=== PATIENT | female | born 1980 | race Caucasian/White ===

== ENCOUNTER 2016-11-03 11:49 | Emergency (ER) | payer OTHER ==
[~2016-11-03] VITALS: Ht 167.6 cm; Wt 110.0 kg
[~2016-11-03 11:49] MED LIST: AMOX1TAB11 PO; ARIP10TA13 PO; ARIP5TAB6 PO; BUPR100T6 PO; CIPR500T94 PO; DILT120C2 PO; DULO60CA6 PO; HYDR-971 PO; IBUP200T43 PO; INSU100C4; LEVO100T PO; LEVO75TA PO; LEVO88TA4 PO; LIRA0.6P SQ; LIRAGLUTIDE; LISD70CA3 PO; METF10002 PO; NPH,100I; ONDA4TAB7 PO; OXYC5CAP3 PO; PROM118S2 PO; RANI150T6 PO; SERT25TA PO; SITA50TA PO
[2016-11-03] MEDS ORDERED: IV NORMAL SALINE 1,000ML 1,000 ML IV SCH ×2 (12:29→15:13)
--- NOTE | 2016-11-03 12:49 | EKG ---
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
--- NOTE | 2016-11-03 12:54 | RAD ---
Portable chest, 11/03/2016: History: Nausea, SVT Comparison is made to a study from 08/31/2016. The heart size and pulmonary vascularity are normal. No pulmonary infiltrates are seen. There is no evidence of pleural fluid. IMPRESSION: No acute cardiopulmonary abnormality is detected.
[2016-11-03 12:59] LABS: BASO % 1 % (0-3); EOS # 0.1 x10^3/uL (0.0-0.7); EOS % 1 % (0-3); HEMATOCRIT 38.4 % (36.0-47.0); HEMOGLOBIN 12.8 g/dL (12.0-15.5); LYMPH # 1.9 x10^3/uL (1.0-4.8); LYMPH % 20 % (24-48); MEAN CORPUSCULAR HEMOGLOBIN 29 pg (25-35); MEAN CORPUSCULAR HGB CONC 33 g/dL (31-37); MEAN CORPUSCULAR VOLUME 87 fL (79-100); MONO # 0.5 x10^3/uL (0.0-1.1); MONO % 6 % (0-9); NEUT % 73 % (31-73); PLATELET COUNT 415 x10^3/uL (140-400); RED BLOOD COUNT 4.41 x10^6/uL (3.50-5.40); RED CELL DISTRIBUTION WIDTH 14.1 % (11.5-14.5); WHITE BLOOD COUNT 9.6 x10^3/uL (4.0-11.0)
[2016-11-03 13:05] LABS: ALBUMIN 4.3 g/dL (3.4-5.0); CALCIUM 9.8 mg/dL (8.5-10.1); CREATININE 0.9 mg/dL (0.6-1.0); GFR 71.7; MAGNESIUM 1.7 mg/dL (1.8-2.4); POTASSIUM 3.8 mmol/L (3.5-5.1); TOTAL BILIRUBIN 0.5 mg/dL (0.2-1.0); TOTAL PROTEIN 8.7 g/dL (6.4-8.2)
--- NOTE | 2016-11-03 13:08 | PHYS DOC ---
General Chief Complaint: DIZZY/LIGHT HEADED Stated Complaint: n/v/d Time Seen by MD: 11:50 Source: patient Exam Limitations: no limitations Problems: History of Present Illness Initial Comments Pt is 36/F to ED c/o n/v/d, dizziness. Pt states she has chronic loose stools which have worsened this week. She's had abdominal cramping, n/v, malaise/chills/myalgias. Decreased PO intake past two days pt lightheaded standing and with activity. No cp/sob/palpitations, no blood seen. No travel/bad food exposure no prearrival treatment. Pt has h/o SVT is on cardizem as she refuses ablation, HR on arrival 104 bpm. Timing/Duration: 1 week, getting worse Severity: severe Modifying Factors: worse with movement, improves with rest Associated Symptoms: diaphoresis, fever/chills, malaise, nausea/vomiting, weakness, other Allergies: Coded Allergies: butorphanol (Verified Allergy, Intermediate, Unknown, 08/31/16) pt states this med makes her angry lorazepam (Verified Allergy, Mild, 08/31/16) morphine (Unverified Allergy, Mild, Nausea and Vomiting, 08/31/16) SEVERE HEADACHE Past Medical History Medical History: diabetes, hypertension, other (anxiety, depression, kidney stones) Surgical History: cholecystectomy, other (CS) Family History Significant Family History: no pertinent family hx Social History Smoker: non-smoker Alcohol: none Drugs: none Review of Systems Constitutional: see HPI Respiratory: denies cough, denies shortness of breath, denies wheezing Cardiovascular: denies chest pain, denies edema, denies palpitations, denies syncope Gastrointestinal: see HPI Genitourinary: denies dysuria, denies frequency, denies hematuria Musculoskeletal: see HPIdenies back pain, denies joint swelling, denies neck pain Psychiatric/Neurological: see HPIdenies headache, denies numbness, denies paresthesia, denies seizure, denies weakness Physical Exam General Appearance: no apparent distress, obese Eyes: bilateral eye EOMI, bilateral eye PERRL, bilateral eye normal inspection Ear, Nose, Throat: hearing grossly normal, normal ENT inspection (mucous membranes very dry), normal pharynx Neck: non-tender, supple Respiratory: normal breath sounds, no respiratory distress Cardiovascular: normal peripheral pulses, no edema Gastrointestinal: normal bowel sounds, soft (ND, generalized TTP no r/g/mass, neg mcburney/hare) Back: no CVA tenderness, no vertebral tenderness Extremities: non-tender, normal inspection 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 PHYSICIAN: ETELVNIA FOWLER DO REASON: svt, nausea PROCEDURE: PORTABLE CHEST 1V Portable chest, 11/03/2016: History: Nausea, SVT Comparison is made to a study from 08/31/2016. The heart size and pulmonary vascularity are normal. No pulmonary infiltrates are seen. There is no evidence of pleural fluid. IMPRESSION: No acute cardiopulmonary abnormality is detected. DICTATED AND SIGNED BY: DAVID FOWLER MD DATE: 11/03/16 1250 CC: BALA JETT; ETELVINA FOWLER DO ~ PATIENT: JOY LEE ACCOUNT: [id number] : 1980 LOCATION: ER AGE: 36 SEX: F EXAM STATUS: REG ER ORD. PHYSICIAN: ETELVINA FOWLER DO REASON: epigastric pain, nausea PROCEDURE: CT ABDOMEN PELVIS WO CONTRAST Indication right-sided pain. Axial images through the abdomen and pelvis were obtained. The study is limited. No IV or gastrointestinal contrast was administered. Note is made of a previous examination 03/04/2016. The lung bases are clear. There is a small ventral abdominal hernia in the upper abdomen in the midline. It appears uncomplicated containing only a small amount of mesenteric fat. The liver and spleen appear unremarkable. Clips are noted in the gallbladder fossa. The pancreas appears unremarkable. The adrenal glands and kidneys appear normal. There is no hydronephrosis hydroureter or calcification seen along the course of either ureter. There are occasional calcifications in the pelvis compatible with phleboliths similar to the previous exam. An acute finding in the abdomen is not seen. The appendix is seen in the right lower quadrant and appears normal. There is a low-density 3 cm mass in the right adnexa probably reflecting a dominant cyst associated with the ovary. No additional finding is seen in the pelvis. There are pars defects at L5 with associated mild spondylolisthesis. IMPRESSION: No acute or significant finding seen in the abdomen or pelvis. Probable physiologic cyst associated with the right ovary PQRS Compliance Statement: One or more of the following individualized dose reduction techniques were utilized for this examination: 1. Automated exposure control 2. Adjustment of the mA and/or kV according to patient size 3. Use of iterative reconstruction technique DICTATED AND SIGNED BY: IVAN MULLIGAN MD DATE: 11/03/16 1413 CC: BALA JETT; ETELVINA FOWLER DO ~ d-dimer 0.27 Pt dizziness better with hydration, workup overall reassuring. I discussed tx plan with pt she expressed agreement/understanding. Departure Time of Disposition: 16:28 Disposition: HOME, SELF-CARE Diagnosis: gastroenteritis, hypovolemia, chronic SVT Condition: IMPROVED Patient Instructions: Dehydration, Adult, [id number], Supraventricular Tachycardia, Saya-ge-[id number], Viral Gastroenteritis, [id number] Additional Instructions: Rest, no strenuous activity. Clear liquids, advance to bland diet tomorrow as tolerated. Aggressive hydration with gatorade, water. Work excuse thru 11/06. Rx: zofran odt for nausea, phenergan MT for severe nausea. Dicyclomine for cramping. Follow up with your doctor Sunday if not better. Return to ED with new or changing symptoms. ETELVINA FOWLER DO Nov 03, 2016 13:08
[2016-11-03 13:17] LABS: AMPHETAMINE/METHAMPHETAMINE NEG (NEG); BARBITURATES NEG (NEG); BENZODIAZEPINES NEG (NEG); CANNABINOIDS NEG (NEG); COCAINE NEG (NEG); METHADONE NEG (NEG); OPIATES NEG (NEG); PHENCYCLIDINE NEG (NEG)
[2016-11-03 13:19] LABS: BACTERIA,URINE 0 /HPF (0-FEW); BILIRUBIN,URINE NEG (NEG); CLARITY,URINE HAZY; COLOR,URINE YELLOW; GLUCOSE,URINE NEG (NEG); NITRITE,URINE NEG (NEG); RBC,URINE RARE /HPF (0-2); SQUAMOUS EPITHELIAL CELL,UR FEW /LPF; UROBILINOGEN,URINE 0.2 mg/dL (0.2 mg/dL); WBC,URINE RARE /HPF (0-4)
--- NOTE | 2016-11-03 13:48 | RAD ---
Indication abdominal pain. Supine and upright films of the abdomen were obtained. The lung bases are clear. There is no free air. Clips are seen in the gallbladder fossa. Abdominal gas pattern has a nonobstructive appearance. There is a calcification noted in the left pelvis compatible with a phlebolith similar to a study 01/01/2016. IMPRESSION: No acute or significant finding seen on plain films of the abdomen
[2016-11-03] MEDS ORDERED: LIDO:MAALOX 1:1 20 ML SINGLE DOSE PO ONE (13:50)
[2016-11-03] MEDS ORDERED: POTASSIUM CHLORIDE 20 MEQ TABLET.ER. PO ONE (14:10)
[2016-11-03] MEDS ORDERED: MAGNESIUM CHLORIDE ER 64 MG TABLET.ER PO ONE (14:15)
--- NOTE | 2016-11-03 14:42 | RAD ---
Indication right-sided pain. Axial images through the abdomen and pelvis were obtained. The study is limited. No IV or gastrointestinal contrast was administered. Note is made of a previous examination 03/04/2016. The lung bases are clear. There is a small ventral abdominal hernia in the upper abdomen in the midline. It appears uncomplicated containing only a small amount of mesenteric fat. The liver and spleen appear unremarkable. Clips are noted in the gallbladder fossa. The pancreas appears unremarkable. The adrenal glands and kidneys appear normal. There is no hydronephrosis hydroureter or calcification seen along the course of either ureter. There are occasional calcifications in the pelvis compatible with phleboliths similar to the previous exam. An acute finding in the abdomen is not seen. The appendix is seen in the right lower quadrant and appears normal. There is a low-density 3 cm mass in the right adnexa probably reflecting a dominant cyst associated with the ovary. No additional finding is seen in the pelvis. There are pars defects at L5 with associated mild spondylolisthesis. IMPRESSION: No acute or significant finding seen in the abdomen or pelvis. Probable physiologic cyst associated with the right ovary PQRS Compliance Statement: One or more of the following individualized dose reduction techniques were utilized for this examination: 1. Automated exposure control 2. Adjustment of the mA and/or kV according to patient size 3. Use of iterative reconstruction technique
[2016-11-03] MEDS ORDERED: PROMETHAZINE 25 MG/ML VIAL IV ONE (15:20)
[2016-11-03] MEDS ORDERED: IV NORMAL SALINE 50ML 50 ML ONE (15:20)
[2016-11-03 15:43] VITALS: BP 136/76
[2016-11-03] MEDS ORDERED: PROMETHAZINE 25 MG in IV NORMAL SALINE 50ML 50 ML IV PRN (15:45)
[2016-11-03] MEDS ORDERED: ONDA4TAB10 PO (16:28)
[2016-11-03] MEDS ORDERED: DICY20TA3 PO (16:28)
[2016-11-03] MEDS ORDERED: PROM25SU32 RC (16:28)
== END 2016-11-03 16:38 | disposition home or self-care (01) ==
LOC: ER 11:49
DX: K52.9 Noninfective gastroenteritis and colitis, unspecified (principal); E86.1 Hypovolemia; I47.1 Supraventricular tachycardia; R10.13 Epigastric pain; E11.9 Type 2 diabetes mellitus without complications; I10 Essential (primary) hypertension; Z87.442 Personal history of urinary calculi; Z88.5 Allergy status to narcotic agent; Z88.8 Allergy status to other drugs, medicaments and biological substances
CPT/HCPCS: 36415; 71010; 74020; 74176; 80053; 80305; 81001; 82550; 83605; 83735; 83880; 84484; 84703; 85027; 85379; 93005; 96361; 96365; 99285; J2550; 81025; G0481; J7030

== ENCOUNTER 2016-11-18 20:03 | Emergency (ER) | payer OTHER ==
[~2016-11-18] VITALS: Ht 167.6 cm; Wt 102.1 kg
[~2016-11-18 20:03] MED LIST changes: -ARIP10TA13 PO; +ARIP10TA9 PO; +ARIP5TAB13 PO; -ARIP5TAB6 PO; +DICY20TA3 PO; -LISD70CA3 PO; +LISD70CA5 PO; +ONDA4TAB10 PO; +OXYC5CAP PO; -OXYC5CAP3 PO; +PROM25SU32 RC
[2016-11-18] MEDS ORDERED: 0.9 % SODIUM CHLORIDE 10 ML DISP.SYRIN. IV PRN (20:45)
[2016-11-18] MEDS ORDERED: HYDROmorphone PF 1 MG/ML DISP.SYRIN IV/SQ PRN (20:45)
--- NOTE | 2016-11-18 20:51 | EKG ---
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
[2016-11-18] MEDS ORDERED: IV NORMAL SALINE 1,000ML 1,000 ML IV SCH (21:00)
[2016-11-18] MEDS ORDERED: ONDANSETRON PF 4 MG/2 ML VIAL. IV ONE (21:00)
--- NOTE | 2016-11-18 21:30 | PHYS DOC ---
Past History Past Medical History: Anxiety, Depression, Kidney Stones, Other Additional Past Medical Histor: irritable bowel syndrome, peptic ulcer disease , subcutaneous reflux disease Past Surgical History: Cholecystectomy, , Other Smoking: Non-smoker Alcohol Use: Occasionally Drug Use: None Adult General Chief Complaint Chief Complaint: ABDOMINAL PAIN HPI HPI This is a pleasant 36-year-old female with history of IBS, peptic ulcer disease , esophageal reflux disease, anxiety, depression, kidney stones who presents with two-hour history of abdominal pain described as crampy diffuse with causing nausea and vomiting nonbilious nonbloody. She also had a stool earlier today with what she describes as dark stool and mucus. She took one Motrin earlier today for her symptoms which did not help. She's had symptoms in the past summer to this she denies any recent trauma, travel, antimicrobials, sick contacts, consumption of raw foods, and \poultry or reptiles, feels, chills, or sick contacts with similar symptoms. He is primarily looking for pink troll for her crampy abdominal pain. She does see a GI doctor at another facility but is presently on no medications for her IBS. She has not had a colonoscopy recently she has had lithotripsy and basket retrieval for kidney stones in the past. She denies any UTI symptoms night sweats weight loss denies being . She is a 051 Review of Systems Review of Systems Constitutional: Denies fever or chills [] Eyes: Denies change in visual acuity, redness, or eye pain [] HENT: Denies nasal congestion or sore throat [] Respiratory: Denies cough or shortness of breath [] Cardiovascular: No additional information not addressed in HPI [] GI: Denies abdominal pain, nausea, vomiting, bloody stools or diarrhea [] : Denies dysuria or hematuria [] Musculoskeletal: Denies back pain or joint pain [] Integument: Denies rash or skin lesions [] Neurologic: Denies headache, focal weakness or sensory changes [] Endocrine: Denies polyuria or polydipsia [] Current Medications Current Medications Current Medications Medications (Trade) Dose Ordered Sig/Monica Start Time Stop Time Status Last Admin Dose Admin Hydromorphone HCl (Dilaudid) 1 mg PRN Q15MIN PRN 11/18/16 20:45 11/19/16 20:44 Ondansetron HCl (Zofran) 4 mg 1X ONCE 11/18/16 21:00 11/18/16 21:01 DC Sodium Chloride (Normal Saline Flush) 10 ml QSHIFT PRN 11/18/16 20:45 Allergies Allergies Allergies Coded Allergies Type Severity Reaction Last Updated Verified butorphanol Allergy Intermediate Unknown 08/31/16 Yes lorazepam Allergy Mild 08/31/16 Yes morphine Allergy Mild Nausea and Vomiting 08/31/16 No Physical Exam Physical Exam Constitutional: Well developed, well nourished, no acute distress, non-toxic appearance. [] HENT: Normocephalic, atraumatic, bilateral external ears normal, oropharynx moist, no oral exudates, nose normal. [] Eyes: PERRLA, EOMI, conjunctiva normal, no discharge. [] Neck: Normal range of motion, no tenderness, supple, no stridor. [] Cardiovascular:Heart rate regular rhythm, no murmur [] Lungs & Thorax: Bilateral breath sounds clear to auscultation [] Abdomen: Bowel sounds normal, soft, no tenderness, no masses, no pulsatile masses. [] Skin: Warm, dry, no erythema, no rash. [] Back: No tenderness, no CVA tenderness. [] Extremities: No tenderness, no cyanosis, no clubbing, ROM intact, no edema. [] Neurologic: Alert and oriented X 3, normal motor function, normal sensory function, no focal deficits noted. [] Psychologic: Affect normal, judgement normal, mood normal. [] Current Patient Data Vital Signs Vital Sign - Last 24 Hours 11/18/16 20:20 Temp 98.3 Pulse 105 Resp 20 Pulse Ox 100 O2 Delivery Room Air Vital Signs Date Time Temp Pulse Resp B/P (MAP) Pulse Ox O2 Delivery O2 Flow Rate FiO2 11/18/16 20:20 98.3 105 20 100 Room Air Lab Results Nursery Laboratory Tests 11/18/16 20:51: Urine Collection Type Unknown, Urine Color Yellow, Urine Clarity Cloudy, Urine pH 5.0, Urine Specific Tony >=1.030, Urine Protein Neg, Urine Glucose (UA) Neg, Urine Ketones (Stick) Neg, Urine Blood Neg, Urine Nitrite Neg, Urine Bilirubin Neg, Urine Urobilinogen Dipstick 0.2, Urine Leukocyte Esterase Neg, Urine RBC 1-2, Urine WBC 1-4, Urine Squamous Epithelial Cells Few, Urine Bacteria Few, Urine Mucus Slight 11/18/16 21:40: White Blood Count 10.7, Red Blood Count 4.28, Hemoglobin 12.7, Hematocrit 37.3, Mean Corpuscular Volume 87, Mean Corpuscular Hemoglobin 30, Mean Corpuscular Hemoglobin Concent 34, Red Cell Distribution Width 14.6, Platelet Count 445, Neutrophils (%) (Auto) 73, Lymphocytes (%) (Auto) 22, Monocytes (%) (Auto) 4, Eosinophils (%) (Auto) 1, Basophils (%) (Auto) 1, Neutrophils # (Auto) 7.8, Lymphocytes # (Auto) 2.3, Monocytes # (Auto) 0.4, Eosinophils # (Auto) 0.1, Basophils # (Auto) 0.1, Sodium Level 138, Potassium Level 3.4, Chloride Level 102, Carbon Dioxide Level 28, Anion Gap 8, Blood Urea Nitrogen 13, Creatinine 0.8, Estimated GFR (Cockcroft-Gault) 82.1, BUN/Creatinine Ratio 16, Glucose Level 95, Calcium Level 9.3, Total Bilirubin 0.8, Aspartate Amino Transf (AST/ SGOT) 16, Alanine Aminotransferase (ALT/SGPT) 31, Alkaline Phosphatase 66, Total Protein 8.4, Albumin 4.5, Albumin/Globulin Ratio 1.2, Lipase 227 EKG EKG [] Radiology/Procedures Radiology/Procedures [] Course & Med Decision Making Course & Med Decision Making Pertinent Labs and Imaging studies reviewed. (See chart for details) [] Reviewed nurse's notes past medical history past notes in the computer I'm concerned for presentation this patient may be suffering from peptic ulcer or some other upper GI bleed. Patient may also be some appendicitis although she has no gallbladder and she is clinically being we have to assume that we have to rule out ectopic as well as mobile obstruction. At this time nursing staff about having a difficult time getting IV access on this patient. Impression abdominal pain of unclear etiology. Treatment plan Bentanand Zofran Lortab. Follow-up with GI and primary care doctor. Disposition: Primary care doctor next 48 hours precautions given daily night discussed possible early presentation of appendicitis versus diverticulitis or irritable bowel syndrome. There is no evidence of bowel inflation on CT exam patient's labs are unremarkable patient's H&H is stable within normal limits this time patient feels comfortable after fluids and antiemetics and pain meds will exam secondarily is resolved pain no focal tenderness in the right lower quadrant no Chin Avalos sign or McBurney's point tenderness to palpation I reviewed vital signs which are now normal tachycardias improve with fluids patient is comfortable and resting without issue Dragon Disclaimer Dragon Disclaimer This chart was dictated in whole or in part using Voice Recognition software in a busy, high-work load, and often noisy Emergency Department environment. It may contain unintended and wholly unrecognized errors or omissions. Departure Departure: Impression: Primary Impression: Dizziness Additional Impression: Pain in the abdomen Disposition: HOME, SELF-CARE Referrals: BALA JETT (PCP) Patient Instructions: Abdominal Pain, Nausea and Vomiting Scripts Hydrocodone/Acetaminophen (Lortab 5-325 mg Tablet) 1 Each Tablet 1 TAB PO PRN Q6HRS Y for PAIN, #14 TAB 0 Refills Prov: CECE CH MD 11/18/16 Ondansetron (ZOFRAN ODT) 8 Mg Tab.rapdis 4 MG PO TID, #14 Prov: CECE CH MD 11/18/16 Dicyclomine Hcl (BENTYL) 10 Mg Capsule 1 CAP PO TID, #12 CAP 1 Refill Prov: CECE CH MD 11/18/16 Problem Qualifiers CECE CH MD November 18, 2016 21:30
[2016-11-18 21:54] LABS: BASO # 0.1 x10^3/uL (0.0-0.2); BASO % 1 % (0-3); EOS # 0.1 x10^3/uL (0.0-0.7); EOS % 1 % (0-3); HEMATOCRIT 37.3 % (36.0-47.0); HEMOGLOBIN 12.7 g/dL (12.0-15.5); LYMPH # 2.3 x10^3/uL (1.0-4.8); LYMPH % 22 % (24-48); MEAN CORPUSCULAR HEMOGLOBIN 30 pg (25-35); MEAN CORPUSCULAR HGB CONC 34 g/dL (31-37); MEAN CORPUSCULAR VOLUME 87 fL (79-100); MONO # 0.4 x10^3/uL (0.0-1.1); MONO % 4 % (0-9); NEUT # 7.8 x10^3uL (1.8-7.7); NEUT % 73 % (31-73); PLATELET COUNT 445 x10^3/uL (140-400); RED BLOOD COUNT 4.28 x10^6/uL (3.50-5.40); RED CELL DISTRIBUTION WIDTH 14.6 % (11.5-14.5); WHITE BLOOD COUNT 10.7 x10^3/uL (4.0-11.0)
[2016-11-18] MEDS ORDERED: diphenhydrAMINE 50 MG/ML VIAL IVP ONE (22:00)
[2016-11-18 22:04] LABS: ALBUMIN 4.5 g/dL (3.4-5.0); ALBUMIN/GLOBULIN RATIO 1.2 (1.0-1.7); CALCIUM 9.3 mg/dL (8.5-10.1); CREATININE 0.8 mg/dL (0.6-1.0); GFR 82.1; POTASSIUM 3.4 mmol/L (3.5-5.1); TOTAL BILIRUBIN 0.8 mg/dL (0.2-1.0); TOTAL PROTEIN 8.4 g/dL (6.4-8.2)
[2016-11-18 22:17] LABS: CLARITY,URINE CLOUDY; COLOR,URINE YELLOW
[2016-11-18 22:18] LABS: BILIRUBIN,URINE NEG (NEG); GLUCOSE,URINE NEG (NEG); NITRITE,URINE NEG (NEG); UROBILINOGEN,URINE 0.2 mg/dL (0.2 mg/dL)
[2016-11-18 22:19] LABS: BACTERIA,URINE FEW /HPF (0-FEW); SQUAMOUS EPITHELIAL CELL,UR FEW /LPF
[2016-11-18] MEDS ORDERED: fentaNYL PF 100 MCG/2 ML VIAL IV ONE (22:45)
[2016-11-18] MEDS ORDERED: IOHEXOL 300 MG/ML 75 ML VIAL. IV ONE (22:45)
[2016-11-18] MEDS ORDERED: CONTRAST GIVEN MC PRN (22:45)
[2016-11-18 23:11] VITALS: BP 134/76
--- NOTE | 2016-11-18 23:13 | RAD ---
PROCEDURE CT of the abdomen and pelvis without contrast HISTORY Umbilical pain. Nausea. Inflammatory bowel syndrome. Diabetes. Peptic ulcer. TECHNIQUE Images obtained after intravenous contrast. No oral contrast per request. Exposure: One or more of the following individualized dose reduction techniques were utilized for this exam: 1. Automated exposure control. 2. Adjustment of the mA and/or kV according to patient size. 3. Use of iterative reconstruction technique. FINDINGS Lung bases are clear. Liver unremarkable. Spleen unremarkable. Pancreas unremarkable. No evidence of adrenal mass. Gallbladder surgically absent. No evidence of aortic aneurysm. No significant lymph node enlargement. No evidence of bowel obstruction. Moderate retained stool in the right colon. No evidence of pericolonic inflammation. The appendix is not visualized. No evidence of ascites. Small low-density in the left adnexa, may represent an ovarian cyst which measures 12 millimeters. There is transitional anatomy at the lumbosacral junction. Bilateral spondylolysis at L5, with mild anterior subluxation of L5 on S1. Note this counting assumes lumbarization of S1 IMPRESSION 1. Small low-density lesion at the left adnexa may represent a small ovarian cyst. 2. Spondylolysis at L5 with mild spondylolisthesis. 3. Otherwise no evidence of acute abnormality. Electronically signed by: Terence Russell MD (November 18, 2016 23:12:17)
[2016-11-18] MEDS ORDERED: HYDR-2678 PO (23:43)
[2016-11-18] MEDS ORDERED: ONDA8TAB12 PO (23:43)
[2016-11-18] MEDS ORDERED: DICY10CA53 PO (23:43)
== END 2016-11-18 23:52 | disposition home or self-care (01) ==
LOC: ER 20:03
DX: R10.9 Unspecified abdominal pain (principal); R42 Dizziness and giddiness; R11.2 Nausea with vomiting, unspecified; K21.9 Gastro-esophageal reflux disease without esophagitis; K58.9 Irritable bowel syndrome, unspecified; E11.9 Type 2 diabetes mellitus without complications; Z87.11 Personal history of peptic ulcer disease; Z87.442 Personal history of urinary calculi; Z90.49 Acquired absence of other specified parts of digestive tract; Z98.890 Other specified postprocedural states; Z88.5 Allergy status to narcotic agent; Z88.8 Allergy status to other drugs, medicaments and biological substances
CPT/HCPCS: 36415; 74177; 80053; 81001; 82947; 83690; 85027; 93005; 96361; 96374; 96375; 99285; J1170; J1200; J2405; J3010; Q9967; J7030

== ENCOUNTER 2016-11-27 17:46 | Emergency (ER) | payer OTHER ==
[~2016-11-27] VITALS: Ht 167.6 cm; Wt 110.0 kg
[~2016-11-27 17:46] MED LIST changes: +DICY10CA53 PO; +HYDR-2678 PO; +ONDA8TAB12 PO
[2016-11-27 17:50] VITALS: BP 153/79
--- NOTE | 2016-11-27 18:43 | PHYS DOC ---
Past History Past Medical History: Anxiety, Depression, Kidney Stones, Other Additional Past Medical Histor: irritable bowel syndrome, peptic ulcer disease , subcutaneous reflux disease Past Surgical History: Cholecystectomy, , Other Smoking: Non-smoker Alcohol Use: Occasionally Drug Use: None Adult General Chief Complaint Chief Complaint: SORE THROAT [facility] HPI Patient is a 36 year old female who presents with sore throat. She states the sore throat just started today. Her son however has strep throat. She states "I just feel awful". The throat pain is more painful on the right side. No difficulty swallowing, no drooling. No known fever. No rash. No vomiting or diarrhea. No cough or cold symptoms. She does have diffuse joint aches however. Review of Systems Review of Systems Constitutional: Denies fever or chills Eyes: Denies change in visual acuity, redness, or eye pain HENT: Denies nasal congestion. No neck pain or stiffness Respiratory: Denies cough or shortness of breath Cardiovascular: No additional information not addressed in HPI . No chest pain. GI: Denies abdominal pain, nausea, vomiting, bloody stools or diarrhea : Denies dysuria or hematuria Musculoskeletal: Denies back pain; diffuse joint pain but no swelling Integument: Denies rash or skin lesions Neurologic: Denies headache, focal weakness or sensory changes Current Medications Current Medications Current Medications Medications (Trade) Dose Ordered Sig/Monica Start Time Stop Time Status Last Admin Dose Admin Ketorolac Tromethamine (Toradol) 60 mg 1X ONCE 11/27/16 19:00 11/27/16 19:01 DC 11/27/16 19:08 60 MG Penicillin G Benzathine (Bicillin L-A) 1,200,000 unit 1X ONCE 11/27/16 19:00 11/27/16 19:01 DC 11/27/16 19:09 1,200,000 UNIT Allergies Allergies Allergies Coded Allergies Type Severity Reaction Last Updated Verified butorphanol Allergy Intermediate Unknown 11/18/16 Yes lorazepam Allergy Mild 11/18/16 Yes morphine Allergy Mild Nausea and Vomiting 11/18/16 No Physical Exam Physical Exam Constitutional: Well developed, well nourished, no acute distress, non-toxic appearance. HENT: Normocephalic, atraumatic, bilateral external ears normal, oropharynx moist, nose normal. No drooling. Posterior pharynx shows erythema and exudate on the right tonsil. No pointing of the area. No asymmetry in the posterior fornix. No uvula swelling. No stridor or hoarseness. Eyes: PERRLA, EOMI, conjunctiva normal, no discharge. Neck: Normal range of motion, no tenderness, supple, no stridor. Cardiovascular:Heart rate regular rhythm, no murmur Lungs & Thorax: Bilateral breath sounds clear to auscultation Abdomen: Bowel sounds normal, soft, no tenderness, no masses, no pulsatile masses. Skin: Warm, dry, no erythema, no rash. Back: No tenderness, no CVA tenderness. Extremities: No tenderness, no cyanosis, no clubbing, ROM intact, no edema. Neurologic: Alert and oriented X 3, normal motor function, normal sensory function, no focal deficits noted. Psychologic: Affect normal, judgement normal, mood normal. Current Patient Data Vital Signs Vital Signs Date Time Temp Pulse Resp B/P (MAP) Pulse Ox O2 Delivery O2 Flow Rate FiO2 11/27/16 17:50 98.4 108 16 96 Room Air Course & Med Decision Making Course & Med Decision Making Differentiall diagnoses include strep, mono, viral syndrome, Yuri's angina, retropharyngeal abscess. She shows no sign of acute airway obstruction or compromise. Since her son has a known documented recent strep will proceed with treatment. She was dosed with IM penicillin here. She was given pain medication and Zofran; dosed here with Toradol. She was given Lortab elixir Rx. Dragon Disclaimer Dragon Disclaimer This chart was dictated in whole or in part using Voice Recognition software in a busy, high-work load, and often noisy Emergency Department environment. It may contain unintended and wholly unrecognized errors or omissions. Departure Departure: Disposition: HOME, SELF-CARE Referrals: BALA JETT (PCP) NIDA ROSALES MD November 27, 2016 18:43
[2016-11-27] MEDS ORDERED: PENICILLIN G BENZATHINE LA 1,200,000 UNIT/2 ML DISP.SYRIN. IM ONE (19:00)
[2016-11-27] MEDS ORDERED: KETOROLAC 60 MG/2 ML VIAL. IM ONE (19:00)
== END 2016-11-27 19:18 | disposition home or self-care (01) ==
LOC: ER 17:46
DX: J02.9 Acute pharyngitis, unspecified (principal); R07.0 Pain in throat; M25.50 Pain in unspecified joint; Z87.442 Personal history of urinary calculi; Z88.5 Allergy status to narcotic agent; Z88.8 Allergy status to other drugs, medicaments and biological substances
CPT/HCPCS: 96372; 99284; J0561; J1885

== ENCOUNTER 2016-12-08 02:40 | Emergency (ER) | payer OTHER ==
--- NOTE | 2016-12-08 03:09 | PHYS DOC ---
Past History Past Medical History: Anxiety, Depression, Hypothyroid, Kidney Stones Additional Past Medical Histor: irritable bowel syndrome, peptic ulcer disease , subcutaneous reflux disease Past Surgical History: Cholecystectomy, Smoking: Non-smoker Alcohol Use: Occasionally Drug Use: None Adult General Chief Complaint Chief Complaint: ABDOMINAL PAIN HPI HPI Patient is a 36 year old female who presents with abdominal pain and nausea and vomiting for the past 3 hours. Patient states she is vomiting what looks like feces. Previous abdominal surgeries consist of cholecystectomy. Patient denies any history of small bowel obstructions. Patient's last bowel movement was prior to arrival. Patient into some epigastric pain. Patient has no fevers. She denies any chest pain or shortness of breath. Patient has no other complaints. Exam findings: Positive tenderness to palpation epigastric with hypoactive bowel sounds in all 4 quadrants ED course: Patient was seen and evaluated upon arrival CBC, CMP, lipase, UA, CT of abdomen and pelvis with contrast, Reglan, fentanyl, 1 L normal same bolus was ordered 0435: Results were discussed with the patient who is still vomiting and is now tachycardic and since her surgeon is out of [place] she would like to be transferred there. Her surgeon is Dr. Pham. 0440: paged tongue and quarter stitcher doc for Dr. Pham 0445: Discussed CC/HP/PMH with Dr. Hoffman and recommends admit and the placed on consult with admission to the hospitalist and wants NG tube placed 0446: NG tube placed 0447: paged Dr. Nicholson for hospitalist 0450: Discussed CC/HP/PMH with Dr. Nicholson and recommends admit Results: White count is 11, lipase is 485 CT scan is suspicious for early SBO MDM: After reviewing the chart, CC/HPI/PMH, physical exam, lab results, radiological results, I believe patient has a partial small bowel obstruction given the dilated proximal loops of bowel and stomach and the persistent nausea and vomiting and tachycardia. Patient is being transferred to [place] since her surgeon is out of there and does not come to [facility]. NG tube was placed in the emergency room. Patient will be admitted to the hospital to the hospitalist with surgery on consult. Review of Systems Review of Systems Constitutional: Denies fever or chills [] Eyes: Denies change in visual acuity, redness, or eye pain [] HENT: Denies nasal congestion or sore throat [] Respiratory: Denies cough or shortness of breath [] Cardiovascular: No additional information not addressed in HPI [] GI: Abdominal pain with nausea and vomiting : Denies dysuria or hematuria [] Musculoskeletal: Denies back pain or joint pain [] Integument: Denies rash or skin lesions [] Allergies Allergies Allergies Coded Allergies Type Severity Reaction Last Updated Verified butorphanol Allergy Intermediate Unknown 11/18/16 Yes lorazepam Allergy Mild 11/18/16 Yes morphine Allergy Mild Nausea and Vomiting 11/18/16 No Physical Exam Physical Exam Constitutional: Well developed, well nourished, no acute distress, non-toxic appearance. [] HENT: Normocephalic, atraumatic, bilateral external ears normal, oropharynx moist, no oral exudates, nose normal. [] Eyes: PERRLA, EOMI, conjunctiva normal, no discharge. [] Neck: Normal range of motion, no tenderness, supple, no stridor. [] Cardiovascular:Heart rate regular rhythm, no murmur [] Lungs & Thorax: Bilateral breath sounds clear to auscultation [] Abdomen: Epigastric tenderness to palpation with hypoactive bowel sounds in all 4 quadrants, no masses, no pulsatile masses. [] Skin: Warm, dry, no erythema, no rash. [] Back: No tenderness, no CVA tenderness. [] Extremities: No tenderness, no cyanosis, no clubbing, ROM intact, no edema. [] Neurologic: Alert and oriented X 3, normal motor function, normal sensory function, no focal deficits noted. [] Psychologic: Affect normal, judgement normal, mood normal. [] Current Patient Data Lab Results Laboratory Tests Test 12/08/16 03:15 12/08/16 03:19 White Blood Count 11.9 x10^3/uL (4.0-11.0) Red Blood Count 4.45 x10^6/uL (3.50-5.40) Hemoglobin 12.8 g/dL (12.0-15.5) Hematocrit 38.3 % (36.0-47.0) Mean Corpuscular Volume 86 fL (79-100) Mean Corpuscular Hemoglobin 29 pg (25-35) Mean Corpuscular Hemoglobin Concent 34 g/dL (31-37) Red Cell Distribution Width 15.0 % (11.5-14.5) Platelet Count 424 x10^3/uL (140-400) Neutrophils (%) (Auto) 72 % (31-73) Lymphocytes (%) (Auto) 21 % (24-48) Monocytes (%) (Auto) 5 % (0-9) Eosinophils (%) (Auto) 1 % (0-3) Basophils (%) (Auto) 1 % (0-3) Neutrophils # (Auto) 8.5 x10^3uL (1.8-7.7) Lymphocytes # (Auto) 2.5 x10^3/uL (1.0-4.8) Monocytes # (Auto) 0.6 x10^3/uL (0.0-1.1) Eosinophils # (Auto) 0.1 x10^3/uL (0.0-0.7) Basophils # (Auto) 0.1 x10^3/uL (0.0-0.2) Urine Collection Type Unknown Urine Color Yellow Urine Clarity Hazy Urine pH 5.0 Urine Specific [place] >=1.030 Urine Protein Trace (NEG-TRACE) Urine Glucose (UA) Neg mg/dL (NEG) Urine Ketones (Stick) Neg mg/dL (NEG) Urine Blood Small (NEG) Urine Nitrite Neg (NEG) Urine Bilirubin Neg (NEG) Urine Urobilinogen Dipstick 0.2 mg/dL (0.2 mg/dL) Urine Leukocyte Esterase Neg (NEG) Urine RBC Occ /HPF (0-2) Urine WBC Occ /HPF (0-4) Urine Squamous Epithelial Cells Few /LPF Urine Bacteria Few /HPF (0-FEW) Urine Mucus Slight /LPF Urine Test Negative (NEG) Sodium Level 137 mmol/L (136-145) Potassium Level 4.0 mmol/L (3.5-5.1) Chloride Level 102 mmol/L (98-107) Carbon Dioxide Level 22 mmol/L (21-32) Anion Gap 13 (6-14) Blood Urea Nitrogen 20 mg/dL (7-20) Creatinine 0.7 mg/dL (0.6-1.0) Estimated GFR (Cockcroft-Gault) 95.8 BUN/Creatinine Ratio 29 (6-20) Glucose Level 143 mg/dL (70-99) Calcium Level 9.3 mg/dL (8.5-10.1) Total Bilirubin 0.5 mg/dL (0.2-1.0) Aspartate Amino Transf (AST/SGOT) 12 U/L (15-37) Alanine Aminotransferase (ALT/SGPT) 23 U/L (14-59) Alkaline Phosphatase 63 U/L (46-116) Total Protein 8.7 g/dL (6.4-8.2) Albumin 4.3 g/dL (3.4-5.0) Albumin/Globulin Ratio 1.0 (1.0-1.7) Lipase 485 U/L (73-393) Bedside Urine HCG, Qualitative hcg negative (Negative) EKG EKG [] Radiology/Procedures Radiology/Procedures CT abd and pelvis: IMPRESSION: 1. Increased fluid and luminal distention with air-fluid levels throughout the stomach, small bowel and colon without a transition point raising suspicion of ileus. 2. The appendix is negative. 3. Chronic L5 spondylolysis with anterolisthesis and L5-S1 neural foraminal stenosis. 4. 2 cm fatty ventral abdominal wall hernia.[] Course & Med Decision Making Course & Med Decision Making Pertinent Labs and Imaging studies reviewed. (See chart for details) [] Dragon Disclaimer Dragon Disclaimer This chart was dictated in whole or in part using Voice Recognition software in a busy, high-work load, and often noisy Emergency Department environment. It may contain unintended and wholly unrecognized errors or omissions. Departure Departure: Impression: Primary Impression: Partial small bowel obstruction Additional Impressions: Pancreatitis Abdominal pain Disposition: [facility] Admitting Physician: Other (Dr. Nicholson) Condition: STABLE Referrals: BALA JETT (PCP) Problem Qualifiers Additional Impressions: Pancreatitis Chronicity: acute Pancreatitis type: unspecified pancreatitis type Acute pancreatitis complication: no infection or necrosis Qualified Codes: K85.90 - Acute pancreatitis without necrosis or infection, unspecified Abdominal pain Abdominal location: epigastric Qualified Codes: R10.13 - Epigastric pain CHRISTY TIMMONS DO December 08, 2016 03:09
[2016-12-08] MEDS ORDERED: CONTRAST GIVEN MC PRN (03:15)
[2016-12-08] MEDS ORDERED: fentaNYL PF 100 MCG/2 ML VIAL IM ONE (03:30)
[2016-12-08] MEDS ORDERED: IOHEXOL 300 MG/ML 75 ML VIAL. IV ONE (03:30)
[2016-12-08] MEDS ORDERED: METOCLOPRAMIDE HCL 10 MG/2 ML VIAL. IV ONE (03:30)
[2016-12-08] MEDS ORDERED: IV NORMAL SALINE 1,000ML 1,000 ML IV ONE (03:30)
[2016-12-08 03:33] LABS: BASO # 0.1 x10^3/uL (0.0-0.2); BASO % 1 % (0-3); EOS # 0.1 x10^3/uL (0.0-0.7); EOS % 1 % (0-3); HEMATOCRIT 38.3 % (36.0-47.0); HEMOGLOBIN 12.8 g/dL (12.0-15.5); LYMPH # 2.5 x10^3/uL (1.0-4.8); LYMPH % 21 % (24-48); MEAN CORPUSCULAR HEMOGLOBIN 29 pg (25-35); MEAN CORPUSCULAR HGB CONC 34 g/dL (31-37); MEAN CORPUSCULAR VOLUME 86 fL (79-100); MONO # 0.6 x10^3/uL (0.0-1.1); MONO % 5 % (0-9); NEUT # 8.5 x10^3uL (1.8-7.7); NEUT % 72 % (31-73); PLATELET COUNT 424 x10^3/uL (140-400); RED BLOOD COUNT 4.45 x10^6/uL (3.50-5.40); WHITE BLOOD COUNT 11.9 x10^3/uL (4.0-11.0)
[2016-12-08 03:42] LABS: BACTERIA,URINE FEW /HPF (0-FEW); BILIRUBIN,URINE NEG (NEG); CLARITY,URINE HAZY; COLOR,URINE YELLOW; GLUCOSE,URINE NEG (NEG); NITRITE,URINE NEG (NEG); RBC,URINE OCC /HPF (0-2); SQUAMOUS EPITHELIAL CELL,UR FEW /LPF; U PREG PATIENT NEGATIVE (NEG); UROBILINOGEN,URINE 0.2 mg/dL (0.2 mg/dL); WBC,URINE OCC /HPF (0-4)
[2016-12-08 03:48] LABS: ALBUMIN 4.3 g/dL (3.4-5.0); CALCIUM 9.3 mg/dL (8.5-10.1); CREATININE 0.7 mg/dL (0.6-1.0); GFR 95.8; TOTAL BILIRUBIN 0.5 mg/dL (0.2-1.0); TOTAL PROTEIN 8.7 g/dL (6.4-8.2)
--- NOTE | 2016-12-08 04:04 | RAD ---
CT abdomen and pelvis with contrast TECHNIQUE: Helical CT imaging abdomen and pelvis was acquired with 75 mL Omnipaque 300 intravenous contrast COMPARISON: CT abdomen and pelvis November 18, 2016. HISTORY: Abdominal pain, nausea and vomiting. Abdomen findings: Chronic L5 spondylolysis with grade 1 anterolisthesis and severe bilateral L5-S1 neural foraminal stenoses associated with disc height loss and disc bulge. Lung bases are unremarkable. Cholecystectomy. Cholecystectomy. Liver, spleen, pancreas, kidneys and adrenal glands are unremarkable. Appendix is negative. There is diffuse increased fluid and luminal distention throughout the small bowel and colon. No transition point. No abdominal fluid or adenopathy. 2 cm supraumbilical midline ventral abdominal wall fatty hernia. Pelvis findings: Bladder, uterus, ovaries, rectum and bones are unremarkable. No fluid or adenopathy. IMPRESSION: 1. Increased fluid and luminal distention with air-fluid levels throughout the stomach, small bowel and colon without a transition point raising suspicion of ileus. 2. The appendix is negative. 3. Chronic L5 spondylolysis with anterolisthesis and L5-S1 neural foraminal stenosis. 4. 2 cm fatty ventral abdominal wall hernia. Exposure: One or more of the following individualized dose reduction techniques were utilized for this examination: 1. Automated exposure control 2. Adjustment of the mA and/or kV according to patient size 3. Use of iterative reconstruction technique Electronically signed by: Eagle Blankenship MD (12/08/2016 4:00 AM)
[2016-12-08] MEDS ORDERED: HYDROmorphone PF 1 MG/ML DISP.SYRIN IV ONE ×2 (05:00→06:00)
[2016-12-08 05:30] VITALS: BP 125/77
--- NOTE | 2016-12-08 08:09 | RAD ---
. Indication assess nasogastric tube placement. A single view targeted to the lower chest and upper abdomen was obtained. The abdominal gas pattern is unremarkable. A nasogastric tube is coiled in the body of the stomach. IMPRESSION: NG tube coiled in the body of the stomach
== END 2016-12-08 05:55 | disposition short-term general hospital (02) ==
LOC: ER 02:40
DX: K56.69 Other intestinal obstruction (principal); K85.90 Acute pancreatitis without necrosis or infection, unspecified; E03.9 Hypothyroidism, unspecified; Z87.442 Personal history of urinary calculi; K58.9 Irritable bowel syndrome, unspecified; Z87.11 Personal history of peptic ulcer disease; Z88.5 Allergy status to narcotic agent; Z88.8 Allergy status to other drugs, medicaments and biological substances
CPT/HCPCS: 36415; 74000; 74177; 80053; 81001; 81025; 83690; 84703; 85027; 96361; 96372; 96374; 96375; 99285; J1170; J2765; J3010; Q9967; J7030

== ENCOUNTER 2016-12-14 14:01 | Emergency (ER) | payer OTHER ==
[~2016-12-14] VITALS: Ht 167.6 cm; Wt 104.3 kg
--- NOTE | 2016-12-14 14:27 | PHYS DOC ---
General Chief Complaint: ABDOMINAL PAIN Stated Complaint: ABD PAIN Time Seen by MD: 14:03 Source: patient, old records Exam Limitations: no limitations Problems: History of Present Illness Initial Comments Patient is a 36-year-old female who comes to the ED via private auto with abdominal distention and pain. Patient was seen here last week diagnosed with partial small bowel obstruction and pancreatitis she was transferred to [facility] where her obstruction resolved with bowel rest and IV fluids. She was discharged home this past Sunday and says she had a large amount of liquid stool that day. Since that time she's had no bowel movements, she's had increasing abdominal distention and pain and on ED arrival today says her symptoms are consistent with prior bowel obstructions. In addition to this past weeks obstruction and she also had a small bowel obstruction one month ago, she says that while she was an inpatient at [place] the surgeon told her the next bowel obstruction would likely result in a surgical procedure. She has nausea and belching but no vomiting. She has been taking opiate pain medications, says she's been eating and drinking normally. Timing/Duration: changing over time Severity: moderate Modifying Factors: worse with eating, worse with movement Associated Symptoms: nausea/vomiting, other Allergies: Coded Allergies: butorphanol (Verified Allergy, Intermediate, Unknown, 11/18/16) pt states this med makes her angry lorazepam (Verified Allergy, Mild, 11/18/16) morphine (Unverified Allergy, Mild, Nausea and Vomiting, 11/18/16) SEVERE HEADACHE Past Medical History Medical History: diabetes, GERD, hypertension, kidney stones, other (IBS) Surgical History: cholecystectomy, other Psychosocial History: anxiety, depression Family History Significant Family History: no pertinent family hx Social History Smoker: cigarettes Alcohol: occasionally Drugs: none Review of Systems Constitutional: denies chills, denies diaphoresis, denies fever, malaise Respiratory: denies cough, denies shortness of breath Cardiovascular: denies chest pain, denies palpitations Gastrointestinal: see HPI Genitourinary: denies dysuria, denies frequency, denies hematuria Musculoskeletal: denies back pain, denies joint swelling, denies neck pain Psychiatric/Neurological: denies headache, denies numbness, denies paresthesia Physical Exam General Appearance: mild distress, obese Eyes: bilateral eye normal inspection, bilateral eye PERRL, bilateral eye EOMI Ear, Nose, Throat: hearing grossly normal, normal ENT inspection, normal pharynx (dry membranes) Neck: non-tender, supple Respiratory: normal breath sounds, no respiratory distress Cardiovascular: normal peripheral pulses, regular rate, rhythm Gastrointestinal: soft (distended/tympanic, generally TTP no focal, neg mcburn/ hare, no rebound TTP or guarding), no organomegaly Rectal: deferred Back: no CVA tenderness, no vertebral tenderness Extremities: non-tender, normal inspection Neurologic/Psychiatric: edge banding off bearer II-XII nml as tested, no motor/sensory deficits, alert, oriented x 3 Skin: normal color, warm/dry Orders, Labs, Meds Labs overall reassuring yeast noted in urine diflucan given. PATIENT: JOY LEE ACCOUNT: [id number] : 1980 LOCATION: ER AGE: 36 SEX: F EXAM STATUS: REG ER ORD. PHYSICIAN: ETELVINA FOWLER DO REASON: abd distension/pain obstruction PROCEDURE: CT ABD PELV W/ IV CONTRST ONLY Indication abdominal pain and distention. Axial images through the abdomen and pelvis were obtained. Note is made of a similar examination 6 days ago. Note is additionally made that this is the third scan of the abdomen and pelvis in less than a month. The potential benefit of any further scans should be weighed against the radiation exposure to the patient. Approximately 75 cc of Omnipaque 300 was administered intravenously. No oral contrast was administered. The lung bases are clear. The liver and spleen appear unremarkable. Clips are seen in the gallbladder fossa. No adrenal or renal anomalies are seen in the pancreas appears unremarkable. There is slight dilatation of small bowel loops but the degree of dilatation appears less than on the study 6 days ago. This slight dilatation may reflect enteritis. A low-grade obstructing process or ileus cannot be entirely. High-grade mechanical obstructing process is not suggested on this exam. Abundant stool is noted in the large bowel. A focal mass or inflammatory process in the abdomen or pelvis is not seen. Mild degenerative changes and anterolisthesis in the lower lumbar spine is noted appearing similar. IMPRESSION: No focal mass or inflammatory process is seen. Slight dilatation of small bowel loops persists but is less pronounced than on the study 6 days ago. Findings may reflect enteritis or ileus. High-grade mechanical obstruction is not seen but a low-grade obstructing process is not entirely excluded. Abundant stool in the large bowel. DICTATED AND SIGNED BY: IVAN MULLIGAN MD DATE: 12/14/16 1505 CC: BALA JETT; ETELVINA FOWLER DO ~ RAD called to discuss CT, no transition point or obvious obstruction. Constipation/abundant stool primary finding. I discussed this with pt, offered meds/enema in ED vs home treatment. Pt requests d/c home to try to remedy this in privacy and in her surroundings. Discussed hydration and meds, possibility that 24-48 hours may be necessary for resolution. Discouraged smoking and advised pt to discontinue opiate pain meds and increase fluids. She expressed agreement/understanding will return as needed. Departure Time of Disposition: 15:30 Disposition: 01 HOME, SELF-CARE Diagnosis: constipation, vaginal candidiasis Condition: STABLE Patient Instructions: Candidal Vulvovaginitis, [id number], Constipation, Adult, [id number] Additional Instructions: Avoid using opiate pain medications as best he can to allow her bowels to begin to move. Aggressive hydration with Gatorade and water. [id number] Tylenol as needed for discomfort. Diflucan you received in the emergency department should resolve your yeast infection. Prescriptions: Lactulose, Dulcolax suppository, fleets enema extra, use as directed. Please note that it may take 24-48 hours for your symptoms to fully resolve. Follow-up with your doctor next week for recheck. Return to the ED with new or changing symptoms ETELVINA FOWLER DO Dec 14, 2016 14:26
[2016-12-14] MEDS ORDERED: IV NORMAL SALINE 1,000ML 1,000 ML IV SCH (14:30)
[2016-12-14] MEDS ORDERED: ONDANSETRON PF 4 MG/2 ML VIAL. IV ONE (14:30)
[2016-12-14] MEDS ORDERED: KETOROLAC 30 MG/ML VIAL. IV ONE (14:30)
[2016-12-14] MEDS ORDERED: IOHEXOL 300 MG/ML 75 ML VIAL. IV ONE (14:45)
[2016-12-14 14:52] LABS: BASO % 1 % (0-3); EOS # 0.1 x10^3/uL (0.0-0.7); EOS % 2 % (0-3); HEMATOCRIT 32.9 % (36.0-47.0); HEMOGLOBIN 11.2 g/dL (12.0-15.5); LYMPH % 29 % (24-48); MEAN CORPUSCULAR HEMOGLOBIN 30 pg (25-35); MEAN CORPUSCULAR HGB CONC 34 g/dL (31-37); MEAN CORPUSCULAR VOLUME 87 fL (79-100); MONO # 0.4 x10^3/uL (0.0-1.1); MONO % 6 % (0-9); NEUT # 4.6 x10^3uL (1.8-7.7); NEUT % 64 % (31-73); PLATELET COUNT 355 x10^3/uL (140-400); RED BLOOD COUNT 3.78 x10^6/uL (3.50-5.40); RED CELL DISTRIBUTION WIDTH 15.3 % (11.5-14.5); WHITE BLOOD COUNT 7.2 x10^3/uL (4.0-11.0)
[2016-12-14 14:59] LABS: BACTERIA,URINE MOD /HPF (0-FEW); BILIRUBIN,URINE NEG (NEG); CLARITY,URINE HAZY; COLOR,URINE YELLOW; GLUCOSE,URINE NEG (NEG); NITRITE,URINE NEG (NEG); SQUAMOUS EPITHELIAL CELL,UR FEW /LPF; UROBILINOGEN,URINE 0.2 mg/dL (0.2 mg/dL)
[2016-12-14 15:00] LABS: YEAST,URINE PRESENT /HPF
[2016-12-14 15:01] LABS: AMPHETAMINE/METHAMPHETAMINE NEG (NEG); BARBITURATES NEG (NEG); BENZODIAZEPINES NEG (NEG); CANNABINOIDS NEG (NEG); COCAINE NEG (NEG); METHADONE NEG (NEG); OPIATES POS (NEG); PHENCYCLIDINE NEG (NEG)
[2016-12-14 15:01] LABS: ALBUMIN 3.5 g/dL (3.4-5.0); ALBUMIN/GLOBULIN RATIO 0.9 (1.0-1.7); CALCIUM 8.5 mg/dL (8.5-10.1); CREATININE 0.8 mg/dL (0.6-1.0); GFR 82.1; POTASSIUM 4.1 mmol/L (3.5-5.1); TOTAL BILIRUBIN 0.2 mg/dL (0.2-1.0); TOTAL PROTEIN 7.4 g/dL (6.4-8.2)
--- NOTE | 2016-12-14 15:19 | RAD ---
Indication abdominal pain and distention. Axial images through the abdomen and pelvis were obtained. Note is made of a similar examination 6 days ago. Note is additionally made that this is the third scan of the abdomen and pelvis in less than a month. The potential benefit of any further scans should be weighed against the radiation exposure to the patient. Approximately 75 cc of Omnipaque 300 was administered intravenously. No oral contrast was administered. The lung bases are clear. The liver and spleen appear unremarkable. Clips are seen in the gallbladder fossa. No adrenal or renal anomalies are seen in the pancreas appears unremarkable. There is slight dilatation of small bowel loops but the degree of dilatation appears less than on the study 6 days ago. This slight dilatation may reflect enteritis. A low-grade obstructing process or ileus cannot be entirely. High-grade mechanical obstructing process is not suggested on this exam. Abundant stool is noted in the large bowel. A focal mass or inflammatory process in the abdomen or pelvis is not seen. Mild degenerative changes and anterolisthesis in the lower lumbar spine is noted appearing similar. IMPRESSION: No focal mass or inflammatory process is seen. Slight dilatation of small bowel loops persists but is less pronounced than on the study 6 days ago. Findings may reflect enteritis or ileus. High-grade mechanical obstruction is not seen but a low-grade obstructing process is not entirely excluded. Abundant stool in the large bowel.
[2016-12-14] MEDS ORDERED: NA P230E RC (15:29)
[2016-12-14] MEDS ORDERED: BISA10SU55 RC (15:29)
[2016-12-14] MEDS ORDERED: LACT10SO PO (15:29)
[2016-12-14 15:45] VITALS: BP 100/60
[2016-12-14] MEDS ORDERED: FLUCONAZOLE 100 MG TABLET. PO ONE (15:45)
--- NOTE | 2016-12-14 16:03 | ACF ---
Admission Criteria Forms ABDOMINAL PAIN Clinical Indications for Admission to Inpatient Care (Place 'X' for any and all applicable criteria): Admission is indicated for ANY ONE of the following(1)(2)(3)(4)(5): [X]I. Inpatient admission required rather than observation care (Also use Abdominal Pain: Observation Care, as appropriate) because of ANY ONE of the following: [ ]a) Severe pain requiring acute inpatient management [X]b) Identification of etiology/finding that requires inpatient care (eg, aortic dissection, free air) [ ]c) Absent bowel sounds with complete ileus(6) [ ]d) Suspected toxic megacolon [ ]e) Severe electrolyte abnormalities requiring inpatient care [ ]f) High fever or infection requiring inpatient admission as indicated by ANY ONE of following(7)(8): [ ] i) Appropriate outpatient or observational care antimicrobial treatment unavailable, not effective, or not feasible [ ] ii) Documented bacteremia [ ] iii) Temperature > 104.9 degrees F (oral) [ ] iv) T >103.1 F (oral) or < 96.8 F(rectal) that does not respond to all emergency treatment measures [ ]g) Signs of intestinal obstruction [B] [ ]h) Hemodynamic instability [ ]i) IV fluid to replace significant ongoing losses (greater than 3 L/m2 per day) (12)(13) [ ]j) Percutaneous or open drainage (eg, abscess, biliary tract ) procedures [ ]k) Parenteral nutrition regimen that must be implemented on inpatient basis [ ]l) Other condition,treatment or monitoring requiring inpatient admission. [ ]II. Peritoneal signs present [ ]III. Surgery needed that cannot be performed on an ambulatory basis. [ ]IV. Evaluation requires patient to not eat or drink for extended period ( eg, more than 24 hours). [ ]V. Contraindications and/or Inappropriate clinical situations for Observational Care in patients with abdominal pain, when ANY ONE of the following is required: [ ]a) Thorough evaluation is required to prevent catastrophic events due to delays in diagnosing (e.g.Mesenteric ischemia) 1,3 [ ]b) Patient with severe pathology or with chronic symptoms unlikely to improve in the ED stay (3) [ ]. General contraindications and/or Inappropriate clinical situations for Observational Care in patients with abdominal pain, when ANY ONE of the following is required: [ ]a) Prediction of prolongation of LOS based on ANY ONE of the following may be considered as a contraindication for observational care 2, 3, 4, 5, 6, 7, 8, 9, 10, 11 [ ]i) Age > 65 yrs. [ ]ii) Patient arriving by ambulance [ ]iii) Patient with high acuity [ ]iv) Patient requiring vital sign monitoring [ ]v) Patient on IV medication [ ]b) Systolic blood pressures 180mmHg 3,12 [ ]c) Patient with altered mental status including delirium and other alteration of consciousness, (3) [ ]d) Patient whose discharge disposition will be to a jail home or rehabilitation home should not be managed in Emergency Department Observation Unit. CMS rule requires 3 days hospital stay before such placement.3,13 [ ]e) Patient with failure to thrive due to broad array of etiologies 3,16,17 [ ]f) Inability to ambulate 3,14 Extended stay beyond goal length of stay may be needed for(2)(3): [ ]a) Persistent abdominal pain with suspected intra-abdominal process [ ]b) Diagnosed condition requiring continued stay (e.g., pancreatitis, complicated diverticulitis) [ ]c) Surgery (e.g., colectomy) The original [facility] content created by [employer] has been revised. The portions of the content which have been revised are identified through the use of italic text or in bold, and [facility] has neither reviewed nor approved the modified material.All other unmodified content is copyright [employer]. Please see references footnoted in the original [facility] edition 2016 Admission Criteria Met?: Yes RENY AGUILAR Dec 14, 2016 16:03
== END 2016-12-14 16:25 | disposition home or self-care (01) ==
LOC: ER 14:01
DX: K59.00 Constipation, unspecified (principal); B37.3 Candidiasis of vulva and vagina; K58.9 Irritable bowel syndrome, unspecified; K21.9 Gastro-esophageal reflux disease without esophagitis; E11.9 Type 2 diabetes mellitus without complications; I10 Essential (primary) hypertension; F17.210 Nicotine dependence, cigarettes, uncomplicated; Z87.442 Personal history of urinary calculi; Z90.49 Acquired absence of other specified parts of digestive tract; Z88.5 Allergy status to narcotic agent; Z88.8 Allergy status to other drugs, medicaments and biological substances
CPT/HCPCS: 36415; 74177; 80053; 80305; 81001; 81025; 83690; 85027; 87086; 96361; 96374; 96375; 99285; J1885; J2405; Q9967; 87186; G0481; J7030

== ENCOUNTER 2017-01-26 17:37 | Emergency (ER) | payer OTHER ==
[~2017-01-26] VITALS: Ht 167.6 cm; Wt 111.1 kg
[2017-01-26 17:37] VITALS: BP 131/77
[~2017-01-26 17:37] MED LIST changes: +BISA10SU55 RC; +LACT10SO PO; +NA P230E RC
[2017-01-26] MEDS ORDERED: IV NORMAL SALINE 1,000ML 1,000 ML IV SCH (18:05)
[2017-01-26] MEDS ORDERED: CONTRAST GIVEN MC PRN (18:30)
[2017-01-26] MEDS ORDERED: ONDANSETRON PF 4 MG/2 ML VIAL. IV ONE (18:30)
[2017-01-26] MEDS ORDERED: KETOROLAC 30 MG/ML VIAL. IV ONE (18:30)
[2017-01-26] MEDS ORDERED: FAMOTIDINE 20 MG/2 ML VIAL IVP ONE (18:30)
[2017-01-26] MEDS ORDERED: IOHEXOL 300 MG/ML 75 ML VIAL. IV ONE (18:30)
[2017-01-26 18:36] LABS: BASO # 0.1 x10^3/uL (0.0-0.2); BASO % 1 % (0-3); EOS # 0.1 x10^3/uL (0.0-0.7); EOS % 1 % (0-3); HEMATOCRIT 37.9 % (36.0-47.0); HEMOGLOBIN 12.5 g/dL (12.0-15.5); LYMPH # 1.7 x10^3/uL (1.0-4.8); LYMPH % 13 % (24-48); MEAN CORPUSCULAR HEMOGLOBIN 28 pg (25-35); MEAN CORPUSCULAR HGB CONC 33 g/dL (31-37); MEAN CORPUSCULAR VOLUME 86 fL (79-100); MONO # 0.7 x10^3/uL (0.0-1.1); MONO % 5 % (0-9); NEUT # 10.3 x10^3uL (1.8-7.7); NEUT % 80 % (31-73); PLATELET COUNT 415 x10^3/uL (140-400); RED BLOOD COUNT 4.41 x10^6/uL (3.50-5.40); WHITE BLOOD COUNT 12.9 x10^3/uL (4.0-11.0)
[2017-01-26 18:44] LABS: AMPHETAMINE/METHAMPHETAMINE POS (NEG); BARBITURATES NEG (NEG); BENZODIAZEPINES NEG (NEG); CANNABINOIDS NEG (NEG); COCAINE NEG (NEG); METHADONE NEG (NEG); OPIATES NEG (NEG); PHENCYCLIDINE NEG (NEG)
[2017-01-26 18:53] LABS: BACTERIA,URINE 0 /HPF (0-FEW); BILIRUBIN,URINE NEG (NEG); CLARITY,URINE CLEAR; COLOR,URINE YELLOW; GLUCOSE,URINE NEG (NEG); NITRITE,URINE NEG (NEG); RBC,URINE OCC /HPF (0-2); UROBILINOGEN,URINE 0.2 mg/dL (0.2 mg/dL); WBC,URINE OCC /HPF (0-4)
[2017-01-26 18:54] LABS: SQUAMOUS EPITHELIAL CELL,UR OCC /LPF
--- NOTE | 2017-01-26 19:17 | RAD ---
CT ABDOMEN/PELVIS Indication: [id number] Omni 300 75cc: Severe abdominal pain, nausea, vomiting, diarrhea today. Technique: Multiple contiguous axial images were obtained through the abdomen and pelvis after administration of intravenous iodinated contrast. Coronal and sagittal reformations were created. PQRS STATEMENT One or more of the following in the visualized dose reduction techniques were utilized for this study: 1. Automatic exposure control, 2. Adjustment of the mA and/or kV according to patient size, 3. Use of iterative reconstruction technique Comparison: December 14, 2016 Findings: The heart size is normal. The lung bases are clear. The liver is enlarged and demonstrates diffuse fatty infiltration. Gallbladder surgically absent. The pancreas, spleen, and adrenal glands are within normal limits. The kidneys are unremarkable. The portal vein and SMV are patent. The abdominal aorta is normal in caliber. There is no abdominopelvic ascites or adenopathy. The bowel loops are normal in caliber. The appendix is normal. The urinary bladder is unremarkable. There is a 3 cm left ovarian cyst. There is grade 1 spondylolisthesis of L5 on S1 with bilateral neural foraminal stenosis. Impression: No abdominopelvic ascites or inflammatory mass. 3 cm left ovarian cyst. There is grade 1 spondylolisthesis of L5 on S1 with bilateral neural foraminal stenosis. Electronically signed by: Gume Wells MD (01/26/2017 7:13 PM) [facility]
--- NOTE | 2017-01-26 20:02 | PHYS DOC ---
General Chief Complaint: nausea/vomitting Stated Complaint: Mult. Comp. Time Seen by MD: 18:03 Source: patient, old records Exam Limitations: no limitations Problems: History of Present Illness Initial Comments Patient is a 37-year-old female who comes to the ED private auto complaining of nausea and vomiting. Patient states that approximately 30 minutes ago she was applying for a job when she developed sudden onset nausea with cold sweats and mild dizziness. She states she vomited once and left the application to come to the ED. On arrival heart rate is 104 bpm otherwise vital signs are stable. Patient complains of nausea is not actively vomiting or retching. She has history of small bowel obstruction and feels as if her abdomen may be swelling. She denies focal pain complaint no fever chills sweats or myalgias no chest pain or trouble breathing. No pre-arrival treatment. Timing/Duration: 1/2 hour Severity: moderate Modifying Factors: worse with eating, worse with movement, improves with rest Associated Symptoms: diaphoresis, malaise, nausea/vomiting Allergies: Coded Allergies: butorphanol (Verified Allergy, Intermediate, Unknown, 11/18/16) pt states this med makes her angry lorazepam (Verified Allergy, Mild, 11/18/16) morphine (Unverified Allergy, Mild, Nausea and Vomiting, 11/18/16) SEVERE HEADACHE Past Medical History Medical History: diabetes, GERD, hypertension, kidney stones, other (irritable bowel syndrome) Surgical History: cholecystectomy ( section), other Psychosocial History: anxiety, depression Family History Significant Family History: no pertinent family hx Social History Smoker: cigarettes Alcohol: occasionally Drugs: none Review of Systems Constitutional: denies chills, diaphoresis, denies fever, denies malaise Respiratory: denies cough, denies shortness of breath, denies wheezing Cardiovascular: denies chest pain, denies palpitations, denies syncope Gastrointestinal: see HPI Genitourinary: denies dysuria, denies frequency, denies hematuria Musculoskeletal: denies back pain, denies joint swelling, denies neck pain Psychiatric/Neurological: denies headache, denies numbness, denies paresthesia Physical Exam General Appearance: no apparent distress, obese Ear, Nose, Throat: hearing grossly normal, normal ENT inspection, normal pharynx Neck: non-tender, supple Respiratory: normal breath sounds, no respiratory distress Cardiovascular: normal peripheral pulses, regular rate, rhythm Gastrointestinal: soft (obese, mildly distended generalized tenderness to palpation without rebound guarding or mass negative Brown negative McBurney bowel sounds diminished) Back: no CVA tenderness, no vertebral tenderness Extremities: non-tender, normal inspection Neurologic/Psychiatric: product advisor II-XII nml as tested, no motor/sensory deficits, alert, normal mood/affect, oriented x 3 Skin: normal color, warm/dry Orders, Labs, Meds PATIENT: JOY LEE ACCOUNT: [id number] : 1980 LOCATION: ER AGE: 37 SEX: F EXAM STATUS: REG ER ORD. PHYSICIAN: ETELVINA FOWLER DO REASON: n/v, h/o recurrant obstruction PROCEDURE: CT ABD PELV W/ IV CONTRST ONLY CT ABDOMEN/PELVIS Indication: [id number] Omni 300 75cc: Severe abdominal pain, nausea, vomiting, diarrhea today. Technique: Multiple contiguous axial images were obtained through the abdomen and pelvis after administration of intravenous iodinated contrast. Coronal and sagittal reformations were created. PQRS STATEMENT One or more of the following in the visualized dose reduction techniques were utilized for this study: 1. Automatic exposure control, 2. Adjustment of the mA and/or kV according to patient size, 3. Use of iterative reconstruction technique Comparison: December 14, 2016 Findings: The heart size is normal. The lung bases are clear. The liver is enlarged and demonstrates diffuse fatty infiltration. Gallbladder surgically absent. The pancreas, spleen, and adrenal glands are within normal limits. The kidneys are unremarkable. The portal vein and SMV are patent. The abdominal aorta is normal in caliber. There is no abdominopelvic ascites or adenopathy. The bowel loops are normal in caliber. The appendix is normal. The urinary bladder is unremarkable. There is a 3 cm left ovarian cyst. There is grade 1 spondylolisthesis of L5 on S1 with bilateral neural foraminal stenosis. Impression: No abdominopelvic ascites or inflammatory mass. 3 cm left ovarian cyst. There is grade 1 spondylolisthesis of L5 on S1 with bilateral neural foraminal stenosis. Electronically signed by: Gume Wells MD (01/26/2017 7:13 PM) [facility] DICTATED AND SIGNED BY: GUME WELLS MD DATE: 01/26/17 1908 CC: BALA JETT; ETELVINA FOWLER DO ~ Pertinent labs: White blood cells 12.9, platelets 415, urinalysis and urine negative I discussed findings with the patient. Her symptoms resolved after medications in the emergency department she was advised to stop smoking I discussed the treatment plan she expressed agreement and understanding. Departure Time of Disposition: 20:38 Disposition: 01 HOME, SELF-CARE Diagnosis: gastroenteritis, likely viral Condition: GOOD Patient Instructions: Viral Gastroenteritis, Auzj-je-Gmth Additional Instructions: Clear liquids today, advance to bland diet tomorrow as tolerated. Aggressive hydration with gatorade, water. OTC tylenol as needed. Rx: dicyclomine, zofran odt Follow up with your doctor next week. Return to ED with new or changing symptoms. ETELVINA FOWLER DO Jan 26, 2017 20:02
[2017-01-26 20:35] LABS: ALBUMIN 3.8 g/dL (3.4-5.0); ALBUMIN/GLOBULIN RATIO 0.8 (1.0-1.7); CALCIUM 8.8 mg/dL (8.5-10.1); CREATININE 0.7 mg/dL (0.6-1.0); GFR 95.2; POTASSIUM 3.7 mmol/L (3.5-5.1); TOTAL BILIRUBIN 0.7 mg/dL (0.2-1.0); TOTAL PROTEIN 8.5 g/dL (6.4-8.2)
== END 2017-01-26 21:10 | disposition home or self-care (01) ==
LOC: ER 17:37
DX: K52.9 Noninfective gastroenteritis and colitis, unspecified (principal); E11.9 Type 2 diabetes mellitus without complications; I10 Essential (primary) hypertension; K21.9 Gastro-esophageal reflux disease without esophagitis; K58.9 Irritable bowel syndrome, unspecified; Z87.442 Personal history of urinary calculi; F17.210 Nicotine dependence, cigarettes, uncomplicated; Z88.5 Allergy status to narcotic agent; Z88.8 Allergy status to other drugs, medicaments and biological substances
CPT/HCPCS: 36415; 74177; 80053; 80305; 81001; 81025; 82947; 83690; 85027; 96361; 96374; 96375; 99285; G0480; J1885; J2405; Q9967; S0028; G0481; J7030

== ENCOUNTER → 2017-02-28 | Outpatient (CLI) | payer OTHER ==
--- NOTE | 2017-03-01 08:19 | RAD ---
Exam: Left knee radiograph 02/28/2017 at 1757 hours Indication: Left knee pain for one month Comparison: 05/18/2016 Technique: 3 views of the left knee are provided. Findings: There is no acute fracture or dislocation. Mild early osteophytosis along the medial femoral condyle and medial tibial plateau. No joint space narrowing. No soft tissue swelling. No osseous erosion or soft tissue gas. Bone mineralization is within normal limits. Impression: No acute fracture or dislocation. Mild curve of the osteophytosis of the medial knee compartment.
== END | disposition home or self-care (01) ==
LOC: RAD 17:49
PROVIDERS: ATTEND Physician Assistant
DX: M25.762 Osteophyte, left knee (principal)
CPT/HCPCS: 73562

== ENCOUNTER 2017-03-25 22:27 | Emergency (ER) | payer OTHER ==
[~2017-03-25] VITALS: Ht 167.6 cm; Wt 127.5 kg
--- NOTE | 2017-03-25 22:30 | ED.ADGEN ---
Past History Past Medical History: Anxiety, Depression, Diabetes, GERD, IBS, Kidney Stones, Other Additional Past Medical Histor: irritable bowel syndrome, peptic ulcer disease , subcutaneous reflux disease Past Surgical History: Cholecystectomy, , Other Smoking: Non-smoker Alcohol Use: Occasionally Drug Use: None Adult General Chief Complaint Chief Complaint " I feel like I am having a kidney stone again.. I ve had 4.. and had to get surgery to get them out... I usually go to .. this been coming of the pass two. days.." HPI HPI Patient is a 37 year old female who presents with above hx and complaints. Patient states she's had four previous kidney stones. She reportedly follows at for all her care. Patient denies any travel. Patient denies any trauma. Patient denies any ill contacts. Patient denies any trauma. Patient localizes her pain in bilateral flanks. Movement seems to make the pain worse. She reportedly having normal stools. Patient poorly having normal urination. No dysuria. Patient does have a history of GERD, irritable bowel, anxiety, diabetes, chronic pain, fibromyalgia Review of Systems Review of Systems Constitutional: Denies fever or chills [] Eyes: Denies change in visual acuity, redness, or eye pain [] HENT: Denies nasal congestion or sore throat [] Respiratory: Denies cough or shortness of breath [] Cardiovascular: No additional information not addressed in HPI [] GI: Complaints of bilateral flank and abdomen pain. : Denies dysuria or hematuria [] Musculoskeletal: Denies back pain or joint pain [] Integument: Denies rash or skin lesions [] Neurologic: Denies headache, focal weakness or sensory changes [] Endocrine: Denies polyuria or polydipsia [] Family History Family History Noncontributory Current Medications Current Medications Current Medications Medications (Trade) Dose Ordered Sig/Monica Start Time Stop Time Status Last Admin Dose Admin Famotidine (Pepcid) 20 mg 1X ONCE 03/25/17 23:30 03/25/17 23:31 DC Hydromorphone HCl (Dilaudid) 2 mg 1X ONCE 03/26/17 01:15 03/26/17 03:16 DC 03/26/17 01:15 2 MG Ketorolac Tromethamine (Toradol) 60 mg 1X ONCE 03/26/17 00:30 03/26/17 00:31 DC 03/26/17 00:28 60 MG Lactated Ringer's 1,000 ml @ 1,000 mls/hr Q1H 03/25/17 23:30 03/26/17 04:23 DC Ondansetron HCl (Zofran Odt) 8 mg 1X ONCE 03/26/17 01:15 03/26/17 03:16 DC 03/26/17 01:15 8 MG Ondansetron HCl (Zofran) 8 mg 1X ONCE 03/25/17 23:30 03/25/17 23:31 DC Allergies Allergies Allergies Coded Allergies Type Severity Reaction Last Updated Verified butorphanol Allergy Intermediate Unknown 11/18/16 Yes lorazepam Allergy Mild 11/18/16 Yes morphine Allergy Mild Nausea and Vomiting 11/18/16 No Physical Exam Physical Exam Constitutional: Obese., Moderate distress, non-toxic appearance. [] HENT: Normocephalic, atraumatic, bilateral external ears normal, oropharynx moist, no oral exudates, nose normal. [] Eyes: PERRLA, EOMI, conjunctiva normal, no discharge. [] Neck: Normal range of motion, no tenderness, supple, no stridor. [] Cardiovascular:Heart rate regular rhythm, no murmur [] Lungs & Thorax: Bilateral breath sounds equal at apexes auscultation [] Abdomen: Bowel sounds normal, soft, distended, no masses, no pulsatile masses. Obese. Old surgical scars. Declines rectal or pelvic exam this time Skin: Warm, dry, no erythema, no rash. [] Back: No tenderness, bilateral CVA tenderness. And percussion Extremities: No tenderness, no cyanosis, no clubbing, ROM intact, no edema. [] Neurologic: Alert and oriented X 3, normal motor function, normal sensory function, no focal deficits noted. [] Psychologic: Affect anxious, judgement normal, mood normal. [] Current Patient Data Vital Signs Vital Signs Date Time Temp Pulse Resp B/P (MAP) Pulse Ox O2 Delivery O2 Flow Rate FiO2 03/25/17 22:27 98.4 112 20 99 Lab Results Laboratory Tests Test 03/25/17 22:34 03/25/17 23:40 Urine Collection Type Unknown Urine Color Yellow Urine Clarity Clear Urine pH 5.5 Urine Specific [place] <=1.005 Urine Protein Neg (NEG-TRACE) Urine Glucose (UA) 100 mg/dL (NEG) Urine Ketones (Stick) Neg mg/dL (NEG) Urine Blood Trace (NEG) Urine Nitrite Neg (NEG) Urine Bilirubin Neg (NEG) Urine Urobilinogen Dipstick 0.2 mg/dL (0.2 mg/dL) Urine Leukocyte Esterase Neg (NEG) Urine RBC 0 /HPF (0-2) Urine WBC Rare /HPF (0-4) Urine Squamous Epithelial Cells Occ /LPF Urine Bacteria 0 /HPF (0-FEW) White Blood Count 8.1 x10^3/uL (4.0-11.0) Red Blood Count 3.74 x10^6/uL (3.50-5.40) Hemoglobin 11.2 g/dL (12.0-15.5) L Hematocrit 34.6 % (36.0-47.0) L Mean Corpuscular Volume 92 fL (79-100) Mean Corpuscular Hemoglobin 30 pg (25-35) Mean Corpuscular Hemoglobin Concent 32 g/dL (31-37) Red Cell Distribution Width 16.1 % (11.5-14.5) H Platelet Count 358 x10^3/uL (140-400) Neutrophils (%) (Auto) 59 % (31-73) Lymphocytes (%) (Auto) 32 % (24-48) Monocytes (%) (Auto) 7 % (0-9) Eosinophils (%) (Auto) 2 % (0-3) Basophils (%) (Auto) 1 % (0-3) Neutrophils # (Auto) 4.8 x10^3uL (1.8-7.7) Lymphocytes # (Auto) 2.6 x10^3/uL (1.0-4.8) Monocytes # (Auto) 0.5 x10^3/uL (0.0-1.1) Eosinophils # (Auto) 0.2 x10^3/uL (0.0-0.7) Basophils # (Auto) 0.1 x10^3/uL (0.0-0.2) EKG EKG [] Radiology/Procedures Radiology/Procedures CT of abdomen shows no hydronephrosis or acute surgical pathology. Patient agrees refuses CT of abdomen with contrast.[] Course & Med Decision Making Course & Med Decision Making Pertinent Labs and Imaging studies reviewed. (See chart for details Patient very difficult IV stick-for transplant nursing for IV. Discussed benefits complications and risks of central line. She agreed to procedure. Patient left subclavian prepped with kit prep. Sterile draping. Gown and gloves and mask. Pt. 3 stick to left subclavian[] after lidocaine infiltration. Attempts to cannulate subclavian unsuccessful. Chest x-ray postprocedure showed minimal no pneumothorax. Patient declined further attempts for central line. Patient declined CT with oral contrast. Patient is a on a clear fluid diet 48 hours.. Patient return if any concerns. Patient follow-up primary care. Final Impression Final Impression 1. Abdomen pain 2. History of renal stones/renal colic[] 3. Diabetes-elevated glucose 4. Anemia Problems: Dragon Disclaimer Dragon Disclaimer This electronic medical record was generated, in whole or in part, using a voice recognition dictation system. CHIDI MILTON MD Mar 25, 2017 22:30
[2017-03-25 23:19] LABS: BACTERIA,URINE 0 /HPF (0-FEW); BILIRUBIN,URINE NEG (NEG); CLARITY,URINE CLEAR; COLOR,URINE YELLOW; GLUCOSE,URINE 100 mg/dL (NEG); NITRITE,URINE NEG (NEG); RBC,URINE 0 /HPF (0-2); SQUAMOUS EPITHELIAL CELL,UR OCC /LPF; UROBILINOGEN,URINE 0.2 mg/dL (0.2 mg/dL); WBC,URINE RARE /HPF (0-4)
[2017-03-25] MEDS ORDERED: FAMOTIDINE 20 MG/2 ML VIAL IVP ONE (23:30)
[2017-03-25] MEDS ORDERED: IV RINGERS SOLUTION,LACTATED 1,000 ML IV SCH (23:30)
[2017-03-25] MEDS ORDERED: ONDANSETRON PF 4 MG/2 ML VIAL. IV ONE (23:30)
[2017-03-25] MEDS ORDERED: KETOROLAC 30 MG/ML VIAL. IV ONE (23:30)
[2017-03-26] MEDS ORDERED: KETOROLAC 60 MG/2 ML VIAL. IM ONE (00:30)
[2017-03-26 00:32] LABS: BASO # 0.1 x10^3/uL (0.0-0.2); BASO % 1 % (0-3); EOS # 0.2 x10^3/uL (0.0-0.7); EOS % 2 % (0-3); HEMATOCRIT 34.6 % (36.0-47.0); HEMOGLOBIN 11.2 g/dL (12.0-15.5); LYMPH # 2.6 x10^3/uL (1.0-4.8); LYMPH % 32 % (24-48); MEAN CORPUSCULAR HEMOGLOBIN 30 pg (25-35); MEAN CORPUSCULAR HGB CONC 32 g/dL (31-37); MEAN CORPUSCULAR VOLUME 92 fL (79-100); MONO # 0.5 x10^3/uL (0.0-1.1); MONO % 7 % (0-9); NEUT # 4.8 x10^3uL (1.8-7.7); NEUT % 59 % (31-73); PLATELET COUNT 358 x10^3/uL (140-400); RED BLOOD COUNT 3.74 x10^6/uL (3.50-5.40); RED CELL DISTRIBUTION WIDTH 16.1 % (11.5-14.5); WHITE BLOOD COUNT 8.1 x10^3/uL (4.0-11.0)
--- NOTE | 2017-03-26 00:55 | RAD ---
INDICATION: [id number] Stone Protocol: Started as severe left flank pain now radiating into lower back bilaterally, nausea. COMPARISON: January 26, 2017 TECHNIQUE: Axial CT images were obtained through the abdomen and pelvis without intravenous contrast. Limited assessment of solid organ structures and vasculature secondary to lack of intravenous contrast. One or more of the following individualized dose reduction techniques were utilized for this examination: 1. Automated exposure control; 2. Adjustment of the mA and/or kV according to patient size; 3. Use of iterative reconstruction technique. FINDINGS: Chest Base: Partially imaged without gross abnormality. Vessels: No abdominal aortic aneurysm. Liver/Biliary: Low-attenuation throughout. Small fat-containing anterior abdominal wall hernia. Small fat-containing umbilical hernia. There is anterior pelvic wall defect just to the right of midline with peritoneal fat extending superficial to the right rectus musculature at rectus sheath. Grade 1 anterolisthesis of L4 on 5 with pars defects. Neural foraminal narrowing at this level bilaterally. Pancreas: No peripancreatic edema. Spleen: Normal. Kidneys/Adrenal: No hydronephrosis. Bladder: No definite adjacent inflammation. GI: No free air. No bowel dilation to suggest obstruction. No periappendiceal inflammation. IMPRESSION: 1. No evidence of hydronephrosis. 2. No evidence of bowel obstruction or appendicitis. 3. Low attenuation of the liver. Nonspecific but frequently secondary to fatty infiltration. 4. Pars defects at L4 with grade 1 anterolisthesis at L4-5 and bilateral neural foraminal stenosis. Electronically signed by: Jake Simpson MD (03/26/2017 12:51 AM) [facility]
[2017-03-26] MEDS ORDERED: ONDANSETRON ODT 4 MG TAB.RAPDIS PO ONE (01:15)
[2017-03-26] MEDS ORDERED: HYDROmorphone PF 2 MG/ML VIAL SQ ONE (01:15)
[2017-03-26 02:29] VITALS: BP 132/77
--- NOTE | 2017-03-26 05:57 | EKG ---
[address] [address] Test Date: 2017-03-25 Test Time: 23:25:08 Pat Name: JOY LEE Department: Room: Gender: F Community Program Assistant: JOSE C : 1980 Requested By: CHIDI MILTON Order Number: [id number] Reading MD: Michael Bearden Measurements Intervals [place] Rate: 96 P: 52 CO: 176 QRS: 40 QRSD: 92 T: 20 QT: 346 QTc: 438 Interpretive Statements SINUS RHYTHM Electronically Signed On 03-26-2017 9:59:57 CDT by Michael Bearden
--- NOTE | 2017-03-26 07:43 | RAD ---
Portable chest, 03/26/2017, 2:07 AM: History: Failed central line placement Comparison is made to the study of earlier the same day. The heart size and pulmonary vascularity are normal. The lungs are clear. There is no evidence of pleural fluid. IMPRESSION: No acute cardiopulmonary abnormality is detected.
--- NOTE | 2017-03-26 07:45 | RAD ---
Acute abdomen series with chest, 3 views, 03/26/2017: History: Flank and back pain Gas is present in large and small bowel in a nonspecific pattern. No free air is seen in the abdomen. Surgical clips in the right upper quadrant suggest a previous cholecystectomy. There is no evidence of organomegaly. Lower pelvic calcifications are most likely phleboliths. The heart size is normal. The lungs are clear. IMPRESSION: No acute abdominal abnormality is detected.
[2017-03-28 17:26] LABS: HEMOGLOBIN ISTAT 10.2 gm/dL; POTASSIUM ISTAT 4.7 mmol/L (3.5-5.0)
== END 2017-03-26 02:40 | disposition home or self-care (01) ==
LOC: ER 22:27
DX: R10.9 Unspecified abdominal pain (principal); E11.9 Type 2 diabetes mellitus without complications; M79.7 Fibromyalgia; G89.29 Other chronic pain; D64.9 Anemia, unspecified; K21.9 Gastro-esophageal reflux disease without esophagitis; K58.9 Irritable bowel syndrome, unspecified; Z87.442 Personal history of urinary calculi; Z87.11 Personal history of peptic ulcer disease; Z90.49 Acquired absence of other specified parts of digestive tract; Z98.890 Other specified postprocedural states
CPT/HCPCS: 36415; 36556; 71010; 74022; 74176; 80047; 81001; 85025; 93005; 96372; 99285; J1170; J1885; Q0162

== ENCOUNTER 2017-04-07 13:28 | Emergency (ER) | payer OTHER ==
[2017-04-07] MEDS ORDERED: IV NORMAL SALINE 1,000ML 1,000 ML IV SCH (13:40)
[2017-04-07] MEDS ORDERED: IOHEXOL 300 MG/ML 75 ML VIAL. IV ONE (14:00)
--- NOTE | 2017-04-07 15:04 | RAD ---
CT scan of the abdomen and pelvis with contrast 04/07/2017 CLINICAL HISTORY: Abdominal pain. Recent hysterectomy. TECHNIQUE: After the intravenous administration of 75 cc of Omnipaque 300 only, contiguous, 5 mm axial sections were obtained through the abdomen and pelvis. One or more of the following individualized dose reduction techniques were utilized for this study: 1. Automated exposure control. 2. Adjustment of the mA and/or kV according to patient size. 3. Use of iterative reconstruction technique. FINDINGS: Comparison study is dated 03/25/2017. Images through the lung bases demonstrate minimal dependent subsegmental atelectasis bilaterally. Decreased attenuation of the liver parenchyma is seen consistent with mild fatty infiltration. The spleen, pancreas, adrenal glands and kidneys are within normal limits. The abdominal aorta tapers normally. Surgical clips are seen within the gallbladder fossa consistent with a cholecystectomy. No free fluid or free air in the abdomen. The appendix is well-visualized and is within normal limits. Images through the pelvis demonstrate the urinary bladder distended with urine. The patient is post hysterectomy. A 2.3 cm dominant follicle is seen in the left ovary. No hematoma is noted. Calcifications are seen within the pelvis consistent with phleboliths. No abnormal fluid collection is seen. The osseous structures are unchanged. IMPRESSION: No acute abnormality is seen. Electronically signed by: Sy Snow MD (04/07/2017 3:00 PM) [facility]
[2017-04-07 15:15] VITALS: BP 158/82
[2017-04-07] MEDS ORDERED: HYDR-971 PO (15:24)
--- NOTE | 2017-04-07 15:24 | PHYS DOC ---
Past History Past Medical History: Anxiety, Depression, GERD, IBS, Kidney Stones Additional Past Medical Histor: irritable bowel syndrome, peptic ulcer disease , subcutaneous reflux disease Past Surgical History: Cholecystectomy, , Hysterectomy Smoking: Non-smoker Alcohol Use: None Drug Use: None Adult General Chief Complaint Chief Complaint: ABDOMINAL PAIN HPI HPI Patient is a 37-year-old female brought to the ED by her with the complaint of abdominal pain. Patient states she had a laparoscopic hysterectomy done about one week ago. She states she took her last pain pill yesterday. 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 She complains of pain for about 1-1/2 hours. She took "2 ibuprofen 800 mg and an Aleve". She's had some nausea, no vomiting. Patient does not have a follow-up with her [employer] surgeon yet. She denies constipation, she has been having regular bowel movements since her surgery. She states her surgeon said they had to dissect her organs off of her abdominal wall. Review of Systems Review of Systems Constitutional: Denies fever or chills [] GI: As in history of present illness : Denies dysuria Musculoskeletal: Denies back pain or joint pain [] Neurologic: Denies headache Current Medications Current Medications Current Medications Medications (Trade) Dose Ordered Sig/[facility] Start Time Stop Time Status Last Admin Dose Admin Fentanyl Citrate (Fentanyl 2ml Vial) 100 mcg 1X ONCE 04/07/17 14:00 04/07/17 14:01 DC 04/07/17 14:00 100 MCG Iohexol (Omnipaque 300 Mg/ml) 75 ml 1X ONCE 04/07/17 14:00 04/07/17 14:01 DC 04/07/17 14:13 75 ML Sodium Chloride 1,000 ml @ 1,000 mls/hr Q1H 04/07/17 13:40 04/07/17 14:39 DC 04/07/17 14:00 1,000 MLS/HR Allergies Allergies Allergies Coded Allergies Type Severity Reaction Last Updated Verified butorphanol Allergy Intermediate Unknown 11/18/16 Yes lorazepam Allergy Mild 11/18/16 Yes morphine Allergy Mild Nausea and Vomiting 11/18/16 No Physical Exam Physical Exam Constitutional: Well developed, well nourished, tearful, alert, mentating normally. HENT: Normocephalic, atraumatic, bilateral external ears normal, nose normal. [ ] Eyes: conjunctiva normal, no discharge. [] Neck: Normal range of motion, no stridor. [] Cardiovascular:Heart rate regular rhythm, no murmur [] Lungs & Thorax: Bilateral breath sounds clear to auscultation [] Abdomen: Obese, Bowel sounds normal, soft, no masses, no pulsatile masses. Four laparoscopic incisions appear to be healing well. There is mild generalized tenderness to palpation. No localized tenderness. No rebound or guarding. Skin: Warm, dry, no erythema, no rash. [] Extremities: No tenderness, no cyanosis, no clubbing, ROM intact, no edema. [] Neurologic: Alert and oriented X 3, normal motor function, no focal deficits noted. [] Current Patient Data Vital Signs Vital Signs Date Time Temp Pulse Resp B/P (MAP) Pulse Ox O2 Delivery O2 Flow Rate FiO2 04/07/17 13:30 99.0 99 18 100 Room Air EKG EKG [] Radiology/Procedures Radiology/Procedures CT scan of the abdomen and pelvis with IV contrast read by the radiologist. No acute findings.[] Course & Med Decision Making Course & Med Decision Making Pertinent Labs and Imaging studies reviewed. (See chart for details) 37-year-old female about a week status post laparoscopic hysterectomy presents with worsened abdominal pain today. She is tearful with pain. She may have overdone it by overexerting today. Patient is a hard stick and labs were hemolyzed, nursing staff had a hard time getting labs drawn and so I decided to hold off until we saw CT results. Patient was given IV pain medication with some relief of her pain. She had a CT scan which showed nothing abnormal. Recheck of the patient after the CT scan showed that she is more comfortable but still states that she is having pain. I urged the patient to follow up with her [employer] surgeon next week. I wrote her prescription for a few hydrocodone since she told me that she is out of hydrocodone that was prescribed postoperatively. A few minutes later, a local pharmacist called and stated that she had just filled # 30 hydrocodone for this patient 4 days ago. The patient clearly omitted this information when getting me the history. Evidently, the patient got hydrocodone postoperatively and then has had a refill of 30. The patient should not have any need for further opiates especially after having just filled 4 days ago so I advised the pharmacist that I will declined to fill them at this time. [] Dragon Disclaimer Dragon Disclaimer This chart was dictated in whole or in part using Voice Recognition software in a busy, high-work load, and often noisy Emergency Department environment. It may contain unintended and wholly unrecognized errors or omissions. Departure Departure: Impression: Primary Impression: Postoperative abdominal pain Disposition: HOME, SELF-CARE Condition: IMPROVED Referrals: BALA JETT (PCP) Additional Instructions: CT scan today did not show any abnormality. I believe your pain is postoperative pain and you need to take it easy for another week or 2. Rest, take pain pills as needed use sparingly, these are opiates and can be addictive and constipating. Call Sunday for a follow-up appointment with your surgeon. Scripts Hydrocodone Bit/Acetaminophen (NORCO 5-325 TABLET) 1 Each Tablet 1 TAB PO PRN Q6HRS Y for PAIN, #14 TAB 0 Refills Prov: JESSICA SMYTH MD 04/07/17 JESSICA SMYTH MD Apr 07, 2017 15:24
== END 2017-04-07 15:29 | disposition home or self-care (01) ==
LOC: ER 13:28
DX: G89.18 Other acute postprocedural pain (principal); R10.84 Generalized abdominal pain; K21.9 Gastro-esophageal reflux disease without esophagitis; K58.9 Irritable bowel syndrome, unspecified; Z90.710 Acquired absence of both cervix and uterus; Z87.11 Personal history of peptic ulcer disease; Z87.442 Personal history of urinary calculi; Z90.49 Acquired absence of other specified parts of digestive tract; Z98.890 Other specified postprocedural states; Z88.5 Allergy status to narcotic agent; Z88.8 Allergy status to other drugs, medicaments and biological substances
CPT/HCPCS: 74177; 96361; 96374; 96376; 99284; J3010; Q9967; J7030

== ENCOUNTER 2017-05-08 21:42 | Emergency (ER) | payer OTHER ==
[~2017-05-08] VITALS: Ht 167.6 cm; Wt 115.7 kg
--- NOTE | 2017-05-08 21:45 | ED.ADGEN ---
Past History Past Medical History: Anxiety, Depression, GERD, IBS, Kidney Stones, Other Additional Past Medical Histor: irritable bowel syndrome, peptic ulcer disease , subcutaneous reflux disease Past Surgical History: Cholecystectomy, , Hysterectomy Smoking: Non-smoker Alcohol Use: None Drug Use: None Adult General Chief Complaint Chief Complaint " About 8 I started getting really bad abd. pain and vaginal bleeding... pain mainly around my epigastric and around my belly button.. I had a hysterectomy 6 weeks ago at [facility]... by Dr. Boudreaux... I called and they said to come there.. but it to far to go... so I just came here..." [facility] HPI Patient is a 37 year old female who presents with above hx and complaints of vaginal bleeding and abd. pain. Pt. did have sex yesterday but noted no bleeding afterwards. No history of trauma. No history of ill contacts. Contact with birds and reptiles. Or sick animals. Pt. No history of previous STDs.. Hx. 3 lifetime sexual partners. Patient suture lines from hysterectomy Healing well. Patient ate pork chops a full dinner approximately 1700. No change in stool. No history of vomiting. Patient does have extensive history of irritable bowel syndrome, pancreatitis, diabetes, peptic ulcer disease, GERD, and occasional UTIs. Patient has has cholecystectomy and C-sections. She is gravid 6 and 1 live births. Review of Systems Review of Systems Constitutional: Denies fever or chills [] Eyes: Denies change in visual acuity, redness, or eye pain [] HENT: Denies nasal congestion or sore throat [] Respiratory: Denies cough or shortness of breath [] Cardiovascular: No additional information not addressed in HPI [] GI: Complaints of abdominal pain, nausea. denies vomiting, bloody stools or diarrhea [] : Denies dysuria or hematuria []Complaints of vaginal bleeding. Musculoskeletal: Denies back pain or joint pain [] Integument: Denies rash or skin lesions [] Neurologic: Denies headache, focal weakness or sensory changes [] Endocrine: Denies polyuria or polydipsia [] Family History Family History Noncontributory Current Medications Current Medications Current Medications Medications (Trade) Dose Ordered Sig/Monica Start Time Stop Time Status Last Admin Dose Admin Famotidine (Pepcid) 20 mg 1X ONCE 05/08/17 22:45 05/08/17 22:46 DC 05/08/17 22:45 20 MG Fentanyl Citrate (Fentanyl 2ml Vial) 50 mcg 1X ONCE 05/09/17 01:00 05/09/17 01:01 UNV 05/09/17 01:00 50 MCG Iohexol (Omnipaque 240 Mg/ml) 50 ml 1X ONCE 05/08/17 23:00 05/08/17 23:01 DC 05/08/17 23:00 50 ML Iohexol (Omnipaque 300 Mg/ml) 75 ml 1X ONCE 05/08/17 23:00 05/08/17 23:01 DC 05/09/17 01:09 75 ML Ketorolac Tromethamine (Toradol) 30 mg 1X ONCE 05/08/17 22:45 05/08/17 22:46 DC 05/08/17 22:45 30 MG Magnesium Hydroxide (Milk Of Magnesia) 2,400 mg 1X ONCE 05/09/17 01:45 05/09/17 01:46 UNV 05/09/17 01:45 2,400 MG Ondansetron HCl (Zofran) 8 mg 1X ONCE 05/08/17 22:45 05/08/17 22:46 DC 05/08/17 22:45 8 MG Sodium Chloride 1,000 ml @ 1,000 mls/hr 1X ONCE 05/08/17 22:30 05/08/17 23:29 DC 05/08/17 22:30 1,000 MLS/HR Allergies Allergies Allergies Coded Allergies Type Severity Reaction Last Updated Verified butorphanol Allergy Intermediate Unknown 05/08/17 Yes lorazepam Allergy Mild 05/08/17 Yes morphine Allergy Mild Nausea and Vomiting 05/08/17 No Physical Exam Physical Exam Constitutional: Moderately acute distress, non-toxic appearance. [] HENT: Normocephalic, atraumatic, bilateral external ears normal, oropharynx moist, no oral exudates, nose normal. [] Eyes: PERRLA, EOMI, conjunctiva normal, no discharge. [] Neck: Normal range of motion, no tenderness, supple, no stridor. [] Cardiovascular:Heart rate regular rhythm, no murmur [] Lungs & Thorax: Bilateral breath sounds equal at apexes auscultation [] Abdomen: Bowel sounds normal, soft, periumbilical tenderness, no masses, no pulsatile masses. Healing hysterectomy scars. Cholecystectomy scars. . No rebound. Obese. Vaginal exam shows some mucosal inflammation and hemosiderin mucus. No active bleeding noted. Cuff appear to be intact. Hard Stool in rectal vault. Obese. Skin: Warm, dry, no erythema, no rash. [] Back: No tenderness, no CVA tenderness. [] Extremities: No tenderness, no cyanosis, no clubbing, ROM intact, no edema. [] Neurologic: Alert and oriented X 3, normal motor function, normal sensory function, no focal deficits noted. [] Psychologic: Affect anxious, judgement normal, mood normal. [] Current Patient Data Vital Signs Vital Signs Date Time Temp Pulse Resp B/P (MAP) Pulse Ox O2 Delivery O2 Flow Rate FiO2 05/09/17 01:30 20 97 Room Air 05/09/17 01:04 94 140/79 (99) 05/08/17 22:04 98.6 Lab Results Laboratory Tests Test 05/08/17 21:55 05/08/17 22:34 05/08/17 23:37 05/09/17 00:25 Urine Collection Type Unknown Urine Color Yellow Urine Clarity Hazy Urine pH 5.5 Urine Specific [place] >=1.030 Urine Protein Neg (NEG-TRACE) Urine Glucose (UA) Neg mg/dL (NEG) Urine Ketones (Stick) 15 mg/dL (NEG) Urine Blood Trace (NEG) Urine Nitrite Neg (NEG) Urine Bilirubin Neg (NEG) Urine Urobilinogen Dipstick 0.2 mg/dL (0.2 mg/dL) Urine Leukocyte Esterase Neg (NEG) Urine RBC Occ /HPF (0-2) Urine WBC Occ /HPF (0-4) Urine Squamous Epithelial Cells Few /LPF Urine Bacteria Few /HPF (0-FEW) Urine Opiates Screen Neg (NEG) Urine Methadone Screen Neg (NEG) Urine Barbiturates Neg (NEG) Urine Phencyclidine Screen Neg (NEG) Urine Amphetamine/Methamphetamine Pos (NEG) Urine Benzodiazepines Screen Neg (NEG) Urine Cocaine Screen Neg (NEG) Urine Cannabinoids Screen Neg (NEG) Urine Ethyl Alcohol Neg (NEG) POC Urine HCG, Qualitative hcg negative (Negative) White Blood Count 8.3 x10^3/uL (4.0-11.0) Red Blood Count 4.01 x10^6/uL (3.50-5.40) Hemoglobin 11.6 g/dL (12.0-15.5) L Hematocrit 34.4 % (36.0-47.0) L Mean Corpuscular Volume 86 fL (79-100) Mean Corpuscular Hemoglobin 29 pg (25-35) Mean Corpuscular Hemoglobin Concent 34 g/dL (31-37) Red Cell Distribution Width 14.8 % (11.5-14.5) H Platelet Count 337 x10^3/uL (140-400) Neutrophils (%) (Auto) 62 % (31-73) Lymphocytes (%) (Auto) 29 % (24-48) Monocytes (%) (Auto) 6 % (0-9) Eosinophils (%) (Auto) 2 % (0-3) Basophils (%) (Auto) 1 % (0-3) Neutrophils # (Auto) 5.2 x10^3uL (1.8-7.7) Lymphocytes # (Auto) 2.4 x10^3/uL (1.0-4.8) Monocytes # (Auto) 0.5 x10^3/uL (0.0-1.1) Eosinophils # (Auto) 0.1 x10^3/uL (0.0-0.7) Basophils # (Auto) 0.1 x10^3/uL (0.0-0.2) Prothrombin Time 10.7 SEC (9.4-11.4) Prothrombin Time INR 1.0 (0.9-1.1) PTT 22 SEC (23-33) L Maternal Serum HCG Beta Subunit < 1 mIU/mL (0-6) Sodium Level 138 mmol/L (136-145) Potassium Level 4.2 mmol/L (3.5-5.1) Chloride Level 104 mmol/L (98-107) Carbon Dioxide Level 24 mmol/L (21-32) Anion Gap 10 (6-14) Blood Urea Nitrogen 17 mg/dL (7-20) Creatinine 0.8 mg/dL (0.6-1.0) Estimated GFR (Cockcroft-Gault) 81.6 BUN/Creatinine Ratio 21 (6-20) H Glucose Level 122 mg/dL (70-99) H Calcium Level 8.6 mg/dL (8.5-10.1) Total Bilirubin 0.6 mg/dL (0.2-1.0) Direct Bilirubin 0.1 mg/dL (0.0-0.2) Aspartate Amino Transferase (AST) 46 U/L (15-37) H Alanine Aminotransferase (ALT) 80 U/L (14-59) H Alkaline Phosphatase 57 U/L (46-116) Creatine Kinase 60 U/L (26-192) Creatine Kinase MB (Mass) < 0.5 ng/mL (0.0-3.6) Creatine Kinase MB Relative Index 0.8 % (0-4) Troponin I Quantitative < 0.017 ng/mL (0-0.055) Total Protein 7.2 g/dL (6.4-8.2) Albumin 3.7 g/dL (3.4-5.0) Albumin/Globulin Ratio 1.1 (1.0-1.7) Amylase Level 22 U/L (25-115) L Lipase 187 U/L (73-393) Microbiology 05/08/17 Wet Prep - Final, Complete Laboratory Tests Test 05/08/17 21:55 05/08/17 22:34 05/08/17 23:37 05/09/17 00:25 Urine Collection Type Unknown Urine Color Yellow Urine Clarity Hazy Urine pH 5.5 Urine Specific [place] >=1.030 Urine Protein Neg (NEG-TRACE) Urine Glucose (UA) Neg mg/dL (NEG) Urine Ketones (Stick) 15 mg/dL (NEG) Urine Blood Trace (NEG) Urine Nitrite Neg (NEG) Urine Bilirubin Neg (NEG) Urine Urobilinogen Dipstick 0.2 mg/dL (0.2 mg/dL) Urine Leukocyte Esterase Neg (NEG) Urine RBC Occ /HPF (0-2) Urine WBC Occ /HPF (0-4) Urine Squamous Epithelial Cells Few /LPF Urine Bacteria Few /HPF (0-FEW) Urine Opiates Screen Neg (NEG) Urine Methadone Screen Neg (NEG) Urine Barbiturates Neg (NEG) Urine Phencyclidine Screen Neg (NEG) Urine Amphetamine/Methamphetamine Pos (NEG) Urine Benzodiazepines Screen Neg (NEG) Urine Cocaine Screen Neg (NEG) Urine Cannabinoids Screen Neg (NEG) Urine Ethyl Alcohol Neg (NEG) POC Urine HCG, Qualitative hcg negative (Negative) White Blood Count 8.3 x10^3/uL (4.0-11.0) Red Blood Count 4.01 x10^6/uL (3.50-5.40) Hemoglobin 11.6 g/dL (12.0-15.5) L Hematocrit 34.4 % (36.0-47.0) L Mean Corpuscular Volume 86 fL (79-100) Mean Corpuscular Hemoglobin 29 pg (25-35) Mean Corpuscular Hemoglobin Concent 34 g/dL (31-37) Red Cell Distribution Width 14.8 % (11.5-14.5) H Platelet Count 337 x10^3/uL (140-400) Neutrophils (%) (Auto) 62 % (31-73) Lymphocytes (%) (Auto) 29 % (24-48) Monocytes (%) (Auto) 6 % (0-9) Eosinophils (%) (Auto) 2 % (0-3) Basophils (%) (Auto) 1 % (0-3) Neutrophils # (Auto) 5.2 x10^3uL (1.8-7.7) Lymphocytes # (Auto) 2.4 x10^3/uL (1.0-4.8) Monocytes # (Auto) 0.5 x10^3/uL (0.0-1.1) Eosinophils # (Auto) 0.1 x10^3/uL (0.0-0.7) Basophils # (Auto) 0.1 x10^3/uL (0.0-0.2) Prothrombin Time 10.7 SEC (9.4-11.4) Prothrombin Time INR 1.0 (0.9-1.1) PTT 22 SEC (23-33) L Maternal Serum HCG Beta Subunit < 1 mIU/mL (0-6) Sodium Level 138 mmol/L (136-145) Potassium Level 4.2 mmol/L (3.5-5.1) Chloride Level 104 mmol/L (98-107) Carbon Dioxide Level 24 mmol/L (21-32) Anion Gap 10 (6-14) Blood Urea Nitrogen 17 mg/dL (7-20) Creatinine 0.8 mg/dL (0.6-1.0) Estimated GFR (Cockcroft-Gault) 81.6 BUN/Creatinine Ratio 21 (6-20) H Glucose Level 122 mg/dL (70-99) H Calcium Level 8.6 mg/dL (8.5-10.1) Total Bilirubin 0.6 mg/dL (0.2-1.0) Direct Bilirubin 0.1 mg/dL (0.0-0.2) Aspartate Amino Transferase (AST) 46 U/L (15-37) H Alanine Aminotransferase (ALT) 80 U/L (14-59) H Alkaline Phosphatase 57 U/L (46-116) Creatine Kinase 60 U/L (26-192) Creatine Kinase MB (Mass) < 0.5 ng/mL (0.0-3.6) Creatine Kinase MB Relative Index 0.8 % (0-4) Troponin I Quantitative < 0.017 ng/mL (0-0.055) Total Protein 7.2 g/dL (6.4-8.2) Albumin 3.7 g/dL (3.4-5.0) Albumin/Globulin Ratio 1.1 (1.0-1.7) Amylase Level 22 U/L (25-115) L Lipase 187 U/L (73-393) Microbiology 05/08/17 Wet Prep - Final, Complete EKG EKG My interpretation EKG shows a sinus rhythm at 91 bpm. No acute morphology[] Radiology/Procedures Radiology/Procedures I interpretation of acute abdomen shows increased stool. No free air in the diaphragm. CT of abdomen showed no surgical pathology. See formal report[] Course & Med Decision Making Course & Med Decision Making Pertinent Labs and Imaging studies reviewed. (See chart for details) Patient's stay on a clear fluid diet only 48 hours. No solid no milk products clear fluids allow bowel rest. Follow-up cultures collected here. Use Metrazol Flagyl vaginal suppositories every night per week. Follow-up cultures. Tylenol and ibuprofen for pain. Follow-up a must. Return if any concerns. Pelvic rest no sex until follow-up with OB. [] Final Impression Final Impression 1. Abdomen Pain 2. Bacterial vaginosis 3. S/P Hysterectomy 6 weeks. 4. Anemia 5. Elevated AST ALT 6. Diabetes 7. Constipation Problems: Dragon Disclaimer Dragon Disclaimer This electronic medical record was generated, in whole or in part, using a voice recognition dictation system. CHIDI MILTON MD May 08, 2017 21:45
[2017-05-08] MEDS ORDERED: IV NORMAL SALINE 1,000ML 1,000 ML IV ONE (22:30)
[2017-05-08] MEDS ORDERED: FAMOTIDINE 20 MG/2 ML VIAL IVP ONE (22:45)
[2017-05-08] MEDS ORDERED: ONDANSETRON PF 4 MG/2 ML VIAL. IV ONE (22:45)
[2017-05-08] MEDS ORDERED: KETOROLAC 30 MG/ML VIAL. IV ONE (22:45)
--- NOTE | 2017-05-08 22:50 | EKG ---
[address] [address] Test Date: 2017-05-08 Test Time: 22:42:44 Pat Name: JOY LEE Department: Room: Gender: F [employer]: : [id number] Requested By: CHIDI MILTON Order Number: [id number] Reading MD: Michael Bearden Measurements Intervals [place] Rate: 91 P: 66 TN: 166 QRS: 28 QRSD: 90 T: 14 QT: 352 QTc: 435 Interpretive Statements SINUS RHYTHM Electronically Signed On 05-16-2017 8:16:01 CDT by Michael Bearden
[2017-05-08] MEDS ORDERED: IOHEXOL 240 MG/ML 50ML VIAL. PO ONE (23:00)
[2017-05-08] MEDS ORDERED: IOHEXOL 300 MG/ML 75 ML VIAL. IV ONE (23:00)
[2017-05-09 00:40] LABS: BASO # 0.1 x10^3/uL (0.0-0.2); BASO % 1 % (0-3); EOS # 0.1 x10^3/uL (0.0-0.7); EOS % 2 % (0-3); HEMATOCRIT 34.4 % (36.0-47.0); HEMOGLOBIN 11.6 g/dL (12.0-15.5); LYMPH # 2.4 x10^3/uL (1.0-4.8); LYMPH % 29 % (24-48); MEAN CORPUSCULAR HEMOGLOBIN 29 pg (25-35); MEAN CORPUSCULAR HGB CONC 34 g/dL (31-37); MEAN CORPUSCULAR VOLUME 86 fL (79-100); MONO # 0.5 x10^3/uL (0.0-1.1); MONO % 6 % (0-9); NEUT # 5.2 x10^3uL (1.8-7.7); NEUT % 62 % (31-73); PLATELET COUNT 337 x10^3/uL (140-400); RED BLOOD COUNT 4.01 x10^6/uL (3.50-5.40); RED CELL DISTRIBUTION WIDTH 14.8 % (11.5-14.5); WHITE BLOOD COUNT 8.3 x10^3/uL (4.0-11.0)
[2017-05-09 00:50] LABS: COLOR,URINE YELLOW
[2017-05-09 00:51] LABS: BACTERIA,URINE FEW /HPF (0-FEW); BILIRUBIN,URINE NEG (NEG); CLARITY,URINE HAZY; GLUCOSE,URINE NEG (NEG); NITRITE,URINE NEG (NEG); RBC,URINE OCC /HPF (0-2); SQUAMOUS EPITHELIAL CELL,UR FEW /LPF; UROBILINOGEN,URINE 0.2 mg/dL (0.2 mg/dL); WBC,URINE OCC /HPF (0-4)
[2017-05-09 00:52] LABS: BARBITURATES NEG (NEG); BENZODIAZEPINES NEG (NEG); CANNABINOIDS NEG (NEG); COCAINE NEG (NEG); METHADONE NEG (NEG); OPIATES NEG (NEG); PHENCYCLIDINE NEG (NEG)
[2017-05-09 00:59] LABS: AMPHETAMINE/METHAMPHETAMINE POS (NEG)
[2017-05-09 01:01] LABS: ALBUMIN 3.7 g/dL (3.4-5.0); ALBUMIN/GLOBULIN RATIO 1.1 (1.0-1.7); ALK PHOS 57 U/L (46-116); ALT (SGPT) 80 U/L (14-59); AMYLASE 22 U/L (25-115); ANION GAP 10 (6-14); AST (SGOT) 46 U/L (15-37); BLOOD UREA NITROGEN 17 mg/dL (7-20); BUN/CREATININE RATIO 21 (6-20); CALCIUM 8.6 mg/dL (8.5-10.1); CARBON DIOXIDE 24 mmol/L (21-32); CHLORIDE 104 mmol/L (98-107); CREATINE KINASE 60 U/L (26-192); CREATININE 0.8 mg/dL (0.6-1.0); DIRECT BILIRUBIN 0.1 mg/dL (0.0-0.2); GFR 81.6; GLUCOSE 122 mg/dL (70-99); LIPASE 187 U/L (73-393); POTASSIUM 4.2 mmol/L (3.5-5.1); SODIUM 138 mmol/L (136-145); TOTAL BILIRUBIN 0.6 mg/dL (0.2-1.0); TOTAL PROTEIN 7.2 g/dL (6.4-8.2)
--- NOTE | 2017-05-09 01:33 | RAD ---
CT ABD PELV W/ORAL IV CONTRAST dated 05/08/2017 10:30 PM Indication:. Abdominal painEpigastric and Umbillical abdominal pain, vaginal bleeding, s/p hysterectomy x 6 weeks ago
hx of cholecystectomy, diabetic, recently increased liver enzymes
Gave omni 300 75ml IV, omni 240 30ml oral
hysterectomy 6 weeks ago. Comparison: 04/07/2017 Technique: Contiguous axial imaging of the abdomen and pelvis performed after the administration of 75 cc Omnipaque 300. One or more of the following individualized dose reduction techniques were utilized for this examination: 1. Automated exposure control 2. Adjustment of the mA and/or kV according to patient size 3. Use of iterative reconstruction technique Findings: Limited images of lung bases are clear. Heart size within normal limits. No pleural or pericardial effusion. Diffuse low-density of the liver compatible with fatty infiltration. No apparent hepatic mass. Biliary tree normal in caliber. The gallbladder is surgically absent. Spleen is normal in size. Pancreas, adrenal glands and kidneys unremarkable. No hydronephrosis. Partially opacified GI tract normal in caliber and contour. No focal bowel wall thickening. No inflammatory stranding in the mesentery. No ascites or lymphadenopathy. There is a defect within the anterior abdominal wall near the level of the linea alba with fat herniated along the outer margin of the right rectus muscle, unchanged. Images of pelvis show nondistended urinary bladder. Uterus is surgically absent. No free pelvic fluid or pelvic lymphadenopathy. Bone windows show no acute findings. Grade 1 spondylolisthesis and bilateral spondylolysis at L5-S1. Multilevel spondylosis. IMPRESSION: 1. No acute abnormality of abdomen or pelvis. Normal appendix. 2. Fatty infiltration of the liver. 3. Midline ventral hernia containing only fat, unchanged from prior study. 4. Status post hysterectomy and cholecystectomy. 5. Grade 1 spondylolisthesis and bilateral spondylolysis at L5-S1. Electronically signed by: Terence Clark MD (05/09/2017 1:30 AM) [id number]
[2017-05-09] MEDS ORDERED: MAGNESIUM HYDROXIDE 2,400 MG/30 ML ORAL.SUSP. ONE (01:44)
[2017-05-09] MEDS ORDERED: METR70GE14 VG (01:44)
[2017-05-09] MEDS ORDERED: MAGNESIUM HYDROXIDE 2,400 MG/30 ML ORAL.SUSP. PO ONE (01:45)
[2017-05-09 02:05] VITALS: BP 138/72
--- NOTE | 2017-05-09 08:04 | RAD ---
Acute abdomen series with chest, 3 views, 05/08/2017: History: Umbilical pain, vaginal bleeding, recent hysterectomy The abdominal gas pattern is unremarkable. No free air seen in the abdomen. Surgical clips are present in the right upper quadrant. The liver is enlarged. Lower pelvic calcifications are probably phleboliths. The heart size is normal. The lungs are clear. There is no evidence of pleural fluid. IMPRESSION: 1. Hepatomegaly. 2. No acute abdominal abnormality is detected.
[2017-05-10 14:13] LABS: CHLAMYDIA PROBE Negative (Negative)
== END 2017-05-09 02:05 | disposition home or self-care (01) ==
LOC: ER 21:42
DX: N76.0 Acute vaginitis (principal); D64.9 Anemia, unspecified; R79.89 Other specified abnormal findings of blood chemistry; E11.9 Type 2 diabetes mellitus without complications; K59.00 Constipation, unspecified; K21.9 Gastro-esophageal reflux disease without esophagitis; K58.9 Irritable bowel syndrome, unspecified; Z87.442 Personal history of urinary calculi; Z90.710 Acquired absence of both cervix and uterus; Z87.11 Personal history of peptic ulcer disease; Z90.49 Acquired absence of other specified parts of digestive tract; Z98.890 Other specified postprocedural states; Z88.5 Allergy status to narcotic agent; Z88.8 Allergy status to other drugs, medicaments and biological substances
CPT/HCPCS: 36415; 74022; 74177; 80053; 80307; 81001; 81025; 82150; 82248; 82553; 83690; 84484; 84702; 85025; 85610; 85730; 87491; 87591; 93005; 96361; 96374; 96375; 96376; 99285; J1885; J2405; J3010; Q0111; Q9966; Q9967; S0028; G0479; J7030

== ENCOUNTER → 2017-06-12 | Outpatient (CLI) | payer OTHER ==
[~2017-06-12] MED LIST changes: +METR70GE14 VG
--- NOTE | 2017-06-12 15:21 | RAD ---
Chest, 2 views, 06/12/2017: History: Cough and congestion Comparison is made to a study from 05/08/2017. The heart size and pulmonary vascularity are normal. No pulmonary infiltrates are seen. There is no evidence of pleural fluid. Mild spurring is present in the spine. IMPRESSION: No acute cardiopulmonary abnormality is detected.
== END | disposition home or self-care (01) ==
LOC: DXRAD 14:22
PROVIDERS: ATTEND Physician Assistant
DX: R05 Cough (principal); M53.84 Other specified dorsopathies, thoracic region
CPT/HCPCS: 71020

== ENCOUNTER 2017-06-28 18:24 | Emergency (ER) | payer OTHER ==
[~2017-06-28] VITALS: Ht 167.6 cm; Wt 110.0 kg
[~2017-06-28 18:24] MED LIST changes: -IBUP200T43 PO; +IBUP200T44 PO
--- NOTE | 2017-06-28 18:28 | ED.ADGEN ---
Past History Past Medical History: Anxiety, Depression, GERD, IBS, Kidney Stones, Other Additional Past Medical Histor: irritable bowel syndrome, peptic ulcer disease , subcutaneous reflux disease Past Surgical History: Cholecystectomy, , Hysterectomy Smoking: Non-smoker Alcohol Use: None Drug Use: None Adult General Chief Complaint Chief Complaint " I have lots of abdomen problems.. I had some diarrhea.. but normally I get better after wards. HPI HPI Patient is a 37 year old female who presents with above hx and complaints generalized abdomen pain. Patient has had several episodes of diarrhea. Patient has a long history of bowel disorders. Patient been diagnosed with IBS, GERD, biliary colic with follow-up cholecystectomy, adhesions. and constipation., Has had additional abdomen surgeries of hysterectomy, and . Patient denies any intake of bad food. Patient denies any travel. Patient denies any specific ill contacts. Patient denies any trauma. Review of Systems Review of Systems Constitutional: Denies fever or chills [] Eyes: Denies change in visual acuity, redness, or eye pain [] HENT: Denies nasal congestion or sore throat [] Respiratory: Denies cough or shortness of breath [] Cardiovascular: No additional information not addressed in HPI [] GI: Complaints of generalized abdominal pain, nausea, vomiting, and diarrhea [] : Denies dysuria or hematuria [] Musculoskeletal: Denies back pain or joint pain [] Integument: Denies rash or skin lesions [] Neurologic: Denies headache, focal weakness or sensory changes [] Endocrine: Denies polyuria or polydipsia [] All other systems were reviewed and found to be within normal limits, except as documented in this note. Family History Family History Noncontributory Current Medications Current Medications Current Medications Medications (Trade) Dose Ordered Sig/Monica Start Time Stop Time Status Last Admin Dose Admin Famotidine (Pepcid Vial) 20 mg 1X ONCE 06/28/17 19:30 06/28/17 19:37 DC 06/28/17 20:17 20 MG Fentanyl Citrate (Fentanyl 2ml Vial) 50 mcg 1X ONCE 06/29/17 00:30 06/29/17 00:31 UNV 06/29/17 00:30 50 MCG Fentanyl Citrate (Fentanyl 5ml Vial) 50 mcg 1X ONCE 06/28/17 22:45 06/28/17 22:46 DC 06/28/17 22:45 50 MCG Iohexol (Omnipaque 240 Mg/ml) 50 ml 1X ONCE 06/28/17 22:00 06/28/17 22:01 DC 06/28/17 23:06 50 ML Iohexol (Omnipaque 300 Mg/ml) 75 ml 1X ONCE 06/28/17 22:00 06/28/17 22:01 DC 06/28/17 23:05 75 ML Lactated Ringer's 1,000 ml @ 1,000 mls/hr Q1H 06/28/17 19:30 06/28/17 20:07 DC 06/28/17 20:07 1,000 MLS/HR Magnesium Hydroxide (Milk Of Magnesia) 2,400 mg 1X ONCE 06/28/17 21:45 06/28/17 21:47 DC 06/28/17 21:52 2,400 MG Methylprednisolone Acetate (DEPO-Medrol IM) 40 mg 1X ONCE 06/29/17 00:15 06/29/17 00:16 UNV 06/29/17 00:15 40 MG Methylprednisolone Sodium Succinate (SOLU-Medrol 40MG VIAL) 40 mg STK-MED ONCE 06/29/17 00:18 06/29/17 00:19 DC Metronidazole (Flagyl) 500 mg 1X ONCE 06/29/17 00:15 06/29/17 00:16 UNV 06/29/17 00:15 500 MG Ondansetron HCl (Zofran) 8 mg 1X ONCE 06/28/17 22:45 06/28/17 22:46 DC See nursing for home meds Allergies Allergies Allergies Coded Allergies Type Severity Reaction Last Updated Verified butorphanol Allergy Intermediate Unknown 05/08/17 Yes lorazepam Allergy Mild 05/08/17 Yes morphine Allergy Mild Nausea and Vomiting 05/08/17 No Physical Exam Physical Exam Constitutional: Moderately acute distress, non-toxic appearance. [] HENT: Normocephalic, atraumatic, bilateral external ears normal, oropharynx moist, no oral exudates, nose normal. [] Eyes: PERRLA, EOMI, conjunctiva normal, no discharge. [] Neck: Normal range of motion, no tenderness, supple, no stridor. [] Cardiovascular:Heart rate regular rhythm, no murmur [] Lungs & Thorax: Bilateral breath sounds clear to auscultation [] Abdomen: Bowel sounds normal, soft, generalized tenderness, no masses, no pulsatile masses. [Obese. Old surgery scars. Distended Skin: Warm, dry, no erythema, no rash. [] Back: No tenderness, no CVA tenderness. [] Extremities: No tenderness, no cyanosis, no clubbing, ROM intact, no edema. [] Neurologic: Alert and oriented X 3, normal motor function, normal sensory function, no focal deficits noted. [] Psychologic: Affect anxious, judgement normal, mood . Depressed Current Patient Data Vital Signs Vital Signs Date Time Temp Pulse Resp B/P (MAP) Pulse Ox O2 Delivery O2 Flow Rate FiO2 06/29/17 00:30 20 99 06/28/17 20:50 106 121/92 (102) Room Air 06/28/17 18:50 98.1 Lab Results Laboratory Tests Test 06/28/17 19:20 06/28/17 19:28 Urine Collection Type Unknown Urine Color Yellow Urine Clarity Cloudy Urine pH 5.0 Urine Specific [place] 1.015 Urine Protein Neg (NEG-TRACE) Urine Glucose (UA) Neg mg/dL (NEG) Urine Ketones (Stick) Neg mg/dL (NEG) Urine Blood Trace (NEG) Urine Nitrite Neg (NEG) Urine Bilirubin Neg (NEG) Urine Urobilinogen Dipstick 0.2 mg/dL (0.2 mg/dL) Urine Leukocyte Esterase Neg (NEG) Urine RBC Occ /HPF (0-2) Urine WBC Occ /HPF (0-4) Urine Squamous Epithelial Cells Mod /LPF Urine Bacteria Few /HPF (0-FEW) Urine Mucus Slight /LPF Urine Opiates Screen Neg (NEG) Urine Methadone Screen Neg (NEG) Urine Barbiturates Neg (NEG) Urine Phencyclidine Screen Neg (NEG) Urine Amphetamine/Methamphetamine Neg (NEG) Urine Benzodiazepines Screen Neg (NEG) Urine Cocaine Screen Neg (NEG) Urine Cannabinoids Screen Neg (NEG) Urine Ethyl Alcohol Neg (NEG) White Blood Count 9.7 x10^3/uL (4.0-11.0) Red Blood Count 4.41 x10^6/uL (3.50-5.40) Hemoglobin 12.7 g/dL (12.0-15.5) Hematocrit 37.5 % (36.0-47.0) Mean Corpuscular Volume 85 fL (79-100) Mean Corpuscular Hemoglobin 29 pg (25-35) Mean Corpuscular Hemoglobin Concent 34 g/dL (31-37) Red Cell Distribution Width 14.4 % (11.5-14.5) Platelet Count 413 x10^3/uL (140-400) H Neutrophils (%) (Auto) 69 % (31-73) Lymphocytes (%) (Auto) 24 % (24-48) Monocytes (%) (Auto) 5 % (0-9) Eosinophils (%) (Auto) 1 % (0-3) Basophils (%) (Auto) 1 % (0-3) Neutrophils # (Auto) 6.6 x10^3uL (1.8-7.7) Lymphocytes # (Auto) 2.3 x10^3/uL (1.0-4.8) Monocytes # (Auto) 0.5 x10^3/uL (0.0-1.1) Eosinophils # (Auto) 0.1 x10^3/uL (0.0-0.7) Basophils # (Auto) 0.1 x10^3/uL (0.0-0.2) Sodium Level 136 mmol/L (136-145) Potassium Level 3.8 mmol/L (3.5-5.1) Chloride Level 101 mmol/L (98-107) Carbon Dioxide Level 20 mmol/L (21-32) L Anion Gap 15 (6-14) H Blood Urea Nitrogen 9 mg/dL (7-20) Creatinine 0.8 mg/dL (0.6-1.0) Estimated GFR (Cockcroft-Gault) 81.6 BUN/Creatinine Ratio 11 (6-20) Glucose Level 139 mg/dL (70-99) H Calcium Level 9.4 mg/dL (8.5-10.1) Total Bilirubin 0.4 mg/dL (0.2-1.0) Aspartate Amino Transferase (AST) 44 U/L (15-37) H Alanine Aminotransferase (ALT) 61 U/L (14-59) H Alkaline Phosphatase 69 U/L (46-116) Total Protein 8.2 g/dL (6.4-8.2) Albumin 3.9 g/dL (3.4-5.0) Albumin/Globulin Ratio 0.9 (1.0-1.7) L Lipase 140 U/L (73-393) EKG EKG [] Radiology/Procedures Radiology/Procedures I interpretation of acute abdomen film shows no acute cardiopulmonary findings. No free air under the diaphragm. Nonobstructive bowel gas pattern. Does have stool in right colon. Clips from previous surgery noted. CT of abdomen shows no surgical pathology. There is some thickening of the colon suggestive of pancolitis. Infectious versus ulcerative would be some of the differential. Course & Med Decision Making Course & Med Decision Making Pertinent Labs and Imaging studies reviewed. (See chart for details). Stay on a clear fluid diet only for the next 48 hours no solid no milk products must allow bowel rest. Take Flagyl 500 mg 3 times a day. May take Zofran as needed for nausea and vomiting. May take Vicoprofen as needed for pain. Must follow-up primary care. Follow-up with GI and obtain bowel biopsies and colonoscopy. Does remain on a clear fluid diet only if having abdomen pain. [] Final Impression Final Impression 1. Abdomen Pain 2. Constipation 3. Elevated AST and ALT 4. Ervin Colitis Problems: Dragon Disclaimer Dragon Disclaimer This electronic medical record was generated, in whole or in part, using a voice recognition dictation system. CHIDI MILTON MD Jun 28, 2017 18:28
[2017-06-28] MEDS ORDERED: IV RINGERS SOLUTION,LACTATED 1,000 ML IV SCH (19:30)
[2017-06-28] MEDS ORDERED: FAMOTIDINE 20 MG/2 ML VIAL IVP ONE (19:30)
[2017-06-28] MEDS ORDERED: ONDANSETRON PF 4 MG/2 ML VIAL. IV ONE ×2 (19:30→22:45)
[2017-06-28 20:16] LABS: BARBITURATES NEG (NEG); BENZODIAZEPINES NEG (NEG); CANNABINOIDS NEG (NEG); COCAINE NEG (NEG); METHADONE NEG (NEG); OPIATES NEG (NEG); PHENCYCLIDINE NEG (NEG)
[2017-06-28 20:17] LABS: AMPHETAMINE/METHAMPHETAMINE NEG (NEG)
[2017-06-28 20:42] LABS: BASO # 0.1 x10^3/uL (0.0-0.2); BASO % 1 % (0-3); EOS # 0.1 x10^3/uL (0.0-0.7); EOS % 1 % (0-3); HEMATOCRIT 37.5 % (36.0-47.0); HEMOGLOBIN 12.7 g/dL (12.0-15.5); LYMPH # 2.3 x10^3/uL (1.0-4.8); LYMPH % 24 % (24-48); MEAN CORPUSCULAR HEMOGLOBIN 29 pg (25-35); MEAN CORPUSCULAR HGB CONC 34 g/dL (31-37); MEAN CORPUSCULAR VOLUME 85 fL (79-100); MONO # 0.5 x10^3/uL (0.0-1.1); MONO % 5 % (0-9); NEUT # 6.6 x10^3uL (1.8-7.7); NEUT % 69 % (31-73); PLATELET COUNT 413 x10^3/uL (140-400); RED BLOOD COUNT 4.41 x10^6/uL (3.50-5.40); RED CELL DISTRIBUTION WIDTH 14.4 % (11.5-14.5); WHITE BLOOD COUNT 9.7 x10^3/uL (4.0-11.0)
[2017-06-28 20:50] VITALS: BP 121/92
[2017-06-28 20:50] LABS: ALBUMIN 3.9 g/dL (3.4-5.0); ALBUMIN/GLOBULIN RATIO 0.9 (1.0-1.7); CALCIUM 9.4 mg/dL (8.5-10.1); CREATININE 0.8 mg/dL (0.6-1.0); GFR 81.6; POTASSIUM 3.8 mmol/L (3.5-5.1); TOTAL BILIRUBIN 0.4 mg/dL (0.2-1.0); TOTAL PROTEIN 8.2 g/dL (6.4-8.2)
[2017-06-28 21:11] LABS: BILIRUBIN,URINE NEG (NEG); CLARITY,URINE CLOUDY; COLOR,URINE YELLOW; GLUCOSE,URINE NEG (NEG); NITRITE,URINE NEG (NEG); UROBILINOGEN,URINE 0.2 mg/dL (0.2 mg/dL)
[2017-06-28 21:12] LABS: BACTERIA,URINE FEW /HPF (0-FEW); RBC,URINE OCC /HPF (0-2); SQUAMOUS EPITHELIAL CELL,UR MOD /LPF; WBC,URINE OCC /HPF (0-4)
[2017-06-28] MEDS ORDERED: MAGNESIUM HYDROXIDE 2,400 MG/30 ML ORAL.SUSP. PO ONE (21:45)
[2017-06-28] MEDS ORDERED: IOHEXOL 240 MG/ML 50ML VIAL. PO ONE (22:00)
[2017-06-28] MEDS ORDERED: IOHEXOL 300 MG/ML 75 ML VIAL. IV ONE (22:00)
[2017-06-28] MEDS ORDERED: fentaNYL PF 250 MCG/5 ML VIAL IV ONE (22:45)
--- NOTE | 2017-06-28 23:36 | RAD ---
CT SCAN OF THE ABDOMEN AND PELVIS WITH IV CONTRAST. History: Epigastric pain Comparison: May 09, 2017. Procedure: Contiguous axial images of the abdomen and pelvis were performed after the administration of 75 cc of Omni 300 IV contrast and oral contrast. CT Abdomen with contrast: Findings: Liver: Hypoattenuating but homogeneous Spleen: Unremarkable Pancreas: Unremarkable Adrenal Glands: Unremarkable Kidneys: Unremarkable There is no mass or lymphadenopathy. There is no free air. There is no free fluid. There has been prior cholecystectomy. Bilateral spondylolysis and grade 2 anterolisthesis of L5 on S1 was seen previously. The colon is collapsed limiting its evaluation. There is apparent mild wall thickening of the colon without surrounding inflammation. CT Pelvis with Contrast: Findings: The urinary bladder appears normal. There is no free fluid. There is no lymphadenopathy. The appendix is normal. Impression: 1. Fatty infiltration of the liver. 2. Findings suggest mild pancolitis. This could be infectious such as pseudomembranous colitis or could be inflammatory such as ulcerative colitis. There is no evidence of diverticulitis or ischemic colitis. PQRS Compliance Statement: One or more of the following individualized dose reduction techniques were utilized for this examination: 1. Automated exposure control 2. Adjustment of the mA and/or kV according to patient size 3. Use of iterative reconstruction technique Electronically signed by: Yifan Palm III, MD (06/28/2017 11:33 PM) [facility]
[2017-06-28] MEDS ORDERED: HYDR-79 PO (23:53)
[2017-06-28] MEDS ORDERED: METR500T PO (23:53)
[2017-06-28] MEDS ORDERED: ONDA8TAB12 PO (23:53)
[2017-06-29] MEDS ORDERED: metroNIDAZOLE 500 MG TABLET ONE (00:10)
[2017-06-29] MEDS ORDERED: metroNIDAZOLE 500 MG TABLET PO ONE ×3 (00:15)
[2017-06-29] MEDS ORDERED: methylPREDNISolone ACETATE 40 MG/ML VIAL. IM ONE ×3 (00:15)
[2017-06-29] MEDS ORDERED: methylPREDNISolone SOD SUCC PF 40 MG/ML VIAL. ONE (00:18)
--- NOTE | 2017-06-29 07:32 | RAD ---
Indication: Severe abdominal pain and diarrhea, beginning today. Technique: Abdominal series with PA chest radiograph contains 4 images. Comparison is from May 08, 2017. Findings: There is no free air. There is no dilated small bowel loop or air-fluid level. There is a relative paucity of gas filled bowel. There are calcified phleboliths in the pelvis. There are clips in the right upper quadrant. The lungs are clear and the heart is not enlarged. Impression: Nonobstructive bowel gas pattern.
== END 2017-06-28 23:57 | disposition home or self-care (01) ==
LOC: ER 18:24
DX: K59.00 Constipation, unspecified (principal); R10.84 Generalized abdominal pain; R74.0 Nonspecific elevation of levels of transaminase and lactic acid dehydrogenase [LDH]; K51.00 Ulcerative (chronic) pancolitis without complications; K21.9 Gastro-esophageal reflux disease without esophagitis; Z87.442 Personal history of urinary calculi; F41.9 Anxiety disorder, unspecified; F32.9 Major depressive disorder, single episode, unspecified; K58.9 Irritable bowel syndrome, unspecified; Z87.11 Personal history of peptic ulcer disease; Z90.49 Acquired absence of other specified parts of digestive tract; Z90.710 Acquired absence of both cervix and uterus; Z98.890 Other specified postprocedural states; Z88.5 Allergy status to narcotic agent; Z88.8 Allergy status to other drugs, medicaments and biological substances
CPT/HCPCS: 36415; 74022; 74177; 80053; 80307; 81001; 83690; 85025; 96361; 96372; 96374; 96375; 96376; 99285; J1030; J2405; J3010; J7120; Q9966; Q9967; S0028; G0479

== ENCOUNTER 2017-09-05 13:47 | Emergency (ER) | payer OTHER ==
[~2017-09-05] VITALS: Ht 167.6 cm; Wt 110.0 kg
[~2017-09-05 13:47] MED LIST changes: +HYDR-79 PO; +METR500T PO
[2017-09-05] MEDS ORDERED: 0.9 % SODIUM CHLORIDE 10 ML DISP.SYRIN. IV PRN (14:15)
--- NOTE | 2017-09-05 14:16 | PHYS DOC ---
Past History Past Medical History: Anxiety, Bipolar, Diabetes, Hypothyroid, IBS, Kidney Stones, Pancreatitis, Other Additional Past Medical Histor: irritable bowel syndrome, peptic ulcer disease , subcutaneous reflux disease Past Surgical History: Cholecystectomy, Hysterectomy, Other Smoking: Non-smoker Alcohol Use: Occasionally Drug Use: None Adult General Chief Complaint Chief Complaint: ABDOMINAL PAIN [facility] 37-year-old female patient with history of previous episodes of abdominal pain and pancreatitis and small bowel obstruction states she had 4 episodes of nonbloody diarrhea last night and 2 more episodes this morning and for the last 12 hours had sharp epigastric pain without radiation as a constant and squeezing pain and rated her pain 8-9/10. Patient denies nausea and vomiting, fever and chills, urinary symptoms, sick contact. Patient states she had flatus today. Patient states she thinks she had another episode of bowel obstruction. Patient had ibuprofen at home but her pain did not getting better. Review of Systems Review of Systems Constitutional: Denies fever or chills [] Eyes: Denies change in visual acuity, redness, or eye pain [] HENT: Denies nasal congestion or sore throat [] Respiratory: Denies cough or shortness of breath [] Cardiovascular: No additional information not addressed in HPI [] GI: Reports abdominal pain and diarrhea, denies, nausea, vomiting, bloody stools. [] : Denies dysuria or hematuria [] Musculoskeletal: Denies back pain or joint pain [] Integument: Denies rash or skin lesions [] Neurologic: Denies headache, focal weakness or sensory changes [] Endocrine: Denies polyuria or polydipsia [] All other systems were reviewed and found to be within normal limits, except as documented in this note. Allergies Allergies Allergies Coded Allergies Type Severity Reaction Last Updated Verified butorphanol Allergy Intermediate Unknown 05/08/17 Yes lorazepam Allergy Mild 05/08/17 Yes morphine Allergy Mild Nausea and Vomiting 05/08/17 No Physical Exam Physical Exam Constitutional: Well developed, well nourished, mild distress, non-toxic appearance, anxious. [] HENT: Normocephalic, atraumatic, bilateral external ears normal, oropharynx moist, no oral exudates, nose normal. [] Eyes: PERRLA, EOMI, conjunctiva normal, no discharge. [] Neck: Normal range of motion, no tenderness, supple, no stridor. [] Cardiovascular:Heart rate regular rhythm, no murmur [] Lungs & Thorax: Bilateral breath sounds clear to auscultation [] Abdomen: Bowel sounds normal, soft, no tenderness, no masses, no pulsatile masses. [] Skin: Warm, dry, no erythema, no rash. [] Back: No tenderness, no CVA tenderness. [] Extremities: No tenderness, no cyanosis, no clubbing, ROM intact, no edema. [] Neurologic: Alert and oriented X 3, normal motor function, normal sensory function, no focal deficits noted. [] Psychologic: Anxious , judgement normal, mood normal. [] Current Patient Data Vital Signs Vital Signs Date Time Temp Pulse Resp B/P (MAP) Pulse Ox O2 Delivery O2 Flow Rate FiO2 09/05/17 14:00 98.1 106 18 98 Room Air EKG EKG [] Radiology/Procedures Radiology/Procedures [] [address] [address] IMAGING REPORT Signed PATIENT: JOY LEE ACCOUNT: [id number] : 1980 LOCATION: ER AGE: 37 SEX: F EXAM STATUS: REG ER ORD. PHYSICIAN: RENO BRANDT MD REASON: abdominal pain and diarrhea, history of bowel obstruction PROCEDURE: CT ABD PELV W/ORAL&IV CONTRAST CT of the abdomen and pelvis with contrast, 09/05/2017: History: Abdominal pain, nausea and vomiting Multidetector CT imaging was performed following oral and IV administration of contrast. Comparison is made to a study from 06/28/2017. The gallbladder is surgically absent. The liver is enlarged and of lower than normal density again compatible with hepatic steatosis. No hepatic mass is identified. The pancreas is unremarkable. The spleen is of normal size. The kidneys show no evidence of obstruction or mass. The abdominal aorta is unremarkable. No abdominal or pelvic adenopathy is seen. The bowel loops are not dilated. The oral contrast material has not reached the distal small bowel. The appendix is visualized and shows no abnormality. No free air or significant free fluid is evident in the abdomen or pelvis. There is a midline ventral hernia at the mid pelvis pelvic level containing only fat. There is an additional midline fascial defect involving the anterior abdominal wall in the upper abdomen also containing only fat. No bowel herniation is evident. Again noted is bilateral spondylolysis at at L5 with mild spondylolisthesis at what appears to be the L5-S1 level. IMPRESSION: 1. Hepatic steatosis. 2. Midline ventral hernias containing only fat. 3. No acute abdominal or pelvic abnormality is detected. Course & Med Decision Making Course & Med Decision Making Pertinent Labs and Imaging studies reviewed. (See chart for details) Evaluation of patient in ER showed 37-year-old female patient with complaining of abdominal pain and so the diarrhea. Patient has history of previous abdominal pain and intestinal obstruction. Patient had unremarkable physical exam and labs and CT abdomen and pelvis. Patient felt better with IV fluid and Toradol tolerated oral intake. Plan discharge patient home with diagnosis of acute gastroenteritis and abdominal pain. I've spoken with the patient and/or caregivers. I've explained the patient's condition, diagnosis and treatment plan based on information available to me at this time. I've answered the patient's and/or caregivers questions and addressed any concerns. The patient and/or caregivers have a good understanding the patient's diagnosis, condition and treatment plan as can be expected at this point. Vital signs have been stabilized. The patient's condition is stable for discharge from the emergency department. The patient will pursue further outpatient evaluation with her primary care provider or other designated consulting physician as outlined in the discharge instructions. Patient and/or caregivers are agreeable to this plan of care and follow-up instructions have been explained in detail. The patient and/or caregivers have received these instructions in written format and expressed understanding of these discharge instructions. The patient and her caregivers are aware that if any significant change in condition or worsening of symptoms should prompt him to immediately return to this of the closest emergency department. If an emergent department is not readily available I would encourage him to call 911. Ana Maria Disclaimer Dragon Disclaimer This electronic medical record was generated, in whole or in part, using a voice recognition dictation system. Departure Departure: Impression: Primary Impression: Acute gastroenteritis Additional Impression: Abdominal pain Disposition: HOME, SELF-CARE (At 1628) Referrals: BALA JETT (PCP) Patient Instructions: Viral Gastroenteritis Additional Instructions: Drink plenty of liquids Follow-up with your primary care physician in 3-5 days Return to ER if not getting better Scripts Ondansetron (ZOFRAN ODT) 4 Mg Tab.rapdis 1 TAB SL Q8HRS, #15 TAB Prov: RENO BRANDT MD 09/05/17 Problem Qualifiers RENO BRANDT MD Sep 05, 2017 14:16
[2017-09-05] MEDS ORDERED: IV NORMAL SALINE 1,000ML 1,000 ML IV SCH (14:30)
[2017-09-05] MEDS ORDERED: IOHEXOL 240 MG/ML 50ML VIAL. ONE (14:31)
[2017-09-05 14:39] LABS: BARBITURATES NEG (NEG); BENZODIAZEPINES NEG (NEG); CANNABINOIDS NEG (NEG); COCAINE NEG (NEG); METHADONE NEG (NEG); OPIATES NEG (NEG); PHENCYCLIDINE NEG (NEG)
[2017-09-05 14:40] LABS: AMPHETAMINE/METHAMPHETAMINE NEG (NEG); BILIRUBIN,URINE NEG (NEG); CLARITY,URINE CLEAR; COLOR,URINE YELLOW; GLUCOSE,URINE NEG (NEG)
[2017-09-05 14:41] LABS: BACTERIA,URINE FEW /HPF (0-FEW); NITRITE,URINE NEG (NEG); RBC,URINE OCC /HPF (0-2); SQUAMOUS EPITHELIAL CELL,UR MOD /LPF; UROBILINOGEN,URINE 0.2 mg/dL (0.2 mg/dL); WBC,URINE OCC /HPF (0-4)
[2017-09-05] MEDS ORDERED: KETOROLAC 30 MG/ML VIAL. IV ONE (14:45)
[2017-09-05] MEDS ORDERED: CONTRAST GIVEN MC PRN (14:45)
[2017-09-05] MEDS ORDERED: IOHEXOL 300 MG/ML 75 ML VIAL. IV ONE (14:45)
[2017-09-05 14:52] LABS: BASO # 0.1 x10^3/uL (0.0-0.2); BASO % 1 % (0-3); EOS # 0.1 x10^3/uL (0.0-0.7); EOS % 2 % (0-3); HEMATOCRIT 33.4 % (36.0-47.0); HEMOGLOBIN 11.2 g/dL (12.0-15.5); LYMPH # 2.4 x10^3/uL (1.0-4.8); LYMPH % 29 % (24-48); MEAN CORPUSCULAR HEMOGLOBIN 28 pg (25-35); MEAN CORPUSCULAR HGB CONC 34 g/dL (31-37); MEAN CORPUSCULAR VOLUME 84 fL (79-100); MONO # 0.4 x10^3/uL (0.0-1.1); MONO % 5 % (0-9); NEUT # 5.4 x10^3uL (1.8-7.7); NEUT % 64 % (31-73); PLATELET COUNT 360 x10^3/uL (140-400); RED BLOOD COUNT 3.97 x10^6/uL (3.50-5.40); RED CELL DISTRIBUTION WIDTH 15.7 % (11.5-14.5); WHITE BLOOD COUNT 8.4 x10^3/uL (4.0-11.0)
[2017-09-05 15:04] LABS: ALBUMIN 3.7 g/dL (3.4-5.0); ALBUMIN/GLOBULIN RATIO 0.9 (1.0-1.7); CALCIUM 8.7 mg/dL (8.5-10.1); CREATININE 0.8 mg/dL (0.6-1.0); GFR 81.6; POTASSIUM 3.6 mmol/L (3.5-5.1); TOTAL BILIRUBIN 0.4 mg/dL (0.2-1.0); TOTAL PROTEIN 7.6 g/dL (6.4-8.2)
--- NOTE | 2017-09-05 16:08 | RAD ---
CT of the abdomen and pelvis with contrast, 09/05/2017: History: Abdominal pain, nausea and vomiting Multidetector CT imaging was performed following oral and IV administration of contrast. Comparison is made to a study from 06/28/2017. The gallbladder is surgically absent. The liver is enlarged and of lower than normal density again compatible with hepatic steatosis. No hepatic mass is identified. The pancreas is unremarkable. The spleen is of normal size. The kidneys show no evidence of obstruction or mass. The abdominal aorta is unremarkable. No abdominal or pelvic adenopathy is seen. The bowel loops are not dilated. The oral contrast material has not reached the distal small bowel. The appendix is visualized and shows no abnormality. No free air or significant free fluid is evident in the abdomen or pelvis. There is a midline ventral hernia at the mid pelvis pelvic level containing only fat. There is an additional midline fascial defect involving the anterior abdominal wall in the upper abdomen also containing only fat. No bowel herniation is evident. Again noted is bilateral spondylolysis at at L5 with mild spondylolisthesis at what appears to be the L5-S1 level. IMPRESSION: 1. Hepatic steatosis. 2. Midline ventral hernias containing only fat. 3. No acute abdominal or pelvic abnormality is detected. PQRS Compliance Statement: One or more of the following individualized dose reduction techniques were utilized for this examination: 1. Automated exposure control 2. Adjustment of the mA and/or kV according to patient size 3. Use of iterative reconstruction technique
[2017-09-05] MEDS ORDERED: ONDA4TAB10 SL (16:28)
[2017-09-05 16:33] VITALS: BP 106/55
== END 2017-09-05 16:35 | disposition home or self-care (01) ==
LOC: ER 13:47
DX: K52.9 Noninfective gastroenteritis and colitis, unspecified (principal); E11.9 Type 2 diabetes mellitus without complications; E03.9 Hypothyroidism, unspecified; K58.9 Irritable bowel syndrome, unspecified; F31.9 Bipolar disorder, unspecified; F41.9 Anxiety disorder, unspecified; K21.9 Gastro-esophageal reflux disease without esophagitis; Z87.442 Personal history of urinary calculi; Z87.11 Personal history of peptic ulcer disease; Z90.49 Acquired absence of other specified parts of digestive tract; Z90.710 Acquired absence of both cervix and uterus; Z88.5 Allergy status to narcotic agent; Z88.8 Allergy status to other drugs, medicaments and biological substances
CPT/HCPCS: 36415; 74177; 80053; 80307; 81001; 83690; 85025; 96361; 96374; 99285; J1885; Q9967; G0479; J7030

== ENCOUNTER → 2017-09-25 | Outpatient (CLI) | payer OTHER ==
[2017-09-05 16:33] VITALS: BP 106/55
[~2017-09-25] MED LIST changes: +ONDA4TAB10 SL
[2017-09-25 18:47] LABS: BASO # 0.1 x10^3/uL (0.0-0.2); BASO % 1 % (0-3); EOS # 0.2 x10^3/uL (0.0-0.7); EOS % 2 % (0-3); HEMOGLOBIN 11.4 g/dL (12.0-15.5); LYMPH # 2.3 x10^3/uL (1.0-4.8); LYMPH % 25 % (24-48); MEAN CORPUSCULAR HEMOGLOBIN 28 pg (25-35); MEAN CORPUSCULAR HGB CONC 34 g/dL (31-37); MEAN CORPUSCULAR VOLUME 83 fL (79-100); MONO # 0.4 x10^3/uL (0.0-1.1); MONO % 4 % (0-9); NEUT # 6.3 x10^3uL (1.8-7.7); NEUT % 68 % (31-73); PLATELET COUNT 407 x10^3/uL (140-400); RED CELL DISTRIBUTION WIDTH 15.3 % (11.5-14.5); WHITE BLOOD COUNT 9.3 x10^3/uL (4.0-11.0)
[2017-09-25 19:27] LABS: ALBUMIN 3.6 g/dL (3.4-5.0); ALBUMIN/GLOBULIN RATIO 0.9 (1.0-1.7); ALK PHOS 67 U/L (46-116); ALT (SGPT) 29 U/L (14-59); ANION GAP 14 (6-14); AST (SGOT) 16 U/L (15-37); BLOOD UREA NITROGEN 14 mg/dL (7-20); BUN/CREATININE RATIO 16 (6-20); CALCIUM 9.1 mg/dL (8.5-10.1); CARBON DIOXIDE 20 mmol/L (21-32); CHLORIDE 102 mmol/L (98-107); CREATININE 0.9 mg/dL (0.6-1.0); GFR 71.3; GLUCOSE 196 mg/dL (70-99); POTASSIUM 3.7 mmol/L (3.5-5.1); SODIUM 136 mmol/L (136-145); TOTAL BILIRUBIN 0.3 mg/dL (0.2-1.0); TOTAL PROTEIN 7.8 g/dL (6.4-8.2)
[2017-09-26 19:11] LABS: ESTRADIOL LEVEL <5.0 pg/mL (.); PROGESTERONE 0.2 ng/mL (.); TESTOSTERONE TOTAL <3 ng/dL (8-48)
[2017-09-27 06:12] LABS: HEMOGLOBIN A1C 6.7 % (4.8-5.6)
== END | disposition home or self-care (01) ==
LOC: LAB 18:03
PROVIDERS: ATTEND General Practice
DX: E11.9 Type 2 diabetes mellitus without complications (principal); E89.40 Asymptomatic postprocedural ovarian failure; R07.9 Chest pain, unspecified; R06.09 Other forms of dyspnea; F17.200 Nicotine dependence, unspecified, uncomplicated
CPT/HCPCS: 80053; 82553; 82670; 82679; 83880; 84144; 84403; 84484; 85025

== ENCOUNTER 2017-10-17 21:26 | Emergency (ER) | payer OTHER ==
[~2017-10-17] VITALS: Ht 167.6 cm; Wt 110.0 kg
[2017-10-17] MEDS ORDERED: IV NORMAL SALINE 1,000ML 1,000 ML IV SCH (21:53)
[2017-10-17] MEDS ORDERED: 0.9 % SODIUM CHLORIDE 10 ML DISP.SYRIN. IV ONE (22:00)
[2017-10-17] MEDS ORDERED: IPRATRPIUM/ALBUTEROL 0.5/2.5MG 3 ML NEBU. NEB ONE (22:00)
[2017-10-17] MEDS ORDERED: methylPREDNISolone SOD SUCC PF 125 MG/2 ML VIAL. IV ONE (22:00)
[2017-10-17 22:36] LABS: BASO % 0 % (0-3); EOS # 0.3 x10^3/uL (0.0-0.7); EOS % 3 % (0-3); HEMATOCRIT 36.3 % (36.0-47.0); LYMPH # 1.8 x10^3/uL (1.0-4.8); LYMPH % 22 % (24-48); MEAN CORPUSCULAR HEMOGLOBIN 28 pg (25-35); MEAN CORPUSCULAR HGB CONC 33 g/dL (31-37); MEAN CORPUSCULAR VOLUME 84 fL (79-100); MONO # 0.6 x10^3/uL (0.0-1.1); MONO % 8 % (0-9); NEUT # 5.5 x10^3uL (1.8-7.7); NEUT % 67 % (31-73); PLATELET COUNT 329 x10^3/uL (140-400); RED BLOOD COUNT 4.32 x10^6/uL (3.50-5.40); RED CELL DISTRIBUTION WIDTH 16.2 % (11.5-14.5); WHITE BLOOD COUNT 8.2 x10^3/uL (4.0-11.0)
[2017-10-17] MEDS ORDERED: KETOROLAC 30 MG/ML VIAL. IV ONE (22:45)
--- NOTE | 2017-10-17 22:46 | PHYS DOC ---
Past History Past Medical History: Anxiety, Bipolar, Diabetes, Hypothyroid, IBS, Kidney Stones, Pancreatitis, Other Additional Past Medical Histor: irritable bowel syndrome, peptic ulcer disease , subcutaneous reflux disease Past Surgical History: Cholecystectomy, Hysterectomy, Other Smoking: Cigarettes, Quit Less Than 1 Year Alcohol Use: Occasionally Drug Use: None Adult General Chief Complaint Chief Complaint: COUGH HPI HPI 37-year-old female patient complaining of sore throat that started 3 days ago and then developed cough that getting productive with supine position with greenish sputum as yesterday and associated with myalgia and substernal chest pain during episodes of cough. Patient state she had 4 or 5 episodes of diarrhea and nausea and was seen by her primary care physician yesterday and had fever of 101 at their office. Patient states she had negative strep and flu test and treated with Zofran and instructed to take hwrf-laf-yxyhlps cough medication but her cough is not getting better. Patient states she had blood test at her doctor's office yesterday and today it was reported with elevation of white count and her doctor called her today for consideration of CT of abdomen because of diarrhea. She denies sick contact. Patient had history of smoking and instructed to quit smoking for the last few days. Review of Systems Review of Systems Constitutional: Reports fever and chills [] Eyes: Denies change in visual acuity, redness, or eye pain [] HENT: Reports nasal congestion and sore throat [] Respiratory: Reports cough and shortness of breath [] Cardiovascular: No additional information not addressed in HPI [] GI: Denies abdominal pain, vomiting, bloody stools , reports nausea and diarrhea [] : Denies dysuria or hematuria [] Musculoskeletal: Denies back pain or joint pain [] Integument: Denies rash or skin lesions [] Neurologic: Denies headache, focal weakness or sensory changes [] Endocrine: Denies polyuria or polydipsia [] All other systems were reviewed and found to be within normal limits, except as documented in this note. Current Medications Current Medications Current Medications Medications (Trade) Dose Ordered Sig/Monica Start Time Stop Time Status Last Admin Dose Admin Albuterol/ Ipratropium (Duoneb) 3 ml 1X ONCE 10/17/17 22:00 10/17/17 22:01 DC Methylprednisolone Sodium Succinate (SOLU-Medrol 125MG VIAL) 125 mg 1X ONCE 10/17/17 22:00 10/17/17 22:01 DC Sodium Chloride 1,000 ml @ 1,000 mls/hr Q1H 10/17/17 21:53 10/17/17 22:52 Sodium Chloride (Normal Saline Flush) 10 ml 1X ONCE 10/17/17 22:00 10/17/17 22:01 DC Allergies Allergies Allergies Coded Allergies Type Severity Reaction Last Updated Verified butorphanol Allergy Intermediate Unknown 05/08/17 Yes lorazepam Allergy Mild 05/08/17 Yes morphine Allergy Mild Nausea and Vomiting 05/08/17 No Physical Exam Physical Exam Constitutional: Well nourished, mild distress, non-toxic appearance. [] HENT: Normocephalic, atraumatic, bilateral external ears normal, oropharynx moist, pharyngeal erythema, no oral exudates, nose normal. [] Eyes: PERRLA, EOMI, conjunctiva normal, no discharge. [] Neck: Normal range of motion, no tenderness, supple, no stridor. [] Cardiovascular:Heart rate regular rhythm, no murmur [] Lungs & Thorax: Bilateral breath sounds clear to auscultation [] Abdomen: Bowel sounds normal, soft, no tenderness, no masses, no pulsatile masses. [] Skin: Warm, dry, no erythema, no rash. [] Back: No tenderness, no CVA tenderness. [] Extremities: No tenderness, no cyanosis, no clubbing, ROM intact, no edema. [] Neurologic: Alert and oriented X 3, normal motor function, normal sensory function, no focal deficits noted. [] Psychologic: Affect normal, judgement normal, mood normal. [] Current Patient Data Lab Results Laboratory Tests Test 10/17/17 22:13 Glucose (Fingerstick) 160 mg/dL (70-99) H EKG EKG EKG interpreted by me. EKG at 04/09/39 showed normal sinus rhythm at rate of 86, no specific abnormalities, no ST and T-wave abnormalities[] Radiology/Procedures Radiology/Procedures Chest x-ray interpreted by me and showed right lower lobe infiltrate[] Course & Med Decision Making Course & Med Decision Making Pertinent Labs and Imaging studies reviewed. (See chart for details) Evaluation of patient in ER showed 37-year-old female patient with cough and congestion and chest pain for 3 days. Patient had right lower lobe infiltrate with elevation of lactic acid and treated with IV fluid and Rocephin and nebulizer treatment and felt better. [] Dragon Disclaimer Dragon Disclaimer This electronic medical record was generated, in whole or in part, using a voice recognition dictation system. Departure Departure: Impression: Primary Impression: Right lower lobe pneumonia Additional Impressions: Elevated lactic acid level Diabetes mellitus Disposition: HOME, SELF-CARE (At 2320) Condition: IMPROVED Referrals: BALA JETT (PCP) Patient Instructions: Pneumonia, Adult Additional Instructions: Drink plenty of liquids Follow-up with your primary care physician in 3-5 days Return to ER if not getting better Scripts Azithromycin (ZITHROMAX) 250 Mg Tablet 1 PKG PO UD, #1 PKG Prov: RENO BRANDT MD 10/17/17 Albuterol Sulfate (ALBUTEROL SULFATE NEB SOLN ) 2.5 Mg/3 Ml Vial.neb 1 VIAL NEB PRN Q4HRS, #25 VIAL Prov: RENO BRANDT MD 10/17/17 Benzonatate (TESSALON PERLE) 100 Mg Capsule 1 CAP PO TID, #30 CAP Prov: RENO BRANDT MD 10/17/17 Methylprednisolone (MEDROL) 4 Mg Tab.ds.pk 1 PKG PO UD, #1 PKG Prov: RENO BRANDT MD 10/17/17 Problem Qualifiers RENO BRANDT MD Oct 17, 2017 22:46
[2017-10-17 23:00] LABS: ALBUMIN 3.6 g/dL (3.4-5.0); ALBUMIN/GLOBULIN RATIO 0.8 (1.0-1.7); ALK PHOS 80 U/L (46-116); ALT (SGPT) 28 U/L (14-59); ANION GAP 15 (6-14); AST (SGOT) 24 U/L (15-37); BLOOD UREA NITROGEN 14 mg/dL (7-20); BUN/CREATININE RATIO 18 (6-20); CALCIUM 9.4 mg/dL (8.5-10.1); CARBON DIOXIDE 22 mmol/L (21-32); CHLORIDE 103 mmol/L (98-107); CREATININE 0.8 mg/dL (0.6-1.0); GFR 81.6; GLUCOSE 165 mg/dL (70-99); POTASSIUM 3.6 mmol/L (3.5-5.1); SODIUM 140 mmol/L (136-145); TOTAL BILIRUBIN 0.5 mg/dL (0.2-1.0); TOTAL PROTEIN 7.9 g/dL (6.4-8.2)
[2017-10-17] MEDS ORDERED: cefTRIAXone IV Push 1 GM VIAL. IVP ONE (23:10)
--- NOTE | 2017-10-17 23:19 | EKG ---
[address] [address] Test Date: 2017-10-17 Test Time: 22:14:40 Pat Name: JOY LEE Department: Room: Gender: F Butt Presser: : 1980 Requested By: RENO BRANDT Order Number: [id number] Reading MD: Michael Bearden MD Measurements Intervals [place] Rate: 86 P: 37 AL: 158 QRS: 20 QRSD: 88 T: 19 QT: 370 QTc: 446 Interpretive Statements SINUS RHYTHM Electronically Signed On 10-22-2017 16:31:25 CDT by Michael Bearden MD
[2017-10-17] MEDS ORDERED: IV NORMAL SALINE 50ML 50 ML ONE (23:20)
[2017-10-17] MEDS ORDERED: BENZ100C PO (23:27)
[2017-10-17] MEDS ORDERED: ALBU2.5V5 NEB (23:27)
[2017-10-17] MEDS ORDERED: AZIT250T PO (23:27)
[2017-10-17] MEDS ORDERED: METH4TAB2 PO (23:27)
[2017-10-17 23:30] VITALS: BP 128/79
--- NOTE | 2017-10-18 08:04 | RAD ---
Chest, 2 views, 10/17/2017: History: Cough, chest tightness, fever The heart size and pulmonary vascularity are normal. No pulmonary infiltrate is seen. There is no evidence of pleural fluid. IMPRESSION: No acute cardiopulmonary abnormality is detected.
== END 2017-10-17 23:46 | disposition home or self-care (01) ==
LOC: ER 21:26
DX: J18.1 Lobar pneumonia, unspecified organism (principal); E11.9 Type 2 diabetes mellitus without complications; R74.0 Nonspecific elevation of levels of transaminase and lactic acid dehydrogenase [LDH]; E03.9 Hypothyroidism, unspecified; K58.0 Irritable bowel syndrome with diarrhea; F41.9 Anxiety disorder, unspecified; F31.9 Bipolar disorder, unspecified; K21.9 Gastro-esophageal reflux disease without esophagitis; Z87.442 Personal history of urinary calculi; Z87.891 Personal history of nicotine dependence; Z88.5 Allergy status to narcotic agent; Z88.8 Allergy status to other drugs, medicaments and biological substances
CPT/HCPCS: 36415; 71046; 80053; 82553; 82947; 83605; 83880; 84484; 85025; 93005; 94640; 96361; 96374; 96375; 99285; J0696; J1885; J2930; J7620; J7030

== ENCOUNTER 2018-01-14 07:11 | Emergency (ER) | payer OTHER ==
[~2018-01-14 07:11] MED LIST changes: +ALBU2.5V5 NEB; +AZIT250T PO; +BENZ100C PO; -METF10002 PO; +METF10003 PO; +METH4TAB2 PO; -PROM118S2 PO; +PROM118S5 PO; +RANI150T21 PO; -RANI150T6 PO
[2018-01-14] MEDS ORDERED: PROCHLORPERAZINE 10 MG/2 ML VIAL. IV ONE (07:45)
[2018-01-14] MEDS ORDERED: IV NORMAL SALINE 1,000ML 1,000 ML IV ONE (07:45)
--- NOTE | 2018-01-14 07:46 | PHYS DOC ---
Past History Past Medical History: Anxiety, Bipolar, Diabetes, Hypothyroid, IBS, Kidney Stones, Pancreatitis, Other Additional Past Medical Histor: irritable bowel syndrome, peptic ulcer disease , subcutaneous reflux disease Past Surgical History: Cholecystectomy, Hysterectomy, Other Smoking: Cigarettes, Quit Less Than 1 Year Alcohol Use: Occasionally Drug Use: None Adult General Chief Complaint Chief Complaint: HEADACHE HPI HPI 38-year-old female presents after a fall. The patient was at a local store when she tripped on the sidewalk and hit her left knee and the left side of her head on the ground. She denies loss of consciousness. She sat on the ground for a couple minutes and had some dizziness and mild nausea. She felt like she was getting better so she started to drive to work. On her way to work, she felt dizzy and nauseated again and decided she should come to the emergency room to be evaluated. She describes the dizziness as a lightheaded, off balance feeling. Her knee is tender but she has been able to walk on it. She denies laceration or bleeding. Review of Systems Review of Systems Constitutional: Denies fever or chills [] Eyes: Denies change in visual acuity, redness, or eye pain [] HENT: Denies nasal congestion or sore throat [] Respiratory: Denies cough or shortness of breath [] Cardiovascular: No additional information not addressed in HPI [] GI: Has nausea. Denies vomiting [] : Denies dysuria or hematuria [] Musculoskeletal: Denies back pain or joint pain [] Integument: abrasion left knee[] Neurologic: Headache with dizziness. No focal weakness or sensory changes [] Endocrine: Denies polyuria or polydipsia [] All other systems were reviewed and found to be within normal limits, except as documented in this note. Current Medications Current Medications Current Medications Medications (Trade) Dose Ordered Sig/Monica Start Time Stop Time Status Last Admin Dose Admin Prochlorperazine Edisylate (Compazine) 10 mg 1X ONCE 01/14/18 07:45 01/14/18 07:46 UNV Sodium Chloride 1,000 ml @ 1,000 mls/hr 1X ONCE 01/14/18 07:45 01/14/18 08:44 UNV Allergies Allergies Allergies Coded Allergies Type Severity Reaction Last Updated Verified butorphanol Allergy Intermediate Unknown 05/08/17 Yes lorazepam Allergy Mild 05/08/17 Yes morphine Allergy Mild Nausea and Vomiting 05/08/17 No Physical Exam Physical Exam Constitutional: Well developed, well nourished, obese, no acute distress, non- toxic appearance. [] HENT: Normocephalic, atraumatic, bilateral external ears normal, oropharynx moist, no oral exudates, nose normal. [] Eyes: PERRLA, EOMI, conjunctiva normal, no discharge. [] Neck: Normal range of motion, no tenderness, supple, no stridor. [] Cardiovascular:Heart rate regular rhythm, no murmur [] Lungs & Thorax: Bilateral breath sounds clear to auscultation [] Abdomen: Bowel sounds normal, soft, no tenderness, no masses, no pulsatile masses. [] Skin: Warm, dry, no erythema, no rash. [] Back: No tenderness, no CVA tenderness. [] Extremities: Small abrasion to left knee. No swelling. ROM WNL, ligaments stable, no joint line tenderness [] Neurologic: Alert and oriented X 3, normal motor function, normal sensory function, no focal deficits noted. Increased headache with cardinal gaze testing. [] Psychologic: tearful, judgement normal, mood normal. [] EKG EKG [] Radiology/Procedures Radiology/Procedures [] Impressions: PQRS Compliance Statement: One or more of the following individualized dose reduction techniques were utilized for this examination: 1. Automated exposure control 2. Adjustment of the mA and/or kV according to patient size 3. Use of iterative reconstruction technique CT head without contrast 01/14/2018 8:10 AM INDICATION: Fall with trauma to the left side of the head. Headache and nausea. COMPARISON: None available TECHNIQUE: Multiple axial CT images of the head were obtained from skull base through the vertex without intravenous contrast. FINDINGS: Head: Ventricles, sulci and basal cisterns are within normal limits. There is no hydrocephalus. Pineda-white matter differentiation is normal. There is no acute intracranial hemorrhage. There is no mass, mass effect or midline shift. Posterior fossa is normal in appearance. Visualized portions of the orbits are normal. Paranasal sinuses are well aerated. Mastoid air cells are well aerated. Scalp and calvaria are normal. IMPRESSION: No acute intracranial hemorrhage. Electronically signed by: Maddi Ryder MD (01/14/2018 8:27 AM) [facility] DICTATED AND SIGNED BY: MADDI RYDER MD DATE: 01/14/18 0823 CC: MARLI HENNESSY DO; BALA JETT ~ Course & Med Decision Making Course & Med Decision Making Pertinent Labs and Imaging studies reviewed. (See chart for details) The patient's CT scan is negative for acute findings. Based on her physical exam , I do not believe her knee required imaging. We're having a very difficult time obtaining IV access patient. I do not believe the blood work is necessary at this time. The patient is feeling a bit better. Her nausea is resolved. I have advised her to go home and rest today. She also needs to stay well- hydrated. She is in agreement with this plan. [] Dragon Disclaimer Dragon Disclaimer This electronic medical record was generated, in whole or in part, using a voice recognition dictation system. Departure Departure: Referrals: BALA JETT (PCP) MARLI HENNESSY DO Jan 14, 2018 07:46
[2018-01-14] MEDS ORDERED: ONDANSETRON ODT 4 MG TAB.RAPDIS PO ONE (08:30)
--- NOTE | 2018-01-14 08:30 | RAD ---
PQRS Compliance Statement: One or more of the following individualized dose reduction techniques were utilized for this examination: 1. Automated exposure control 2. Adjustment of the mA and/or kV according to patient size 3. Use of iterative reconstruction technique CT head without contrast 01/14/2018 8:10 AM INDICATION: Fall with trauma to the left side of the head. Headache and nausea. COMPARISON: None available TECHNIQUE: Multiple axial CT images of the head were obtained from skull base through the vertex without intravenous contrast. FINDINGS: Head: Ventricles, sulci and basal cisterns are within normal limits. There is no hydrocephalus. Pineda-white matter differentiation is normal. There is no acute intracranial hemorrhage. There is no mass, mass effect or midline shift. Posterior fossa is normal in appearance. Visualized portions of the orbits are normal. Paranasal sinuses are well aerated. Mastoid air cells are well aerated. Scalp and calvaria are normal. IMPRESSION: No acute intracranial hemorrhage. Electronically signed by: Elizabeth Babb MD (01/14/2018 8:27 AM) [facility]
[2018-01-14 08:45] VITALS: BP 128/80
== END 2018-01-14 08:50 | disposition home or self-care (01) ==
LOC: ER 07:11
DX: R51 Headache (principal); R42 Dizziness and giddiness; S80.212A Abrasion, left knee, initial encounter; F41.9 Anxiety disorder, unspecified; F31.9 Bipolar disorder, unspecified; E11.9 Type 2 diabetes mellitus without complications; E03.9 Hypothyroidism, unspecified; Z87.442 Personal history of urinary calculi; Z87.11 Personal history of peptic ulcer disease; Z87.891 Personal history of nicotine dependence; Z88.5 Allergy status to narcotic agent; Z88.8 Allergy status to other drugs, medicaments and biological substances; W01.198A Fall on same level from slipping, tripping and stumbling with subsequent striking against other object, initial encounter; Y93.89 Activity, other specified; Y99.8 Other external cause status; Y92.512 Supermarket, store or market as the place of occurrence of the external cause
CPT/HCPCS: 70450; 99284; Q0162

== ENCOUNTER 2018-03-14 18:19 | Emergency (ER) | payer OTHER ==
[~2018-03-14 18:19] MED LIST changes: -METF10003 PO; +METF10007 PO
--- NOTE | 2018-03-14 18:35 | ED.ADGEN ---
Past History Past Medical History: Anxiety, Bipolar, Diabetes, Hypothyroid, IBS, Kidney Stones, Pancreatitis, Other Additional Past Medical Histor: irritable bowel syndrome, peptic ulcer disease , subcutaneous reflux disease Past Surgical History: Cholecystectomy, Hysterectomy, Other Smoking: Cigarettes, Quit Less Than 1 Year Alcohol Use: Occasionally Drug Use: None Adult General Chief Complaint Chief Complaint Upper abdominal pain HPI HPI Patient has a history of cholecystectomy and prior pancreatitis. She did some crutches earlier today and about an hour ago, she had sudden onset of epigastric pain. She took some Motrin with exacerbation of her pain. The pain has become progressive worse and is now 8/10 severity. The pain radiates to her back. She's diaphoretic. She denies any chest pain or shortness breath. She denies any fevers or vomiting. She has nausea. Review of Systems Review of Systems Constitutional: Denies fever or chills Eyes: Denies change in visual acuity, redness, or eye pain HENT: Denies nasal congestion or sore throat Respiratory: Denies cough or shortness of breath Cardiovascular: Denies chest pain or palpitations GI: With severe epigastric abdominal pain, nausea, no vomiting, bloody stools or diarrhea : Denies dysuria or hematuria Musculoskeletal: Denies back pain or joint pain Integument: Denies rash or skin lesions Neurologic: Denies headache, focal weakness or sensory changes Endocrine: Denies polyuria or polydipsia All other systems were reviewed and found to be within normal limits, except as documented in this note. Current Medications Current Medications Current Medications Medications (Trade) Dose Ordered Sig/Monica Start Time Stop Time Status Last Admin Dose Admin Fentanyl Citrate (Fentanyl 2ml Vial) 100 mcg 1X ONCE 03/14/18 21:30 03/14/18 21:31 DC 03/14/18 22:31 100 MCG Info (Do NOT chart on this entry -- for MONITORING) 1 each PRN DAILY PRN 03/14/18 19:00 03/16/18 18:59 Iohexol (Omnipaque 240 Mg/ml) 30 ml 1X ONCE 03/14/18 19:00 03/14/18 19:01 DC 03/14/18 20:24 30 ML Iohexol (Omnipaque 300 Mg/ml) 75 ml 1X ONCE 03/14/18 19:00 03/14/18 19:01 DC 03/14/18 20:24 75 ML Ondansetron HCl (Zofran) 4 mg 1X ONCE 03/14/18 19:00 03/14/18 19:01 DC 03/14/18 20:17 4 MG Pantoprazole Sodium (Protonix Vial) 40 mg 1X ONCE 03/14/18 21:30 03/14/18 21:31 DC 03/14/18 21:53 40 MG Sodium Chloride 1,000 ml @ 1,000 mls/hr 1X ONCE 03/14/18 18:45 03/14/18 19:44 DC 03/14/18 20:17 1,000 MLS/HR Sucralfate (Carafate) 1 gm 1X ONCE 03/14/18 21:30 03/14/18 21:31 DC 03/14/18 21:52 1 GM Allergies Allergies Allergies Coded Allergies Type Severity Reaction Last Updated Verified butorphanol Allergy Intermediate Unknown 05/08/17 Yes lorazepam Allergy Mild 05/08/17 Yes morphine Allergy Mild Nausea and Vomiting 05/08/17 No phentermine Allergy Unknown 03/14/18 Yes Physical Exam Physical Exam Constitutional: Well developed, well nourished, in moderate pain distress with diaphoresis. HENT: Normocephalic, atraumatic, bilateral external ears normal, oropharynx moist, no oral exudates, nose normal. Eyes: PERRLA, EOMI, conjunctiva normal, no discharge. Neck: Normal range of motion, no tenderness, supple, no stridor. Cardiovascular:Heart rate regular rhythm, no murmur Lungs & Thorax: Bilateral breath sounds clear to auscultation Abdomen: Bowel decreased with marked epigastric tenderness with guarding, no masses, no pulsatile masses. Skin: Warm, diaphoretic, no erythema, no rash. Back: No tenderness, no CVA tenderness. Extremities: No tenderness, no cyanosis, no clubbing, ROM intact, no edema. Neurologic: Alert and oriented X 3, normal motor function, normal sensory function, no focal deficits noted. Psychologic: Affect normal, judgement normal, mood normal. Current Patient Data Vital Signs Vital Signs Date Time Temp Pulse Resp B/P (MAP) Pulse Ox O2 Delivery O2 Flow Rate FiO2 03/14/18 22:45 96 18 134/79 (97) 97 Room Air 03/14/18 18:20 98.3 Lab Results Laboratory Tests Test 03/14/18 19:28 03/14/18 20:58 White Blood Count 13.7 x10^3/uL (4.0-11.0) H Red Blood Count 4.49 x10^6/uL (3.50-5.40) Hemoglobin 14.0 g/dL (12.0-15.5) Hematocrit 40.5 % (36.0-47.0) Mean Corpuscular Volume 90 fL (79-100) Mean Corpuscular Hemoglobin 31 pg (25-35) Mean Corpuscular Hemoglobin Concent 35 g/dL (31-37) Red Cell Distribution Width 14.2 % (11.5-14.5) Platelet Count 384 x10^3/uL (140-400) Neutrophils (%) (Auto) 80 % (31-73) H Lymphocytes (%) (Auto) 15 % (24-48) L Monocytes (%) (Auto) 4 % (0-9) Eosinophils (%) (Auto) 0 % (0-3) Basophils (%) (Auto) 1 % (0-3) Neutrophils # (Auto) 11.0 x10^3uL (1.8-7.7) H Lymphocytes # (Auto) 2.0 x10^3/uL (1.0-4.8) Monocytes # (Auto) 0.5 x10^3/uL (0.0-1.1) Eosinophils # (Auto) 0.0 x10^3/uL (0.0-0.7) Basophils # (Auto) 0.1 x10^3/uL (0.0-0.2) Sodium Level 136 mmol/L (136-145) Potassium Level 4.5 mmol/L (3.5-5.1) Chloride Level 99 mmol/L (98-107) Carbon Dioxide Level 24 mmol/L (21-32) Anion Gap 13 (6-14) Blood Urea Nitrogen 14 mg/dL (7-20) Creatinine 0.9 mg/dL (0.6-1.0) Estimated GFR (Cockcroft-Gault) 70.8 BUN/Creatinine Ratio 16 (6-20) Glucose Level 121 mg/dL (70-99) H Calcium Level 9.9 mg/dL (8.5-10.1) Total Bilirubin 0.6 mg/dL (0.2-1.0) Aspartate Amino Transferase (AST) 52 U/L (15-37) H Alanine Aminotransferase (ALT) 53 U/L (14-59) Alkaline Phosphatase 74 U/L (46-116) Troponin I Quantitative < 0.017 ng/mL (0-0.055) Total Protein 8.9 g/dL (6.4-8.2) H Albumin 4.3 g/dL (3.4-5.0) Albumin/Globulin Ratio 0.9 (1.0-1.7) L Lipase 171 U/L (73-393) Urine Collection Type Unknown Urine Color Yellow Urine Clarity Clear Urine pH 5.5 Urine Specific [place] <=1.005 Urine Protein Neg (NEG-TRACE) Urine Glucose (UA) Neg mg/dL (NEG) Urine Ketones (Stick) Neg mg/dL (NEG) Urine Blood Neg (NEG) Urine Nitrite Neg (NEG) Urine Bilirubin Neg (NEG) Urine Urobilinogen Dipstick 0.2 mg/dL (0.2 mg/dL) Urine Leukocyte Esterase Neg (NEG) Urine RBC 0 /HPF (0-2) Urine WBC 0 /HPF (0-4) Urine Squamous Epithelial Cells Occ /LPF Urine Bacteria 0 /HPF (0-FEW) EKG EKG 19:21 ECG Normal sinus rhythm at [address]-T wave changes with normal QRS morphology Radiology/Procedures Radiology/[place] [address] IMAGING REPORT Signed PATIENT: JOY LEE ACCOUNT: [id number] : 1980 LOCATION: ER AGE: 38 SEX: F EXAM STATUS: REG ER ORD. PHYSICIAN: MAXIMILIAN BERMAN MD REASON: epigastric pain rule out bowel obstruction PROCEDURE: CT ABD PELV W/ORAL&IV CONTRAST PQRS Compliance statement: One or more of the following individualized dose reduction techniques were utilized for this examination: 1. Automated exposure control. 2. Adjustment of the mA and/or kV according to patient size. 3. Use of iterative reconstruction technique. Indication:Severe abdomen pain. Hx: Hysterectomy, kidney stones, cholecystectomy, IBS, pancreatitis TECHNIQUE: CT abdomen and pelvis with IV contrast with multiplanar reformats. COMPARISON:09/05/2017 FINDINGS: Heart is normal in size. No pericardial or pleural effusion. Clear lung bases. Diffuse hepatic steatosis. Spleen, pancreas, adrenals and kidneys are within normal limits. No enlarged retroperitoneal or pelvic adenopathy. No free pelvic fluid or ascites. No bowel obstruction. Normal appendix. Status post hysterectomy. Urinary bladder within normal limits. No suspicious bony lesion. Grade 1 anterolisthesis of L5 over S1 secondary to bilateral L5 pars defect. IMPRESSION: 1. No nephrolithiasis or hydronephrosis. 2. No bowel obstruction. Normal appendix. 3. Hepatic steatosis. Electronically signed by: Jose Finley DO (03/14/2018 8:49 PM) [facility] DICTATED AND SIGNED BY: JOSE FINLEY DO DATE: 03/14/182042 CC: BALA JETT; MAXIMILIAN BERMAN MD ~ Course & Med Decision Making Course & Med Decision Making Emergency department course Patient presents with epigastric and right upper quadrant pain DDx- section, pink otitis, GERD, peptic ulcer disease, biliary colic Patient had severe epigastric pain in the ED, minimally relieved after IV normal saline bolus, Zofran and fentanyl. Labs remarkable for leukocytosis. ECG and troponin showed no evidence of ACS. Patient was given Carafate and Protonix without relief. She was given additional fentanyl for pain. She states that her pain is colicky in nature waxing and waning, getting more severe. She still is mildly diaphoretic. CT abdomen and pelvis was unremarkable. I have concerned for possible common bile duct stones or biliary pathology. I will call [facility] for admission for further evaluation of abdominal pain. 23:[address] Caitlyn Sharp who agreed with transfer to [facility] of further evaluation. Final Impression Final Impression Clinical Impression Epigastric Pain Leukocytosis Dragon Disclaimer Dragon Disclaimer This electronic medical record was generated, in whole or in part, using a voice recognition dictation system. Additional Procedures Progress Right brachial peripheral IV access obtained via ultrasound. Site was prepped with chlorhexidine swab. Right brachial vein was located with linear ultrasound probe. 20-gauge IV was placed without difficulty. Line secured with good blood return and flushed without resistance. Patient tolerated procedure well. Departure Departure: Impression: Primary Impression: Upper abdominal pain of unknown etiology Additional Impression: Leukocytosis Disposition: 05 XFER OTHER (Patient accepted to [facility] for further evaluation) Condition: STABLE MAXIMILIAN BERMAN MD Mar 14, 2018 18:35
[2018-03-14] MEDS ORDERED: IV NORMAL SALINE 1,000ML 1,000 ML IV ONE (18:45)
[2018-03-14] MEDS ORDERED: IOHEXOL 240 MG/ML 50ML VIAL. PO ONE (19:00)
[2018-03-14] MEDS ORDERED: CONTRAST GIVEN MC PRN (19:00)
[2018-03-14] MEDS ORDERED: ONDANSETRON PF 4 MG/2 ML VIAL. IV ONE (19:00)
[2018-03-14] MEDS ORDERED: IOHEXOL 300 MG/ML 75 ML VIAL. IV ONE (19:00)
[2018-03-14 19:41] LABS: BASO # 0.1 x10^3/uL (0.0-0.2); BASO % 1 % (0-3); EOS % 0 % (0-3); HEMATOCRIT 40.5 % (36.0-47.0); LYMPH % 15 % (24-48); MEAN CORPUSCULAR HEMOGLOBIN 31 pg (25-35); MEAN CORPUSCULAR HGB CONC 35 g/dL (31-37); MEAN CORPUSCULAR VOLUME 90 fL (79-100); MONO # 0.5 x10^3/uL (0.0-1.1); MONO % 4 % (0-9); NEUT % 80 % (31-73); PLATELET COUNT 384 x10^3/uL (140-400); RED BLOOD COUNT 4.49 x10^6/uL (3.50-5.40); RED CELL DISTRIBUTION WIDTH 14.2 % (11.5-14.5); WHITE BLOOD COUNT 13.7 x10^3/uL (4.0-11.0)
[2018-03-14 19:54] LABS: ALBUMIN 4.3 g/dL (3.4-5.0); ALBUMIN/GLOBULIN RATIO 0.9 (1.0-1.7); CALCIUM 9.9 mg/dL (8.5-10.1); CREATININE 0.9 mg/dL (0.6-1.0); GFR 70.8; POTASSIUM 4.5 mmol/L (3.5-5.1); TOTAL BILIRUBIN 0.6 mg/dL (0.2-1.0); TOTAL PROTEIN 8.9 g/dL (6.4-8.2)
--- NOTE | 2018-03-14 20:52 | RAD ---
PQRS Compliance statement: One or more of the following individualized dose reduction techniques were utilized for this examination: 1. Automated exposure control. 2. Adjustment of the mA and/or kV according to patient size. 3. Use of iterative reconstruction technique. Indication:Severe abdomen pain. Hx: Hysterectomy, kidney stones, cholecystectomy, IBS, pancreatitis TECHNIQUE: CT abdomen and pelvis with IV contrast with multiplanar reformats. COMPARISON:09/05/2017 FINDINGS: Heart is normal in size. No pericardial or pleural effusion. Clear lung bases. Diffuse hepatic steatosis. Spleen, pancreas, adrenals and kidneys are within normal limits. No enlarged retroperitoneal or pelvic adenopathy. No free pelvic fluid or ascites. No bowel obstruction. Normal appendix. Status post hysterectomy. Urinary bladder within normal limits. No suspicious bony lesion. Grade 1 anterolisthesis of L5 over S1 secondary to bilateral L5 pars defect. IMPRESSION: 1. No nephrolithiasis or hydronephrosis. 2. No bowel obstruction. Normal appendix. 3. Hepatic steatosis. Electronically signed by: Jose Finley DO (03/14/2018 8:49 PM) [facility]
[2018-03-14 21:15] LABS: CLARITY,URINE CLEAR
[2018-03-14 21:16] LABS: BACTERIA,URINE 0 /HPF (0-FEW); BILIRUBIN,URINE NEG (NEG); COLOR,URINE YELLOW; GLUCOSE,URINE NEG (NEG); NITRITE,URINE NEG (NEG); RBC,URINE 0 /HPF (0-2); SQUAMOUS EPITHELIAL CELL,UR OCC /LPF; UROBILINOGEN,URINE 0.2 mg/dL (0.2 mg/dL); WBC,URINE 0 /HPF (0-4)
[2018-03-14] MEDS ORDERED: PANTOPRAZOLE IV 40 MG VIAL. IVP ONE (21:30)
[2018-03-14] MEDS ORDERED: SUCRALFATE 1 GM TABLET. PO ONE (21:30)
--- NOTE | 2018-03-14 21:45 | EKG ---
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
[2018-03-14] MEDS ORDERED: IV DEXTROSE 5 %-0.45 % NACL 1,000 ML IV ONE (23:45)
[2018-03-15 00:11] VITALS: BP 134/82
== END 2018-03-15 00:45 | disposition short-term general hospital (02) ==
LOC: ER 18:19
DX: R10.13 Epigastric pain (principal); D72.829 Elevated white blood cell count, unspecified; K76.0 Fatty (change of) liver, not elsewhere classified; E03.9 Hypothyroidism, unspecified; K58.9 Irritable bowel syndrome, unspecified; Z87.442 Personal history of urinary calculi; Z87.11 Personal history of peptic ulcer disease; Z90.49 Acquired absence of other specified parts of digestive tract; Z90.710 Acquired absence of both cervix and uterus; Z87.891 Personal history of nicotine dependence; Z88.5 Allergy status to narcotic agent; Z88.8 Allergy status to other drugs, medicaments and biological substances
CPT/HCPCS: 36415; 74177; 80053; 81001; 83690; 84484; 85025; 93005; 96374; 96375; 96376; 99285; C9113; J2405; J3010; Q9966; Q9967; J7030

== ENCOUNTER 2018-04-07 15:31 | Emergency (ER) | payer OTHER ==
[~2018-04-07] VITALS: Ht 167.6 cm; Wt 110.0 kg
[2018-04-07 15:40] VITALS: BP 158/110
--- NOTE | 2018-04-07 15:40 | ED.ADGEN ---
Past History Past Medical History: Anxiety, Bipolar, Diabetes, Hypothyroid, IBS, Kidney Stones, Pancreatitis, Other Additional Past Medical Histor: irritable bowel syndrome, peptic ulcer disease , subcutaneous reflux disease Past Surgical History: Cholecystectomy, Hysterectomy, Other Smoking: Cigarettes, Quit Less Than 1 Year Alcohol Use: Occasionally Drug Use: None Adult General Chief Complaint Chief Complaint epigastric pain and nausea HPI HPI She has a history of chronic abdominal pain. She recently had robotic assisted laparoscopic incisional hernia repair with mesh surgery by Dr. Hoffman 3 days ago at [facility]. Since then, she's had pain control with oral pain medication. She ran out of her pain medication and her pain became more severe today associated with nausea no vomiting or diarrhea. Her pain started and hour after eating chicken fried steak with mash potatoes gravy and green beans. She's had chills no fevers. Pain is epigastric and nonradiating. She denies any chest pain or shortness of breath. Review of Systems Review of Systems Constitutional: Denies fever with chills Eyes: Denies change in visual acuity, redness, or eye pain HENT: Denies nasal congestion or sore throat Respiratory: Denies cough or shortness of breath Cardiovascular: Denies chest pain or palpitations GI: With abdominal pain, nausea, no vomiting, bloody stools or diarrhea : Denies dysuria or hematuria Musculoskeletal: Denies back pain or joint pain Integument: Denies rash or skin lesions Neurologic: Denies headache, focal weakness or sensory changes Endocrine: Denies polyuria or polydipsia All other systems were reviewed and found to be within normal limits, except as documented in this note. Current Medications Current Medications Current Medications Medications (Trade) Dose Ordered Sig/Monica Start Time Stop Time Status Last Admin Dose Admin Fentanyl Citrate (Fentanyl 2ml Vial) 100 mcg 1X ONCE 04/07/18 17:15 04/07/18 17:16 DC 04/07/18 17:10 100 MCG Multi-Ingredient Mouthwash/Gargle (Gi Cocktail) 20 ml 1X ONCE 04/07/18 16:45 04/07/18 16:46 DC 04/07/18 16:45 20 ML Ondansetron HCl (Zofran) 4 mg 1X ONCE 04/07/18 15:45 04/07/18 15:51 DC 04/07/18 16:18 4 MG Oxycodone/ Acetaminophen (Percocet 10/325) 1 tab 1X ONCE 04/07/18 18:15 04/07/18 18:16 DC 04/07/18 18:11 1 TAB Pantoprazole Sodium (Protonix Vial) 40 mg 1X ONCE 04/07/18 16:45 04/07/18 16:46 DC 04/07/18 16:49 40 MG Sodium Chloride 1,000 ml @ 1,000 mls/hr 1X ONCE 04/07/18 15:45 04/07/18 16:44 DC 04/07/18 15:45 1,000 MLS/HR Allergies Allergies Allergies Coded Allergies Type Severity Reaction Last Updated Verified butorphanol Allergy Intermediate Unknown 05/08/17 Yes lorazepam Allergy Mild 05/08/17 Yes morphine Allergy Mild Nausea and Vomiting 05/08/17 No phentermine Allergy Unknown 03/14/18 Yes Physical Exam Physical Exam Constitutional: Well developed, well nourished, in moderate pain distress, non- toxic appearance. HENT: Normocephalic, atraumatic, bilateral external ears normal, oropharynx moist, no oral exudates, nose normal. Eyes: PERRLA, EOMI, conjunctiva normal, no discharge. Neck: Normal range of motion, no tenderness, supple, no stridor. Cardiovascular:Heart rate regular rhythm, no murmur Lungs & Thorax: Bilateral breath sounds clear to auscultation Abdomen: Bowel sounds normal, with epigastric tenderness, no masses, no pulsatile masses. Surgical laparoscopic sites intact healing well no drainage. Sites have mild surrounding erythema consistent with reaction to adhesive tape. Skin: Warm, dry, with mild erythema around surgical site, no rash. Back: No tenderness, no CVA tenderness. Extremities: No tenderness, no cyanosis, no clubbing, ROM intact, no edema. Neurologic: Alert and oriented X 3, normal motor function, normal sensory function, no focal deficits noted. Psychologic: Affect normal, judgement normal, mood normal. Current Patient Data Vital Signs Vital Signs Date Time Temp Pulse Resp B/P (MAP) Pulse Ox O2 Delivery O2 Flow Rate FiO2 04/07/18 17:10 16 98 Room Air 04/07/18 15:40 98.2 104 Lab Results Laboratory Tests Test 04/07/18 16:13 04/07/18 16:50 White Blood Count 9.2 x10^3/uL (4.0-11.0) Red Blood Count 4.29 x10^6/uL (3.50-5.40) Hemoglobin 13.6 g/dL (12.0-15.5) Hematocrit 39.5 % (36.0-47.0) Mean Corpuscular Volume 92 fL (79-100) Mean Corpuscular Hemoglobin 32 pg (25-35) Mean Corpuscular Hemoglobin Concent 34 g/dL (31-37) Red Cell Distribution Width 14.8 % (11.5-14.5) H Platelet Count 333 x10^3/uL (140-400) Neutrophils (%) (Auto) 74 % (31-73) H Lymphocytes (%) (Auto) 19 % (24-48) L Monocytes (%) (Auto) 5 % (0-9) Eosinophils (%) (Auto) 3 % (0-3) Basophils (%) (Auto) 1 % (0-3) Neutrophils # (Auto) 6.8 x10^3uL (1.8-7.7) Lymphocytes # (Auto) 1.7 x10^3/uL (1.0-4.8) Monocytes # (Auto) 0.4 x10^3/uL (0.0-1.1) Eosinophils # (Auto) 0.2 x10^3/uL (0.0-0.7) Basophils # (Auto) 0.1 x10^3/uL (0.0-0.2) Lactic Acid Level 1.9 mmol/L (0.4-2.0) Sodium Level 137 mmol/L (136-145) Potassium Level 3.8 mmol/L (3.5-5.1) Chloride Level 102 mmol/L (98-107) Carbon Dioxide Level 24 mmol/L (21-32) Anion Gap 11 (6-14) Blood Urea Nitrogen 9 mg/dL (7-20) Creatinine 0.7 mg/dL (0.6-1.0) Estimated GFR (Cockcroft-Gault) 94.7 BUN/Creatinine Ratio 13 (6-20) Glucose Level 131 mg/dL (70-99) H Calcium Level 9.2 mg/dL (8.5-10.1) Total Bilirubin 0.5 mg/dL (0.2-1.0) Aspartate Amino Transferase (AST) 14 U/L (15-37) L Alanine Aminotransferase (ALT) 38 U/L (14-59) Alkaline Phosphatase 72 U/L (46-116) Total Protein 7.5 g/dL (6.4-8.2) Albumin 3.6 g/dL (3.4-5.0) Albumin/Globulin Ratio 0.9 (1.0-1.7) L Lipase 128 U/L (73-393) EKG EKG ECG 15:50 Normal sinus rhythm at 96 without acute changes Radiology/Procedures Radiology/Procedures [address] [address] IMAGING REPORT Signed PATIENT: JOY LEE ACCOUNT: [id number] : 1980 LOCATION: ER AGE: 38 SEX: F EXAM STATUS: REG ER ORD. PHYSICIAN: MAXIMILIAN BERMAN MD REASON: pain PROCEDURE: ACUTE ABDOMEN SERIES Three-view acute abdominal series. HISTORY: Abdominal pain, tenderness, pressure, recent hernia repair 3 views were taken for an acute abdominal series. Lungs are clear. Heart is normal in size. There is no effusion. There is no free air on the upright view of the abdomen or abnormal air-fluid levels. The patient's had a cholecystectomy. Bowel pattern is normal without bowel obstruction. There are no abnormal calcifications. There are phleboliths in the pelvis. IMPRESSION: 1. No acute chest disease. 2. No bowel obstruction or acute finding noted in the abdomen. Electronically signed by: Yair Wesley MD (04/07/2018 4:52 PM) [facility] DICTATED AND SIGNED BY: YAIR WESLEY MD DATE: 04/07/18 [id number] CC: BALA JETT; MAXIMILIAN BERMAN MD ~ Course & Med Decision Making Course & Med Decision Making Emergency Department Course: Patient presents with epigastric pain and nausea DDx- obstruction, Colic, GERD, PUD, pancreatitis, ACS Patient was stable in the ED with persistent epigastric pain, despite IV NS hydration, fentanyl and Zofran. GI cocktail and Protonix made her pain worse. ECG and troponin showed no evidence of ACS. Labs were unremarkable. abdominal series x-rays were unremarkable. 17:[address] Hoffman who recommends Toradol and Percocet and follow- up with him in the office tomorrow. Patient agreed with this plan. Patient advised to return to the ED if her pain gets worse, she develops fevers , vomiting or SOB. Final Impression Final Impression Clinical Impression Epigastric pain Dragon Disclaimer Dragon Disclaimer This electronic medical record was generated, in whole or in part, using a voice recognition dictation system. Departure Departure: Impression: Primary Impression: Epigastric abdominal pain Disposition: HOME, SELF-CARE Condition: STABLE Referrals: MARILYNN HOFFMAN MD Follow-up tomorrow for further evaluation Patient Instructions: Abdominal Pain Scripts Ondansetron (ZOFRAN ODT) 4 Mg Tab.rapdis 1 TAB SL Q8HRS, #10 TAB Prov: MAXIMILIAN BERMAN MD 04/07/18 Oxycodone Hcl/Acetaminophen (PERCOCET 5-325 MG TABLET) 1 Each Tablet 1-2 TAB PO Q4-6HRS, #20 TAB Prov: MAXIMILIAN BERMAN MD 04/07/18 MAXIMILIAN BERMAN MD Apr 07, 2018 15:40
[2018-04-07] MEDS ORDERED: ONDANSETRON PF 4 MG/2 ML VIAL. IV ONE (15:45)
[2018-04-07] MEDS ORDERED: IV NORMAL SALINE 1,000ML 1,000 ML IV ONE (15:45)
--- NOTE | 2018-04-07 15:46 | EKG ---
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
[2018-04-07 16:33] LABS: BASO # 0.1 x10^3/uL (0.0-0.2); BASO % 1 % (0-3); EOS # 0.2 x10^3/uL (0.0-0.7); EOS % 3 % (0-3); HEMATOCRIT 39.5 % (36.0-47.0); HEMOGLOBIN 13.6 g/dL (12.0-15.5); LYMPH # 1.7 x10^3/uL (1.0-4.8); LYMPH % 19 % (24-48); MEAN CORPUSCULAR HEMOGLOBIN 32 pg (25-35); MEAN CORPUSCULAR HGB CONC 34 g/dL (31-37); MEAN CORPUSCULAR VOLUME 92 fL (79-100); MONO # 0.4 x10^3/uL (0.0-1.1); MONO % 5 % (0-9); NEUT # 6.8 x10^3uL (1.8-7.7); NEUT % 74 % (31-73); PLATELET COUNT 333 x10^3/uL (140-400); RED BLOOD COUNT 4.29 x10^6/uL (3.50-5.40); RED CELL DISTRIBUTION WIDTH 14.8 % (11.5-14.5); WHITE BLOOD COUNT 9.2 x10^3/uL (4.0-11.0)
[2018-04-07] MEDS ORDERED: PANTOPRAZOLE IV 40 MG VIAL. IVP ONE (16:45)
[2018-04-07] MEDS ORDERED: LIDO:MAALOX 1:1 20 ML SINGLE DOSE. PO ONE (16:45)
--- NOTE | 2018-04-07 16:56 | RAD ---
Three-view acute abdominal series. HISTORY: Abdominal pain, tenderness, pressure, recent hernia repair 3 views were taken for an acute abdominal series. Lungs are clear. Heart is normal in size. There is no effusion. There is no free air on the upright view of the abdomen or abnormal air-fluid levels. The patient's had a cholecystectomy. Bowel pattern is normal without bowel obstruction. There are no abnormal calcifications. There are phleboliths in the pelvis. IMPRESSION: 1. No acute chest disease. 2. No bowel obstruction or acute finding noted in the abdomen. Electronically signed by: Yair Wesley MD (04/07/2018 4:52 PM) [facility]
[2018-04-07 17:18] LABS: ALBUMIN 3.6 g/dL (3.4-5.0); ALBUMIN/GLOBULIN RATIO 0.9 (1.0-1.7); CALCIUM 9.2 mg/dL (8.5-10.1); CREATININE 0.7 mg/dL (0.6-1.0); GFR 94.7; POTASSIUM 3.8 mmol/L (3.5-5.1); TOTAL BILIRUBIN 0.5 mg/dL (0.2-1.0); TOTAL PROTEIN 7.5 g/dL (6.4-8.2)
[2018-04-07] MEDS ORDERED: OXYC-323 PO (17:51)
[2018-04-07] MEDS ORDERED: ONDA4TAB10 SL (17:51)
[2018-04-07] MEDS ORDERED: oxyCODONE/APAP 10/325 1 TAB TABLET PO ONE (18:15)
== END 2018-04-07 18:45 | disposition home or self-care (01) ==
LOC: ER 15:31
DX: G89.29 Other chronic pain (principal); G89.18 Other acute postprocedural pain; R10.13 Epigastric pain; R11.0 Nausea; E11.9 Type 2 diabetes mellitus without complications; E03.9 Hypothyroidism, unspecified; K58.9 Irritable bowel syndrome, unspecified; Z87.442 Personal history of urinary calculi; Z87.11 Personal history of peptic ulcer disease; Z90.49 Acquired absence of other specified parts of digestive tract; Z90.710 Acquired absence of both cervix and uterus; Z87.891 Personal history of nicotine dependence; Z98.890 Other specified postprocedural states; Z88.5 Allergy status to narcotic agent; Z88.8 Allergy status to other drugs, medicaments and biological substances
CPT/HCPCS: 36415; 74022; 80053; 83605; 83690; 85025; 93005; 96374; 96375; 96376; 99285; C9113; J2405; J3010; J7030

== ENCOUNTER → 2018-04-11 | Outpatient (CLI) | payer OTHER ==
[2018-04-07 15:40] VITALS: BP 158/110
[~2018-04-11] MED LIST changes: +IOHEXOL 300 MG/ML 75 ML VIAL. IV ONE; +OXYC-323 PO
--- NOTE | 2018-04-11 16:39 | RAD ---
CT ABD PELV W/ORAL IV CONTRAST Indication: UPPER ABDOMINAL PAIN, S/P HERNIA REPAIR 04/04/18, CONTRAST OMNI 300 75 mL, ORAL 240 30 mL Exposure: One or more of the following individualized dose reduction techniques were utilized for this examination: 1. Automated exposure control 2. Adjustment of the mA and/or kV according to patient size 3. Use of iterative reconstruction technique. Comparison: March 14, 2018 Contrast: Intravenous contrast was given. Oral contrast was given. FINDINGS: Lower thorax: Lung bases are clear. Liver: Hypodense compatible with steatosis. Enlarged, 25 cm cephalocaudal. Findings are stable. Spleen: Unremarkable Pancreas: Unremarkable Adrenals: No evidence of mass. Kidneys: No obvious mass. Urinary tracts: No hydronephrosis. Gallbladder: Surgically absent Lymph nodes: No significant enlargement Vessels: * Aorta: Nonaneurysmal * Major aortic branches: Grossly patent. * Portal venous: Patent GI tract: No evidence of acute colitis. No evidence of bowel obstruction. Appendix is normal. Reproductive organs:No evidence of mass. Urinary bladder: Not adequately distended for evaluation. Peritoneum: There is some ill-defined density within the fat anterior to the left lobe of the liver, not seen on prior study. There is also mild ill-defined density in the subcutaneous tissues anterior to this, as well as in the anterior left abdomen. Findings may be related to the recent surgical intervention, versus nonspecific edema or inflammation. Abdominal wall: Defect of the anterior right inferior abdominal wall again identified, with fat anterior to the rectus abdominis muscle. This could represent fat herniation or a lipoma. Appears unchanged as prior study. The area of fat measures 7.5 cm wide by 2.8 cm AP by 7 cm cephalocaudal. Spine: Degenerative spondylosis. Spondylolysis and spondylolisthesis at the lumbosacral junction appears stable. Note there is transitional vertebral body anatomy at the lumbosacral junction. Bones: No destructive process identified. IMPRESSION: 1. Hepatomegaly with steatosis. 2. Development of ill-defined density within the fat anterior and posterior to the abdominal wall, particularly anterior to the left lobe of liver. Findings could sequela of the reported recent surgery versus nonspecific edema or inflammation. 3. Abdominal wall lipoma versus fat-containing abdominal wall hernia at the right inferior abdominal wall is stable. Electronically signed by: Terence Russell MD (04/11/2018 3:45 PM) [id number]
== END | disposition home or self-care (01) ==
LOC: CT 12:04
PROVIDERS: ATTEND Internal Medicine Gastroenterology
DX: K76.0 Fatty (change of) liver, not elsewhere classified (principal); R16.0 Hepatomegaly, not elsewhere classified; M43.17 Spondylolisthesis, lumbosacral region; E11.9 Type 2 diabetes mellitus without complications; Z98.890 Other specified postprocedural states; Z90.710 Acquired absence of both cervix and uterus; Z90.49 Acquired absence of other specified parts of digestive tract; Z79.84 Long term (current) use of oral hypoglycemic drugs; Z87.891 Personal history of nicotine dependence
CPT/HCPCS: 74177; Q9967

== ENCOUNTER 2018-06-23 15:07 | Emergency (ER) | payer OTHER ==
[~2018-06-23] VITALS: Ht 167.6 cm; Wt 114.6 kg
[~2018-06-23 15:07] MED LIST changes: +HYDR-1179 PO; +HYDR-3165 PO; -HYDR-79 PO; -HYDR-971 PO; -IOHEXOL 300 MG/ML 75 ML VIAL. IV ONE; -OXYC-323 PO; +OXYC1TAB15 PO
[2018-06-23] MEDS ORDERED: IV NORMAL SALINE 1,000ML 1,000 ML IV SCH (15:20)
[2018-06-23] MEDS ORDERED: ONDANSETRON PF 4 MG/2 ML VIAL. IV ONE (15:45)
[2018-06-23] MEDS ORDERED: KETOROLAC 30 MG/ML VIAL. IV ONE (15:45)
[2018-06-23 15:50] LABS: BASO # 0.1 x10^3/uL (0.0-0.2); BASO % 1 % (0-3); EOS # 0.1 x10^3/uL (0.0-0.7); EOS % 1 % (0-3); HEMOGLOBIN 14.5 g/dL (12.0-15.5); LYMPH # 2.5 x10^3/uL (1.0-4.8); LYMPH % 19 % (24-48); MEAN CORPUSCULAR HEMOGLOBIN 32 pg (25-35); MEAN CORPUSCULAR HGB CONC 34 g/dL (31-37); MEAN CORPUSCULAR VOLUME 94 fL (79-100); MONO # 0.5 x10^3/uL (0.0-1.1); MONO % 4 % (0-9); NEUT # 10.1 x10^3uL (1.8-7.7); NEUT % 76 % (31-73); PLATELET COUNT 473 x10^3/uL (140-400); RED CELL DISTRIBUTION WIDTH 13.6 % (11.5-14.5); WHITE BLOOD COUNT 13.3 x10^3/uL (4.0-11.0)
[2018-06-23 16:09] LABS: ALBUMIN 4.2 g/dL (3.4-5.0); ALBUMIN/GLOBULIN RATIO 0.8 (1.0-1.7); GFR 62.7; TOTAL BILIRUBIN 0.6 mg/dL (0.2-1.0); TOTAL PROTEIN 9.2 g/dL (6.4-8.2)
--- NOTE | 2018-06-23 16:36 | RAD ---
CT abdomen and pelvis without contrast PQRS statement: CT scans at this facility use dose reduction including either automated exposure control, iterative reconstructions, and /or weight based radiation dosing via mA and kV modification when appropriate to reduce radiation dose to as low as reasonably achievable. TECHNIQUE: Helical multiplanar reconstructed noncontrast imaging abdomen and pelvis was acquired. COMPARISON: CT abdomen and pelvis April 11, 2018. HISTORY: Severe right-sided abdominal pain, nausea, history of hernia repair. Abdomen findings: Chronic L5 spondylolisthesis and disc bulge with severe L5-S1 neural foraminal stenoses. Lung bases are unremarkable. Hepatomegaly and hypodensity of the liver which is likely fatty. Cholecystectomy. Kidneys, adrenals, pancreas, spleen are unremarkable. No urinary calculi or hydronephrosis. Mild linear stranding due to the upper midline abdominal wall overlying the left hepatic lobe is stable presumably related to old inflammation, prior laparoscopy or hernia repair. No obstruction or inflammation GI tract. Appendix is normal. No abdominal fluid. Infraumbilical right paramidline fatty abdominal wall hernia is stable measuring 5 x 2 cm. Pelvis findings: Hysterectomy. No bladder calculi. Bladder, ovaries, rectum and bones are unremarkable. No pelvic fluid. IMPRESSION: 1. No acute process. Appendix is negative. 2. Stable fatty infraumbilical abdominal wall hernia. 3. Mild linear stranding density has decreased deep to the epigastric midline abdominal wall since the prior exam could be due to an old hernia repair, old surgery or maturing omental infarct. Electronically signed by: Eagle Blankenship MD (06/23/2018 4:32 PM) [facility]
[2018-06-23] MEDS ORDERED: ONDANSETRON ODT 4 MG TAB.RAPDIS ONE (16:52)
[2018-06-23] MEDS ORDERED: ONDANSETRON ODT 4 MG TAB.RAPDIS PO ONE (17:00)
[2018-06-23 17:05] LABS: BACTERIA,URINE MOD /HPF (0-FEW); BILIRUBIN,URINE NEG (NEG); CLARITY,URINE CLEAR; COLOR,URINE YELLOW; GLUCOSE,URINE NEG (NEG); NITRITE,URINE NEG (NEG); RBC,URINE OCC /HPF (0-2); UROBILINOGEN,URINE 0.2 mg/dL (0.2 mg/dL)
[2018-06-23 17:06] LABS: HYALINE CASTS, URINE OCC /HPF; SQUAMOUS EPITHELIAL CELL,UR OCC /LPF
[2018-06-23 17:06] LABS: BARBITURATES NEG (NEG); BENZODIAZEPINES NEG (NEG); CANNABINOIDS NEG (NEG); COCAINE NEG (NEG); METHADONE NEG (NEG); OPIATES NEG (NEG); PHENCYCLIDINE NEG (NEG)
[2018-06-23 17:07] LABS: AMPHETAMINE/METHAMPHETAMINE POS (NEG)
[2018-06-23] MEDS ORDERED: CEPH-264 PO (17:26)
[2018-06-23] MEDS ORDERED: HYDR-3165 PO (17:26)
--- NOTE | 2018-06-23 17:34 | PHYS DOC ---
Past History Past Medical History: Anemia, Diabetes, GERD, Kidney Stones, Pancreatitis Additional Past Medical Histor: irritable bowel syndrome, peptic ulcer disease , subcutaneous reflux disease Past Surgical History: Cholecystectomy, , Hysterectomy, Other Smoking: Cigarettes, Quit Less Than 1 Year Alcohol Use: None Drug Use: None Adult General Chief Complaint Chief Complaint: ABDOMINAL PAIN [facility] HPI Patient is a 38 year old female with history of PTSD and frequent emergency room visits with abdominal pain who presents with feeling of sudden onset of periumbilical pain that started about an over prior to arrival at 1406 constant and sharp pain and didn't localize to the right side of her abdomen. Patient complaining of nausea without vomiting, diarrhea, constipation, urinary symptoms , fever and chills. Patient had history of kidney stone with back pain but didn' t have pain like that previously. Review of Systems Review of Systems Constitutional: Denies fever or chills [] Eyes: Denies change in visual acuity, redness, or eye pain [] HENT: Denies nasal congestion or sore throat [] Respiratory: Denies cough or shortness of breath [] Cardiovascular: No additional information not addressed in HPI [] GI: Reports abdominal pain, nausea, denies vomiting, bloody stools or diarrhea [ ] : Denies dysuria or hematuria [] Musculoskeletal: Denies back pain or joint pain [] Integument: Denies rash or skin lesions [] Neurologic: Denies headache, focal weakness or sensory changes [] Endocrine: Denies polyuria or polydipsia [] All other systems were reviewed and found to be within normal limits, except as documented in this note. Current Medications Current Medications Current Medications Medications (Trade) Dose Ordered Sig/[facility] Start Time Stop Time Status Last Admin Dose Admin Fentanyl Citrate (Fentanyl 2ml Vial) 100 mcg STK-MED ONCE 06/23/18 16:52 06/23/18 16:53 DC Ketorolac Tromethamine (Toradol 30mg Vial) 30 mg 1X ONCE 06/23/18 15:45 06/23/18 16:47 DC Ondansetron HCl (Zofran Odt) 4 mg STK-MED ONCE 06/23/18 16:52 06/23/18 16:53 DC Ondansetron HCl (Zofran) 4 mg 1X ONCE 06/23/18 15:45 06/23/18 16:47 DC Sodium Chloride 1,000 ml @ 1,000 mls/hr Q1H 06/23/18 15:20 06/23/18 16:19 DC Allergies Allergies Allergies Coded Allergies Type Severity Reaction Last Updated Verified butorphanol Allergy Intermediate Unknown 05/08/17 Yes lorazepam Allergy Mild 05/08/17 Yes morphine Allergy Mild Nausea and Vomiting 05/08/17 No phentermine Allergy Unknown 03/14/18 Yes Physical Exam Physical Exam Constitutional: Well developed, well nourished, moderate distress, non-toxic appearance anxious, sweating. [] HENT: Normocephalic, atraumatic, oropharynx moist, no oral exudates, nose normal. [] Eyes: PERRLA, EOMI, conjunctiva normal, no discharge. [] Neck: Normal range of motion, no tenderness, supple, no stridor. [] Cardiovascular: Tachycardia, no murmur [] Lungs & Thorax: Bilateral breath sounds clear to auscultation [] Abdomen: Bowel sounds normal, soft, no tenderness, no masses, no pulsatile masses. [] Skin: Warm, dry, no erythema, no rash. [] Back: No tenderness, no CVA tenderness. [] Extremities: No tenderness, no cyanosis, no clubbing, ROM intact, no edema. [] Neurologic: Alert and oriented X 3, normal motor function, normal sensory function, no focal deficits noted. [] Psychologic: Affect anxious, judgement normal, mood normal. [] Current Patient Data Vital Signs Vital Signs Date Time Temp Pulse Resp B/P (MAP) Pulse Ox O2 Delivery O2 Flow Rate FiO2 06/23/18 15:07 98.6 138 24 99 Room Air Lab Results Laboratory Tests Test 06/23/18 15:29 06/23/18 16:45 06/23/18 16:56 White Blood Count 13.3 x10^3/uL (4.0-11.0) H Red Blood Count 4.60 x10^6/uL (3.50-5.40) Hemoglobin 14.5 g/dL (12.0-15.5) Hematocrit 43.0 % (36.0-47.0) Mean Corpuscular Volume 94 fL (79-100) Mean Corpuscular Hemoglobin 32 pg (25-35) Mean Corpuscular Hemoglobin Concent 34 g/dL (31-37) Red Cell Distribution Width 13.6 % (11.5-14.5) Platelet Count 473 x10^3/uL (140-400) H Neutrophils (%) (Auto) 76 % (31-73) H Lymphocytes (%) (Auto) 19 % (24-48) L Monocytes (%) (Auto) 4 % (0-9) Eosinophils (%) (Auto) 1 % (0-3) Basophils (%) (Auto) 1 % (0-3) Neutrophils # (Auto) 10.1 x10^3uL (1.8-7.7) H Lymphocytes # (Auto) 2.5 x10^3/uL (1.0-4.8) Monocytes # (Auto) 0.5 x10^3/uL (0.0-1.1) Eosinophils # (Auto) 0.1 x10^3/uL (0.0-0.7) Basophils # (Auto) 0.1 x10^3/uL (0.0-0.2) Sodium Level 137 mmol/L (136-145) Potassium Level 4.0 mmol/L (3.5-5.1) Chloride Level 98 mmol/L (98-107) Carbon Dioxide Level 23 mmol/L (21-32) Anion Gap 16 (6-14) H Blood Urea Nitrogen 16 mg/dL (7-20) Creatinine 1.0 mg/dL (0.6-1.0) Estimated GFR (Cockcroft-Gault) 62.7 BUN/Creatinine Ratio 16 (6-20) Glucose Level 159 mg/dL (70-99) H Calcium Level 10.0 mg/dL (8.5-10.1) Total Bilirubin 0.6 mg/dL (0.2-1.0) Aspartate Amino Transferase (AST) 20 U/L (15-37) Alanine Aminotransferase (ALT) 34 U/L (14-59) Alkaline Phosphatase 82 U/L (46-116) Total Protein 9.2 g/dL (6.4-8.2) H Albumin 4.2 g/dL (3.4-5.0) Albumin/Globulin Ratio 0.8 (1.0-1.7) L Lipase 134 U/L (73-393) Urine Opiates Screen Neg (NEG) Urine Methadone Screen Neg (NEG) Urine Barbiturates Neg (NEG) Urine Phencyclidine Screen Neg (NEG) Urine Amphetamine/Methamphetamine Pos (NEG) Urine Benzodiazepines Screen Neg (NEG) Urine Cocaine Screen Neg (NEG) Urine Cannabinoids Screen Neg (NEG) Urine Ethyl Alcohol Neg (NEG) Urine Collection Type Unknown Urine Color Yellow Urine Clarity Clear Urine pH 5.0 Urine Specific Ralph 1.015 Urine Protein Neg (NEG-TRACE) Urine Glucose (UA) Neg mg/dL (NEG) Urine Ketones (Stick) 15 mg/dL (NEG) Urine Blood Small (NEG) Urine Nitrite Neg (NEG) Urine Bilirubin Neg (NEG) Urine Urobilinogen Dipstick 0.2 mg/dL (0.2 mg/dL) Urine Leukocyte Esterase Neg (NEG) Urine RBC Occ /HPF (0-2) Urine WBC 5-10 /HPF (0-4) Urine Squamous Epithelial Cells Occ /LPF Urine Bacteria Mod /HPF (0-FEW) Urine Hyaline Casts Occ /HPF EKG EKG [] Radiology/Procedures Radiology/Procedures [address] [address] IMAGING REPORT Signed PATIENT: JOY LEE ACCOUNT: [id number] : 1980 LOCATION: ER AGE: 38 SEX: F EXAM STATUS: REG ER ORD. PHYSICIAN: RENO BRANDT MD REASON: Sudden onset of right sided abdominal pain, nausea PROCEDURE: CT ABDOMEN PELVIS WO CONTRAST CT abdomen and pelvis without contrast PQRS statement: CT scans at this facility use dose reduction including either automated exposure control, iterative reconstructions, and /or weight based radiation dosing via mA and kV modification when appropriate to reduce radiation dose to as low as reasonably achievable. TECHNIQUE: Helical multiplanar reconstructed noncontrast imaging abdomen and pelvis was acquired. COMPARISON: CT abdomen and pelvis April 11, 2018. HISTORY: Severe right-sided abdominal pain, nausea, history of hernia repair. Abdomen findings: Chronic L5 spondylolisthesis and disc bulge with severe L5-S1 neural foraminal stenoses. Lung bases are unremarkable. Hepatomegaly and hypodensity of the liver which is likely fatty. Cholecystectomy. Kidneys, adrenals, pancreas, spleen are unremarkable. No urinary calculi or hydronephrosis. Mild linear stranding due to the upper midline abdominal wall overlying the left hepatic lobe is stable presumably related to old inflammation, prior laparoscopy or hernia repair. No obstruction or inflammation GI tract. Appendix is normal. No abdominal fluid. Infraumbilical right paramidline fatty abdominal wall hernia is stable measuring 5 x 2 cm. Pelvis findings: Hysterectomy. No bladder calculi. Bladder, ovaries, rectum and bones are unremarkable. No pelvic fluid. IMPRESSION: 1. No acute process. Appendix is negative. 2. Stable fatty infraumbilical abdominal wall hernia. 3. Mild linear stranding density has decreased deep to the epigastric midline abdominal wall since the prior exam could be due to an old hernia repair, old surgery or maturing omental infarct. Electronically signed by: Braydon Dela Cruz MD (06/23/2018 4:32 PM) [facility] DICTATED AND SIGNED BY: BRAYDON DELA CRUZ MD DATE: 06/23/18 8511 CC: RENO BRANDT MD; BALA JETT ~ Course & Med Decision Making Course & Med Decision Making Pertinent Labs and Imaging studies reviewed. (See chart for details) Evaluation of patient in ER showed 38-year-old female patient with complaining of sudden onset of abdominal pain. Patient had unremarkable physical exam except for tachycardia and anxiety and marked diaphoresis that improved with pain medication. Patient had IM and oral pain medication because of unaccessible IV line. Labs and CT abdomen was unremarkable except for UTI. Patient follow-up this note is follow up with her primary care physician. Dragon Disclaimer Dragon Disclaimer This electronic medical record was generated, in whole or in part, using a voice recognition dictation system. Departure Departure: Impression: Primary Impression: Abdominal pain Additional Impressions: Tachycardia Urinary tract infection Morbid obesity Anxiety Disposition: 01 HOME, SELF-CARE (at 1725) Condition: IMPROVED Referrals: BALA JETT (PCP) Patient Instructions: Abdominal Pain, Urinary Tract Infection Additional Instructions: Drink plenty of liquids Follow-up with your primary care physician in 2-3 days Return to ER if not getting better Scripts Hydrocodone Bit/Acetaminophen (NORCO 5-325 TABLET) 1 Each Tablet 1 TAB PO PRN Q6HRS PRN for PAIN, #10 TAB 0 Refills Prov: RENO BRANDT MD 06/23/18 Cephalexin (KEFLEX) 500 Mg Capsule 2 CAP PO Q12HR for infection, #28 CAP Prov: RENO BRANDT MD 06/23/18 Problem Qualifiers RENO BRANDT MD Jun 23, 2018 17:34
[2018-06-23 17:35] VITALS: BP 146/114
[2018-06-23] MEDS ORDERED: CEPHALEXIN 250 MG CAPSULE PO ONE (17:45)
[2018-06-23] MEDS ORDERED: ACETAMINOPHEN/CODEINE 300/30MG 4TABLET STARTPACK. PO ONE (17:45)
== END 2018-06-23 17:50 | disposition home or self-care (01) ==
LOC: ER 15:07
DX: N39.0 Urinary tract infection, site not specified (principal); R00.0 Tachycardia, unspecified; E66.01 Morbid (severe) obesity due to excess calories; F41.9 Anxiety disorder, unspecified; K42.9 Umbilical hernia without obstruction or gangrene; E11.9 Type 2 diabetes mellitus without complications; K21.9 Gastro-esophageal reflux disease without esophagitis; K58.9 Irritable bowel syndrome, unspecified; F17.210 Nicotine dependence, cigarettes, uncomplicated; Z68.41 Body mass index [BMI] 40.0-44.9, adult; Z87.442 Personal history of urinary calculi; Z86.2 Personal history of diseases of the blood and blood-forming organs and certain disorders involving the immune mechanism; Z87.11 Personal history of peptic ulcer disease; Z90.49 Acquired absence of other specified parts of digestive tract; Z90.710 Acquired absence of both cervix and uterus; Z98.890 Other specified postprocedural states; Z88.5 Allergy status to narcotic agent; Z88.8 Allergy status to other drugs, medicaments and biological substances
CPT/HCPCS: 36415; 74176; 80053; 80307; 81001; 83690; 85025; 87086; 96372; 99284; J3010; Q0162

== ENCOUNTER 2018-09-06 09:31 | Observation (INO) | payer OTHER ==
[~2018-09-06] VITALS: Ht 167.6 cm; Wt 114.6 kg
[~2018-09-06 09:31] MED LIST changes: +CEPH-264 PO
--- NOTE | 2018-09-06 09:53 | PHYS DOC ---
Past History Past Medical History: Anemia, Diabetes, GERD, Kidney Stones, Pancreatitis Additional Past Medical Histor: irritable bowel syndrome, peptic ulcer disease , subcutaneous reflux disease Past Surgical History: Cholecystectomy, , Hysterectomy, Other Smoking: Cigarettes, Quit Less Than 1 Year Alcohol Use: None Drug Use: None Adult General Chief Complaint Chief Complaint: ABDOMINAL PAIN HPI HPI 38-year-old female presenting to the emergency department today with intermittent loose stool since Sunday. She developed upper abdominal epigastric abdominal pain today. The pain is a sharp shooting pain that is nonradiating. She denies fevers chills. She denies any vomiting. Medical history: History of irritable bowel syndrome hypothyroidism and GERD diabetes and a history of a kidney stone. Surgeries: Partial hysterectomy cholecystectomy and hernia repair with mesh placement. Social history: Denies smoking drinking and denies IV drug use. She denies recent travel. And she feels safe at home. Review of systems is negative for chest pain shortness of breath fevers chills. She denies vomiting. All other review of systems is negative unless otherwise noted in history of present illness. ED course: 38-year-old female presenting the emergency department today with epigastric abdominal pain. On arrival she is mildly tachycardic. She is afebrile and well-appearing on examination with soft nontender abdomen. Blood work obtained. We will order a CAT scan of the abdomen pelvis. CT the abdomen pelvis is unremarkable. Blood work is unremarkable. On reexamination she continues to have pain after IV fluids nausea and pain medication. We will need to admit the patient for serial abdominal exams. We will add on an EKG and a lactate after talking Dr. Bobo. Patient be admitted to Dr. Bobo. Basic bridge orders placed. Review of Systems Review of Systems SEE ABOVE. Current Medications Current Medications Current Medications Medications (Trade) Dose Ordered Sig/[facility] Start Time Stop Time Status Last Admin Dose Admin Sodium Chloride 1,000 ml @ 1,000 mls/hr 1X ONCE 09/06/18 09:45 09/06/18 10:44 UNV Allergies Allergies Allergies Coded Allergies Type Severity Reaction Last Updated Verified butorphanol Allergy Intermediate Unknown 05/08/17 Yes lorazepam Allergy Mild 05/08/17 Yes morphine Allergy Mild Nausea and Vomiting 05/08/17 No phentermine Allergy Unknown 03/14/18 Yes Physical Exam Physical Exam SEE ABOVE Constitutional: Well developed, well nourished, no acute distress, non-toxic appearance. HENT: Normocephalic, atraumatic, bilateral external ears normal, oropharynx moist, no oral exudates, nose normal. [] Eyes: PERRLA, EOMI, conjunctiva normal, no discharge. Neck: Normal range of motion, no tenderness, supple, no stridor. [] Cardiovascular:Heart rate regular rhythm, no murmur Lungs & Thorax: Bilateral breath sounds clear to auscultation [] Abdomen: Soft nontender abdomen without rebound tenderness or guarding present. Negative McBurneys point. Negative Brown sign. No ecchymosis present. Skin: Warm, dry, no erythema, no rash. Back: No tenderness, no CVA tenderness. [] Extremities: No tenderness, no cyanosis, no clubbing, ROM intact, no edema. [] Neurologic: Alert and oriented X 3, normal motor function, normal sensory function, no focal deficits noted. Psychologic: Affect normal, judgement normal, mood normal. [] EKG EKG [] Radiology/Procedures Radiology/Procedures [] Course & Med Decision Making Course & Med Decision Making Pertinent Labs and Imaging studies reviewed. (See chart for details) [] Dragon Disclaimer Dragon Disclaimer This electronic medical record was generated, in whole or in part, using a voice recognition dictation system. Departure Departure: Impression: Primary Impression: Abdominal pain Additional Impression: Intractable abdominal pain Disposition: ADMITTED INPATIENT Admitting Physician: Wendy Light Condition: STABLE Referrals: BALA JETT (PCP) Patient Instructions: Abdominal Pain (Nonspecific) Problem Qualifiers PURVI REYNOLDS MD Sep 06, 2018 09:53
[2018-09-06] MEDS ORDERED: IV NORMAL SALINE 1,000ML 1,000 ML IV ONE (10:00)
[2018-09-06] MEDS ORDERED: FAMOTIDINE 20 MG/2 ML VIAL IVP ONE (10:00)
[2018-09-06] MEDS ORDERED: LIDO:MAALOX 1:1 20 ML SINGLE DOSE. PO ONE (10:00)
[2018-09-06 10:10] LABS: BASO # 0.1 x10^3/uL (0.0-0.2); BASO % 1 % (0-3); EOS # 0.1 x10^3/uL (0.0-0.7); EOS % 1 % (0-3); HEMATOCRIT 40.5 % (36.0-47.0); HEMOGLOBIN 13.7 g/dL (12.0-15.5); LYMPH # 2.1 x10^3/uL (1.0-4.8); LYMPH % 20 % (24-48); MEAN CORPUSCULAR HEMOGLOBIN 31 pg (25-35); MEAN CORPUSCULAR HGB CONC 34 g/dL (31-37); MEAN CORPUSCULAR VOLUME 92 fL (79-100); MONO # 0.5 x10^3/uL (0.0-1.1); MONO % 5 % (0-9); NEUT # 7.7 x10^3uL (1.8-7.7); NEUT % 73 % (31-73); PLATELET COUNT 403 x10^3/uL (140-400); RED BLOOD COUNT 4.42 x10^6/uL (3.50-5.40); RED CELL DISTRIBUTION WIDTH 14.1 % (11.5-14.5); WHITE BLOOD COUNT 10.5 x10^3/uL (4.0-11.0)
[2018-09-06 10:23] LABS: PREG TEST PT QUAL NEGATIVE (NEG)
[2018-09-06 10:24] LABS: ALBUMIN 3.9 g/dL (3.4-5.0); CALCIUM 8.9 mg/dL (8.5-10.1); CREATININE 0.8 mg/dL (0.6-1.0); DIRECT BILIRUBIN 0.1 mg/dL (0.0-0.2); GFR 81.2; POTASSIUM 3.7 mmol/L (3.5-5.1); TOTAL BILIRUBIN 0.5 mg/dL (0.2-1.0); TOTAL PROTEIN 8.2 g/dL (6.4-8.2)
[2018-09-06] MEDS ORDERED: IOHEXOL 300 MG/ML 75 ML VIAL. IV ONE (10:30)
--- NOTE | 2018-09-06 11:02 | RAD ---
PQRS Compliance statement: One or more of the following individualized dose reduction techniques were utilized for this examination: 1. Automated exposure control. 2. Adjustment of the mA and/or kV according to patient size. 3. Use of iterative reconstruction technique. Indication:epigastric pain, n/v/d for 4 days
unable to scan pre procedure form into pacs partial hysterectomy, 75cc Omni 300 TECHNIQUE: CT abdomen and pelvis with IV contrast with multiplanar reformats. COMPARISON: 06/23/2018 FINDINGS: Heart is normal in size. No pericardial or pleural effusion. Clear lung bases. Liver is mildly enlarged measuring 25 cm with diffuse hepatic steatosis. Status post cholecystectomy. Spleen within normal limits. Pancreas and adrenal glands within normal limits. No nephrolithiasis or hydronephrosis. No enlarged retroperitoneal or pelvic adenopathy. No free pelvic fluid or ascites. No bowel obstruction. Status post hysterectomy. Urinary bladder is within normal limits. No pneumoperitoneum. Normal appendix. No suspicious bony lesion. Bilateral L5 pars defect with grade 1 anterolisthesis of L5 over S1. IMPRESSION: 1. Mild hepatomegaly with hepatic steatosis. Otherwise no acute findings. Electronically signed by: Jose Finley DO (09/06/2018 10:58 AM) [id number]
[2018-09-06] MEDS ORDERED: IV NORMAL SALINE 1,000ML 1,000 ML IV SCH (12:00)
[2018-09-06 12:10] LABS: BACTERIA,URINE FEW /HPF (0-FEW); BILIRUBIN,URINE NEG (NEG); CLARITY,URINE CLEAR; COLOR,URINE YELLOW; GLUCOSE,URINE NEG (NEG); NITRITE,URINE NEG (NEG); RBC,URINE RARE /HPF (0-2); SQUAMOUS EPITHELIAL CELL,UR MOD /LPF; UROBILINOGEN,URINE 0.2 mg/dL (0.2 mg/dL); WBC,URINE RARE /HPF (0-4)
[2018-09-06] MEDS ORDERED: METOCLOPRAMIDE HCL 10 MG/2 ML VIAL. IV ONE (12:15)
[2018-09-06] MEDS ORDERED: KETOROLAC 15 MG/ML VIAL. IV ONE (12:15)
[2018-09-06] MEDS ORDERED: diphenhydrAMINE 50 MG/ML VIAL IVP ONE (12:15)
--- NOTE | 2018-09-06 12:19 | EKG ---
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 Electronically Signed On 09-09-2018 10:48:11 REMOTE SENSING ANALYST by Len Figueroa
[2018-09-06 13:32] VITALS: BP 144/89
== END 2018-09-06 15:27 | disposition left against medical advice (07) ==
LOC: ER 09:31 → INTOOBSV 12:09 → ICU 12:09
PROVIDERS: ADMIT Internal Medicine; ATTEND Internal Medicine
DX: R10.13 Epigastric pain (principal); E03.9 Hypothyroidism, unspecified; K21.9 Gastro-esophageal reflux disease without esophagitis; E11.9 Type 2 diabetes mellitus without complications; K58.9 Irritable bowel syndrome, unspecified; Z87.11 Personal history of peptic ulcer disease; Z87.442 Personal history of urinary calculi; Z87.891 Personal history of nicotine dependence; Z90.711 Acquired absence of uterus with remaining cervical stump; Z90.49 Acquired absence of other specified parts of digestive tract; Z88.8 Allergy status to other drugs, medicaments and biological substances
CPT/HCPCS: 36415; 74177; 80048; 80076; 81001; 83605; 83690; 84484; 84703; 85025; 87641; 93005; 96361; 96374; 96375; 96376; 99284; G0378; J1200; J1885; J2765; J3010; J3490; Q9967; G0379; 99285-25; J7030

== ENCOUNTER → 2018-12-12 | Outpatient (CLI) | payer OTHER ==
[2018-12-12 15:20] LABS: BASO # 0.1 x10^3/uL (0.0-0.2); BASO % 1 % (0-3); EOS # 0.1 x10^3/uL (0.0-0.7); EOS % 2 % (0-3); HEMATOCRIT 43.7 % (36.0-47.0); LYMPH % 26 % (24-48); MEAN CORPUSCULAR HEMOGLOBIN 31 pg (25-35); MEAN CORPUSCULAR HGB CONC 34 g/dL (31-37); MEAN CORPUSCULAR VOLUME 91 fL (79-100); MONO # 0.5 x10^3/uL (0.0-1.1); MONO % 6 % (0-9); NEUT # 5.1 x10^3uL (1.8-7.7); NEUT % 66 % (31-73); PLATELET COUNT 444 x10^3/uL (140-400); RED BLOOD COUNT 4.81 x10^6/uL (3.50-5.40); RED CELL DISTRIBUTION WIDTH 13.7 % (11.5-14.5); WHITE BLOOD COUNT 7.7 x10^3/uL (4.0-11.0)
[2018-12-12 15:28] LABS: ALBUMIN 4.4 g/dL (3.4-5.0); CALCIUM 9.8 mg/dL (8.5-10.1); GFR 62.7; POTASSIUM 3.4 mmol/L (3.5-5.1); TOTAL BILIRUBIN 0.7 mg/dL (0.2-1.0); TOTAL PROTEIN 8.7 g/dL (6.4-8.2)
== END | disposition home or self-care (01) ==
LOC: LAB 14:47
PROVIDERS: ATTEND Registered Nurse
DX: R10.9 Unspecified abdominal pain (principal)
CPT/HCPCS: 36415; 80053; 82150; 83690; 85025

== ENCOUNTER → 2018-12-31 | Outpatient (CLI) | payer OTHER ==
[~2018-12-31] MED LIST changes: +RANI-376 PO; -RANI150T21 PO
--- NOTE | 2018-12-31 16:45 | RAD ---
Examination: CT ABDOMEN PELVIS WO CONTRAST History: Hematuria, bilateral flank pain Comparison/Correlation: 09/06/2018 CT abdomen and pelvis with contrast Findings: Axial images of the abdomen and pelvis were obtained without contrast. Sagittal and coronal reformatted images were provided. Axial images of the abdomen and pelvis were obtained without contrast. Sagittal and coronal reformatted images were provided. Visualized lung bases are clear. Significant fatty infiltration of the liver is present. Cholecystectomy noted. Spleen, pancreas, adrenal glands are unremarkable. Kidneys are unremarkable. No radiopaque collecting system calculi. No hydronephrosis. Bladder is unremarkable. No inflammatory findings about the kidneys or urinary bladder. No enlarged abdominal or pelvic lymph nodes. No bowel obstruction or extraluminal gas. Moderate quantity of stool in the colon. Submucosal fat is present involving the proximal colon but is of indeterminate significant. Correlate with previous episodes of inflammation. Sacralization of L5 noted. Bilateral L4 pars interarticularis fractures are present with grade 1 anterolisthesis of L4 over L5. Vacuum disc phenomenon and disc space narrowing is evident at this level. Impression: No radiopaque collecting system calculi or obstruction. Consider further evaluation with CT IVP urogram with contrast on a nonemergent basis if underlying mass lesion is of concern. Bilateral L4 pars interarticularis fractures with anterolisthesis which is unchanged. PQRS Compliance Statement: One or more of the following individualized dose reduction techniques were utilized for this examination: 1. Automated exposure control 2. Adjustment of the mA and/or kV according to patient size 3. Use of iterative reconstruction technique Electronically signed by: Javier Guillory MD (12/31/2018 4:42 PM) [id number]
== END | disposition home or self-care (01) ==
LOC: CT 16:20
PROVIDERS: ATTEND Physician Assistant
DX: S32.048A Other fracture of fourth lumbar vertebra, initial encounter for closed fracture (principal); M48.061 Spinal stenosis, lumbar region without neurogenic claudication; K76.0 Fatty (change of) liver, not elsewhere classified; X58.XXXA Exposure to other specified factors, initial encounter; Y93.89 Activity, other specified; Y92.89 Other specified places as the place of occurrence of the external cause; Y99.8 Other external cause status; Z90.49 Acquired absence of other specified parts of digestive tract
CPT/HCPCS: 74176

== ENCOUNTER 2019-01-29 15:08 | Inpatient (IN) | payer OTHER ==
[~2019-01-29] VITALS: Ht 167.6 cm; Wt 99.8 kg
[2019-01-29] VITALS (7 sets, daily range): BP systolic 102–115; BP diastolic 66–77
[2019-01-29] MEDS ORDERED: IV NORMAL SALINE 1,000ML 1,000 ML IV ONE (15:15)
[2019-01-29] MEDS ORDERED: ONDANSETRON PF 4 MG/2 ML VIAL. IV ONE ×2 (15:30→16:30)
[2019-01-29 16:12] LABS: BASO # 0.1 x10^3/uL (0.0-0.2); BASO % 1 % (0-3); EOS # 0.1 x10^3/uL (0.0-0.7); EOS % 1 % (0-3); HEMATOCRIT 46.2 % (36.0-47.0); HEMOGLOBIN 15.4 g/dL (12.0-15.5); LYMPH # 2.1 x10^3/uL (1.0-4.8); LYMPH % 19 % (24-48); MEAN CORPUSCULAR HEMOGLOBIN 31 pg (25-35); MEAN CORPUSCULAR HGB CONC 33 g/dL (31-37); MEAN CORPUSCULAR VOLUME 92 fL (79-100); MONO # 0.6 x10^3/uL (0.0-1.1); MONO % 5 % (0-9); NEUT # 8.3 x10^3uL (1.8-7.7); NEUT % 74 % (31-73); PLATELET COUNT 538 x10^3/uL (140-400); RED BLOOD COUNT 5.01 x10^6/uL (3.50-5.40); RED CELL DISTRIBUTION WIDTH 14.1 % (11.5-14.5); WHITE BLOOD COUNT 11.3 x10^3/uL (4.0-11.0)
--- NOTE | 2019-01-29 16:17 | PHYS DOC ---
Past History Past Medical History: Anemia, Diabetes, GERD, Hypothyroid, IBS, Kidney Stones, Pancreatitis, Other Additional Past Medical Histor: irritable bowel syndrome, peptic ulcer disease, subcutaneous reflux disease Past Surgical History: Cholecystectomy, , Hysterectomy, Other Smoking: Cigarettes, Quit Less Than 1 Year Alcohol Use: None Drug Use: None Adult General Chief Complaint Chief Complaint: NAUSEA/VOMITING/[facility] HPI 39-year-old female presents with nausea, vomiting, abdominal pain for the last 3-4 days. Her symptoms started after she took her injectable diabetes medication, Ozempic. The patient's dose increased about 3 weeks ago. She has had some similar symptoms after each of these injections, but less severe until her injection Sunday. The patient is unable to keep down any liquids or solids. She has had some diarrhea. No one else in the house is sick. Patient has a history of pancreatitis on Victoza. She denies fever or chills. Review of Systems Review of Systems Constitutional: Denies fever or chills [] Eyes: Denies change in visual acuity, redness, or eye pain [] HENT: Denies nasal congestion or sore throat [] Respiratory: Denies cough or shortness of breath [] Cardiovascular: No additional information not addressed in HPI [] GI: Epigastric abdominal pain, nausea, vomiting, diarrhea [] : Denies dysuria or hematuria [] Musculoskeletal: Denies back pain or joint pain [] Integument: Denies rash or skin lesions [] Neurologic: Denies headache, focal weakness or sensory changes [] Endocrine: Denies polyuria or polydipsia [] All other systems were reviewed and found to be within normal limits, except as documented in this note. Current Medications Current Medications Current Medications Medications (Trade) Dose Ordered Sig/[facility] Start Time Stop Time Status Last Admin Dose Admin Fentanyl Citrate (Fentanyl 2ml Vial) 50 mcg 1X ONCE 01/29/19 16:15 01/29/19 16:16 UNV Ondansetron HCl (Zofran) 4 mg 1X ONCE 01/29/19 16:15 01/29/19 16:16 UNV Sodium Chloride 1,000 ml @ 1,000 mls/hr 1X ONCE 01/29/19 15:15 01/29/19 16:14 Allergies Allergies Allergies Coded Allergies Type Severity Reaction Last Updated Verified butorphanol Allergy Intermediate Unknown 09/06/18 Yes lorazepam Allergy Mild 09/06/18 Yes morphine Allergy Mild Nausea and Vomiting 09/06/18 No phentermine Allergy Unknown 09/06/18 Yes Physical Exam Physical Exam Constitutional: Well developed, well nourished, no acute distress, non-toxic appearance. [] HENT: Normocephalic, atraumatic, bilateral external ears normal, oropharynx moist, no oral exudates, nose normal. [] Eyes: PERRLA, EOMI, conjunctiva normal, no discharge. [] Neck: Normal range of motion, no tenderness, supple, no stridor. [] Cardiovascular:Heart rate regular rhythm, no murmur [] Lungs & Thorax: Bilateral breath sounds clear to auscultation [] Abdomen: Bowel sounds normal, soft, epigastric tenderness, no masses, no pulsatile masses. [] Skin: Warm, dry, no erythema, no rash. [] Back: No tenderness, no CVA tenderness. [] Extremities: No tenderness, no cyanosis, no clubbing, ROM intact, no edema. [] Neurologic: Alert and oriented X 3, normal motor function, normal sensory function, no focal deficits noted. [] Psychologic: Affect normal, judgement normal, mood normal. [] Current Patient Data Vital Signs Vital Signs Date Time Temp Pulse Resp B/P (MAP) Pulse Ox O2 Delivery O2 Flow Rate FiO2 01/29/19 16:02 98.5 115 20 95 Room Air EKG EKG [] Radiology/Procedures Radiology/Procedures [] Course & Med Decision Making Course & Med Decision Making Pertinent Labs and Imaging studies reviewed. (See chart for details) Patient's labs are significant for potassium of 2.9. We will replace this by IV. An EKG has been ordered. The patient continues to be in a lot of discomfort. I gave her an initial 50 �g of fentanyl which did not improve her pain. I will give her an additional 100. She's been given 8 mg of Zofran. The patient had a CT of the abdomen and pelvis one month ago. She has had more than 20 CT scans of her abdomen and pelvis. I do not believe this is an absolute necessity at this time. I spoke with the hospitalist, Dr. Phelan and he has accepted the patient for admission. [] Dragon Disclaimer Dragon Disclaimer This electronic medical record was generated, in whole or in part, using a voice recognition dictation system. Departure Departure: Referrals: BALA JETT (PCP) MARLI HENNESSY DO Jan 29, 2019 16:17
[2019-01-29 16:29] LABS: ALBUMIN 4.5 g/dL (3.4-5.0); CALCIUM 9.9 mg/dL (8.5-10.1); CREATININE 0.7 mg/dL (0.6-1.0); GFR 94.2; TOTAL PROTEIN 8.9 g/dL (6.4-8.2)
[2019-01-29 16:31] LABS: POTASSIUM 2.9 mmol/L (3.5-5.1)
[2019-01-29] MEDS ORDERED: POTASSIUM CL 40MEQ IN 0.9%NACL 1,000 ML IV ONE (17:00)
[2019-01-29] MEDS ORDERED: PROCHLORPERAZINE 10 MG/2 ML VIAL. IV ONE (17:30)
[2019-01-29] MEDS ORDERED: ACETAMINOPHEN 325 MG TABLET PO PRN (17:30)
[2019-01-29] MEDS ORDERED: LISD50CA3 PO (19:05)
[2019-01-29] MEDS ORDERED: LEVO75TA5 PO (19:05)
[2019-01-29] MEDS ORDERED: LURA40TA PO (19:05)
[2019-01-29] MEDS ORDERED: ESTR0.5T PO (19:05)
[2019-01-29] MEDS ORDERED: FLUO20CA8 PO (19:05)
[2019-01-29] MEDS ORDERED: IRON1CAP14 PO (19:05)
[2019-01-29] MEDS ORDERED: PANT40TA5 PO (19:05)
[2019-01-29] MEDS ORDERED: SEMA0.25 SQ (19:40)
[2019-01-29] MEDS ORDERED: ONDANSETRON ODT 4 MG TAB.RAPDIS ONE (19:49)
[2019-01-29] MEDS: ONDANSETRON ODT 4 MG TAB.RAPDIS PO PRN (20:06)
[2019-01-29] MEDS: ONDANSETRON PF 4 MG/2 ML VIAL. IV PRN (20:27)
[2019-01-30] VITALS (7 sets, daily range): BP systolic 112–131; BP diastolic 58–94
[2019-01-30 00:07] LABS: CALCIUM 8.3 mg/dL (8.5-10.1); CREATININE 0.7 mg/dL (0.6-1.0); GFR 94.2; MAGNESIUM 1.6 mg/dL (1.8-2.4); POTASSIUM 3.2 mmol/L (3.5-5.1)
[2019-01-30] MEDS: POTASSIUM CHLORIDE 10MEQ 100 ML IV SCH ×4 (00:18→03:25)
[2019-01-30] MEDS ORDERED: MAGNESIUM SULFATE 2GM 50 ML IV ONE (00:30)
[2019-01-30] MEDS: ONDANSETRON PF 4 MG/2 ML VIAL. IV PRN ×3 (04:34→16:37)
[2019-01-30 05:08] LABS: BILIRUBIN,URINE NEG (NEG); CLARITY,URINE CLEAR; COLOR,URINE YELLOW; GLUCOSE,URINE NEG (NEG)
[2019-01-30 05:09] LABS: BACTERIA,URINE 0 /HPF (0-FEW); NITRITE,URINE NEG (NEG); RBC,URINE 0 /HPF (0-2); SQUAMOUS EPITHELIAL CELL,UR MANY /LPF; UROBILINOGEN,URINE 0.2 mg/dL (0.2 mg/dL)
[2019-01-30 08:12] LABS: BASO % 1 % (0-3); EOS # 0.1 x10^3/uL (0.0-0.7); EOS % 2 % (0-3); HEMATOCRIT 37.1 % (36.0-47.0); HEMOGLOBIN 12.6 g/dL (12.0-15.5); LYMPH # 2.4 x10^3/uL (1.0-4.8); LYMPH % 34 % (24-48); MEAN CORPUSCULAR HEMOGLOBIN 32 pg (25-35); MEAN CORPUSCULAR HGB CONC 34 g/dL (31-37); MEAN CORPUSCULAR VOLUME 93 fL (79-100); MONO # 0.4 x10^3/uL (0.0-1.1); MONO % 6 % (0-9); NEUT % 58 % (31-73); PLATELET COUNT 364 x10^3/uL (140-400); RED BLOOD COUNT 3.99 x10^6/uL (3.50-5.40)
[2019-01-30 08:22] LABS: ALBUMIN 3.4 g/dL (3.4-5.0); CALCIUM 8.1 mg/dL (8.5-10.1); CREATININE 0.6 mg/dL (0.6-1.0); GFR 112.5; MAGNESIUM 2.1 mg/dL (1.8-2.4); POTASSIUM 3.2 mmol/L (3.5-5.1); TOTAL BILIRUBIN 0.7 mg/dL (0.2-1.0); TOTAL PROTEIN 6.9 g/dL (6.4-8.2)
--- NOTE | 2019-01-30 08:47 | HP ---
ADMIT DATE: 01/29/2019 ATTENDING PHYSICIAN: Dr. Camarillo. CHIEF COMPLAINT: Abdominal pain. HISTORY OF PRESENT ILLNESS: The patient is a 39-year-old female with multiple medical issues. She has had 23 CAT scans in the last several years. She has significant abdominal pain, nausea, vomiting. She attributes this to her injectable diabetes medication, Ozempic, which was administered 2 days ago, the dose had been increased. She had similar episodes in symptoms after each of these injections. She also has a longstanding history of gastroesophageal reflux disease and irritable bowel syndrome. Therefore, she is admitted with intractable nausea and she also had a serum potassium level of 2.9 mEq per liter. PAST MEDICAL HISTORY: Significant for kidney stones, pancreatitis, anemia and type 2 diabetes, irritable bowel syndrome, peptic ulcer disease. PAST SURGICAL HISTORY: Cholecystectomy, and hysterectomy. SOCIAL HISTORY: She was a smoker up to 6 months ago. She denies any alcohol use. She has one son, age 6. FAMILY HISTORY: Dad's age late 50s with congestive heart failure. Mom is alive, moderately healthy. REVIEW OF SYSTEMS: Significant for the localized GI symptoms. No fevers or chills. No hematemesis or chest pain. All other systems were reviewed and determined to be negative. PHYSICAL EXAMINATION: GENERAL: I saw her. This is a pleasant young female. VITAL SIGNS: Initial vital signs in the ED showed a blood pressure of 115/58, pulse is 98 and regular. She was afebrile. HEENT: Head is without trauma. Pupils are reactive. Sclerae are nonicteric. The oropharynx is clear. NECK: Supple, no bruits identified. LUNGS: Otherwise clear. CARDIOVASCULAR: Showed regular heart tones. No gallops, no murmurs. Peripheral pulses are palpable and full. ABDOMEN: Soft, obese, protuberant. No organomegaly. Bowel sounds are hypoactive. EXTREMITIES: Show no cyanosis or edema. NEUROLOGIC: Department focally intact. PERTINENT LABORATORY AND X-RAY STUDIES: Her hemoglobin was 15.4 g/dL with white count of 11,300. Electrolytes show sodium 140 mEq, potassium 2.9 mEq, creatinine 0.7 mg/dL. Serum lipase was normal. ASSESSMENT: 1. A 39-year-old female with intractable nausea and vomiting. 2. Dehydration. 3. Type 2 diabetes. 4. Hypokalemia due to gastrointestinal losses. 5. Exacerbation of irritable bowel syndrome. PLAN: 1. Admit to the inpatient unit. 2. Gentle IV hydration. 3. I will try to start her on some . 4. Potassium and magnesium replacement. 5. Accu-Cheks. 6. Advance diet as tolerated. 7. Pain and nausea control. HOLLAND CAMARILLO MD DR: TRICIA/barrett JOB#: [id number] / [id number]
[2019-01-30] MEDS: LINACLOTIDE 145 MCG CAPSULE. PO SCH (09:51)
--- NOTE | 2019-01-30 11:02 | EKG ---
[address] [address] Test Date: 2019-01-29 Test Time: 16:57:14 Pat Name: JOY LEE Department: Room: Gender: F Undertaker Helper: : 1980 Requested By: MARLI HENNESSY Order Number: [id number] Reading MD: Measurements Intervals [place] Rate: 100 P: 102 DC: 152 QRS: 72 QRSD: 88 T: 64 QT: 374 QTc: 486 Interpretive Statements SINUS RHYTHM QRS(T) CONTOUR ABNORMALITY CONSIDER ANTEROLATERAL MYOCARDIAL DAMAGE T ABNORMALITY IN ANTEROSEPTAL LEADS PROLONGED QT ABNORMAL ECG RI6.01 No previous ECG available for comparison
[2019-01-30] MEDS ORDERED: IV NORMAL SALINE 1,000ML 1,000 ML IV SCH (17:45)
[2019-01-30] MEDS: IV NORMAL SALINE 1,000ML 1,000 ML IV SCH (19:48)
[2019-01-31] MEDS: IV NORMAL SALINE 1,000ML 1,000 ML IV SCH ×3 (00:23→13:27)
[2019-01-31] MEDS: ONDANSETRON ODT 4 MG TAB.RAPDIS PO PRN ×3 (05:26→18:06)
[2019-01-31] MEDS: LINACLOTIDE 145 MCG CAPSULE. PO SCH (05:26)
[2019-01-31 05:30] VITALS: BP 131/80
[2019-01-31] MEDS: PROCHLORPERAZINE 10 MG/2 ML VIAL. IV PRN ×2 (08:53→15:51)
[2019-01-31 11:29] LABS: BASO % 1 % (0-3); EOS # 0.1 x10^3/uL (0.0-0.7); EOS % 2 % (0-3); HEMATOCRIT 37.3 % (36.0-47.0); HEMOGLOBIN 12.3 g/dL (12.0-15.5); LYMPH # 1.7 x10^3/uL (1.0-4.8); LYMPH % 25 % (24-48); MEAN CORPUSCULAR HEMOGLOBIN 31 pg (25-35); MEAN CORPUSCULAR HGB CONC 33 g/dL (31-37); MEAN CORPUSCULAR VOLUME 95 fL (79-100); MONO # 0.3 x10^3/uL (0.0-1.1); MONO % 5 % (0-9); NEUT # 4.4 x10^3uL (1.8-7.7); NEUT % 67 % (31-73); PLATELET COUNT 310 x10^3/uL (140-400); RED BLOOD COUNT 3.94 x10^6/uL (3.50-5.40); RED CELL DISTRIBUTION WIDTH 14.2 % (11.5-14.5); WHITE BLOOD COUNT 6.6 x10^3/uL (4.0-11.0)
[2019-01-31 11:44] VITALS: BP 127/76
[2019-01-31 12:02] LABS: ALBUMIN 3.3 g/dL (3.4-5.0); ALBUMIN/GLOBULIN RATIO 1.1 (1.0-1.7); CALCIUM 7.8 mg/dL (8.5-10.1); CREATININE 0.5 mg/dL (0.6-1.0); GFR 138.8; POTASSIUM 3.3 mmol/L (3.5-5.1); TOTAL BILIRUBIN 0.5 mg/dL (0.2-1.0); TOTAL PROTEIN 6.3 g/dL (6.4-8.2)
--- NOTE | 2019-01-31 15:29 | PN ---
DATE: 01/31/2019 ATTENDING PHYSICIAN: Dr. Camarillo. SUBJECTIVE: Abdominal pain. The patient is alert when I saw her. She was on clear liquids; however, later when she took a few bites of solid food, she started having spasms in the colon and was quite symptomatic. Zofran and Compazine have been ordered for nausea. OBJECTIVE FINDINGS: VITAL SIGNS: Her blood pressure today is 131/80, pulse is 86 and regular, temperature 97.5. HEENT: Head is without trauma. Pupils are reactive. Sclerae are nonicteric. Oropharynx is clear. NECK: Supple, no bruits. LUNGS: Otherwise clear. CARDIOVASCULAR: Showed regular heart tones. ABDOMEN: Showed her abdomen to be soft, nontender to palpation. There is no guarding or rebound tenderness. Bowel sounds were normoactive. No masses palpated. EXTREMITIES: Showed no cyanosis or edema. NEUROLOGIC: Findings focally intact. LABORATORY DATA: Potassium was up to 3.2 mEq. Repeat chemistries pending this morning. ASSESSMENT: 1. A 39-year-old female with intractable abdominal pain. 2. Intractable nausea. 3. Aggravation of a very symptomatic irritable bowel syndrome. 4. Type 2 diabetes. 5. Hypokalemia, replace. PLAN: 1. Continue pain and nausea control. 2. Diet as tolerated. 3. Follow up chemistry. 4. Potassium supplementation. HOLLAND CAMARILLO MD DR: TRICIA/barrett JOB#: [id number] / [id number]
[2019-01-31 15:44] VITALS: BP 145/73
[2019-01-31 20:20] VITALS: BP 140/81
[2019-02-01] MEDS: IV NORMAL SALINE 1,000ML 1,000 ML IV SCH ×2 (03:00→05:49)
[2019-02-01] MEDS: LINACLOTIDE 145 MCG CAPSULE. PO SCH (07:29)
[2019-02-01 07:51] VITALS: BP 127/71
--- NOTE | 2019-02-01 19:17 | DS ---
DATE OF DISCHARGE: 02/01/2019 ATTENDING PHYSICIAN: Dr. Camarillo. FINAL DISCHARGE DIAGNOSES: 1. Intractable abdominal pain, resolved. 2. Intractable nausea, improved. 3. Aggravation of symptomatic irritable bowel syndrome. 4. Type 2 diabetes. 5. Hypokalemia. 6. Adverse reaction to new diabetes regimen. HISTORY OF PRESENT ILLNESS: This is a 39-year-old female who was admitted through the ED with intractable nausea and vomiting. She also had low potassium from GI losses. She has significant irritable bowel syndrome. She also has had 23 CAT scans of the abdomen in the past several years. PHYSICAL EXAMINATION: Please see my dictated note. PERTINENT LABORATORY AND X-RAY STUDIES: She had normal hemoglobin of 15.4 g/dL with white count of 7000. Chemistry panel showed stable sodium, potassium was replaced up to 3.3 mEq per liter, it had been 2.8. This will be followed up as an outpatient. Nonfasting blood sugars were in the normal range, measuring 88, 82, 75 and 98 mg/dL. COURSE IN THE HOSPITAL: The patient was admitted. She was started on IV hydration, nausea and pain control, quite symptomatic. She got better. By the third hospital day, she was up and ambulating, tolerating some solid foods. I recommended a bland diet and small feedings. She was ready for discharge. I recommended continuation of her home meds including her insulin regimen and a script for Percocet 10/325 one p.o. q 6 hours p.r.n. pain, was given to her. Other home meds include her iron dose, Prozac 60 mg daily, Latuda daily, dexamphetamine, Protonix, estradiol and a new script for Linzess, which has helped her symptoms. She will continue her metformin, for now we have held her Ozempic. She will follow up with her PCP and english composition instructor as scheduled. The patient was then discharged from our hospital in stable condition with explicit instructions on followup care. TOTAL DISCHARGE TIME: 39 minutes. HOLLAND CAMARILLO MD DR: TRICIA/barrett JOB#: [id number] / [id number]
== END 2019-02-01 10:32 | disposition home or self-care (01) | DRG 392 ==
LOC: ER 15:08 → ICU 17:26
PROVIDERS: ADMIT Hospitalist; ATTEND Hospitalist
DX: K58.9 Irritable bowel syndrome, unspecified (principal); E86.0 Dehydration; K21.9 Gastro-esophageal reflux disease without esophagitis; E87.6 Hypokalemia; E11.9 Type 2 diabetes mellitus without complications; E03.9 Hypothyroidism, unspecified; Z79.899 Other long term (current) drug therapy; Z87.11 Personal history of peptic ulcer disease; Z90.710 Acquired absence of both cervix and uterus; Z90.49 Acquired absence of other specified parts of digestive tract; Z87.891 Personal history of nicotine dependence; Z88.5 Allergy status to narcotic agent; Z88.8 Allergy status to other drugs, medicaments and biological substances; Z82.49 Family history of ischemic heart disease and other diseases of the circulatory system; Z87.442 Personal history of urinary calculi
CPT/HCPCS: 36415; 80048; 80053; 81001; 82947; 83690; 83735; 85025; 87641; 93005; 96365; 96375; J0780; J2405; J3010; J3475; J3480; Q0162; 99285-25; J7030

== ENCOUNTER 2019-09-16 14:30 | Emergency (ER) | payer OTHER ==
[~2019-09-16] VITALS: Ht 166.4 cm; Wt 112.3 kg
[~2019-09-16 14:30] MED LIST changes: +ESTR0.5T PO; +FLUO20CA20 PO; +IRON1CAP14 PO; +LEVO75TA5 PO; +LISD50CA3 PO; +LURA40TA PO; +PANT40TA5 PO; +SEMA0.25 SQ
[2019-09-16] MEDS ORDERED: IV NORMAL SALINE 1,000ML 1,000 ML IV SCH (15:14)
[2019-09-16] MEDS ORDERED: FAMOTIDINE 20 MG/2 ML VIAL IVP ONE (15:15)
[2019-09-16] MEDS ORDERED: ONDANSETRON PF 4 MG/2 ML VIAL. IVP ONE (15:15)
[2019-09-16 15:51] LABS: BASO # 0.1 x10^3/uL (0.0-0.2); BASO % 1 % (0-3); EOS # 0.1 x10^3/uL (0.0-0.7); EOS % 1 % (0-3); HEMATOCRIT 42.6 % (36.0-47.0); HEMOGLOBIN 14.3 g/dL (12.0-15.5); LYMPH # 2.1 x10^3/uL (1.0-4.8); LYMPH % 21 % (24-48); MEAN CORPUSCULAR HEMOGLOBIN 31 pg (25-35); MEAN CORPUSCULAR HGB CONC 34 g/dL (31-37); MEAN CORPUSCULAR VOLUME 92 fL (79-100); MONO # 0.4 x10^3/uL (0.0-1.1); MONO % 4 % (0-9); NEUT # 7.5 x10^3uL (1.8-7.7); NEUT % 74 % (31-73); PLATELET COUNT 419 x10^3/uL (140-400); RED BLOOD COUNT 4.65 x10^6/uL (3.50-5.40); RED CELL DISTRIBUTION WIDTH 13.2 % (11.5-14.5); WHITE BLOOD COUNT 10.2 x10^3/uL (4.0-11.0)
[2019-09-16 16:01] LABS: CALCIUM 9.4 mg/dL (8.5-10.1); CREATININE 0.8 mg/dL (0.6-1.0); GFR 80.7; POTASSIUM 3.5 mmol/L (3.5-5.1)
--- NOTE | 2019-09-16 16:06 | PHYS DOC ---
Past History Past Medical History: Anemia, Diabetes, GERD, Hypothyroid, IBS, Kidney Stones, Pancreatitis, Other Additional Past Medical Histor: irritable bowel syndrome, peptic ulcer disease, subcutaneous reflux disease Past Surgical History: Cholecystectomy, , Hysterectomy, Other Smoking: Cigarettes, Quit Less Than 1 Year Alcohol Use: None Drug Use: None Adult General Chief Complaint Chief Complaint: ABDOMINAL PAIN HPI HPI Patient is a 39 year old female who presents with complaint of abdominal pain. Patient has had multiple visits to the emergency department with complaints of abdominal pain in the past. Has undergone multiple workups with no significant findings through this emergency department. Has reported history of irritable bowel syndrome, diabetes mellitus, and peptic ulcer disease. States that she started having severe pain in her upper abdomen the last 2 days. Notes that it improved last night but started to worsen after eating this morning. States the pain is across her upper abdomen and radiates towards her back. States this is different from her usual pain. Denies any associated bloody stools or fever. Has not taking medications for symptoms. Does not currently follow with a comber setter or other specialists. Rates pain as 10 out of 10. Review of Systems Review of Systems Constitutional: Denies fever or chills [] Eyes: Denies change in visual acuity, redness, or eye pain [] HENT: Denies nasal congestion or sore throat [] Respiratory: Denies cough or shortness of breath [] Cardiovascular: Denies chest pain or edema[] GI: Abdominal pain, nausea, denies diarrhea[] : Denies dysuria or hematuria [] Musculoskeletal: Denies back pain or joint pain [] Integument: Denies rash or skin lesions [] Neurologic: Denies headache, focal weakness or sensory changes [] All other systems were reviewed and found to be within normal limits, except as documented in this note. Current Medications Current Medications Current Medications Medications (Trade) Dose Ordered Sig/Monica Start Time Stop Time Status Last Admin Dose Admin Famotidine (Pepcid Vial) 20 mg 1X ONCE 09/16/19 15:15 09/16/19 15:18 DC 09/16/19 15:43 20 MG Fentanyl Citrate (Fentanyl 2ml Vial) 50 mcg PRN Q15MIN PRN 09/16/19 15:15 09/17/19 15:14 09/16/19 15:46 50 MCG Ondansetron HCl (Zofran) 4 mg 1X ONCE 09/16/19 15:15 09/16/19 15:18 DC 09/16/19 15:44 4 MG Sodium Chloride 1,000 ml @ 1,000 mls/hr Q1H 09/16/19 15:14 09/16/19 16:13 09/16/19 15:43 1,000 MLS/HR Allergies Allergies Allergies Coded Allergies Type Severity Reaction Last Updated Verified butorphanol Allergy Intermediate Unknown 09/06/18 Yes lorazepam Allergy Mild 09/06/18 Yes morphine Allergy Mild Nausea and Vomiting 09/06/18 No phentermine Allergy Unknown 09/06/18 Yes Physical Exam Physical Exam Constitutional: Alert, afebrile, appears in moderate to severe discomfort. [] HENT: Normocephalic, atraumatic, bilateral external ears normal, oropharynx moist, no oral exudates, nose normal. [] Eyes: PERRLA, EOMI, conjunctiva normal, no discharge. [] Neck: Normal range of motion, no tenderness, supple, no stridor. [] Cardiovascular:Heart rate regular rhythm, no murmur [] Lungs & Thorax: Bilateral breath sounds clear to auscultation [] Abdomen: Bowel sounds normal, soft, epigastric tenderness to palpation with guarding, no rebound tenderness no masses, no pulsatile masses. [] Skin: Warm, dry, no erythema, no rash. [] Back: No tenderness, no CVA tenderness. [] Extremities: No tenderness, no cyanosis, no clubbing, ROM intact, no edema. [] Neurologic: Alert and oriented X 3, normal motor function, normal sensory function, no focal deficits noted. [] Current Patient Data Vital Signs Vital Signs Date Time Temp Pulse Resp B/P (MAP) Pulse Ox O2 Delivery O2 Flow Rate FiO2 09/16/19 15:46 16 99 Room Air Lab Results Laboratory Tests Test 09/16/19 15:24 White Blood Count 10.2 x10^3/uL (4.0-11.0) Red Blood Count 4.65 x10^6/uL (3.50-5.40) Hemoglobin 14.3 g/dL (12.0-15.5) Hematocrit 42.6 % (36.0-47.0) Mean Corpuscular Volume 92 fL (79-100) Mean Corpuscular Hemoglobin 31 pg (25-35) Mean Corpuscular Hemoglobin Concent 34 g/dL (31-37) Red Cell Distribution Width 13.2 % (11.5-14.5) Platelet Count 419 x10^3/uL (140-400) H Neutrophils (%) (Auto) 74 % (31-73) H Lymphocytes (%) (Auto) 21 % (24-48) L Monocytes (%) (Auto) 4 % (0-9) Eosinophils (%) (Auto) 1 % (0-3) Basophils (%) (Auto) 1 % (0-3) Neutrophils # (Auto) 7.5 x10^3uL (1.8-7.7) Lymphocytes # (Auto) 2.1 x10^3/uL (1.0-4.8) Monocytes # (Auto) 0.4 x10^3/uL (0.0-1.1) Eosinophils # (Auto) 0.1 x10^3/uL (0.0-0.7) Basophils # (Auto) 0.1 x10^3/uL (0.0-0.2) Sodium Level 140 mmol/L (136-145) Potassium Level 3.5 mmol/L (3.5-5.1) Chloride Level 102 mmol/L (98-107) Carbon Dioxide Level 24 mmol/L (21-32) Anion Gap 14 (6-14) Blood Urea Nitrogen 12 mg/dL (7-20) Creatinine 0.8 mg/dL (0.6-1.0) Estimated GFR (Cockcroft-Gault) 80.7 BUN/Creatinine Ratio 15 (6-20) Glucose Level 153 mg/dL (70-99) H Calcium Level 9.4 mg/dL (8.5-10.1) Total Bilirubin Pending Aspartate Amino Transferase (AST) Pending Alanine Aminotransferase (ALT) Pending Alkaline Phosphatase Pending Total Protein Pending Albumin Pending Albumin/Globulin Ratio Pending Lipase Pending EKG EKG Not performed[] Radiology/Procedures Radiology/Procedures [address] [address] IMAGING REPORT Signed PATIENT: JOY LEE ACCOUNT: [id number] : 1980 LOCATION: ER AGE: 39 SEX: F EXAM STATUS: REG ER ORD. PHYSICIAN: BETTY JUAREZ MD REASON: abdominal pain PROCEDURE: ABDOMEN SUPINE & UPRIGHT 2 view abdomen pelvis HISTORY: Abdominal pain Upright supine AP view abdomen pelvis There is air and stool scattered throughout the colon. There is a paucity of small bowel gas. There is prior cholecystectomy. IMPRESSION: Nonobstructive bowel gas pattern. Electronically signed by: Iris Booth III, MD (09/16/2019 5:39 PM) [id number] DICTATED AND SIGNED BY: IRIS BOOTH III, MD DATE: 09/16/19 1739 CC: BETTY JUAREZ MD; BALA JETT ~ [] Course & Med Decision Making Course & Med Decision Making Pertinent Labs and Imaging studies reviewed. (See chart for details) Patient started on IV fluids, fentanyl, and Zofran. Patient was not responsive to fentanyl for treatment of her pain. Blood work and imaging unremarkable. I reviewed the patient's past medical history and noted that she has had an extensive number of abdominal CTs performed area the last several CTs showed no acute findings. I trialed patient on IV Haldol with significant improvement in pain symptoms. I do believe patient may have a component of cyclical vomiting syndrome with her symptoms. As she has also had history of peptic ulcer disease and currently out of sucralfate, I do think this will help improve the patient's symptoms. Patient was prescribed sucralfate, Bentyl, and Zofran for outpatient treatment. Advised follow-up with both primary doctor in 3 days and to call her GI doctor for follow-up in the next 5-7 days. Advised return to emergency department for any worsening symptoms. Patient was understanding and in agreement with treatment plan. Dragon Disclaimer Dragon Disclaimer This electronic medical record was generated, in whole or in part, using a voice recognition dictation system. Departure Departure: Impression: Primary Impression: Abdominal pain Additional Impression: Tachycardia Disposition: 01 HOME, SELF-CARE Condition: IMPROVED Referrals: BALA JETT (PCP) Patient Instructions: Abdominal Pain Additional Instructions: Follow-up with your primary doctor in the next 3 days for reevaluation. Return to the emergency department for any worsening symptoms. Scripts Dicyclomine Hcl (DICYCLOMINE HCL) 20 Mg Tablet 1 TAB PO QID, #120 TAB Prov: BETTY JUAREZ MD 09/16/19 Ondansetron (ONDANSETRON ODT) 4 Mg Tab.rapdis 1 TAB PO Q8HRS PRN for NAUSEA/VOMITING, #16 TAB Prov: BETTY JUAREZ MD 09/16/19 Sucralfate (SUCRALFATE) 1 Gm Tablet 1 TAB PO QID, #120 TAB 0 Refills Prov: BETTY JUAREZ MD 09/16/19 Problem Qualifiers Primary Impression: Abdominal pain Abdominal location: epigastric Qualified Codes: R10.13 - Epigastric pain BETTY JUAREZ MD Sep 16, 2019 16:06
[2019-09-16 16:08] LABS: TOTAL BILIRUBIN 0.7 mg/dL (0.2-1.0); TOTAL PROTEIN 8.1 g/dL (6.4-8.2)
[2019-09-16 16:54] LABS: CLARITY,URINE HAZY; COLOR,URINE YELLOW
[2019-09-16 16:55] LABS: BACTERIA,URINE FEW /HPF (0-FEW); BILIRUBIN,URINE NEG (NEG); GLUCOSE,URINE NEG (NEG); NITRITE,URINE NEG (NEG); SQUAMOUS EPITHELIAL CELL,UR OCC /LPF; UROBILINOGEN,URINE 0.2 mg/dL (0.2 mg/dL)
[2019-09-16] MEDS ORDERED: HALOPERIDOL LACT 5 MG/ML VIAL. IVP ONE (17:30)
--- NOTE | 2019-09-16 17:42 | RAD ---
2 view abdomen pelvis HISTORY: Abdominal pain Upright supine AP view abdomen pelvis There is air and stool scattered throughout the colon. There is a paucity of small bowel gas. There is prior cholecystectomy. IMPRESSION: Nonobstructive bowel gas pattern. Electronically signed by: Yifan Palm III, MD (09/16/2019 5:39 PM) [id number]
[2019-09-16] MEDS ORDERED: ONDA4TAB12 PO (18:18)
[2019-09-16] MEDS ORDERED: SUCR1TAB PO (18:18)
[2019-09-16] MEDS ORDERED: DICY20TA3 PO (18:18)
[2019-09-16 19:02] VITALS: BP 139/86
== END 2019-09-16 19:04 | disposition home or self-care (01) ==
LOC: ER 14:30
DX: R10.13 Epigastric pain (principal); R00.0 Tachycardia, unspecified; E11.9 Type 2 diabetes mellitus without complications; K21.9 Gastro-esophageal reflux disease without esophagitis; E03.9 Hypothyroidism, unspecified; K58.9 Irritable bowel syndrome, unspecified; Z87.442 Personal history of urinary calculi; Z86.2 Personal history of diseases of the blood and blood-forming organs and certain disorders involving the immune mechanism; Z87.891 Personal history of nicotine dependence; Z87.11 Personal history of peptic ulcer disease; Z90.49 Acquired absence of other specified parts of digestive tract; Z98.890 Other specified postprocedural states; Z90.710 Acquired absence of both cervix and uterus; Z88.8 Allergy status to other drugs, medicaments and biological substances; Z88.5 Allergy status to narcotic agent
CPT/HCPCS: 36415; 74019; 80053; 81001; 83690; 85025; 96374; 96375; 96376; 99284; J1630; J2405; J3010; J3490; J7030

== ENCOUNTER → 2019-09-30 | Outpatient (CLI) | payer OTHER ==
[2019-09-16 19:02] VITALS: BP 139/86
[~2019-09-30] MED LIST changes: +FLUO40CA2 PO; +LEVO100T5 PO; +ONDA4TAB12 PO; +SUCR1TAB PO
[2019-09-30 09:52] LABS: BASO % 1 % (0-3); EOS # 0.1 x10^3/uL (0.0-0.7); EOS % 1 % (0-3); HEMATOCRIT 38.9 % (36.0-47.0); HEMOGLOBIN 13.3 g/dL (12.0-15.5); LYMPH # 2.1 x10^3/uL (1.0-4.8); LYMPH % 22 % (24-48); MEAN CORPUSCULAR HEMOGLOBIN 31 pg (25-35); MEAN CORPUSCULAR HGB CONC 34 g/dL (31-37); MEAN CORPUSCULAR VOLUME 92 fL (79-100); MONO # 0.5 x10^3/uL (0.0-1.1); MONO % 5 % (0-9); NEUT # 6.9 x10^3uL (1.8-7.7); NEUT % 72 % (31-73); PLATELET COUNT 357 x10^3/uL (140-400); RED BLOOD COUNT 4.25 x10^6/uL (3.50-5.40); RED CELL DISTRIBUTION WIDTH 13.4 % (11.5-14.5); WHITE BLOOD COUNT 9.7 x10^3/uL (4.0-11.0)
[2019-09-30 10:00] LABS: ALBUMIN 3.8 g/dL (3.4-5.0); CALCIUM 9.1 mg/dL (8.5-10.1); CREATININE 0.7 mg/dL (0.6-1.0); GFR 94.2; POTASSIUM 4.1 mmol/L (3.5-5.1); TOTAL BILIRUBIN 0.4 mg/dL (0.2-1.0); TOTAL PROTEIN 7.8 g/dL (6.4-8.2)
[2019-09-30 17:05] LABS: FREE T4 0.97 ng/dL (0.76-1.46); THYROID STIM HORMONE (TSH) 5.183 uIU/mL (0.358-3.740)
[2019-10-01 00:06] LABS: HEMOGLOBIN A1C 6.8 % (4.8-5.6)
== END | disposition home or self-care (01) ==
LOC: LAB 09:09
PROVIDERS: ATTEND Physician Assistant
DX: I10 Essential (primary) hypertension (principal); E11.9 Type 2 diabetes mellitus without complications; E03.9 Hypothyroidism, unspecified; E66.01 Morbid (severe) obesity due to excess calories; K27.9 Peptic ulcer, site unspecified, unspecified as acute or chronic, without hemorrhage or perforation
CPT/HCPCS: 36415; 80053; 80061; 83036; 84439; 84443; 85025

== ENCOUNTER 2019-10-14 16:16 | Observation (INO) | payer OTHER ==
[~2019-10-14] VITALS: Ht 166.4 cm; Wt 114.4 kg
[~2019-10-14 16:16] MED LIST changes: -FLUO40CA2 PO; -LEVO100T5 PO
[2019-10-14] MEDS ORDERED: IV NORMAL SALINE 1,000ML 1,000 ML IV ONE ×3 (16:30→20:15)
--- NOTE | 2019-10-14 16:43 | PHYS DOC ---
Past History Past Medical History: Anemia, Diabetes, GERD, Hypothyroid, IBS, Kidney Stones, Pancreatitis, Other Additional Past Medical Histor: irritable bowel syndrome, peptic ulcer disease, subcutaneous reflux disease Past Surgical History: Cholecystectomy, , Hysterectomy, Other Smoking: Quit Less Than 1 Year Alcohol Use: None Drug Use: None Adult General Chief Complaint Chief Complaint: SHORTNESS OF BREATH HPI HPI 39-year-old female presents with report of sudden shortness of air with associated generalized weakness which occurred approximately 35 minutes prior to arrival. Patient reports she was at home watching TV when symptoms occurred. Patient does report subjective fever/chills. Denies known sick contacts. Denies trauma. Denies recent travel. Denies known exposure to COVID-19. Denies . Denies cough. Patient does report pain with deep inspiration. Review of Systems Review of Systems Constitutional: Reports subjective fever and chills Eyes: Denies redness or eye pain HENT: Denies nasal congestion or sore throat Respiratory: Denies cough; reports shortness of breath Cardiovascular: Reports pleuritic chest pain; denies palpitations GI: Denies abdominal pain, nausea, or vomiting : Denies dysuria or hematuria Musculoskeletal: Denies back pain or joint pain Integument: Denies rash or skin lesions Neurologic: Denies headache or sensory changes; reports generalized weakness Complete systems were reviewed and found to be within normal limits, except as documented in this note. Current Medications Current Medications Current Medications Medications (Trade) Dose Ordered Sig/Monica Start Time Stop Time Status Last Admin Dose Admin Sodium Chloride 1,000 ml @ 1,000 mls/hr 1X ONCE 10/14/19 16:30 10/14/19 17:29 Allergies Allergies Allergies Coded Allergies Type Severity Reaction Last Updated Verified butorphanol Allergy Intermediate Unknown 09/06/18 Yes lorazepam Allergy Mild 09/06/18 Yes morphine Allergy Mild Nausea and Vomiting 09/06/18 No phentermine Allergy Unknown 09/06/18 Yes Physical Exam Physical Exam Constitutional: Well developed, well nourished, ill but non-toxic appearance HENT: Normocephalic, atraumatic, oropharynx moist Eyes: PERRL, EOMI, conjunctiva normal, no discharge Neck: Normal range of motion, no tenderness, supple, no meningeal signs Cardiovascular: Heart rate tachycardic, regular rhythm Lungs & Thorax: Bilateral breath sounds clear to auscultation, no wheezing/rales/rhonchi Abdomen: Soft, no tenderness/guarding/distention Skin: Warm, dry, no erythema, no rash Back: No tenderness, no CVA tenderness Extremities: No tenderness, ROM intact, no edema Neurologic: Alert and oriented X 3, decreased strength to all extremities, range of motion intact, no focal deficits noted Psychologic: Affect flat, judgment normal Current Patient Data Vital Signs Vital Signs Date Time Temp Pulse Resp B/P (MAP) Pulse Ox O2 Delivery O2 Flow Rate FiO2 10/14/19 16:29 98.3 126 20 177/104 (128) 99 Room Air EKG EKG @1636 Sinus tachycardia at 120bpm, NO ST elevation, QRS 94ms, QT/QTc 332/474ms Radiology/Procedures Radiology/Procedures PROCEDURE: CT HEAD WO CONTRAST CT scan of the head without contrast 10/14/2019 Clinical History: Weakness. Technique: Unenhanced, contiguous, 5 mm axial sections were obtained through the head. One or more of the following individualized dose reduction techniques were utilized for this study: 1. Automated exposure control. 2. Adjustment of the mA and/or kV according to patient size. 3. Use of iterative reconstruction technique. Findings: Comparison study is dated 01/14/2018. The ventricles and sulci are within normal limits in size and configuration. No focal area of abnormal attenuation is seen involving the brain parenchyma. No extra-axial fluid collection is seen. No skull fracture is seen. Impression: Negative study. Electronically signed by: Sy Snow MD (10/14/2019 6:48 PM) [id number] PROCEDURE: CT ANGIOGRAPHY CHEST CTA chest with contrast dated 10/14/2019. No comparison available. Clinical data indication: Pleuritic chest pain and shortness of breath. TECHNIQUE: Contiguous axial imaging the chest performed following the bolus administration of 100 cc Omnipaque 350. Study was performed as dedicated PE protocol with thin cut coronal MIPS 3-D reconstruction. One or more of the following individualized dose reduction techniques were utilized for this examination: 1. Automated exposure control 2. Adjustment of the mA and/or kV according to patient size 3. Use of iterative reconstruction technique. FINDINGS: Contrast bolus is adequate. No evidence of central, lobar or segmental pulmonary embolus. Subsegmental branches are not well evaluated based on technique. Heart size is mildly upper limits of normal. No pericardial effusion. No mediastinal, hilar or axillary lymphadenopathy. Thyroid gland is unremarkable. Central airways are patent. Mild diffuse bronchial wall thickening. No consolidation or pleural effusion. No pneumothorax. Images of the upper abdomen show adamantly and mild hepatic steatosis. Gallbladder surgically absent. Spleen is upper limits of normal in size. Bone windows show no acute findings. Multilevel spondylosis. IMPRESSION: 1. No evidence of central, lobar or segmental pulmonary embolus. 2. Clear lungs. 3. Hepatomegaly and hepatic steatosis. Electronically signed by: Terence Clark MD (10/14/2019 6:52 PM) [id number] Course & Med Decision Making Course & Med Decision Making Pertinent Labs and Imaging studies reviewed. (See chart for details) Patient presents with sudden onset of shortness of air and generalized weakness. Patient does report subjective fever and chills. Denies known sick contacts or direct exposure to COVID-19. Patient currently afebrile. Given concern for possible COVID-19, precautions placed with placement in isolation room with appropriate full PPE. EKG stable. Patient hard IV stick. Bedside Ultrasound performed by myself with successful peripheral line placement. Labs obtained and posted to chart. Troponin WNL (HEART score 1). Rapid strep and influenza negative. WBC slightly elevated. Lactic acid 4.3. UA without sign of infection. Empiric antibiotics started. IVF hydration given. CT head and CTA chest without acute process. SIRS criteria not met (tachycardia only positive) Given patient's currently symptoms with elevated lactic acid without other source, continued concern for COVID-19. Testing pending. Patient requiring admission for further evaluation and treatment. Discussed with Dr. Light (hospitalist) who is in agreement with admission. Recommends holding Metformin as may be source of lactic acidosis. Discussed findings and plan with patient, who acknowledges understanding and agreement. Of note: full PPE was worn by myself while in room with patient including 95mask, face shield, foot booties, gown, and two sets of gloves and limited time with patient. Dragon Disclaimer Dragon Disclaimer This electronic medical record was generated, in whole or in part, using a voice recognition dictation system. Additional Procedures Progress Ultrasound-guided peripheral IV access Procedure performed by myself after failed attempts by staff nurse icu resource team for IV access. Verbal consent obtained. Time out performed. Hand hygiene utilized. Bedside ultrasound guidance utilized (see report below). Hypoechoic oval-shaped thin- walled nonpulsatile vessel noted to right AC. Area cleaned with ChloraPrep. 18 gauge angiocath successfully placed with good blood return. Labs obtained. Flushed with a 10ml sterile saline syringe without difficulty. Sterile op site placed. Patient tolerated procedure well and without difficulty. Ultrasound assistance for IV access 10/14/2019 CLINICAL HISTORY: Inability to establish IV access. TECHNIQUE: A real-time ultrasound examination of the right antecubital region was performed by the orthopedic radiologic technologist to assist with IV access. A single image was obtained. FINDINGS: A patent vein is seen within the right antecubital region which likely represents the basilic vein. This was successfully accessed for an IV. IMPRESSION: Ultrasound assistance during IV placement as discussed above. Electronically signed by: Sy Snow MD (10/14/2019 6:52 PM) [id number] Departure Departure: Impression: Primary Impression: Generalized weakness Additional Impressions: Shortness of breath Lactic acidosis Hypomagnesemia Disposition: ADMITTED INPATIENT Admitting Physician: Wendy Light Condition: STABLE Referrals: BALA JETT (PCP) HEART Score for Chest Pain PTs The HEART Score for CP Pts HEART Score for Chest Pain: HEART Score for Chest Pain Response (Comments) Value History Slighlty/Non-Suspicious 0 ECG Normal 0 Age < 45 0 Risk Factors 1 or 2 Risk Factors 1 Troponin < Normal Limit 0 Total 1 Risk Factors: Risk Factors: DM, Current or recent (<one month) smoker, HTN, HLP, family history of CAD, obesity. Risk Scores: Score 0 - 3: 2.5% MACE over next 6 weeks - Discharge Home Score 4 - 6: 20.3% MACE over next 6 weeks - Admit for Clinical Observation Score 7 - 10: 72.7% MACE over next 6 weeks - Early Invasive Strategies Problem Qualifiers TERENCE RAMIREZ DO Oct 14, 2019 16:43
[2019-10-14 18:05] LABS: INFLUENZA A PATIENT NEGATIVE (NEGATIVE); INFLUENZA B PATIENT NEGATIVE (NEGATIVE)
[2019-10-14] MEDS ORDERED: IOHEXOL 350 MG/ML 100 ML VIAL. IV ONE (18:30)
[2019-10-14] MEDS ORDERED: CONTRAST GIVEN MC PRN (18:30)
[2019-10-14 18:33] LABS: BASO % 0 % (0-3); EOS % 0 % (0-3); HEMATOCRIT 40.2 % (36.0-47.0); HEMOGLOBIN 13.7 g/dL (12.0-15.5); LYMPH # 2.3 x10^3/uL (1.0-4.8); LYMPH % 20 % (24-48); MEAN CORPUSCULAR HEMOGLOBIN 31 pg (25-35); MEAN CORPUSCULAR HGB CONC 34 g/dL (31-37); MEAN CORPUSCULAR VOLUME 92 fL (79-100); MONO # 0.5 x10^3/uL (0.0-1.1); MONO % 4 % (0-9); NEUT # 8.5 x10^3uL (1.8-7.7); NEUT % 75 % (31-73); PLATELET COUNT 423 x10^3/uL (140-400); RED BLOOD COUNT 4.39 x10^6/uL (3.50-5.40); RED CELL DISTRIBUTION WIDTH 13.3 % (11.5-14.5); WHITE BLOOD COUNT 11.3 x10^3/uL (4.0-11.0)
--- NOTE | 2019-10-14 18:51 | RAD ---
CT scan of the head without contrast 10/14/2019 Clinical History: Weakness. Technique: Unenhanced, contiguous, 5 mm axial sections were obtained through the head. One or more of the following individualized dose reduction techniques were utilized for this study: 1. Automated exposure control. 2. Adjustment of the mA and/or kV according to patient size. 3. Use of iterative reconstruction technique. Findings: Comparison study is dated 01/14/2018. The ventricles and sulci are within normal limits in size and configuration. No focal area of abnormal attenuation is seen involving the brain parenchyma. No extra-axial fluid collection is seen. No skull fracture is seen. Impression: Negative study. Electronically signed by: Sy Snow MD (10/14/2019 6:48 PM) [id number]
--- NOTE | 2019-10-14 18:55 | RAD ---
Ultrasound assistance for IV access 10/14/2019 CLINICAL HISTORY: Inability to establish IV access. TECHNIQUE: A real-time ultrasound examination of the right antecubital region was performed by the veterinary surgery technologist to assist with IV access. A single image was obtained. FINDINGS: A patent vein is seen within the right antecubital region which likely represents the basilic vein. This was successfully accessed for an IV. IMPRESSION: Ultrasound assistance during IV placement as discussed above. Electronically signed by: Sy Snow MD (10/14/2019 6:52 PM) [id number]
--- NOTE | 2019-10-14 18:55 | RAD ---
CTA chest with contrast dated 10/14/2019. No comparison available. Clinical data indication: Pleuritic chest pain and shortness of breath. TECHNIQUE: Contiguous axial imaging the chest performed following the bolus administration of 100 cc Omnipaque 350. Study was performed as dedicated PE protocol with thin cut coronal MIPS 3-D reconstruction. One or more of the following individualized dose reduction techniques were utilized for this examination: 1. Automated exposure control 2. Adjustment of the mA and/or kV according to patient size 3. Use of iterative reconstruction technique. FINDINGS: Contrast bolus is adequate. No evidence of central, lobar or segmental pulmonary embolus. Subsegmental branches are not well evaluated based on technique. Heart size is mildly upper limits of normal. No pericardial effusion. No mediastinal, hilar or axillary lymphadenopathy. Thyroid gland is unremarkable. Central airways are patent. Mild diffuse bronchial wall thickening. No consolidation or pleural effusion. No pneumothorax. Images of the upper abdomen show adamantly and mild hepatic steatosis. Gallbladder surgically absent. Spleen is upper limits of normal in size. Bone windows show no acute findings. Multilevel spondylosis. IMPRESSION: 1. No evidence of central, lobar or segmental pulmonary embolus. 2. Clear lungs. 3. Hepatomegaly and hepatic steatosis. Electronically signed by: Terence Clark MD (10/14/2019 6:52 PM) [id number]
[2019-10-14 18:59] LABS: MAGNESIUM 1.6 mg/dL (1.8-2.4)
[2019-10-14] MEDS ORDERED: PIPERACILLIN/TAZOBACTAM 4.5 GM in IV NORMAL SALINE 50ML 50 ML IV ONE (19:15)
[2019-10-14 19:16] LABS: BILIRUBIN,URINE NEG (NEG); CLARITY,URINE CLEAR; COLOR,URINE YELLOW; GLUCOSE,URINE NEG (NEG)
[2019-10-14 19:17] LABS: BACTERIA,URINE 0 /HPF (0-FEW); NITRITE,URINE NEG (NEG); SQUAMOUS EPITHELIAL CELL,UR OCC /LPF; UROBILINOGEN,URINE 0.2 mg/dL (0.2 mg/dL); WBC,URINE OCC /HPF (0-4)
[2019-10-14 19:18] LABS: CALCIUM 9.5 mg/dL (8.5-10.1); CREATININE 0.9 mg/dL (0.6-1.0); GFR 70.5; POTASSIUM 3.9 mmol/L (3.5-5.1)
[2019-10-14] MEDS ORDERED: IV NORMAL SALINE 50ML 50 ML ONE (19:20)
[2019-10-14] MEDS ORDERED: PIPERACILLIN/TAZOBACTAM 4.5 GM VIAL IV ONE (19:21)
[2019-10-14 19:28] LABS: ALBUMIN 4.1 g/dL (3.4-5.0); TOTAL BILIRUBIN 0.6 mg/dL (0.2-1.0); TOTAL PROTEIN 8.2 g/dL (6.4-8.2)
[2019-10-14] MEDS ORDERED: MAGNESIUM SULFATE 2GM 50 ML IV ONE (20:00)
[2019-10-14 20:14] LABS: BARBITURATES NEG (NEG); BENZODIAZEPINES NEG (NEG); CANNABINOIDS NEG (NEG); COCAINE NEG (NEG); METHADONE NEG (NEG); OPIATES NEG (NEG); PHENCYCLIDINE NEG (NEG)
[2019-10-14] MEDS ORDERED: DEXTROSE 50% 25 GM / 50ML DISP.SYRIN. IV PRN (20:15)
[2019-10-14] MEDS ORDERED: ACETAMINOPHEN 325 MG TABLET PO PRN (20:15)
[2019-10-14 20:16] LABS: AMPHETAMINE/METHAMPHETAMINE POS (NEG)
[2019-10-14] MEDS: ONDANSETRON PF 4 MG/2 ML VIAL. IVP PRN (21:30)
[2019-10-14 21:37] VITALS: BP 128/84
[2019-10-14] MEDS ORDERED: SUCR1TAB PO (21:49)
[2019-10-14] MEDS ORDERED: FLUO40CA2 PO (21:49)
[2019-10-14] MEDS ORDERED: LEVO100T5 PO (22:08)
[2019-10-14] MEDS ORDERED: PIP/TAZO PER PHARMACY MC PRN (22:30)
[2019-10-14] MEDS: SUCRALFATE 1 GM TABLET. PO SCH (22:32)
[2019-10-14] MEDS: PANTOPRAZOLE 40 MG TABLET. PO SCH (22:33)
[2019-10-14 23:00] VITALS: BP 127/82
[2019-10-14] MEDS ORDERED: LURASIDONE 40 MG TABLET. PO SCH (23:00)
[2019-10-14] MEDS ORDERED: ESTRADIOL 1 MG TABLET PO SCH (23:00)
[2019-10-14] MEDS: PIPERACILLIN/TAZOBACTAM 3.375 GM in IV NORMAL SALINE 50ML 50 ML IV SCH (23:45)
[2019-10-15] VITALS (15 sets, daily range): BP systolic 128–170; BP diastolic 71–104
[2019-10-15] MEDS: PIPERACILLIN/TAZOBACTAM 3.375 GM in IV NORMAL SALINE 50ML 50 ML IV SCH ×2 (05:28→12:32)
[2019-10-15] MEDS ORDERED: LEVOTHYROXINE 100 MCG TABLET PO SCH (06:00)
[2019-10-15] MEDS: INSULIN LISPRO 300 UNITS/3 ML VIAL. SQ SCH ×2 (08:00→13:02)
[2019-10-15] MEDS: SUCRALFATE 1 GM TABLET. PO SCH (08:37)
[2019-10-15] MEDS: PANTOPRAZOLE 40 MG TABLET. PO SCH (08:37)
[2019-10-15] MEDS ORDERED: MULTIVITAMIN with MINERAL TABLET. PO SCH (09:00)
[2019-10-15] MEDS ORDERED: FLUoxetine HCL 20 MG CAPSULE PO SCH (09:00)
[2019-10-15] MEDS: ONDANSETRON PF 4 MG/2 ML VIAL. IVP PRN ×2 (09:33→14:20)
--- NOTE | 2019-10-15 11:34 | HP ---
ADMIT DATE: ADMISSION HISTORY AND PHYSICAL ATTENDING PHYSICIAN: Holland Camarillo MD CHIEF COMPLAINT: Abdominal pain. HISTORY OF PRESENT ILLNESS: This is a 39-year-old female who had sudden onset of shortness of air with associated generalized weakness. Thirty-five minutes prior to arrival, she was having abdominal pain. No recent exposure. She has been home schooling her child. She lives with her and son at home. Chest x-ray does not show any acute infiltrates. She has not had any previous exposure. She had a COVID-19 screen pending. She was admitted for further evaluation. PAST MEDICAL HISTORY: Significant for irritable bowel syndrome, peptic ulcer disease, multiple abdominal surgeries including laparoscopic cholecystectomy, , hysterectomy, kidney stones, lithotripsy and 6th D and C. Her abdominal surgery postoperatively for abdominal hernia included placement of a mesh. There is no redness or erythema. No nausea, vomiting, diarrhea or bloody stools. ALLERGIES: She has multiple allergies including BUTORPHANOL, LORAZEPAM, MORPHINE, and PHENTERMINE. Exact etiology is unclear. SOCIAL HISTORY: She is a nonsmoker, nondrinker. CURRENT MEDICINES: At home include Tylenol, estradiol, Prozac, Humalog insulin, Synthroid, Latuda, pantoprazole, Carafate. She was started on Zosyn in the ED. She also takes Vyvanse, metformin, and iron. FAMILY HISTORY: Noncontributory. She lives with her and son. REVIEW OF SYSTEMS: Significant for chronic abdominal pain, some nausea. She is scheduled to have laparoscopic surgery for gastric resection and bariatric surgery that has been postponed due to the recent pandemic. She also states that she is not in distress, but naturally she is. All other systems reviewed and determined to be negative. PHYSICAL EXAMINATION: GENERAL: When I saw her, this is a pleasant, stable young female. INITIAL VITAL SIGNS: Showed a blood pressure of 150/98, repeat was down to 140/90, pulse is 95 and regular. She was afebrile, oxygen saturation 96% on room air. HEENT: Head is without trauma. Pupils are reactive. Sclerae are nonicteric. Oropharynx clear. NECK: Supple, no bruits. LUNGS: Otherwise clear. CARDIOVASCULAR: Showed regular heart tones. No gallops, no murmurs. Peripheral pulses are palpable and full. ABDOMEN: Soft, nontender to palpation. There is no guarding or rebound tenderness. There is no obstruction. There is no redness, erythema or visible hernia. EXTREMITIES: Show no cyanosis or edema. NEUROLOGIC: Focally intact. Affect was somewhat flat. PERTINENT LABORATORY STUDIES: Her hemoglobin is 13.7 g/dL with a white count of 11,300. CT of the chest and CT of the head showed no evidence of pulmonary embolus. Otherwise clear lung [place]. She did have hepatic steatosis. A swab of her nares for COVID-19 was sent off and should be available later today. ASSESSMENT: A 39-year-old female with: 1. Irritable bowel syndrome. 2. Abdominal pain, improved. 3. Functional bowel syndrome by history. 4. I suspect she had a panic attack causing her shortness of breath. 5. Type 2 diabetes. 6. Morbid obesity. PLAN: 1. Admit to the hospital. 2. COVID-19 precautions. 3. We will await results of her COVID-19 swab. 4. Continue home meds. 5. Diet as tolerated. HOLLAND CAMARILLO MD DR: TRICIA/barrett JOB#: [id number] / [id number]
--- NOTE | 2019-10-15 13:35 | DS ---
DATE OF DISCHARGE: 10/15/2019 FINAL DISCHARGE DIAGNOSES: 1. Irritable bowel syndrome. 2. Abdominal pain, obstruction ruled out. 3. Peptic ulcer disease. 4. Multiple previous abdominal surgeries with obstruction. 5. Hysterectomy. 6. History of kidney stones. 7. Chronic pain syndrome. 8. Abdominal hernia with previous resection and mesh placement. HISTORY AND PHYSICAL: This is a 39-year-old female had sudden onset of shortness of air with associated weakness. She has multiple stress factors including irritable bowel syndrome. She was admitted. Chest x-ray did not show any infiltrates. No previous exposure to COVID-19, screening was pending. PHYSICAL EXAMINATION: Please see the dictated note. PERTINENT LABORATORY AND X-RAY STUDIES: CT of the chest and head showed no acute infiltrates. No stroke was identified. She had some hepatic steatosis. Her hemoglobin was 13.7 g, white count 11,300. Swab for COVID-19 was pending. Nonfasting blood sugar 152. Troponins were negative. COURSE IN THE HOSPITAL: The patient was admitted. She was given a bland diet. Pain has been managed and nausea control. She did fairly well. I examined her in the next day. Her lungs were clear. Her abdomen was soft. She has minimal guarding. I explained to her symptoms are consistent with irritable bowel syndrome and the episode of chest tightness was a panic attack. She is under a lot of stress, despite the fact that she is not admitting. I saw her and she was doing well. I explained to her that the COVID-19 swab test will not be available until tomorrow October 15. She wanted to go home, I felt this is reasonable. Therefore, we will notify her of any positive results in one way or the other. In the meantime, I wrote her a script for Percocet 10/325 one every 6 hours p.r.n. pain. Her other home meds are unchanged. She will continue her prescribed regimen including pantoprazole, Prozac, estradiol, insulin, Synthroid, Latuda and metformin dose is unchanged. Once again when we have the results of her COVID-19 swab, we will notify her of that result. I doubt that she has it, but certainly if it does come back positive, we can consider treatment with a round of Zithromax and Plaquenil. The patient was then discharged from our hospital in stable condition with exclusive drug and followup care. HOLLAND CAMARILLO MD DR: TRICIA/barrett JOB#: [id number] / [id number]
--- NOTE | 2019-10-15 14:19 | EKG ---
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
== END 2019-10-15 14:57 | disposition home or self-care (01) ==
LOC: ER 16:16 → INTOOBSV 19:54 → ICU 19:54
PROVIDERS: ADMIT Internal Medicine; ATTEND Internal Medicine
DX: K58.9 Irritable bowel syndrome, unspecified (principal); E03.9 Hypothyroidism, unspecified; E11.9 Type 2 diabetes mellitus without complications; E66.01 Morbid (severe) obesity due to excess calories; E83.42 Hypomagnesemia; E87.2 Acidosis; F41.0 Panic disorder [episodic paroxysmal anxiety]; G89.4 Chronic pain syndrome; K27.9 Peptic ulcer, site unspecified, unspecified as acute or chronic, without hemorrhage or perforation; K46.9 Unspecified abdominal hernia without obstruction or gangrene; K76.0 Fatty (change of) liver, not elsewhere classified; Z87.11 Personal history of peptic ulcer disease; K59.9 Functional intestinal disorder, unspecified; K21.9 Gastro-esophageal reflux disease without esophagitis; K85.90 Acute pancreatitis without necrosis or infection, unspecified; R16.0 Hepatomegaly, not elsewhere classified; R06.02 Shortness of breath; Z90.49 Acquired absence of other specified parts of digestive tract; Z87.891 Personal history of nicotine dependence; Z87.442 Personal history of urinary calculi; Z90.710 Acquired absence of both cervix and uterus
CPT/HCPCS: 36415; 70450; 71275; 80053; 80307; 81001; 81025; 82553; 82947; 83605; 83735; 83880; 84484; 85025; 85379; 85610; 85730; 87040; 87070; 87804; 87880; 93005; 96365; 96366; 96367; 96372; 96375; 96376; 99285; G0378; J2405; J2543; J3010; J3475; Q9967; G0379; J7030

== ENCOUNTER 2020-02-01 21:41 | Emergency (ER) | payer OTHER ==
[~2020-02-01] VITALS: Ht 166.4 cm; Wt 109.8 kg
[~2020-02-01 21:41] MED LIST changes: +FLUO40CA2 PO; +LEVO100T5 PO
[2020-02-01] MEDS ORDERED: IV NORMAL SALINE 1,000ML 1,000 ML IV ONE (23:00)
--- NOTE | 2020-02-01 23:25 | PHYS DOC ---
Past History Past Medical History: Anemia, Diabetes, GERD, Hypothyroid, IBS, Kidney Stones, Pancreatitis, Other Additional Past Medical Histor: irritable bowel syndrome, peptic ulcer disease, subcutaneous reflux disease Past Surgical History: Cholecystectomy, , Hysterectomy Smoking: Quit Less Than 1 Year Alcohol Use: None Drug Use: None General Adult EDM: Chief Complaint: Neck Pain HPI: HPI: 40-year-old female presents with headache and neck pain. The patient was sitting and watching TV when she developed a frontal headache. After several minutes, she developed neck stiffness and pain. This has persisted. The patient does not typically get headaches. She denies falls or trauma. She did have C. difficile diagnosis over a week ago. She only took 6 or 7 days of treatment because she was traveling between [facility]. The medication got warm and they told her to throw it out. Her diarrhea is improved, but not completely gone. She called the [facility] and they sent her here. She denies fever chills. She was feeling fine prior to this headache. Review of Systems: Review of Systems: Constitutional: Denies fever or chills Eyes: Denies change in visual acuity HENT: Neck pain. denies nasal congestion or sore throat Respiratory: Denies cough or shortness of breath Cardiovascular: Denies chest pain or edema GI: Denies abdominal pain, nausea, vomiting, bloody stools or diarrhea : Denies dysuria Musculoskeletal: Denies back pain or joint pain Integument: Denies rash Neurologic: Headache. Denies focal weakness or sensory changes Endocrine: Denies polyuria or polydipsia Lymphatic: Denies swollen glands Psychiatric: Denies depression or anxiety Heart Score: Risk Factors: Risk Factors: DM, Current or recent (<one month) smoker, HTN, HLP, family history of CAD, obesity. Risk Scores: Score 0 - 3: 2.5% MACE over next 6 weeks - Discharge Home Score 4 - 6: 20.3% MACE over next 6 weeks - Admit for Clinical Observation Score 7 - 10: 72.7% MACE over next 6 weeks - Early Invasive Strategies Current Medications: Current Meds: Current Medications Medications (Trade) Dose Ordered Sig/Monica Start Time Stop Time Status Last Admin Dose Admin Diphenhydramine HCl (Benadryl) 25 mg 1X ONCE 02/01/20 23:30 02/01/20 23:31 UNV Ketorolac Tromethamine (Toradol 30mg Vial) 30 mg 1X ONCE 02/01/20 23:30 02/01/20 23:31 UNV Metoclopramide HCl (Reglan Vial) 10 mg 1X ONCE 02/01/20 23:30 02/01/20 23:31 UNV Sodium Chloride 1,000 ml @ 1,000 mls/hr 1X ONCE 02/01/20 23:00 02/01/20 23:59 Allergies: Allergies: Allergies Coded Allergies Type Severity Reaction Last Updated Verified butorphanol Allergy Intermediate Unknown 09/06/18 Yes morphine Allergy Mild Nausea and Vomiting 09/06/18 No phentermine Allergy Unknown 09/06/18 Yes Physical Exam: PE: Constitutional: Well developed, morbidly obese, well nourished, no acute distress, non-toxic appearance. [] HENT: Normocephalic, atraumatic, bilateral external ears normal, oropharynx moist, no oral exudates, nose normal. [] Eyes: PERRLA, EOMI, conjunctiva normal, no discharge. [] Neck: Decreased range of motion due to discomfort. Flexion, turning to the right, and turning to the left are painful. Extension does not hurt. No pain in the lumbar spine. No point tenderness. [] Cardiovascular: Heart rate regular rhythm, no murmur [] Lungs & Thorax: Bilateral breath sounds clear to auscultation [] Abdomen: Bowel sounds normal, soft, no tenderness, no masses, no pulsatile masses. [] Skin: Warm, dry, no erythema, no rash. [] Back: No tenderness, no CVA tenderness. [] Extremities: No tenderness, no cyanosis, no clubbing, ROM intact, no edema. [] Neurologic: Alert and oriented X 3, normal motor function, normal sensory function, no focal deficits noted. [] Psychologic: Affect normal, judgement normal, mood anxious [] Current Patient Data: Vital Signs: Vital Signs Date Time Temp Pulse Resp B/P (MAP) Pulse Ox O2 Delivery O2 Flow Rate FiO2 02/01/20 21:41 98.4 106 20 161/110 (127) 98 Room Air EKG: EKG: [] Radiology/Procedures: Radiology/Procedures: [] Impressions: Exam: Cervical spine 3 views INDICATION: Neck pain TECHNIQUE: Frontal, lateral and odontoid views of the cervical spine Comparisons: None FINDINGS: Vertebral body heights are well-maintained. Mild reversal of the normal cervical lordosis, may be positional. Visualized paraspinal soft tissues are unremarkable. IMPRESSION: Mild reversal of the normal cervical lordosis, may be positional. Electronically signed by: Alexandrea Henao MD (02/01/2020 11:34 PM) [id number] DICTATED AND SIGNED BY: ALEXANDREA HENAO MD DATE: 02/01/20 2334 CC: MARLI HENNESSY DO; BALA JETT ~ EXAM: CT Head without IV contrast INDICATION: Reason: headache, neck pain / Spl. Instructions: / History: TECHNIQUE: Multi-detector row CT images were obtained of the head without the use of IV contrast. All CT scans performed at this facility utilize dose optimization techniques as appropriate to the exam, including the following: Automated exposure control and adjustment of the mA and/or KV according to patient size (this includes techniques or standardized protocols for targeted exams where dose is indication/reason for exam). COMPARISON: 10/14/[address] FINDINGS: BRAIN PARENCHYMA: No evidence of acute intraparenchymal hemorrhage or infarct. No abnormal parenchymal density or mass. VENTRICLES & EXTRA-AXIAL SPACES: Ventricles are within normal limits. Basilar cisterns are patent. No pathologic extra-axial fluid collection or mass. ORBITS: Orbital contents are unremarkable. SINUSES: Visualized paranasal sinuses and mastoid air cells are clear. OSSEOUS & SOFT TISSUES: Calvarium and skull base are intact. IMPRESSION: Normal CT of the head without contrast. Electronically signed by: Lorena Brannon MD (02/02/2020 12:16 AM) [facility] DICTATED AND SIGNED BY: LORENA BRANNON MD DATE: 02/02/20 0016 CC: MARLI HENNESSY DO; BALA JETT ~ Course & Med Decision Making: Course & Med Decision Making Pertinent Labs and Imaging studies reviewed. (See chart for details) The patient's labs are unremarkable. Her cervical spine x-ray is unremarkable. Her head CT is unremarkable. For her headache, she was given 1 L normal saline, 30 mg of Toradol, 10 mg Reglan, 25 mg of Benadryl. She is feeling significantly better at this time. She feels like she can go home. I believe this is reasonable. I have warned her that if she develops a fever or if her symptoms worsen that she would need to come back to the hospital. She states verbal understanding. She is stable for discharge at this time. [] Ana Maria Disclaimer: Ana Maria Disclaimer: This electronic medical record was generated, in whole or in part, using a voice recognition dictation system. Departure Departure: Impression: Primary Impression: Headache Qualified Codes: G44.209 - Tension-type headache, unspecified, not intractable Additional Impression: Neck pain Disposition: 01 HOME/RESIDENCE PRIOR TO ADM Condition: STABLE Referrals: BALA JETT (PCP) Patient Instructions: Cervical Strain and Sprain with Rehab-SportsMed, General Headache Without Cause, [id number] Justification of Admission: Justification of Admission: Justification of Admission Dx: N/A MARLI HENNESSY DO Feb 01, 2020 23:25
--- NOTE | 2020-02-01 23:37 | RAD ---
Exam: Cervical spine 3 views INDICATION: Neck pain TECHNIQUE: Frontal, lateral and odontoid views of the cervical spine Comparisons: None FINDINGS: Vertebral body heights are well-maintained. Mild reversal of the normal cervical lordosis, may be positional. Visualized paraspinal soft tissues are unremarkable. IMPRESSION: Mild reversal of the normal cervical lordosis, may be positional. Electronically signed by: Alexandrea David MD (02/01/2020 11:34 PM) [id number]
[2020-02-01] MEDS ORDERED: diphenhydrAMINE 50 MG/ML VIAL IVP ONE (23:45)
[2020-02-01] MEDS ORDERED: KETOROLAC 30 MG/ML VIAL. IVP ONE (23:45)
[2020-02-01] MEDS ORDERED: METOCLOPRAMIDE HCL 10 MG/2 ML VIAL. IVP ONE (23:45)
[2020-02-02 00:15] LABS: BASO # 0.1 x10^3/uL (0.0-0.2); BASO % 1 % (0-3); EOS # 0.1 x10^3/uL (0.0-0.7); EOS % 1 % (0-3); HEMATOCRIT 37.1 % (36.0-47.0); HEMOGLOBIN 12.6 g/dL (12.0-15.5); LYMPH # 2.4 x10^3/uL (1.0-4.8); LYMPH % 27 % (24-48); MEAN CORPUSCULAR HEMOGLOBIN 31 pg (25-35); MEAN CORPUSCULAR HGB CONC 34 g/dL (31-37); MEAN CORPUSCULAR VOLUME 92 fL (79-100); MONO # 0.4 x10^3/uL (0.0-1.1); MONO % 4 % (0-9); NEUT # 5.9 x10^3uL (1.8-7.7); NEUT % 66 % (31-73); PLATELET COUNT 392 x10^3/uL (140-400); RED BLOOD COUNT 4.04 x10^6/uL (3.50-5.40); RED CELL DISTRIBUTION WIDTH 13.4 % (11.5-14.5); WHITE BLOOD COUNT 8.9 x10^3/uL (4.0-11.0)
--- NOTE | 2020-02-02 00:19 | RAD ---
EXAM: CT Head without IV contrast INDICATION: Reason: headache, neck pain / Spl. Instructions: / History: TECHNIQUE: Multi-detector row CT images were obtained of the head without the use of IV contrast. All CT scans performed at this facility utilize dose optimization techniques as appropriate to the exam, including the following: Automated exposure control and adjustment of the mA and/or KV according to patient size (this includes techniques or standardized protocols for targeted exams where dose is indication/reason for exam). COMPARISON: 10/14/[address] FINDINGS: BRAIN PARENCHYMA: No evidence of acute intraparenchymal hemorrhage or infarct. No abnormal parenchymal density or mass. VENTRICLES & EXTRA-AXIAL SPACES: Ventricles are within normal limits. Basilar cisterns are patent. No pathologic extra-axial fluid collection or mass. ORBITS: Orbital contents are unremarkable. SINUSES: Visualized paranasal sinuses and mastoid air cells are clear. OSSEOUS & SOFT TISSUES: Calvarium and skull base are intact. IMPRESSION: Normal CT of the head without contrast. Electronically signed by: Miguel Angel Brannon MD (02/02/2020 12:16 AM) [facility] [place]
[2020-02-02 00:20] LABS: CALCIUM 9.1 mg/dL (8.5-10.1); CREATININE 0.9 mg/dL (0.6-1.0); GFR 70.1; POTASSIUM 3.1 mmol/L (3.5-5.1)
[2020-02-02 00:26] LABS: ALBUMIN 3.6 g/dL (3.4-5.0); ALBUMIN/GLOBULIN RATIO 0.9 (1.0-1.7); TOTAL BILIRUBIN 0.4 mg/dL (0.2-1.0); TOTAL PROTEIN 7.7 g/dL (6.4-8.2)
[2020-02-02 00:50] VITALS: BP 149/75
== END 2020-02-02 01:07 | disposition home or self-care (01) ==
LOC: ER 21:41
DX: G44.209 Tension-type headache, unspecified, not intractable (principal); M54.2 Cervicalgia; R19.7 Diarrhea, unspecified; E11.9 Type 2 diabetes mellitus without complications; K21.9 Gastro-esophageal reflux disease without esophagitis; E03.9 Hypothyroidism, unspecified; K58.9 Irritable bowel syndrome, unspecified; Z87.442 Personal history of urinary calculi; Z87.11 Personal history of peptic ulcer disease; Z90.49 Acquired absence of other specified parts of digestive tract; Z98.890 Other specified postprocedural states; Z90.710 Acquired absence of both cervix and uterus; Z87.891 Personal history of nicotine dependence; Z88.5 Allergy status to narcotic agent; Z88.8 Allergy status to other drugs, medicaments and biological substances
CPT/HCPCS: 36415; 70450; 72040; 80053; 85025; 96361; 96374; 96375; 99285; J1200; J1885; J2765; J7030

== ENCOUNTER 2020-02-03 17:51 | Emergency (ER) | payer OTHER ==
[~2020-02-03] VITALS: Ht 166.4 cm; Wt 109.8 kg
[2020-02-03] MEDS ORDERED: ONDANSETRON PF 4 MG/2 ML VIAL. IVP ONE ×2 (18:30→23:45)
[2020-02-03] MEDS ORDERED: IV NORMAL SALINE 1,000ML 1,000 ML IV ONE (18:30)
--- NOTE | 2020-02-03 19:19 | PHYS DOC ---
Past History Past Medical History: Anemia, Diabetes, GERD, Hypothyroid, IBS, Kidney Stones, Pancreatitis, Other Additional Past Medical Histor: irritable bowel syndrome, peptic ulcer disease, subcutaneous reflux disease Past Surgical History: Cholecystectomy, , Hysterectomy Smoking: Quit Less Than 1 Year Alcohol Use: None Drug Use: None General Adult EDM: Chief Complaint: NAUSEA/VOMITING/DIARRHEA HPI: HPI: 40-year-old female returns the emergency room with continued neck pain, back stiffness, and generally ill feeling. I saw the patient previously. Labs were unremarkable. We gave her a migraine cocktail and this helped with her headache and neck pain. Patient returns with continued similar symptoms. She is concerned why she is feeling worse. She is also had some generalized fatigue and body aches. She continues to deny fever or chills. Denies any trauma. The patient is on multiple medications including thyroid replacement. She recently had this increased. Patient tells me that she has been sick and hospitalized multiple times for multiple things over the years. She has had early onset menopause. She takes estradiol. She has had a lumbar puncture many years ago, but does not remember what her official diagnosis was. She states that she spent several weeks in the hospital. Review of Systems: Review of Systems: Constitutional: Body aches. Denies fever or chills Eyes: Denies change in visual acuity HENT: Neck stiffness, neck pain Respiratory: Denies cough or shortness of breath Cardiovascular: Denies chest pain or edema GI: Denies abdominal pain, nausea, vomiting, bloody stools or diarrhea : Denies dysuria Musculoskeletal: Back stiffness Integument: Denies rash Neurologic: Denies headache, focal weakness or sensory changes Endocrine: Denies polyuria or polydipsia Lymphatic: Denies swollen glands Psychiatric: Denies depression or anxiety Heart Score: Risk Factors: Risk Factors: DM, Current or recent (<one month) smoker, HTN, HLP, family history of CAD, obesity. Risk Scores: Score 0 - 3: 2.5% MACE over next 6 weeks - Discharge Home Score 4 - 6: 20.3% MACE over next 6 weeks - Admit for Clinical Observation Score 7 - 10: 72.7% MACE over next 6 weeks - Early Invasive Strategies Current Medications: Current Meds: Current Medications Medications (Trade) Dose Ordered Sig/Monica Start Time Stop Time Status Last Admin Dose Admin Ondansetron HCl (Zofran) 4 mg 1X ONCE 02/03/20 18:30 02/03/20 18:48 DC Sodium Chloride 1,000 ml @ 1,000 mls/hr 1X ONCE 02/03/20 18:30 02/03/20 19:29 Allergies: Allergies: Allergies Coded Allergies Type Severity Reaction Last Updated Verified butorphanol Allergy Intermediate Unknown 09/06/18 Yes morphine Allergy Mild Nausea and Vomiting 09/06/18 No phentermine Allergy Unknown 09/06/18 Yes Physical Exam: PE: Constitutional: Well developed, morbidly obese, well nourished, no acute distress, non-toxic appearance. [] HENT: Normocephalic, atraumatic, bilateral external ears normal, oropharynx mois t, no oral exudates, nose normal. [] Eyes: PERRLA, EOMI, conjunctiva normal, no discharge. [] Neck: decreased normal range of motion, general stiffness, supple, no stridor. [] Cardiovascular: Heart rate regular rhythm, no murmur [] Lungs & Thorax: Bilateral breath sounds clear to auscultation [] Abdomen: Bowel sounds normal, soft, no tenderness, no masses, no pulsatile masses. [] Skin: Warm, dry, no erythema, no rash. [] Back: No tenderness, no CVA tenderness. [] Extremities: No tenderness, no cyanosis, no clubbing, ROM intact, no edema. [] Neurologic: Alert and oriented X 3, normal motor function, normal sensory function, no focal deficits noted. [] Psychologic: Affect normal, judgement normal, mood anxious. [] Current Patient Data: Vital Signs: Vital Signs Date Time Temp Pulse Resp B/P (MAP) Pulse Ox O2 Delivery O2 Flow Rate FiO2 02/03/20 18:07 98.3 88 16 149/75 (99) 98 Room Air EKG: EKG: [] Radiology/Procedures: Radiology/Procedures: [] Course & Med Decision Making: Course & Med Decision Making Pertinent Labs and Imaging studies reviewed. (See chart for details) The patient's labs continue to be unremarkable. Given the sudden onset of this and complete lack of systemic symptoms such as fever or abnormal white blood cell count, I feel like infection is unlikely. We did go ahead and run a COVID- 19 swab. I suspect this is more likely to be a nerve issue in her cervical spine. I have advised that she follow-up with her primary doctor and consider neuro consult and/or MRI of the cervical spine. The patient is comfortable with this. She would prefer not to do a lumbar puncture. If she develops a fever, she will return to the hospital. She is stable for discharge at this time. [] Ana Maria Disclaimer: Dragon Disclaimer: This electronic medical record was generated, in whole or in part, using a voice recognition dictation system. Departure Departure: Impression: Primary Impression: Neck pain Disposition: HOME/RESIDENCE PRIOR TO ADM Condition: STABLE Referrals: BALA JETT (PCP) Patient Instructions: Cervical Sprain, [id number] Additional Instructions: The patient's symptoms are consistent with possible cervical spine source. I would suggest the patient have a neurosurgery consult and/or MRI of the cervical spine for further evaluation. Scripts Hydrocodone/Ibuprofen (HYDROCODONE-IBUPROFEN 7.5-200 ) 1 Each Tablet 1 TAB PO PRN Q6HRS PRN for PAIN for 3 Days, #14 TAB 0 Refills Prov: MARLI HENNESSY DO 02/04/20 Justification of Admission: Justification of Admission: Justification of Admission Dx: N/A MARLI HENNESSY DO Feb 03, 2020 19:19
[2020-02-03 20:02] LABS: BILIRUBIN,URINE NEG (NEG); CLARITY,URINE CLEAR; COLOR,URINE YELLOW; GLUCOSE,URINE NEG (NEG); NITRITE,URINE NEG (NEG); RBC,URINE 0 /HPF (0-2); UROBILINOGEN,URINE 0.2 mg/dL (0.2 mg/dL); WBC,URINE OCC /HPF (0-4)
[2020-02-03 20:03] LABS: BACTERIA,URINE FEW /HPF (0-FEW); SQUAMOUS EPITHELIAL CELL,UR MOD /LPF
[2020-02-03 20:19] LABS: BASO # 0.1 x10^3/uL (0.0-0.2); BASO % 1 % (0-3); EOS # 0.1 x10^3/uL (0.0-0.7); EOS % 1 % (0-3); HEMATOCRIT 35.3 % (36.0-47.0); LYMPH # 1.7 x10^3/uL (1.0-4.8); LYMPH % 22 % (24-48); MEAN CORPUSCULAR HEMOGLOBIN 31 pg (25-35); MEAN CORPUSCULAR HGB CONC 34 g/dL (31-37); MEAN CORPUSCULAR VOLUME 90 fL (79-100); MONO # 0.4 x10^3/uL (0.0-1.1); MONO % 5 % (0-9); NEUT # 5.5 x10^3uL (1.8-7.7); NEUT % 71 % (31-73); PLATELET COUNT 335 x10^3/uL (140-400); RED BLOOD COUNT 3.91 x10^6/uL (3.50-5.40); RED CELL DISTRIBUTION WIDTH 13.5 % (11.5-14.5); WHITE BLOOD COUNT 7.8 x10^3/uL (4.0-11.0)
[2020-02-03 20:22] LABS: CALCIUM 8.6 mg/dL (8.5-10.1); CREATININE 0.8 mg/dL (0.6-1.0); GFR 80.3
[2020-02-03 20:28] LABS: ALBUMIN 3.3 g/dL (3.4-5.0); ALBUMIN/GLOBULIN RATIO 0.9 (1.0-1.7); TOTAL BILIRUBIN 0.6 mg/dL (0.2-1.0)
[2020-02-03] MEDS ORDERED: HYDROmorphone PF 1 MG/ML DISP.SYRIN IV ONE (23:30)
[2020-02-03] MEDS ORDERED: ONDANSETRON PF 4 MG/2 ML VIAL. ONE (23:40)
[2020-02-04] MEDS ORDERED: HYDR-1179 PO (00:08)
[2020-02-04] MEDS ORDERED: diphenhydrAMINE 50 MG/ML VIAL IVP ONE (00:45)
[2020-02-04 01:50] VITALS: BP 159/89
--- NOTE | 2020-02-09 13:12 | NUR ---
IP: attempt to notify of COVID result, left message to call back.
== END 2020-02-04 01:50 | disposition home or self-care (01) ==
LOC: ER 17:51
DX: M54.2 Cervicalgia (principal); R51 Headache; M53.80 Other specified dorsopathies, site unspecified; K21.9 Gastro-esophageal reflux disease without esophagitis; E03.9 Hypothyroidism, unspecified; E11.9 Type 2 diabetes mellitus without complications; K58.9 Irritable bowel syndrome, unspecified; Z20.828 Contact with and (suspected) exposure to other viral communicable diseases; Z87.442 Personal history of urinary calculi; Z86.2 Personal history of diseases of the blood and blood-forming organs and certain disorders involving the immune mechanism; Z87.11 Personal history of peptic ulcer disease; Z87.891 Personal history of nicotine dependence; Z90.710 Acquired absence of both cervix and uterus; Z90.49 Acquired absence of other specified parts of digestive tract; Z98.890 Other specified postprocedural states
CPT/HCPCS: 36415; 80053; 81001; 85025; 96374; 96375; 96376; 99285; J1170; J1200; J2405; J3010; J7030; U0003; 96360; 96361; 99284-25

== ENCOUNTER 2020-03-24 21:19 | Emergency (ER) | payer OTHER ==
[~2020-03-24] VITALS: Ht 166.4 cm; Wt 99.7 kg
[~2020-03-24 21:19] MED LIST changes: -PANT40TA5 PO; +PANT40TA6 PO
--- NOTE | 2020-03-24 21:26 | PHYS DOC ---
Past History Past Medical History: Anemia, Diabetes, GERD, Hypothyroid, IBS, Kidney Stones, Pancreatitis, Other Additional Past Medical Histor: irritable bowel syndrome, peptic ulcer disease, reflux disease Past Surgical History: Cholecystectomy, , Hysterectomy Smoking: Quit Less Than 1 Year Alcohol Use: None Drug Use: None General Adult HPI: HPI: ".. I got really severe Lt. leg and groin pain all sudden tonight.. I am to get checked out for DVT.. because I had gastric bypass surgery on the lst.... " Patient is a 40 year old female who presents with above hx and complaints of Lt. leg pain. Patient is acute in onset pain. No history of previous DVT. No history of coagulopathy with her family members. No history of trauma. No history of immunosuppression. No history of recent travel or specific ill conta cts. Does have a past medical history of obesity, IBS, peptic ulcer disease, diabetes, anemia, bowel obstructions, hysterectomy, kidney stones, chronic pain,, abdomen wall hernia and mesh placement.. Pt. had surgery 03/16/[address] Borges Pt. follows with Consuelo Jett as primary. Review of Systems: Review of Systems: Constitutional: Denies fever or chills Eyes: Denies change in visual acuity HENT: Denies nasal congestion or sore throat Respiratory: Denies cough or shortness of breath Cardiovascular: Denies chest pain or edema GI: Denies abdominal pain, nausea, vomiting, bloody stools or diarrhea : Denies dysuria Musculoskeletal: Complaints or Lt. leg pain Integument: Denies rash Neurologic: Denies headache, focal weakness or sensory changes Endocrine: Denies polyuria or polydipsia Lymphatic: Denies swollen glands Psychiatric: Denies depression or anxiety Heart Score: Risk Factors: Risk Factors: DM, Current or recent (<one month) smoker, HTN, HLP, family history of CAD, obesity. Risk Scores: Score 0 - 3: 2.5% MACE over next 6 weeks - Discharge Home Score 4 - 6: 20.3% MACE over next 6 weeks - Admit for Clinical Observation Score 7 - 10: 72.7% MACE over next 6 weeks - Early Invasive Strategies Family History: Family History: Noncontributory to presentation Current Medications: Current Meds: See nursing for home meds Allergies: Allergies: Allergies Coded Allergies Type Severity Reaction Last Updated Verified butorphanol Allergy Intermediate Unknown 09/06/18 Yes morphine Allergy Mild Nausea and Vomiting 09/06/18 No phentermine Allergy Unknown 09/06/18 Yes Physical Exam: PE: Constitutional: Reports acute distress, non-toxic appearance. [] HENT: Normocephalic, atraumatic, bilateral external ears normal, oropharynx moist, no oral exudates, nose normal. [] Eyes: PERRLA, EOMI, conjunctiva normal, no discharge. [] Neck: Normal range of motion, no tenderness, supple, no stridor. [] Cardiovascular:Heart rate regular rhythm, no murmur [] Lungs & Thorax: Bilateral breath sounds equal apex on auscultation [] Abdomen: Bowel sounds decreased,, soft, no tenderness, no masses, no pulsatile masses. Suture lines look stable no obvious infection or inflammation. Old surgery scars. Obese. Skin: Warm, dry, no erythema, no rash. [] Back: No tenderness, no CVA tenderness. [] Extremities: No tenderness, no cyanosis, no clubbing, ROM intact, no edema. [] Complaints of left lower leg groin and thigh on palpation. No cording appreciated Neurologic: Alert and oriented X 3, normal motor function, normal sensory function, no focal deficits noted. [] Psychologic: Affect anxious, judgement normal, mood normal. [] EKG: EKG: [] Radiology/Procedures: Radiology/Procedures: [][address] [address] IMAGING REPORT Signed PATIENT: JOY LEE ACCOUNT: [id number] : 1980 LOCATION: ER AGE: 40 SEX: F EXAM STATUS: REG ER ORD. PHYSICIAN: CHIDI MILTON MD REASON: Lt. femoral pain- hx of surgery 03/16/2020 PROCEDURE: VENOUS LOWER EXTREMITY LEFT Exam: Left lower extremity venous duplex study INDICATION: Leg swelling TECHNIQUE: Using a combination of real-time ultrasound imaging and color-flow and pulse Doppler imaging techniques along with graded compression and augmentation, duplex evaluation of the deep venous systems of leftlower extremity was performed. Multiple images were obtained. Findings: There is no sonographic evidence for deep venous thrombosis involving the visualized deep venous structures of the left lower extremity. IMPRESSION: No acute DVT in the left lower extremities. Electronically signed by: Alexandrea Henao MD (03/24/2020 11:05 PM) [id number] DICTATED AND SIGNED BY: ALEXANDREA HENAO MD DATE: 03/24/20 2373 CC: CHIDI MILTON MD; BALA JETT ~ Course & Med Decision Making: Course & Med Decision Making Pertinent Labs and Imaging studies reviewed. (See chart for details) Patient to push high potassium fruit juices or clear fluids. Patient to maintain diet instructions as per her surgeon. Patient to follow-up with primary care. Patient follow-up with her surgeon. Patient return if any concerns. Impression: 1. Lt. Leg Pain-leg cramps ( No DVT by US) 2. Gastric ByPass- WT loss surgery 03/16/2020 3. Hypokalemia 2.8 4. Hx Chronic Pain 5. Elevated Ketones in Urine 6. Elevated Glucose 178 [] Dragon Disclaimer: Dragon Disclaimer: This electronic medical record was generated, in whole or in part, using a voice recognition dictation system. Departure Departure: Disposition: 01 HOME/RESIDENCE PRIOR TO ADM Condition: STABLE Referrals: BALA JETT (PCP) Justification of Admission: Justification of Admission: Justification of Admission Dx: N/A Dragon Disclaimer This chart was dictated in whole or in part using Voice Recognition software in a busy, high-work load, and often noisy Emergency Department environment. It m ay contain unintended and wholly unrecognized errors or omissions. Dragon Disclaimer This chart was dictated in whole or in part using Voice Recognition software in a busy, high-work load, and often noisy Emergency Department environment. It may contain unintended and wholly unrecognized errors or omissions. CHIDI MILTON MD Mar 24, 2020 21:26
[2020-03-24] MEDS: HYDROmorphone PF 2 MG/ML VIAL IM ONE (23:01)
[2020-03-24] MEDS: IV RINGERS SOLUTION,LACTATED 1,000 ML IV SCH (23:01)
--- NOTE | 2020-03-24 23:08 | RAD ---
Exam: Left lower extremity venous duplex study INDICATION: Leg swelling TECHNIQUE: Using a combination of real-time ultrasound imaging and color-flow and pulse Doppler imaging techniques along with graded compression and augmentation, duplex evaluation of the deep venous systems of leftlower extremity was performed. Multiple images were obtained. Findings: There is no sonographic evidence for deep venous thrombosis involving the visualized deep venous structures of the left lower extremity. IMPRESSION: No acute DVT in the left lower extremities. Electronically signed by: Alexandrea David MD (03/24/2020 11:05 PM) [id number]
[2020-03-24 23:17] LABS: BASO # 0.1 x10^3/uL (0.0-0.2); BASO % 1 % (0-3); EOS # 0.2 x10^3/uL (0.0-0.7); EOS % 2 % (0-3); HEMATOCRIT 43.2 % (36.0-47.0); HEMOGLOBIN 14.7 g/dL (12.0-15.5); LYMPH # 2.7 x10^3/uL (1.0-4.8); LYMPH % 26 % (24-48); MEAN CORPUSCULAR HEMOGLOBIN 31 pg (25-35); MEAN CORPUSCULAR HGB CONC 34 g/dL (31-37); MEAN CORPUSCULAR VOLUME 91 fL (79-100); MONO # 0.7 x10^3/uL (0.0-1.1); MONO % 6 % (0-9); NEUT # 6.9 x10^3uL (1.8-7.7); NEUT % 66 % (31-73); PLATELET COUNT 705 x10^3/uL (140-400); RED BLOOD COUNT 4.73 x10^6/uL (3.50-5.40); RED CELL DISTRIBUTION WIDTH 13.8 % (11.5-14.5); WHITE BLOOD COUNT 10.5 x10^3/uL (4.0-11.0)
[2020-03-24 23:34] LABS: CLARITY,URINE CLEAR; COLOR,URINE YELLOW; GLUCOSE,URINE NEG (NEG)
[2020-03-24 23:36] LABS: ALBUMIN 3.8 g/dL (3.4-5.0); CALCIUM 9.6 mg/dL (8.5-10.1); CREATININE 0.9 mg/dL (0.6-1.0); DIRECT BILIRUBIN 0.1 mg/dL (0.0-0.2); GFR 70.1; TOTAL BILIRUBIN 0.4 mg/dL (0.2-1.0); TOTAL PROTEIN 8.6 g/dL (6.4-8.2)
[2020-03-24 23:36] LABS: BACTERIA,URINE 0 /HPF (0-FEW); BILIRUBIN,URINE NEG (NEG); NITRITE,URINE NEG (NEG); RBC,URINE 0 /HPF (0-2); SQUAMOUS EPITHELIAL CELL,UR MOD /LPF; UROBILINOGEN,URINE 0.2 mg/dL (0.2 mg/dL)
[2020-03-24 23:43] LABS: POTASSIUM 2.8 mmol/L (3.5-5.1)
[2020-03-25] MEDS: POTASSIUM CHLORIDE 20 MEQ TABLET.ER. PO ONE ×2 (00:20→01:16)
[2020-03-25 00:27] LABS: CALCIUM 9.4 mg/dL (8.5-10.1); CREATININE 0.7 mg/dL (0.6-1.0); GFR 93.6
[2020-03-25 00:29] LABS: POTASSIUM 2.9 mmol/L (3.5-5.1)
[2020-03-25] MEDS: MAGNESIUM HYDROXIDE 2,400 MG/30 ML ORAL.SUSP. PO ONE (01:15)
[2020-03-25] MEDS: HYDROmorphone PF 2 MG/ML VIAL IM ONE (01:15)
[2020-03-25 01:20] VITALS: BP 140/81
[2020-03-25] MEDS: ONDANSETRON ODT 4 MG TAB.RAPDIS PO ONE (01:29)
== END 2020-03-25 01:30 | disposition home or self-care (01) ==
LOC: ER 21:19
DX: M79.605 Pain in left leg (principal); R25.2 Cramp and spasm; E87.6 Hypokalemia; G89.29 Other chronic pain; R82.4 Acetonuria; E11.65 Type 2 diabetes mellitus with hyperglycemia; K21.9 Gastro-esophageal reflux disease without esophagitis; E03.9 Hypothyroidism, unspecified; K58.9 Irritable bowel syndrome, unspecified; Z87.442 Personal history of urinary calculi; Z87.11 Personal history of peptic ulcer disease; Z90.49 Acquired absence of other specified parts of digestive tract; Z90.710 Acquired absence of both cervix and uterus; Z98.890 Other specified postprocedural states; Z87.891 Personal history of nicotine dependence; Z88.5 Allergy status to narcotic agent; Z88.8 Allergy status to other drugs, medicaments and biological substances
CPT/HCPCS: 36415; 80048; 80076; 81001; 85025; 85610; 85730; 93971; 96360; 96361; 96372; 99285; J1170; J7120; Q0162

== ENCOUNTER → 2020-04-12 | Outpatient (CLI) | payer OTHER ==
[2020-03-25 01:20] VITALS: BP 140/81
--- NOTE | 2020-04-12 13:09 | RAD ---
INDICATION: Reason: RT GROIN LUMP / Spl. Instructions: / History: COMPARISON: None. FINDINGS: Focused ultrasound images are obtained through the right groin. Within the subcutaneous soft tissues there is a 12 x 6 mm oval-shaped structure identified which is mixed echogenicity with internal vascularity. There is a central 3 mm hypoechoic portion. IMPRESSION: * Oval-shaped hypoechoic structure in the subcutaneous soft tissues the right groin. This could be secondary to a lymph node within the region. There is a hypoechoic central component but no significant cortical thickening. Electronically signed by: Jake Simpson MD (04/12/2020 1:06 PM) [id number]
== END | disposition home or self-care (01) ==
LOC: US 09:48
PROVIDERS: ATTEND Physician Assistant
DX: R19.09 Other intra-abdominal and pelvic swelling, mass and lump (principal)
CPT/HCPCS: 76881

== ENCOUNTER → 2020-05-14 | Outpatient (CLI) | payer OTHER ==
--- NOTE | 2020-05-14 17:52 | RAD ---
Examination: 1. Bilateral digital diagnostic mammogram 2. Limited right breast ultrasound. INDICATION: 40-year-old woman with area of palpable concern in the superior right breast. COMPARISON: None. This will serve as a baseline. TECHNIQUE: CC and MLO views of both breasts were obtained with 2-D and 3-D technique and reviewed with computer-aided detection. Targeted ultrasound of the area of clinical concern was also performed in the right breast in addition to an area of nodularity identified on baseline diagnostic mammogram. FINDINGS: Bilateral digital mammogram shows heterogeneously dense breast parenchyma. The left mammogram is negative. The right mammogram shows no mammographic correlate to the area of palpable concern in the superior right breast at the approximate 1:00 position 10 cm from the nipple as marked with a BB marker at the skin surface. However, isolated nodularity in the lower inner quadrant right breast was identified and pursued further imaging evaluation by ultrasound as well. Targeted right breast ultrasound shows no mammographic correlate to the area of palpable concern at the right 12 to 1:00 position. Targeted ultrasound of the right breast identifies at the 3:30 o'clock position 8 cm from the nipple. A bilobed hypoechoic parallel orientation masses, smaller of which measures 5 x 6 mm while the longer of which measures 1.4 x 0.5 cm. These may connect and match the mammographic appearance of the mass in the lower inner quadrant. This is of low index of suspicion for malignancy but considered suspicious and recommended for biopsy. IMPRESSION: 1. Suspicious bilobed mass in the lower inner right breast, of low index of suspicion for malignancy recommended for tissue sampling to confirm benign etiology. This could represent a fibroadenoma or papilloma. 2. No mammographic or sonographic correlate to the area of palpable concern in the superior right breast. Recommend clinical management which may include biopsy if there are any clinically suspicious findings in the opinion of the patient's referring provider. 3. Negative left diagnostic mammogram. Left breast recommended for routine screening at age 42. BI-RADS Category 4 Findings suspicious for malignancy. Biopsy should be considered. Report telephoned to the referring clinician Emmanuel Guerrero's office with message left on physician's phone line at 3:30 PM on 05/14/2020. Patient also notified prior to her discharge from the imaging suite. Electronically signed by: Miguel Angel Brannon MD (05/14/2020 5:49 PM) [id number]
== END ==
LOC: MAMMO 13:49
PROVIDERS: ATTEND Physician Assistant
DX: R92.2 Inconclusive mammogram (principal)
CPT/HCPCS: 76641; 77066

== ENCOUNTER 2020-05-31 15:09 | Observation (INO) | payer OTHER ==
[~2020-05-31] VITALS: Ht 167.6 cm; Wt 84.0 kg
[2020-05-31] MEDS ORDERED: IOHEXOL 300 MG/ML 75 ML VIAL. IV ONE (16:00)
[2020-05-31] MEDS ORDERED: HYDROmorphone PF 1 MG/ML DISP.SYRIN IVP ONE ×2 (16:00→18:00)
[2020-05-31] MEDS ORDERED: PROCHLORPERAZINE 10 MG/2 ML VIAL. IV ONE (16:00)
[2020-05-31] MEDS ORDERED: FAMOTIDINE 20 MG/2 ML VIAL IVP ONE (16:00)
[2020-05-31] MEDS ORDERED: IV NORMAL SALINE 1,000ML 1,000 ML IV ONE (16:00)
[2020-05-31] MEDS ORDERED: CONTRAST GIVEN. MC PRN (16:15)
--- NOTE | 2020-05-31 16:17 | PHYS DOC ---
Past History Past Medical History: Anemia, GERD, Hypothyroid, IBS, Kidney Stones, Pancreatitis, Other Additional Past Medical Histor: irritable bowel syndrome, peptic ulcer disease, reflux disease (ILAN DIAS APRN) Past Surgical History: Cholecystectomy, , Gastric Bypass, Hysterectomy Additional Past Surgical Histo: gastric bypass (ILAN DIAS APRN) Smoking: Quit Less Than 1 Year Alcohol Use: Rarely Drug Use: None (ILAN DIAS APRN) Adult General Chief Complaint Chief Complaint: ABDOMINAL PAIN HPI HPI Patient is a female with a history of pancreatitis, cholecystectomy, gastric sleeve, acid reflux, hypothyroidism among other illnesses who presents to the ED today complaining of 9 out of 10 right lower quadrant abdominal pain described as sharp and intermittent, pain radiates to her umbilicus, pain began yesterday. Patient denies anything specifically exacerbating or relieving her pain. She is complaining of severe nausea with no vomiting. She states she has tried taki ng Reglan with no relief. Denies any diarrhea. Denies any chance she is constipated. (ILAN DIAS APRN) Review of Systems Review of Systems Constitutional: Denies fever or chills [] Eyes: Denies change in visual acuity, redness, or eye pain [] HENT: Denies nasal congestion or sore throat [] Respiratory: Denies cough or shortness of breath [] Cardiovascular: No additional information not addressed in HPI [] GI: Reports right lower quadrant abdominal pain radiating to the umbilicus, nausea, denies vomiting, bloody stools or diarrhea [] : Denies dysuria or hematuria [] Musculoskeletal: Denies back pain or joint pain [] Integument: Denies rash or skin lesions [] Neurologic: Denies headache, focal weakness or sensory changes [] All other systems were reviewed and found to be within normal limits, except as documented in this note. (ILAN DIAS APRN) Current Medications Current Medications Current Medications Medications (Trade) Dose Ordered Sig/Omnica Start Time Stop Time Status Last Admin Dose Admin Famotidine (Pepcid Vial) 20 mg 1X ONCE 05/31/20 16:00 05/31/20 16:01 DC 05/31/20 16:11 20 MG Hydromorphone HCl (Dilaudid) 1 mg 1X ONCE 05/31/20 16:00 05/31/20 16:01 DC Info (Do NOT chart on this entry -- for MONITORING) 1 each PRN DAILY PRN 05/31/20 16:15 06/02/20 16:14 Iohexol (Omnipaque 300 Mg/ml) 75 ml 1X ONCE 05/31/20 16:00 05/31/20 16:06 DC Prochlorperazine Edisylate (Compazine) 10 mg 1X ONCE 05/31/20 16:00 05/31/20 16:01 DC Sodium Chloride 1,000 ml @ 1,000 mls/hr 1X ONCE 05/31/20 16:00 05/31/20 16:59 05/31/20 16:10 1,000 MLS/HR (MUTUNGA,ILAN WIPING CLOTH CUTTER) Allergies Allergies Allergies Coded Allergies Type Severity Reaction Last Updated Verified butorphanol Allergy Intermediate Unknown 05/31/20 Yes morphine Allergy Mild Nausea and Vomiting 05/31/20 No phentermine Allergy Unknown 05/31/20 Yes (MUTUNGA,ILAN WIPING CLOTH CUTTER) Physical Exam Physical Exam Constitutional: Well developed, well nourished, no acute distress, non-toxic appearance. [] HENT: Normocephalic, atraumatic, bilateral external ears normal, oropharynx moist, no oral exudates, nose normal. [] Eyes: PERRLA, EOMI, conjunctiva normal, no discharge. [] Neck: Normal range of motion, no tenderness, supple, no stridor. [] Cardiovascular:Heart rate regular rhythm, no murmur [] Lungs & Thorax: Bilateral breath sounds clear to auscultation [] Abdomen: Old surgical incisions noted to the right upper quadrant, left upper quadrant and mid abdomen. Bowel sounds normal, soft, tenderness diffusely throughout the abdomen worse on the right lower quadrant, right midabdomen, right upper quadrant and left upper quadrant, negative Brown sign, negative obturator sign, negative Rovsing sign, no rebound tenderness, no masses, no pulsatile masses. [] Skin: Warm, dry, no erythema, no rash. [] Back: No tenderness, no CVA tenderness. [] Extremities: No tenderness, no cyanosis, no clubbing, ROM intact, no edema. [] Neurologic: Alert and oriented X 3, normal motor function, normal sensory function, no focal deficits noted. [] Psychologic: Affect normal, judgement normal, mood normal. [] (ILAN DIAS APRN) Current Patient Data Vital Signs Vital Signs Date Time Temp Pulse Resp B/P (MAP) Pulse Ox O2 Delivery O2 Flow Rate FiO2 05/31/20 15:45 98.9 108 22 146/95 (112) 98 (ILAN DIAS APRN) EKG EKG [] (ILAN DIAS APRN) Radiology/Procedures Radiology/Procedures []PROCEDURE: CT ABD PELV W/ IV CONTRST ONLY Exam: CT of abdomen and pelvis with contrast INDICATION: Abdominal pain, history of small bowel obstruction TECHNIQUE: Sequential axial images through the abdomen and pelvis obtained following the administration of 75 mL of Isovue-370 IV contrast. Sagittal and coronal reformatted images were reconstructed from the axial data and reviewed. Comparisons: 12/31/2018 FINDINGS: Heart size is normal. No pericardial effusion. Visualized lung bases are clear. No pleural effusion. Steatosis worse in the right hepatic lobe. Spleen, pancreas and adrenals are unremarkable. Gallbladder is surgically absent. Kidneys demonstrate symmetric enhancement. No perinephric inflammation or hydronephrosis. No renal or ureteral calculi are identified. Bladder is decompressed not well evaluated. Prostate is not enlarged. Large and small bowel are unremarkable. Postsurgical changes at the stomach with gastrojejunostomy and JJ anastomosis in the right hemiabdomen. No evidence for obstruction. No free intra-abdominal air or fluid. Abdominal aorta has a normal course and caliber. Abdominal vasculature is patent. No enlarged intra-abdominal lymph nodes are identified. No suspicious osseous lesions or acute fractures. 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 IMPRESSION: 1. Dewey-en-Y gastric bypass changes. No evidence for obstruction. 2. Hepatic steatosis. Exposure: One or more of the following in the visualized dose reduction techniques were utilized for this examination: 1. Automated exposure control 2. Adjustment of the MA and/or KV according to patient size 3. Use of iterative of reconstructive technique Electronically signed by: Alexandrea Henao MD (05/31/2020 4:57 PM) [facility] DICTATED AND SIGNED BY: ALEXANDREA HENAO MD DATE: 05/31/20 [id number] CC: [facility]; BALA JETT; ILAN DIAS APRN ~ (ILAN DIAS APRN) Heart Score Risk Factors: Risk Factors: DM, Current or recent (<one month) smoker, HTN, HLP, family history of CAD, obesity. Risk Scores: Risk Factors: DM, Current or recent (<one month) smoker, HTN, HLP, family history of CAD, obesity. (ILAN DIAS APRN) Course & Med Decision Making Course & Med Decision Making Pertinent Labs and Imaging studies reviewed. (See chart for details) This is a 40-year-old female patient presented to the ED today with right lower quadrant abdominal pain radiating to the umbilicus that began yesterday with nausea and no vomiting. CBC with a normal WBC, CMP with potassium of 2.7, patient was given oral potassium replacement in the ED and IV K ordered by Dr. CAMARILLO's request CT of the abdomen and pelvic is negative for any acute findings. Admitted under Dr. CAMARILLO (ILAN DIAS APRN) Course & Med Decision Making The patient was seen and interviewed as well as examined at the bedside. The chart was reviewed. The case was discussed. Agree with the plan of care. (POOJA JEROME MD) Dragon Disclaimer Dragon Disclaimer This electronic medical record was generated, in whole or in part, using a voice recognition dictation system. (ILAN DIAS APRN) Departure Departure: Impression: Primary Impression: Hypokalemia, gastrointestinal losses Additional Impressions: Intractable nausea and vomiting Dehydration Disposition: ADMITTED INPT THIS HOSP Condition: STABLE Referrals: BALA JETT (PCP) Problem Qualifiers ILAN DIAS APRN May 31, 2020 16:17 POOJA JEROME MD Jun 01, 2020 06:25
[2020-05-31 16:23] LABS: BASO # 0.1 x10^3/uL (0.0-0.2); BASO % 1 % (0-3); EOS # 0.1 x10^3/uL (0.0-0.7); EOS % 1 % (0-3); HEMOGLOBIN 13.4 g/dL (12.0-15.5); LYMPH # 1.4 x10^3/uL (1.0-4.8); LYMPH % 20 % (24-48); MEAN CORPUSCULAR HEMOGLOBIN 32 pg (25-35); MEAN CORPUSCULAR HGB CONC 34 g/dL (31-37); MEAN CORPUSCULAR VOLUME 94 fL (79-100); MONO # 0.5 x10^3/uL (0.0-1.1); MONO % 7 % (0-9); NEUT # 4.9 x10^3uL (1.8-7.7); NEUT % 71 % (31-73); PLATELET COUNT 447 x10^3/uL (140-400); RED BLOOD COUNT 4.24 x10^6/uL (3.50-5.40); WHITE BLOOD COUNT 6.8 x10^3/uL (4.0-11.0)
[2020-05-31 16:36] LABS: ALBUMIN 3.4 g/dL (3.4-5.0); ALBUMIN/GLOBULIN RATIO 0.8 (1.0-1.7); CALCIUM 9.2 mg/dL (8.5-10.1); CREATININE 0.7 mg/dL (0.6-1.0); GFR 93.6; TOTAL BILIRUBIN 0.5 mg/dL (0.2-1.0); TOTAL PROTEIN 7.5 g/dL (6.4-8.2)
[2020-05-31 16:38] LABS: POTASSIUM 2.7 mmol/L (3.5-5.1)
[2020-05-31] MEDS ORDERED: POTASSIUM BICARB 10 MEQ EFFERVESCENT TABLET. PO ONE (16:45)
--- NOTE | 2020-05-31 17:00 | RAD ---
Exam: CT of abdomen and pelvis with contrast INDICATION: Abdominal pain, history of small bowel obstruction TECHNIQUE: Sequential axial images through the abdomen and pelvis obtained following the administration of 75 mL of Isovue-370 IV contrast. Sagittal and coronal reformatted images were reconstructed from the axial data and reviewed. Comparisons: 12/31/2018 FINDINGS: Heart size is normal. No pericardial effusion. Visualized lung bases are clear. No pleural effusion. Steatosis worse in the right hepatic lobe. Spleen, pancreas and adrenals are unremarkable. Gallbladder is surgically absent. Kidneys demonstrate symmetric enhancement. No perinephric inflammation or hydronephrosis. No renal or ureteral calculi are identified. Bladder is decompressed not well evaluated. Prostate is not enlarged. Large and small bowel are unremarkable. Postsurgical changes at the stomach with gastrojejunostomy and JJ anastomosis in the right hemiabdomen. No evidence for obstruction. No free intra-abdominal air or fluid. Abdominal aorta has a normal course and caliber. Abdominal vasculature is patent. No enlarged intra-abdominal lymph nodes are identified. No suspicious osseous lesions or acute fractures. 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 IMPRESSION: 1. Dewey-en-Y gastric bypass changes. No evidence for obstruction. 2. Hepatic steatosis. Exposure: One or more of the following in the visualized dose reduction techniques were utilized for this examination: 1. Automated exposure control 2. Adjustment of the MA and/or KV according to patient size 3. Use of iterative of reconstructive technique Electronically signed by: Alexandrea David MD (05/31/2020 4:57 PM) [facility] [place]
[2020-05-31] MEDS ORDERED: POTASSIUM CL 40MEQ IN 0.9%NACL 1,000 ML IV ONE (18:15)
[2020-05-31] MEDS ORDERED: ACETAMINOPHEN 325 MG TABLET PO PRN (18:15)
[2020-05-31] MEDS: HYDROmorphone PF 1 MG/ML DISP.SYRIN IVP PRN ×3 (18:46→22:26)
[2020-05-31] MEDS: ONDANSETRON PF 4 MG/2 ML VIAL. IVP PRN ×2 (18:46→22:26)
--- NOTE | 2020-05-31 20:00 | NUR ---
PATIENT ARRIVED TO UNIT VIA EMS. PATIENT'S VS OBTAINED AND ARE STABLE AT TIME OF ADMISSION. PATIENT IS OFFERED FOOD AND DRINK AND REFUSES FOOD BUT TAKES WATER. PATIENT IS RESTING IN THIS BED. WILL CONTINUE TO MONITOR.
[2020-05-31] MEDS ORDERED: POTASSIUM CHLORIDE 20 MEQ TABLET.ER. PO SCH (21:00)
[2020-05-31] MEDS ORDERED: MAGNESIUM SULFATE 1GM 100 ML IV ONE (21:15)
[2020-05-31] MEDS: POTASSIUM BICARB 20 MEQ EFFERVESCENT TABLET. PO SCH (22:28)
[2020-06-01] MEDS: HYDROmorphone PF 1 MG/ML DISP.SYRIN IVP PRN ×2 (02:23→08:38)
[2020-06-01] MEDS: ONDANSETRON PF 4 MG/2 ML VIAL. IVP PRN (02:23)
[2020-06-01 06:21] VITALS: BP 105/69
[2020-06-01 06:35] LABS: BASO % 1 % (0-3); EOS # 0.1 x10^3/uL (0.0-0.7); EOS % 2 % (0-3); HEMATOCRIT 35.2 % (36.0-47.0); HEMOGLOBIN 11.6 g/dL (12.0-15.5); LYMPH # 1.4 x10^3/uL (1.0-4.8); LYMPH % 31 % (24-48); MEAN CORPUSCULAR HEMOGLOBIN 31 pg (25-35); MEAN CORPUSCULAR HGB CONC 33 g/dL (31-37); MEAN CORPUSCULAR VOLUME 95 fL (79-100); MONO # 0.4 x10^3/uL (0.0-1.1); MONO % 9 % (0-9); NEUT # 2.6 x10^3uL (1.8-7.7); NEUT % 57 % (31-73); PLATELET COUNT 364 x10^3/uL (140-400); RED CELL DISTRIBUTION WIDTH 16.1 % (11.5-14.5); WHITE BLOOD COUNT 4.6 x10^3/uL (4.0-11.0)
[2020-06-01 06:41] LABS: CALCIUM 8.7 mg/dL (8.5-10.1); CREATININE 0.6 mg/dL (0.6-1.0); GFR 111.9; POTASSIUM 3.3 mmol/L (3.5-5.1)
[2020-06-01] MEDS ORDERED: CALC500T54 PO (07:55)
[2020-06-01] MEDS ORDERED: FLUO20CA16 PO (07:55)
[2020-06-01] MEDS ORDERED: METO5TAB PO (07:55)
[2020-06-01] MEDS ORDERED: LEVO75TA5 PO (07:55)
[2020-06-01] MEDS ORDERED: OMEP20CA16 PO (07:55)
[2020-06-01] MEDS ORDERED: MULT-245 PO (07:55)
[2020-06-01 08:33] LABS: BILIRUBIN,URINE NEG (NEG); CLARITY,URINE CLEAR; COLOR,URINE YELLOW; GLUCOSE,URINE NEG (NEG)
[2020-06-01 08:34] LABS: BACTERIA,URINE FEW /HPF (0-FEW); NITRITE,URINE NEG (NEG); RBC,URINE 0 /HPF (0-2); SQUAMOUS EPITHELIAL CELL,UR FEW /LPF; UROBILINOGEN,URINE 0.2 mg/dL (0.2 mg/dL); WBC,URINE 0 /HPF (0-4)
[2020-06-01] MEDS: POTASSIUM BICARB 20 MEQ EFFERVESCENT TABLET. PO SCH (08:37)
[2020-06-01] MEDS ORDERED: ONDANSETRON ODT 4 MG TAB.RAPDIS PO ONE (10:30)
--- NOTE | 2020-06-01 10:46 | NUR ---
NURSING NOTE: DISCHARGE PT DISCHARGED HOME VIA AMBULATION, PICKED UP BY MOTHER. WRITTEN AND VERBAL DISCHARGE INSTRUCTIONS GIVEN, VERBAL UNDERSTANDING RECEIVED. RX FOR SCOPALAMINE, PERCOCET, AND POTASSIUM GIVEN TO PT. NO FURTHER QUESTIONS. ZARIA MCLEAN
--- NOTE | 2020-06-01 11:02 | HP ---
ADMIT DATE: 05/31/2020 ATTENDING PHYSICIAN: Dr. Camarillo. CHIEF COMPLAINT: Abdominal pain and low potassium. HISTORY OF PRESENT ILLNESS: The patient is a 40-year-old female well known to us from previous admissions. She had a gastric bypass surgery on 03/16 for morbid obesity. Since that time, she has lost 75 pounds. She feels better in that regard. She came to the Emergency Room complaining of abdominal pain, right side in nature, pretty severe. She has the Dewey-en-Y bypass. CT abdomen done yesterday in ED showed no evidence of obstruction or inflammation. She was found to have a low potassium of 2.7 mEq. She was admitted for further treatment and replacement. There were no signs of blockage. There is no recent COVID exposure. No diarrhea. PAST MEDICAL HISTORY: Significant for irritable bowel syndrome; kidney stones; pancreatitis, idiopathic; gastroesophageal reflux disease; and hypothyroidism. PAST SURGICAL HISTORY: Includes cholecystectomy, , gastric bypass, earlier this year and hysterectomy. She was a smoker up to one time. ALLERGIES: INCLUDES BUTORPHANOL, MORPHINE, AND PHENTERMINE. CURRENT MEDICATIONS: Reviewed. She was taking calcium and Prozac 60 mg daily, hydrocodone p.r.n., Synthroid, Vyvanse, Latuda, Reglan, multivitamin, Protonix, and Carafate. SOCIAL HISTORY: She was a smoker. She denies any alcohol use. She is . She has a 7-year-old son. REVIEW OF SYSTEMS: Significant for the weight loss. She feels bid analyst, she has lost 75 pounds. No vomiting, some nausea. No hematemesis. All other systems reviewed and turned to be negative. PHYSICAL EXAMINATION: GENERAL: When I saw her, this is a pleasant young female. INITIAL VITAL SIGNS: Showed a blood pressure 105/70, pulse 74 and regular. She was afebrile, oxygen saturation 98% on room air. HEENT: Head is without trauma. Pupils are reactive. Sclerae nonicteric. Mucous membranes moist. NECK: Supple, no bruits. LUNGS: Otherwise clear. CARDIOVASCULAR: Showed regular heart tones. No gallops. ABDOMEN: Soft, no guarding, no masses, no rebound tenderness. The 4 portal points from surgery are well healed. There is no abscess. There is no redness or erythema. EXTREMITIES: Showed no cyanosis or edema. NEUROLOGIC: Focally intact. SKIN: Warm and dry. PERTINENT LABORATORY STUDIES: Admission hemoglobin was 13.4 g/dL with white count of 6800. Admission potassium 2.7 mEq, creatinine 0.7 mg percent. Transaminases within normal range. Blood sugar nonfasting was 78. ASSESSMENT: 1. A 40-year-old female with vague functional nonspecific abdominal pain. 2. Recent gastric bypass surgery with significant success in weight loss. 3. Hypokalemia. Etiology to be determined. 4. History of irritable bowel syndrome. 5. Gastroesophageal reflux. PLAN: 1. Admit to the inpatient unit, observation status. 2. Potassium supplementation intravenously and orally. 3. Pain control. 4. Continue home meds. HOLLAND CAMARILLO MD DR: TRICIA/barrett JOB#: [id number] / [id number] BALA Ortez
--- NOTE | 2020-06-01 12:57 | DS ---
DATE OF DISCHARGE: 06/01/2020 ATTENDING PHYSICIAN: Dr. Camarillo. FINAL DISCHARGE DIAGNOSES: 1. Abdominal pain, etiology to be determined, probable functional. 2. Recent gastric bypass surgery with significant weight loss. 3. Hypokalemia, replaced. 4. Morbid obesity. 5. History of irritable bowel syndrome. 6. Gastroesophageal reflux disease. HISTORY OF PRESENT ILLNESS: The patient is a 40-year-old female well known to us. She had recent gastric bypass surgery. She also had vague nonspecific right lower quadrant abdominal pain. Workup in the ED was fairly unremarkable. CT showed no obstruction or inflammatory process. She was admitted for potassium replacement, pain and nausea control. PHYSICAL EXAMINATION: Please see the dictated note. PERTINENT LABORATORY AND X-RAY STUDIES: Admission potassium was 2.7 mEq per liter, replaced, was up to 3.3 the next day. This will be followed up as an outpatient. She was given potassium and magnesium replacement. She is not on a diuretic. COURSE IN THE HOSPITAL: The patient was given pain medicines. Home meds were continued. Diet was advanced. By the next day when I saw her, she was feeling better. She wanted to go home. I felt this was reasonable. Therefore, I gave her a script for potassium in the form of K-Dur 20 mEq p.o. daily, Percocet 10/325 one every 6 hours p.r.n. pain. She should continue her calcium, Prozac, iron, Synthroid, Vyvanse, Latuda, Reglan, multivitamin, Protonix and Carafate dose is unchanged. She will follow up with Emmanuel Guerrero hopefully in a couple of weeks to recheck her electrolytes. The patient was then discharged from our hospital in stable condition with explicit instructions and followup care. HOLLAND CAMARILLO MD DR: TRICIA/barrett JOB#: [id number] / [id number] EMMANUEL Ortez
== END 2020-06-01 10:47 | disposition home or self-care (01) ==
LOC: ER 15:09 → 1 SOUTH 19:40 → INTOOBSV 19:40
PROVIDERS: ADMIT Hospitalist; ATTEND Hospitalist
DX: R10.31 Right lower quadrant pain (principal); E87.6 Hypokalemia; K21.9 Gastro-esophageal reflux disease without esophagitis; K76.0 Fatty (change of) liver, not elsewhere classified; E86.0 Dehydration; E03.9 Hypothyroidism, unspecified; K58.9 Irritable bowel syndrome, unspecified; E66.01 Morbid (severe) obesity due to excess calories; Z98.84 Bariatric surgery status; Z90.710 Acquired absence of both cervix and uterus; Z87.442 Personal history of urinary calculi; Z87.891 Personal history of nicotine dependence; Z87.11 Personal history of peptic ulcer disease; Z90.49 Acquired absence of other specified parts of digestive tract; Z79.899 Other long term (current) drug therapy; Z98.890 Other specified postprocedural states; Z68.29 Body mass index [BMI] 29.0-29.9, adult
CPT/HCPCS: 36415; 74177; 80048; 80053; 81001; 83690; 85025; 96361; 96365; 96366; 96368; 96375; 96376; 99285; G0378; G0480; J0780; J1170; J2405; J3475; J3490; J7030; Q0162; Q9967; G0379

== ENCOUNTER 2020-07-23 12:39 | Emergency (ER) | payer OTHER ==
[~2020-07-23] VITALS: Ht 167.6 cm; Wt 74.9 kg
[~2020-07-23 12:39] MED LIST changes: +CALC500T54 PO; +FLUO20CA16 PO; +METO5TAB PO; +MULT-245 PO; +OMEP20CA16 PO
[2020-07-23] MEDS ORDERED: IV NORMAL SALINE 1,000ML 1,000 ML IV ONE (13:15)
--- NOTE | 2020-07-23 13:27 | EKG ---
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
[2020-07-23 13:40] LABS: BASO # 0.1 x10^3/uL (0.0-0.2); BASO % 1 % (0-3); EOS # 0.1 x10^3/uL (0.0-0.7); EOS % 2 % (0-3); HEMATOCRIT 37.6 % (36.0-47.0); HEMOGLOBIN 12.8 g/dL (12.0-15.5); LYMPH # 1.4 x10^3/uL (1.0-4.8); LYMPH % 20 % (24-48); MEAN CORPUSCULAR HEMOGLOBIN 33 pg (25-35); MEAN CORPUSCULAR HGB CONC 34 g/dL (31-37); MEAN CORPUSCULAR VOLUME 97 fL (79-100); MONO # 0.5 x10^3/uL (0.0-1.1); MONO % 8 % (0-9); NEUT # 4.7 x10^3uL (1.8-7.7); NEUT % 69 % (31-73); PLATELET COUNT 369 x10^3/uL (140-400); RED CELL DISTRIBUTION WIDTH 13.3 % (11.5-14.5); WHITE BLOOD COUNT 6.8 x10^3/uL (4.0-11.0)
--- NOTE | 2020-07-23 13:45 | RAD ---
EXAMINATION: XR CHEST 2V, XR ABDOMEN 1V CLINICAL HISTORY: Redness of breath, abdominal pain TECHNIQUE: XR CHEST 2V, XR ABDOMEN 1V COMPARISON: CT abdomen/pelvis 05/31/2020 FINDINGS: CHEST: Normal heart size. No evidence of focal airspace consolidation or pleural effusion. Pulmonary vasculature unremarkable. Degenerative changes of the thoracic spine. ABDOMEN: Nonspecific nonobstructive bowel gas pattern. 1 cm ovoid density projected just inferior to the right kidney, nonspecific but may represent intraluminal bowel contents or less likely a ureteral calculus. Postoperative changes related to cholecystectomy and Dewey-en-Y gastric bypass. Remotely fr actured right L1 and L2 transverse processes versus congenital defects. Transitional lumbosacral vert ebra with lumbarization of S1. IMPRESSION: No evidence of acute cardiopulmonary abnormality. Nonspecific nonobstructive bowel gas pattern. Electronically signed by: Seng Robertson DO (07/23/2020 1:43 PM) [facility]
[2020-07-23 13:47] LABS: CALCIUM 9.2 mg/dL (8.5-10.1); CREATININE 0.6 mg/dL (0.6-1.0); GFR 111.9; POTASSIUM 4.4 mmol/L (3.5-5.1)
[2020-07-23 13:56] LABS: ALBUMIN 3.6 g/dL (3.4-5.0); ALBUMIN/GLOBULIN RATIO 1.1 (1.0-1.7); TOTAL BILIRUBIN 0.4 mg/dL (0.2-1.0); TOTAL PROTEIN 6.8 g/dL (6.4-8.2)
--- NOTE | 2020-07-23 14:07 | PHYS DOC ---
Past History Past Medical History: GERD, Other Additional Past Medical Histor: C-diff, (PETAR SOLO APRN) Past Surgical History: Cholecystectomy, , Gastric Bypass, Hysterectomy, Other Additional Past Surgical Histo: D&CX6 (PETAR SOLO WEED THINNER) Smoking: Quit Less Than 1 Year Alcohol Use: None Drug Use: None (PETAR SOLO APRN) Adult General Chief Complaint Chief Complaint: ABDOMINAL PAIN HPI HPI Patient is a 40-year-old female presented to the emergency department complaining of acute onset of diarrhea for the past 2 hours along with generalized abdominal pain. Patient currently denies any nausea vomiting or diarrhea. Denies chest pains however complains of chest palpitations stating that she feels like her heart beat is too fast. Patient denies recent fever or chills, loss of taste, loss of smell, cough, chest congestion, or nasal congestion. Patient states that she no longer has menstrual periods as she has had a hysterectomy in 2012, patient states that she had a recent gastric bypass surgery on 03/16/2020 and has had intermittent bouts of constipation and diarrhea, patient states that this does not feel like a dumping syndrome. Patient reports she has lost 100 pounds since her gastric bypass surgery. Patient reports she had a pain of 7/10 pain on a 1-10 pain scale but is currently at a 5/10 pain. Patient denies any vaginal discharge, denies urinary problems, denies UTI signs and symptoms, denies STI concerns. Patient denies seeing in he blood in her stool, stating that the diarrhea stool is mostly water with brown stool contents. Patient also reports that her doctor's office called her today and told her that her potassium was elevated, patient states she became confused and thought that she was supposed to take her potassium supplement so she took 1 prior to coming to the ER today and is now worried that her potassium is too high. Patient states that she read on [employer] that high potassium can cause cardiac problems and that is when she noticed that she felt palpitations. Patient states that she had a Covid test back before her surgery and does not think she has Covid today. (PETAR SOLO WEED THINNER) Review of Systems Review of Systems 14 body systems of review of systems have been reviewed. See HPI for pertinent positives and negative responses, otherwise all other systems are negative, nonpertinent or noncontributory. (PETAR SOLO APRN) Current Medications Current Medications Current Medications Medications (Trade) Dose Ordered Sig/Monica Start Time Stop Time Status Last Admin Dose Admin Sodium Chloride 1,000 ml @ 1,000 mls/hr 1X ONCE 07/23/20 13:15 07/23/20 14:14 (PETAR SOLO APRN) Allergies Allergies Allergies Coded Allergies Type Severity Reaction Last Updated Verified butorphanol Allergy Intermediate Unknown 05/31/20 Yes morphine Allergy Mild Nausea and Vomiting 05/31/20 No phentermine Allergy Unknown 05/31/20 Yes (PETAR SOLO APRN) Physical Exam Physical Exam Constitutional: Well developed, well nourished, no acute distress, non-toxic appearance. HENT: Normocephalic, atraumatic, bilateral external ears normal, oropharynx moist, no oral exudates, nose normal. Tongue and oral mucosa dry. Eyes: PERRLA, EOMI, conjunctiva normal, no discharge. Neck: Normal range of motion, no tenderness, supple, no stridor. Cardiovascular:Heart rate regular rhythm, no murmur, heart sounds S1-S2. Lungs & Thorax: Bilateral breath sounds clear to auscultation all lung [place]. Abdomen: Bowel sounds normal, soft, no tenderness, no masses, no pulsatile masses. Mild tenderness to all 4 quadrants to palpation, no rebound tenderness appreciated, negative Brown sign, negative psoas sign, negative McBurney's point tenderness. Patient has several laparoscopic scars that are well-healed of the lower abdomen Skin: Warm, dry, no erythema, no rash. Back: No tenderness, no CVA tenderness. Extremities: No tenderness, no cyanosis, no clubbing, ROM intact, no edema. Neurologic: Alert and oriented X 3, normal motor function, normal sensory fun ction, no focal deficits noted. Psychologic: Affect normal, judgement normal, mood normal. (PETAR SOLO APRN) Current Patient Data Vital Signs Vital Signs Date Time Temp Pulse Resp B/P (MAP) Pulse Ox O2 Delivery O2 Flow Rate FiO2 07/23/20 13:31 97 16 125/87 (100) 98 Room Air 07/23/20 12:47 97.8 Lab Results Laboratory Tests Test 07/23/20 13:07 White Blood Count 6.8 x10^3/uL (4.0-11.0) Red Blood Count 3.90 x10^6/uL (3.50-5.40) Hemoglobin 12.8 g/dL (12.0-15.5) Hematocrit 37.6 % (36.0-47.0) Mean Corpuscular Volume 97 fL (79-100) Mean Corpuscular Hemoglobin 33 pg (25-35) Mean Corpuscular Hemoglobin Concent 34 g/dL (31-37) Red Cell Distribution Width 13.3 % (11.5-14.5) Platelet Count 369 x10^3/uL (140-400) Neutrophils (%) (Auto) 69 % (31-73) Lymphocytes (%) (Auto) 20 % (24-48) L Monocytes (%) (Auto) 8 % (0-9) Eosinophils (%) (Auto) 2 % (0-3) Basophils (%) (Auto) 1 % (0-3) Neutrophils # (Auto) 4.7 x10^3uL (1.8-7.7) Lymphocytes # (Auto) 1.4 x10^3/uL (1.0-4.8) Monocytes # (Auto) 0.5 x10^3/uL (0.0-1.1) Eosinophils # (Auto) 0.1 x10^3/uL (0.0-0.7) Basophils # (Auto) 0.1 x10^3/uL (0.0-0.2) Sodium Level 141 mmol/L (136-145) Potassium Level 4.4 mmol/L (3.5-5.1) Chloride Level 104 mmol/L (98-107) Carbon Dioxide Level 23 mmol/L (21-32) Anion Gap 14 (6-14) Blood Urea Nitrogen 12 mg/dL (7-20) Creatinine 0.6 mg/dL (0.6-1.0) Estimated GFR (Cockcroft-Gault) 111.9 BUN/Creatinine Ratio 20 (6-20) Glucose Level 105 mg/dL (70-99) H Calcium Level 9.2 mg/dL (8.5-10.1) Total Bilirubin 0.4 mg/dL (0.2-1.0) Aspartate Amino Transferase (AST) 26 U/L (15-37) Alanine Aminotransferase (ALT) 32 U/L (14-59) Alkaline Phosphatase 70 U/L (46-116) Troponin I Quantitative < 0.017 ng/mL (0-0.055) Total Protein 6.8 g/dL (6.4-8.2) Albumin 3.6 g/dL (3.4-5.0) Albumin/Globulin Ratio 1.1 (1.0-1.7) (PETAR SOLO APRN) EKG EKG An EKG was performed at 1315 by house respiratory therapy staff showing a normal sinus rhythm with a heart rate of 99 bpm without ectopy. [place] interval 0.122, QTc interval 0.470, no acute STEMI, no ACS, no acute ischemia noted. EKG interpreted by ED attending physician Dr. Thomas (PETAR SOLO APRN) Radiology/Procedures Radiology/Procedures STATUS: REG ER ORD. PHYSICIAN: PETAR SOLO APRN REASON: ABDOMINAL PAIN PROCEDURE: KUB EXAMINATION: XR CHEST 2V, XR ABDOMEN 1V CLINICAL HISTORY: Redness of breath, abdominal pain TECHNIQUE: XR CHEST 2V, XR ABDOMEN 1V COMPARISON: CT abdomen/pelvis 05/31/2020 FINDINGS: CHEST: Normal heart size. No evidence of focal airspace consolidation or pleural effusion. Pulmonary vasculature unremarkable. Degenerative changes of the thoracic spine. ABDOMEN: Nonspecific nonobstructive bowel gas pattern. 1 cm ovoid density projected just inferior to the right kidney, nonspecific but may represent intraluminal bowel contents or less likely a ureteral calculus. Postoperative changes related to cholecystectomy and Dewey-en-Y gastric bypass. Remotely fractured right L1 and L2 transverse processes versus congenital defects. 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 IMPRESSION: No evidence of acute cardiopulmonary abnormality. Nonspecific nonobstructive bowel gas pattern. Electronically signed by: Seng Vance DO (07/23/2020 1:43 PM) [facility] DICTATED AND SIGNED BY: SENG VANCE DO DATE: 07/23/20 [id number] CC: PETAR SOLO APRN; BECKI THOMAS DO; BALA JETT ~MTH0 0 (PETAR SOLO APRN) Heart Score Risk Factors: Risk Factors: DM, Current or recent (<one month) smoker, HTN, HLP, family history of CAD, obesity. Risk Scores: Risk Factors: DM, Current or recent (<one month) smoker, HTN, HLP, family history of CAD, obesity. (PETAR SOLO APRN) Course & Med Decision Making Course & Med Decision Making Pertinent Labs and Imaging studies reviewed. (See chart for details) 40-year-old female, vital signs reviewed, in emergency department today for diarrhea and is worried that she might have C. difficile. ER exam was initiated.. Pending lab. Chest x-ray KUB unremarkable, serum labs were unremarkable, patient's serum potassium was normal at 4.4. The patient was given 1 L of normal saline during her emergency department stay. Upon reexamination patient states that she has pain relief, has had no diarrhea spells since arriving to the emergency department. Discussed with patient x-ray imaging and serum lab findings, offered patient Imodium, patient states that Imodium makes her stomach hurt and she would rather not take Imodium at this time. Patient states she feels comfortable that her diarrhea has subsided or is subsiding at this time. Patient states she feels much better knowing that her potassium is not elevated or low. Discussed with patient this is a symptom of Covid19 and will be obtaining a Covid19 specimen today. Encourage patient to self isolate for the next 48 hours until Covid19 specimen is resulted. Patient gave verbal understanding of discharge instructions, return to ER precautions and concerns, follow-up with primary care physician soon, patient denied further questions or concerns and was discharged to home. Impression: #1 diarrhea resolved #2 abdominal pain resolved #3 gastroenteritis versus IBS #4 dehydration #5 PUI This is unlikely a bowel obstruction, intestinal perforation, peritonitis, mesenteric ischemia, aortic aneurysm, muscle spasm, porphyria, SLE, poisoning. (PETAR SOLO APRN) Course & Med Decision Making I oversaw on the above date of service of this patient and discussed the care with the [employer]. I personally saw patient and repeated certain aspects of history and physical exam which were nonconcerning for any emergent and/or surgical pathology. I agree with the findings, plan of care, and disposition as documented. (BECKI THOMAS DO) Dragon Disclaimer Dragon Disclaimer This electronic medical record was generated, in whole or in part, using a voice recognition dictation system. (PETAR SOLO APRN) Departure Departure: Impression: Primary Impression: Diarrhea Additional Impressions: Abdominal pain Dehydration Person under investigation for COVID-19 Disposition: 01 DC HOME SELF CARE/HOMELESS Condition: IMPROVED Referrals: BALA JETT (PCP) Patient Instructions: Diarrhea Additional Instructions: You have been tested for or diagnosed with COVID-19. It is an infection caused by a new type of coronavirus. COVID-19 will cause cold-like or mild flu symptoms in most. It can cause more severe symptoms like problems breathing in some. There is no treatment for COVID-19. The body will clear the infection over time. Self-care will help to ease discomfort. Steps to Take: Self-Care Rest as needed. Healthy habits may help you feel better. Steps include: Choose healthy foods including fruits and vegetables. Drink water throughout the day. Get plenty of sleep each night. If you smoke, try to quit. It may ease breathing. Avoid alcohol. Keep Others Healthy The virus can spread to others. Droplets are released every time you sneeze or cough. The droplets can get into the mouth, nose, or eyes of people near you and lead to infection. To lower the chances of spreading COVID-19 to others: Stay at home until your doctor has said it is safe to leave. If you tested positive this will mean staying isolated until both of the following are true: At least 7 days have passed since the start of illness. You are free of fever for at least 72 hours without the use of medicine. During this time: - Avoid public areas, events, or transportation. Do not return to work or school until your doctor has said it is safe to do so. - Call ahead if you need to go to a medical center. Let them know you may have COVID-19. It will help them guide you where to go. They may also ask you to wear a facemask when you come to the office. - If you call for emergency medical services, let them know you may have COVID- 19. While at home: - Try to avoid close contact with others. Stay about 6 feet away. - If possible, spend most of your time in a separate room from others. - Use a face mask if you will be in close contact with others such as sharing a room or vehicle. - Have someone wipe down common surfaces in the home. Use household biostatistics professor every day on areas like doorknobs, counters, or sinks. - Cough or sneeze into a tissue. Throw the tissue away right after use. If a tissue is not available, cough or sneeze into your elbow. - Wash your hands often. Wash them after sneezing or coughing. Use soap and water and wash for at least 20 seconds. Alcohol based hand last cleaner can be used if soap and water is not available. - Do not prepare food for others. Avoid sharing personal items like forks, spoons, or toothbrushes. - Avoid close contact with pets while you are sick. There is no evidence of the virus passing to pets. This is a safety step until more is known about this virus. Isolation can be frustrating. Social interaction can help. Keep in touch with friends and family through phone and tech options. You can still interact with others in your home, just keep a safe distance of about 6 feet. Follow-up: Your doctors office will check in with you to see if there are any changes in your health. You may be asked to keep track of symptoms to share with them. They will also let you know when you are clear to be in public again. Problems to Look Out For: Contact your doctor if your recovery is not going as you expect. Get emergency care if you have problems such as: - Trouble breathing - Nonstop chest pain or pressure - Changes in awareness, confusion, or problems waking - Lips or face have bluish color - Worsening of symptoms If you think you have an emergency, call for emergency medical services right away. As taken from [facility] We have checked your labs today along with your heart and abdomen related to your chief medical complaints. You are not having a heart attack, you are lab work was within normal limits, specifically your potassium was normal. Please follow-up with your primary care doctor soon. I have offered you a medication called Imodium for your diarrhea, you have elected to not use Imodium today. Please return to the emergency department for worsening symptoms or further concerns. Please drink plenty of fluids and keep yourself well-hydrated. EMERGENCY DEPARTMENT GENERAL DISCHARGE INSTRUCTIONS Thank you for coming to [facility] (ED) today and trusting us with you care. We trust that you had a positivie experience in our Emergency Department. If you wish to speak to the department management, you may call the director at [phone]. YOUR FOLLOW UP INSTRUCTIONS ARE FOLLOWS: 1. Do you have a private Doctor? If you do not have a private doctor, please ask for a resource list of physicians or clinics that may be able to assist you with follow up care. 2. The Emergency Physician has interpreted your x-rays. The X-Ray specialist will also review them. If there is a change in the findings, you will be notified in 48 hours when at all possible. 3. A lab test or culture has been done, your results will be reviewed and you will be notified if you need a change in treatment. ADDITIONAL INSTRUCTIONS AND INFORMATION: 1. Your care today has been supervised by a physician who is specially trained in emergency care. Many problems require more than one evaluation for a complete diagnosis and treatment. We recommend that you schedule your follow up appointment as recommended to ensure complete treatment of you illness or injury. If you are unable to obtain follow up care and continue to have a problem, or if your condition worsens, we recommend that you return to the ED. 2. We are not able to safely determine your condition over the phone nor are we able to give sound medical advice over the phone. For these safety reasons, if you call for medical advice we will ask you to come to the ED for further evaluation. 3. If you have any questions regarding these discharge instructions please call the ED at [phone]. SAFETY INFORMATION: In the interest of safety, wellness, and injury prevention; we encourage you to wear your sealbelt, if you smoke; quite smoking, and we encourage family to use a p rotective helmet for bicycling and other sporting events that present an increased risk for head injury. IF YOUR SYMPTOMS WORSEN OR NEW SYMPTOMS DEVELOP, OR YOU HAVE CONCERNS ABOUT YOUR CONDITION; OR IF YOUR CONDITION WORSENS WHILE YOU ARE WAITING FOR YOUR FOLLOW UP APPOINTMENT; EITHER CONTACT YOUR PRIMARY CARE DOCTOR, THE PHYSICIAN WHOSE NAME AND NUMBER YOU WERE GIVEN, OR RETURN TO THE ED IMMEDIATELY. Problem Qualifiers Primary Impression: Diarrhea Diarrhea type: unspecified type Qualified Codes: R19.7 - Diarrhea, unspecified Additional Impressions: Abdominal pain Abdominal location: generalized Qualified Codes: R10.84 - Generalized abdominal pain PETAR SOLO APRN Jul 23, 2020 14:07 BECKI THOMAS DO Jul 23, 2020 15:59
[2020-07-23 15:19] VITALS: BP 121/84
[2020-07-23 15:53] LABS: BILIRUBIN,URINE NEG (NEG); CLARITY,URINE CLEAR; COLOR,URINE YELLOW; GLUCOSE,URINE NEG (NEG); NITRITE,URINE NEG (NEG); UROBILINOGEN,URINE 0.2 mg/dL (0.2 mg/dL)
[2020-07-23 16:02] LABS: BACTERIA,URINE FEW /HPF (0-FEW); RBC,URINE OCC /HPF (0-2); SQUAMOUS EPITHELIAL CELL,UR MOD /LPF; WBC,URINE OCC /HPF (0-4)
--- NOTE | 2020-07-26 10:33 | NUR ---
IP: notified patient of COVID result.
== END 2020-07-23 15:35 | disposition home or self-care (01) ==
LOC: ER 12:39
DX: R19.7 Diarrhea, unspecified (principal); E86.0 Dehydration; R10.84 Generalized abdominal pain; K21.9 Gastro-esophageal reflux disease without esophagitis; Z20.822 Contact with and (suspected) exposure to COVID-19; Z87.891 Personal history of nicotine dependence; Z90.49 Acquired absence of other specified parts of digestive tract; Z98.890 Other specified postprocedural states; Z90.710 Acquired absence of both cervix and uterus; Z98.84 Bariatric surgery status; Z88.5 Allergy status to narcotic agent; Z88.8 Allergy status to other drugs, medicaments and biological substances
CPT/HCPCS: 36415; 71046; 74018; 80053; 81001; 81025; 84484; 85025; 93005; 96360; 99285; C9803; J7030; U0003

== ENCOUNTER 2020-07-27 13:37 | Emergency (ER) | payer OTHER ==
[~2020-07-27] VITALS: Ht 167.6 cm; Wt 79.0 kg
--- NOTE | 2020-07-27 14:45 | PHYS DOC ---
Past History Past Medical History: GERD, Other Additional Past Medical Histor: C-diff, Past Surgical History: Cholecystectomy, , Gastric Bypass, Hysterectomy, Other Additional Past Surgical Histo: D&CX6 Smoking: Quit Less Than 1 Year Alcohol Use: None Drug Use: None General Adult HPI: HPI: Patient is a 40 year old female who presents with abdominal pain, diarrhea and tachycardia. Patient has been seen for atrial tachycardia by a elementary school band director a few years ago and symptoms resolved without treatment. Patient reports "I have felt like I had a racing heart again since Sunday". Patient reports abdominal pain as a burning sensation in epigastric area. Patient reports pain is worse with ambulation and she feels dizzy and nauseous. " I was seen here on Sunday for the abdominal pain but nothing was found to be wrong". Patient has history of gastric bypass, GERD, hypothrodism. Patient denies taking anything for pain prior to arrival. Review of Systems: Review of Systems: Constitutional: Denies fever or chills Eyes: Denies change in visual acuity HENT: Denies nasal congestion or sore throat Respiratory: Denies cough or shortness of breath Cardiovascular: Denies chest pain or edema GI: Reports epigastric abdominal pain, nausea, vomiting, diarrhea. Denies bloody stools. : Denies dysuria Musculoskeletal: Denies back pain or joint pain Integument: Denies rash Neurologic: Denies headache, focal weakness or sensory changes Endocrine: Denies polyuria or polydipsia Lymphatic: Denies swollen glands Psychiatric: Denies depression or anxiety Allergies: Allergies: Allergies Coded Allergies Type Severity Reaction Last Updated Verified butorphanol Allergy Intermediate Unknown 05/31/20 Yes morphine Allergy Mild Nausea and Vomiting 05/31/20 No phentermine Allergy Unknown 05/31/20 Yes Physical Exam: PE: Constitutional: Well developed, well nourished, no acute distress, non-toxic appearance. [] HENT: Normocephalic, atraumatic, bilateral external ears normal, oropharynx moist, no oral exudates, nose normal. [] Eyes: PERRLA, EOMI, conjunctiva normal, no discharge. [] Neck: Normal range of motion, no tenderness, supple, no stridor. [] Cardiovascular:Heart rate regular rhythm, no murmur [] Lungs & Thorax: Bilateral breath sounds clear to auscultation [] Abdomen: Bowel sounds normal, soft, no tenderness, no masses, no pulsatile masses. [] Skin: Warm, dry, no erythema, no rash. [] Back: No tenderness, no CVA tenderness. [] Extremities: No tenderness, no cyanosis, no clubbing, ROM intact, no edema. [] Neurologic: Alert and oriented X 3, normal motor function, normal sensory function, no focal deficits noted. [] Psychologic: Affect normal, judgement normal, mood normal. [] EKG: EKG: SINUS TACHYCARDIA, HR 108 BPM, OTHERWISE ECG[] Radiology/Procedures: Radiology/Procedures: []CT scan of the abdomen and pelvis without contrast 07/27/2020 CLINICAL HISTORY: Abdominal pain and nausea. TECHNIQUE: Unenhanced contiguous, 3 mm axial sections were obtained through the abdomen and pelvis. One or more of the following individualized dose reduction techniques were utilized for this study: 1. Automated exposure control. 2. Adjustment of the mA and/or kV according to patient size. 3. Use of iterative reconstruction technique. FINDINGS: Comparison study is dated 05/31/2020. Images through the lung bases demonstrate minimal dependent subsegmental atelectasis bilaterally. The liver is mildly enlarged measuring 24 cm in length. Decreased attenuation of the liver parenchyma is seen consistent with fatty infiltration. The spleen, pancreas, adrenal glands and kidneys are within normal limits. The abdominal aorta tapers normally. Surgical clips are seen within the right upper quadrant of the abdomen consistent with a cholecystectomy. Surgical changes are seen consistent with gastric bypass type procedure. The fluid or free air is within the abdomen. There is no evidence of bowel obstruction. The appendix is well-visualized and is within normal limits. Images through the pelvis demonstrated the urinary bladder distended with urine. Calcifications are seen within the pelvis consistent with phleboliths. No free fluid is seen. Minimal S-shaped curvature of the thoracolumbar spine is noted. Degenerative changes are seen involving the lower thoracic and throughout the lumbar spine along with both hips. IMPRESSION: No acute abnormality is seen. Electronically signed by: Sy Snow MD (07/27/2020 4:03 PM) [id number] Heart Score: Risk Factors: Risk Factors: DM, Current or recent (<one month) smoker, HTN, HLP, family history of CAD, obesity. Risk Scores: Score 0 - 3: 2.5% MACE over next 6 weeks - Discharge Home Score 4 - 6: 20.3% MACE over next 6 weeks - Admit for Clinical Observation Score 7 - 10: 72.7% MACE over next 6 weeks - Early Invasive Strategies Course & Med Decision Making: Course & Med Decision Making Pertinent Labs and Imaging studies reviewed. (See chart for details) []Patient is a 40 year old female who presents with abdominal pain, diarrhea and tachycardia. Patient has been seen for atrial tachycardia by a elementary school band director a few years ago and symptoms resolved without treatment. Patient reports "I have felt like I had a racing heart again since Sunday". Patient reports abdominal pain as a burning sensation in epigastric area. Patient reports pain is worse with ambulation and she feels dizzy and nauseous. " I was seen here on Sunday for the abdominal pain but nothing was found to be wrong". Patient has history of gastric bypass, GERD, hypothrodism. Patient denies taking anything for pain prior to arrival. Ct abdomen is negative for any abnormalities. Labs all within normal limits. Tordal and zofran given. Patient reports she feels much better and would like to be discharged to home with a referral to elementary school band director. I will also send patient home with prescription for Bentyl for chronic abdominal pain. Ana Maria Disclaimer: [employer] Disclaimer: This electronic medical record was generated, in whole or in part, using a voice recognition dictation system. Departure Departure: Impression: Primary Impression: Abdominal pain Qualified Codes: R10.13 - Epigastric pain Disposition: 01 DC HOME SELF CARE/HOMELESS Referrals: BETH LEWIS MD Patient Instructions: Abdominal Pain Additional Instructions: You were seen in the ER today for abdominal pain and diarrhea. All of your labs and CT came back within normal limits. I listed cardiology for consult. Please followup with your PCP and also cardiology for further evaluation. EMERGENCY DEPARTMENT GENERAL DISCHARGE INSTRUCTIONS Thank you for coming to [facility] (ED) today and trusting us with you care. We trust that you had a positivie experience in our Emergency Department. If you wish to speak to the department management, you may call the director at [phone]. YOUR FOLLOW UP INSTRUCTIONS ARE FOLLOWS: 1. Do you have a private Doctor? If you do not have a private doctor, please ask for a resource list of physicians or clinics that may be able to assist you with follow up care. 2. The Emergency Physician has interpreted your x-rays. The X-Ray specialist will also review them. If there is a change in the findings, you will be notified in 48 hours when at all possible. 3. A lab test or culture has been done, your results will be reviewed and you will be notified if you need a change in treatment. ADDITIONAL INSTRUCTIONS AND INFORMATION: 1. Your care today has been supervised by a physician who is specially trained in emergency care. Many problems require more than one evaluation for a complete diagnosis and treatment. We recommend that you schedule your follow up appointment as recommended to ensure complete treatment of you illness or injury. If you are unable to obtain follow up care and continue to have a problem, or if your condition worsens, we recommend that you return to the ED. 2. We are not able to safely determine your condition over the phone nor are we able to give sound medical advice over the phone. For these safety reasons, if you call for medical advice we will ask you to come to the ED for further evaluation. 3. If you have any questions regarding these discharge instructions please call the ED at [phone]. SAFETY INFORMATION: In the interest of safety, wellness, and injury prevention; we encourage you to wear your sealbelt, if you smoke; quite smoking, and we encourage family to use a protective helmet for bicycling and other sporting events that present an increased risk for head injury. IF YOUR SYMPTOMS WORSEN OR NEW SYMPTOMS DEVELOP, OR YOU HAVE CONCERNS ABOUT YOUR CONDITION; OR IF YOUR CONDITION WORSENS WHILE YOU ARE WAITING FOR YOUR FOLLOW UP APPOINTME NT; EITHER CONTACT YOUR PRIMARY CARE DOCTOR, THE PHYSICIAN WHOSE NAME AND NUMBER YOU WERE GIVEN, OR RETURN TO THE ED IMMEDIATELY. Scripts Dicyclomine Hcl (DICYCLOMINE HCL) 20 Mg Tablet 20 MG PO QIDPRN PRN for PAIN, #16 TAB Prov: SANDY WOLF APRN 07/27/20 SANDY WOLF APRN Jul 27, 2020 14:45
--- NOTE | 2020-07-27 14:57 | EKG ---
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
[2020-07-27 15:01] LABS: BASO % 0 % (0-3); EOS # 0.1 x10^3/uL (0.0-0.7); EOS % 1 % (0-3); HEMATOCRIT 36.4 % (36.0-47.0); HEMOGLOBIN 12.3 g/dL (12.0-15.5); LYMPH # 1.3 x10^3/uL (1.0-4.8); LYMPH % 20 % (24-48); MEAN CORPUSCULAR HEMOGLOBIN 33 pg (25-35); MEAN CORPUSCULAR HGB CONC 34 g/dL (31-37); MEAN CORPUSCULAR VOLUME 98 fL (79-100); MONO # 0.4 x10^3/uL (0.0-1.1); MONO % 6 % (0-9); NEUT # 4.7 x10^3uL (1.8-7.7); NEUT % 73 % (31-73); PLATELET COUNT 388 x10^3/uL (140-400); RED BLOOD COUNT 3.72 x10^6/uL (3.50-5.40); RED CELL DISTRIBUTION WIDTH 13.6 % (11.5-14.5); WHITE BLOOD COUNT 6.5 x10^3/uL (4.0-11.0)
[2020-07-27 15:15] LABS: CALCIUM 8.5 mg/dL (8.5-10.1); CREATININE 0.6 mg/dL (0.6-1.0); GFR 111.9; POTASSIUM 3.9 mmol/L (3.5-5.1)
[2020-07-27] MEDS ORDERED: LIDO:MAALOX 1:1 20 ML SINGLE DOSE. PO ONE (15:15)
[2020-07-27] MEDS ORDERED: ONDANSETRON ODT 4 MG TAB.RAPDIS PO ONE (15:15)
[2020-07-27 15:18] LABS: ALBUMIN 3.3 g/dL (3.4-5.0); ALBUMIN/GLOBULIN RATIO 0.9 (1.0-1.7); TOTAL BILIRUBIN 0.4 mg/dL (0.2-1.0); TOTAL PROTEIN 6.9 g/dL (6.4-8.2)
[2020-07-27] MEDS ORDERED: KETOROLAC 30 MG/ML VIAL. IVP ONE (15:30)
--- NOTE | 2020-07-27 16:06 | RAD ---
CT scan of the abdomen and pelvis without contrast 07/27/2020 CLINICAL HISTORY: Abdominal pain and nausea. TECHNIQUE: Unenhanced contiguous, 3 mm axial sections were obtained through the abdomen and pelvis. One or more of the following individualized dose reduction techniques were utilized for this study: 1. Automated exposure control. 2. Adjustment of the mA and/or kV according to patient size. 3. Use of iterative reconstruction technique. FINDINGS: Comparison study is dated 05/31/2020. Images through the lung bases demonstrate minimal dependent subsegmental atelectasis bilaterally. The liver is mildly enlarged measuring 24 cm in length. Decreased attenuation of the liver parenchyma is seen consistent with fatty infiltration. The spleen, pancreas, adrenal glands and kidneys are wit hin normal limits. The abdominal aorta tapers normally. Surgical clips are seen within the right upper quadrant of the a bdomen consistent with a cholecystectomy. Surgical changes are seen consistent with gastric bypass ty pe procedure. The fluid or free air is within the abdomen. There is no evidence of bowel obstruction. The appendix is well-visualized and is within normal limits. Images through the pelvis demonstrated the urinary bladder distended with urine. Calcifications are s een within the pelvis consistent with phleboliths. No free fluid is seen. Minimal S-shaped curvature of the thoracolumbar spine is noted. Degenerative changes are seen involving the lower thoracic and t hroughout the lumbar spine along with both hips. IMPRESSION: No acute abnormality is seen. Electronically signed by: Sy Snow MD (07/27/2020 4:03 PM) [id number]
[2020-07-27] MEDS ORDERED: DICYCLOMINE HCL 10 MG CAPSULE PO ONE (16:30)
[2020-07-27 16:50] VITALS: BP 126/78
[2020-07-27] MEDS ORDERED: DICY20TA3 PO (17:29)
== END 2020-07-27 17:44 | disposition home or self-care (01) ==
LOC: ER 13:37
DX: R10.13 Epigastric pain (principal); R11.2 Nausea with vomiting, unspecified; R19.7 Diarrhea, unspecified; K21.9 Gastro-esophageal reflux disease without esophagitis; Z87.891 Personal history of nicotine dependence; Z90.49 Acquired absence of other specified parts of digestive tract; Z98.890 Other specified postprocedural states; Z95.0 Presence of cardiac pacemaker; Z90.710 Acquired absence of both cervix and uterus; Z88.5 Allergy status to narcotic agent; Z88.8 Allergy status to other drugs, medicaments and biological substances
CPT/HCPCS: 36415; 74176; 80053; 83690; 84484; 85025; 93005; 96374; 99285; J1885; Q0162

== ENCOUNTER 2020-08-29 20:32 | Emergency (ER) | payer OTHER ==
[~2020-08-29] VITALS: Ht 167.6 cm; Wt 75.0 kg
[~2020-08-29 20:32] MED LIST changes: -LACT10SO PO; +LACT10SO2 PO
--- NOTE | 2020-08-29 20:43 | PHYS DOC ---
Past History Past Medical History: Anxiety, Depression, GERD, Hypothyroid, Other Additional Past Medical Histor: C-diff,H pylori Past Surgical History: Cholecystectomy, , Gastric Bypass, Hysterectomy, Other Additional Past Surgical Histo: D&CX6 Smoking: Quit Less Than 1 Year Alcohol Use: None Drug Use: None General Adult EDM: Chief Complaint: LACERATION/AVULSION HPI: HPI: ".. I was making [employer] potatoes for dinner.. I usually use a knife.. but I got this slicer on Andrew.. so I thought that will make thinner chips.. and 07/17 through the lst potato... Got the tip of my little finger ( Rt.)....We put glue on it.. but it was still bleeding..." Patient is a 40 year old female who presents with above hx and complaints partial avulsion injury to right fifth finger tip and nail. Patient apparently had previously cleaned it and applied tissue glue. Wound cleaned. Direct pressure applied. Patient states she is up-to-date with tetanus. No recent travel. Right-hand dominant. Distal sensation intact. Distal range of motion intact. Patient states her gastroenteritis from previous to ED visits is now resolved. Patient normally follows with C[facility]. Patient denies any history of family or with coagulopathy with her but does take normal a little bit longer to stop bleeding than other people. Review of Systems: Review of Systems: Constitutional: Denies fever or chills Eyes: Denies change in visual acuity HENT: Denies nasal congestion or sore throat Respiratory: Denies cough or shortness of breath Cardiovascular: Denies chest pain or edema GI: Denies abdominal pain, nausea, vomiting, bloody stools or diarrhea : Denies dysuria Musculoskeletal: Denies back pain or joint pain Integument: Denies rash. Complains of a laceration fifth finger right Neurologic: Denies headache, focal weakness or sensory changes Endocrine: Denies polyuria or polydipsia Lymphatic: Denies swollen glands Psychiatric: Denies depression or anxiety Family History: Family History: Noncontributory Current Medications: Current Meds: See nursing for home meds Allergies: Allergies: Allergies Coded Allergies Type Severity Reaction Last Updated Verified butorphanol Allergy Intermediate Unknown 05/31/20 Yes morphine Allergy Mild Nausea and Vomiting 05/31/20 No lidocaine Allergy Unknown 07/27/20 Yes phentermine Allergy Unknown 05/31/20 Yes Physical Exam: PE: Constitutional: Well developed, well nourished, no acute distress, non-toxic appearance. [] HENT: Normocephalic, atraumatic, bilateral external ears normal, oropharynx moist, no oral exudates, nose normal. [Red hair Eyes: PERRLA, EOMI, conjunctiva normal, no discharge. [] Neck: Normal range of motion, no tenderness, supple, no stridor. [] Cardiovascular:Heart rate regular rhythm, no murmur [] Lungs & Thorax: Bilateral breath sounds clear to auscultation [] Abdomen: Bowel sounds normal, soft, no tenderness, no masses, no pulsatile masses. [] Old surgery scars Skin: Warm, dry, no erythema, no rash. Light skin freckles Back: No tenderness, no CVA tenderness. [] Extremities: No tenderness, no cyanosis, no clubbing, ROM intact, no edema. [] Laceration right fifth finger as per HPI Neurologic: Alert and oriented X 3, normal motor function, normal sensory function, no focal deficits noted. [] Psychologic: Affect anxious, judgement normal, mood normal. [] EKG: EKG: [] Radiology/Procedures: Radiology/Procedures: [] Heart Score: Risk Factors: Risk Factors: DM, Current or recent (<one month) smoker, HTN, HLP, family history of CAD, obesity. Risk Scores: Score 0 - 3: 2.5% MACE over next 6 weeks - Discharge Home Score 4 - 6: 20.3% MACE over next 6 weeks - Admit for Clinical Observation Score 7 - 10: 72.7% MACE over next 6 weeks - Early Invasive Strategies Course & Med Decision Making: Course & Med Decision Making Pertinent Labs and Imaging studies reviewed. (See chart for details). Procedure: Wound clean with surgical soap. Then saline and peroxide. Dressing applied with Surgical foam and gauze. Dressing applied. Patient did wait leave dressing on for 3 days. Keep area clean and dry. If it does become wet remove dressing immediately and reapply Surgifoam. After 3 days may start using Polysporin 4 times a day with Band-Aid. Follow-up primary care. Return if any concerns. Impression: 1. Right fifth finger avulsion of fingertip 1 cm la posta- tissue gone [] Dragon Disclaimer: Dragon Disclaimer: This electronic medical record was generated, in whole or in part, using a voice recognition dictation system. Departure Departure: Referrals: BALA JETT (PCP) Ana Maria Disclaimer This chart was dictated in whole or in part using Voice Recognition software in a busy, high-work load, and often noisy Emergency Department environment. It may contain unintended and wholly unrecognized errors or omissions. CHIDI MILTON MD Aug 29, 2020 20:42
[2020-08-29 21:15] VITALS: BP 152/106
[2020-08-29] MEDS ORDERED: GELATIN SPONGE SIZE 12-7MM SPONGE. TP ONE (21:15)
[2020-08-29] MEDS ORDERED: SURGICEL HEMOSTAT 4X8 EACH. TP ONE (21:30)
== END 2020-08-29 21:15 | disposition home or self-care (01) ==
LOC: ER 20:32
DX: S61.316A Laceration without foreign body of right little finger with damage to nail, initial encounter (principal); R20.2 Paresthesia of skin; F41.9 Anxiety disorder, unspecified; F32.9 Major depressive disorder, single episode, unspecified; K21.9 Gastro-esophageal reflux disease without esophagitis; E03.9 Hypothyroidism, unspecified; Z90.49 Acquired absence of other specified parts of digestive tract; Z90.710 Acquired absence of both cervix and uterus; Z98.890 Other specified postprocedural states; W26.0XXA Contact with knife, initial encounter; Y93.89 Activity, other specified; Y92.89 Other specified places as the place of occurrence of the external cause; Y99.8 Other external cause status
CPT/HCPCS: 11730; 99284

== ENCOUNTER 2020-11-14 15:35 | Emergency (ER) | payer OTHER ==
[~2020-11-14] VITALS: Ht 167.6 cm; Wt 75.0 kg
[2020-11-14 15:35] VITALS: BP 135/74
--- NOTE | 2020-11-14 16:02 | PHYS DOC ---
Past History Past Medical History: Anxiety, Depression, GERD, Hypothyroid, Other Additional Past Medical Histor: C-diff,H pylori Past Surgical History: Cholecystectomy, , Gastric Bypass, Hysterectomy, Other Additional Past Surgical Histo: D&CX6 Smoking: Quit Less Than 1 Year Alcohol Use: None Drug Use: None General Adult EDM: Chief Complaint: ABDOMINAL PAIN HPI: HPI: 40 yo F past medical history of anxiety, depression, GERD and hypothyroidism presents the ED with complaints of Review of Systems: Review of Systems: Constitutional: Denies fever or chills Eyes: Denies change in visual acuity HENT: Denies nasal congestion or sore throat Respiratory: Denies cough or shortness of breath Cardiovascular: Denies chest pain or edema GI: Denies abdominal pain, nausea, vomiting, bloody stools or diarrhea : Denies dysuria Musculoskeletal: Denies back pain or joint pain Integument: Denies rash Neurologic: Denies headache, focal weakness or sensory changes Endocrine: Denies polyuria or polydipsia Lymphatic: Denies swollen glands Psychiatric: Denies depression or anxiety Allergies: Allergies: Allergies Coded Allergies Type Severity Reaction Last Updated Verified butorphanol Allergy Intermediate Unknown 05/31/20 Yes morphine Allergy Mild Nausea and Vomiting 05/31/20 No lidocaine Allergy Unknown 07/27/20 Yes phentermine Allergy Unknown 05/31/20 Yes Physical Exam: PE: Constitutional: Well developed, well nourished, no acute distress, non-toxic appearance. HENT: Normocephalic, atraumatic, Eyes: EOMI, conjunctiva normal, no discharge. Neck: Normal range of motion, supple, Cardiovascular: S1/2 present, regular rhythm Lungs & Thorax: Speaking in full sentences, bilateral equal chest rise, no tachypnea or increased work of breathing Abdomen: soft, no tenderness, Skin: Warm, dry, no erythema, no rash. [] Back: No tenderness, no CVA tenderness. [] Extremities: No tenderness, no cyanosis, no lower extremity edema Neurologic: Alert and oriented X 3, normal motor function, normal sensory function, no focal deficits noted. [] Psychologic: Affect normal, judgement normal, mood normal. [] EKG: EKG: [] Radiology/Procedures: Radiology/Procedures: [] Heart Score: C/O Chest Pain: No Risk Factors: Risk Factors: DM, Current or recent (<one month) smoker, HTN, HLP, family history of CAD, obesity. Risk Scores: Score 0 - 3: 2.5% MACE over next 6 weeks - Discharge Home Score 4 - 6: 20.3% MACE over next 6 weeks - Admit for Clinical Observation Score 7 - 10: 72.7% MACE over next 6 weeks - Early Invasive Strategies Course & Med Decision Making: Course & Med Decision Making Pertinent Labs and Imaging studies reviewed. (See chart for details) CT imaging canceled due to patient's resolution of symptoms. Complains of IV potassium hurting her and asked for this to be discontinued. Oral potassium was given in the ED. Patient understands follow-up with her primary care physician this week to have her potassium rechecked. Will discharge home with strict ED return precautions were given for syncope, dizziness, further vomiting or diarrhea that would lower patient potassium levels are worsening or severe pain. Encouraged urgent outpatient follow-up with PMD and GI as needed for definitive management. Life-threatening processes were considered but are low suspicion at this time, given history, physical exam and ED workup. Pt was educated on all prescription medications and adverse effects. All patient's questions were answered and pt was stable at time of discharge. Life/limb-threatening differential includes but is not limited to, aortic dissection, aortic aneurysm, acute coronary syndrome, surgical abdomen (appendicitis, cholecystitis, ischemic bowel, strangulated hernia, etc), bowel obstruction or volvulus, bladder outlet obstruction, gastrointestinal bleeding, inflammatory bowel disease, peptic ulcer disease, ACS/CAD, sepsis, diverticular disease, ureterolithiasis, nephrolithiasis, ovarian or testicular torsion, ectopic , vaginal hemorrhage, or genitourinary infection. I spoken with the patient and her caregivers. I explained the patient's condition, diagnoses and treatment plan based on the information available to me at this time. I have answered the patient and her caregiver's questions and addressed any concerns. The patient and her caregivers have a good understanding of patient's diagnosis, condition and treatment plan as can be expected at this point. Vital signs have been stable. Patient's condition is stable and appropriate for discharge from the emergency department. Patient will pursue further outpatient evaluation with primary care physician or other designated or consulting physician as outlined in the discharge instructions. The patient and/or caregivers are agreeable to this plan of care and follow-up instructions have been explained in detail. The patient and/or c aregivers have received these instructions in written form and have expressed an understanding of the discharge instructions. The patient and/or caregivers are aware that any significant change of condition or worsening of symptoms should prompt immediate return to this or the closest emergency department or call to 911Consuelo Rodgers Disclaimer: Ana Maria Disclaimer: This electronic medical record was generated, in whole or in part, using a voice recognition dictation system. Departure Departure: Impression: Primary Impression: Epigastric abdominal pain Additional Impression: Hypokalemia Disposition: HOME / SELF CARE / HOMELESS Condition: IMPROVED Referrals: BALA JETT (PCP) In the next 2 days for reevaluation of low potassium 2.8 Patient Instructions: Abdominal Migraine, Hypokalemia Additional Instructions: FOLLOW UP WITH GASTROENTEROLOGY: For definitive management [facility], [address], [address] [place], [place] [id number] [place] [address], [address], Gastroenterology [place], [place] [address] EMERGENCY DEPARTMENT GENERAL DISCHARGE INSTRUCTIONS Thank you for coming to [facility] (ED) today and trusting us with you care. We trust that you had a positivie experience in our Emergency Department. If you wish to speak to the department management, you may call the director at [phone]. YOUR FOLLOW UP INSTRUCTIONS ARE FOLLOWS: 1. Do you have a private Doctor? If you do not have a private doctor, please ask for a resource list of physicians or clinics that may be able to assist you with follow up care. 2. The Emergency Physician has interpreted your x-rays. The X-Ray specialist will also review them. If there is a change in the findings, you will be notified in 48 hours when at all possible. 3. A lab test or culture has been done, your results will be reviewed and you will be notified if you need a change in treatment. ADDITIONAL INSTRUCTIONS AND INFORMATION: 1. Your care today has been supervised by a physician who is specially trained in emergency care. Many problems require more than one evaluation for a complete diagnosis and treatment. We recommend that you schedule your follow up appointment as recommended to ensure complete treatment of you illness or injury. If you are unable to obtain follow up care and continue to have a problem, or if your condition worsens, we recommend that you return to the ED. 2. We are not able to safely determine your condition over the phone nor are we able to give sound medical advice over the phone. For these safety reasons, if you call for medical advice we will ask you to come to the ED for further evaluation. 3. If you have any questions regarding these discharge instructions please call the ED at [phone]. SAFETY INFORMATION: In the interest of safety, wellness, and injury prevention; we encourage you to wear your sealbelt, if you smoke; quite smoking, and we encourage family to use a protective helmet for bicycling and other sporting events that present an increased risk for head injury. IF YOUR SYMPTOMS WORSEN OR NEW SYMPTOMS DEVELOP, OR YOU HAVE CONCERNS ABOUT YOUR CONDITION; OR IF YOUR CONDITION WORSENS WHILE YOU ARE WAITING FOR YOUR FOLLOW UP APPOINTMENT; EITHER CONTACT YOUR PRIMARY CARE DOCTOR, THE PHYSICIAN WHOSE NAME AND NUMBER YOU WERE GIVEN, OR RETURN TO THE ED IMMEDIATELY. [facility] DO November 14, 2020 16:02
[2020-11-14 16:17] LABS: BASO # 0.1 x10^3/uL (0.0-0.2); BASO % 1 % (0-3); EOS # 0.1 x10^3/uL (0.0-0.7); EOS % 1 % (0-3); HEMATOCRIT 39.8 % (36.0-47.0); HEMOGLOBIN 13.6 g/dL (12.0-15.5); LYMPH # 1.9 x10^3/uL (1.0-4.8); LYMPH % 27 % (24-48); MEAN CORPUSCULAR HEMOGLOBIN 34 pg (25-35); MEAN CORPUSCULAR HGB CONC 34 g/dL (31-37); MEAN CORPUSCULAR VOLUME 100 fL (79-100); MONO # 0.4 x10^3/uL (0.0-1.1); MONO % 5 % (0-9); NEUT # 4.8 x10^3uL (1.8-7.7); NEUT % 66 % (31-73); PLATELET COUNT 411 x10^3/uL (140-400); RED BLOOD COUNT 3.97 x10^6/uL (3.50-5.40); RED CELL DISTRIBUTION WIDTH 13.1 % (11.5-14.5); WHITE BLOOD COUNT 7.2 x10^3/uL (4.0-11.0)
[2020-11-14 16:25] LABS: CALCIUM 9.3 mg/dL (8.5-10.1); CREATININE 0.7 mg/dL (0.6-1.0); GFR 93.6
[2020-11-14 16:27] LABS: POTASSIUM 2.8 mmol/L (3.5-5.1)
[2020-11-14] MEDS ORDERED: POTASSIUM CHLORIDE 20MEQ 100 ML IV ONE (16:30)
[2020-11-14] MEDS ORDERED: POTASSIUM BICARB 10 MEQ EFFERVESCENT TABLET. PO ONE (16:30)
[2020-11-14 16:40] LABS: PREG TEST PT QUAL NEGATIVE (NEG)
[2020-11-14 16:57] LABS: BARBITURATES NEG (NEG); BENZODIAZEPINES NEG (NEG); CANNABINOIDS NEG (NEG); COCAINE NEG (NEG); METHADONE NEG (NEG); OPIATES NEG (NEG); PHENCYCLIDINE NEG (NEG)
[2020-11-14 17:00] LABS: AMPHETAMINE/METHAMPHETAMINE POS (NEG)
[2020-11-14] MEDS ORDERED: POTASSIUM BICARB 20 MEQ EFFERVESCENT TABLET. PO ONE (17:00)
[2020-11-14 17:03] LABS: BACTERIA,URINE 0 /HPF (0-FEW); BILIRUBIN,URINE NEG (NEG); CLARITY,URINE CLEAR; COLOR,URINE COLORLESS; GLUCOSE,URINE NEG (NEG); NITRITE,URINE NEG (NEG); RBC,URINE 0 /HPF (0-2); UROBILINOGEN,URINE 0.2 mg/dL (0.2 mg/dL); WBC,URINE 0 /HPF (0-4)
[2020-11-14 17:04] LABS: SQUAMOUS EPITHELIAL CELL,UR OCC /LPF
[2020-11-14] MEDS ORDERED: METOCLOPRAMIDE HCL 10 MG/2 ML VIAL. IVP ONE (17:15)
[2020-11-14] MEDS ORDERED: IV NORMAL SALINE 1,000ML 1,000 ML IV ONE (17:15)
[2020-11-14] MEDS ORDERED: IOHEXOL 300 MG/ML 75 ML VIAL. IV ONE (17:45)
[2020-11-14] MEDS ORDERED: IOHEXOL 300 MG/ML 75 ML VIAL. ONE (17:47)
[2020-11-14] MEDS ORDERED: CONTRAST GIVEN. MC PRN (18:00)
== END 2020-11-14 18:10 | disposition home or self-care (01) ==
LOC: ER 15:35
DX: E87.6 Hypokalemia (principal); R10.13 Epigastric pain; F41.9 Anxiety disorder, unspecified; F32.9 Major depressive disorder, single episode, unspecified; K21.9 Gastro-esophageal reflux disease without esophagitis; E03.9 Hypothyroidism, unspecified; Z87.891 Personal history of nicotine dependence; Z90.49 Acquired absence of other specified parts of digestive tract; Z98.890 Other specified postprocedural states; Z98.84 Bariatric surgery status; Z88.5 Allergy status to narcotic agent; Z88.4 Allergy status to anesthetic agent; Z88.8 Allergy status to other drugs, medicaments and biological substances
CPT/HCPCS: 36415; 80048; 80307; 81001; 83690; 83735; 84703; 85025; 96365; 99284; G0480; J3480

== ENCOUNTER 2021-02-07 07:38 | Emergency (ER) | payer OTHER ==
[~2021-02-07] VITALS: Ht 167.6 cm; Wt 75.0 kg
[2021-02-07 07:40] VITALS: BP 130/79
--- NOTE | 2021-02-07 08:15 | PHYS DOC ---
Past History Past Medical History: Anxiety, Depression, GERD, Hypothyroid, Other Additional Past Medical Histor: C-diff,H pylori, gastric bypass, kidney stones, bowel obstructions Past Surgical History: Cholecystectomy, , Gastric Bypass, Hysterectomy, Other Additional Past Surgical Histo: D&CX6 Smoking: Quit Less Than 1 Year Alcohol Use: None Drug Use: None General Adult EDM: Chief Complaint: Palpitations HPI: HPI: Patient is a 41 year old female who presents with palpitations after drinking a second highly caffeinated energy drink this morning. Patient states that she awoke feeling very tired, but otherwise in her usual state of health. She took 1 energy drink, which is her usual morning routine but it did not wake her up as much as she had hoped. She took a second energy drink shortly after that and started develop sensation of heart racing. Also had some mild chest tightness as well. She felt like her hands were becoming numb. The symptoms have been slowly improving as she has been here in emergency department. She has never drank this much caffeine before. She does tell me that she has a history of resting tachycardia that has been worked up by her primary care doctor, but has been referred for cardiology follow-up. She has not made a cardiology ap pointment yet. No recent changes to her Synthroid. She has felt similarly with heart racing episodes in the past Review of Systems: Review of Systems: Constitutional: Denies fever or chills Eyes: Denies change in visual acuity HENT: Denies nasal congestion or sore throat Respiratory: Denies cough or shortness of breath Cardiovascular: Palpitations. Chest tightness. Denies chest pain or edema GI: Denies abdominal pain, nausea, vomiting, bloody stools or diarrhea : Denies dysuria Musculoskeletal: Denies back pain or joint pain Integument: Denies rash Neurologic: Denies headache, focal weakness. Hand numbness. Endocrine: Denies polyuria or polydipsia Lymphatic: Denies swollen glands Psychiatric: Denies depression or anxiety Family History: Family History: No pertinent family history Allergies: Allergies: Allergies Coded Allergies Type Severity Reaction Last Updated Verified butorphanol Allergy Intermediate Unknown 05/31/20 Yes morphine Allergy Mild Nausea and Vomiting 05/31/20 No lidocaine Allergy Unknown 07/27/20 Yes phentermine Allergy Unknown 05/31/20 Yes Physical Exam: PE: Constitutional: Well developed, well nourished, no acute distress, non-toxic appearance. [] HENT: Normocephalic, atraumatic, bilateral external ears normal, oropharynx moist, no oral exudates, nose normal. [] Eyes: PERRLA, EOMI, conjunctiva normal, no discharge. [] Neck: Normal range of motion, no tenderness, supple, no stridor. [] Cardiovascular:Heart rate regular rhythm, no murmur [] Lungs & Thorax: Bilateral breath sounds clear to auscultation [] Abdomen: Bowel sounds normal, soft, no tenderness, no masses, no pulsatile masses. [] Skin: Warm, dry, no erythema, no rash. [] Back: No tenderness, no CVA tenderness. [] Extremities: No tenderness, no cyanosis, no clubbing, ROM intact, no edema. [] Neurologic: Alert and oriented X 3, normal motor function, normal sensory function, no focal deficits noted. [] Psychologic: Affect normal, judgement normal, mood normal. [] Current Patient Data: Vital Signs: Vital Signs Date Time Temp Pulse Resp B/P (MAP) Pulse Ox O2 Delivery O2 Flow Rate FiO2 02/07/21 07:40 98.4 98 25 130/79 100 Room Air EKG: EKG: Sinus rhythm. Rate 81. Normal OH, QRS, QTc intervals. QTc 465. Normal axis. No acute ischemic changes. No evidence of preexcitation/delta wave. [] Radiology/Procedures: Radiology/Procedures: [] Heart Score: C/O Chest Pain: N/A Risk Factors: Risk Factors: DM, Current or recent (<one month) smoker, HTN, HLP, family history of CAD, obesity. Risk Scores: Score 0 - 3: 2.5% MACE over next 6 weeks - Discharge Home Score 4 - 6: 20.3% MACE over next 6 weeks - Admit for Clinical Observation Score 7 - 10: 72.7% MACE over next 6 weeks - Early Invasive Strategies Course & Med Decision Making: Course & Med Decision Making Pertinent Labs and Imaging studies reviewed. (See chart for details) Patient is a 41-year-old female who presents with sensation of palpitations after drinking 2 large energy drinks this morning. The onset of her symptoms was very shortly following the second large energy drink. This is very likely the cause of her symptoms. Her vital signs are normal here. Her exam is normal and she is in no distress. She had an EKG that was normal as described above. She has a PCP that she follows with. She would prefer to follow-up with them to have any further testing. We discussed eventually checking a TSH, blood counts, and electrolytes, but she would prefer to call them today to set up outpatient testing. I feel this is a reasonable plan given the close association with caffeine intake. [id number] Ana Maria Disclaimer: Ana Maria Disclaimer: This electronic medical record was generated, in whole or in part, using a voice recognition dictation system. Departure Departure: Impression: Primary Impression: Palpitation Additional Impression: Adverse effect of caffeine Disposition: 01 HOME / SELF CARE / HOMELESS Condition: STABLE Additional Instructions: Your heart racing seems to be related to your caffeine intake this morning. Please try to limit your caffeine intake to 1 drink or less per morning. It is important that you follow-up with your primary care doctor, it sounds like you need to have your TSH rechecked and may need other labs checked as well. Since you have been referred to a systems analyst in the past, please make an appointment with them. It is important that if your symptoms not improve, you develop new symptoms such as shortness of breath, worsening chest pain, fever/chills, or other new/concerning symptoms that you return to the emergency department for evaluation immediately. STEPHANY TORO MD Feb 07, 2021 08:15
--- NOTE | 2021-02-07 12:39 | EKG ---
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
== END 2021-02-07 08:49 | disposition home or self-care (01) ==
LOC: ER 07:38
DX: R00.2 Palpitations (principal); T43.615A Adverse effect of caffeine, initial encounter; F41.9 Anxiety disorder, unspecified; F32.9 Major depressive disorder, single episode, unspecified; K21.9 Gastro-esophageal reflux disease without esophagitis; E03.9 Hypothyroidism, unspecified; Z87.442 Personal history of urinary calculi; Z87.891 Personal history of nicotine dependence; Z98.84 Bariatric surgery status; Z88.8 Allergy status to other drugs, medicaments and biological substances; Z88.5 Allergy status to narcotic agent; Z88.4 Allergy status to anesthetic agent; Y92.89 Other specified places as the place of occurrence of the external cause
CPT/HCPCS: 93005; 99283

== ENCOUNTER 2021-03-19 17:50 | Emergency (ER) | payer OTHER ==
[~2021-03-19] VITALS: Ht 167.6 cm; Wt 75.0 kg
[2021-03-19 18:03] VITALS: BP 128/92
--- NOTE | 2021-03-19 18:10 | PHYS DOC ---
Past History Past Medical History: Anxiety, Depression, GERD, Hypothyroid, Other Additional Past Medical Histor: C-diff,H pylori, gastric bypass, kidney stones, bowel obstructions (JOE PIRES APRN) Past Surgical History: Cholecystectomy, , Gastric Bypass, Hysterectomy, Other Additional Past Surgical Histo: D&CX6 (JOE PIRES APRN) Smoking: Quit Less Than 1 Year Alcohol Use: None Drug Use: None (JOE PIRES APRN) General Adult EDM: Chief Complaint: ABDOMINAL PAIN HPI: HPI: Patient is a 41-year-old female who presents to the ER today for generalized abdominal pain that started 2 days ago. Patient reports that 2 days ago she had diarrhea and she has not been able to have a bowel movement since. Patient states that she has been trying to eat normally, take a probiotic, and eat dairy to help produce a bowel movement but has been unsuccessful. Patient reports that she feels like her abdomen is distended. No radiation of pain. She rates her pain 8 out of 10. She took Tylenol at 1300 today. Patient reports nausea with 2 episodes of vomiting today. She denies any blood in her vomit, dysuria, hematuria. She has a history of a got gastric bypass 1 year ago and history of bowel obstructions. (JOE PIRES APRN) Review of Systems: Review of Systems: 14 body systems of the review of systems have been reviewed. See HPI for pertinent positive and negative responses, otherwise all other systems are negative, nonpertinent or noncontributory (JOE PIRES APRN) Allergies: Allergies: Allergies Coded Allergies Type Severity Reaction Last Updated Verified butorphanol Allergy Intermediate Unknown 05/31/20 Yes morphine Allergy Mild Nausea and Vomiting 05/31/20 No lidocaine Allergy Unknown 07/27/20 Yes phentermine Allergy Unknown 05/31/20 Yes (JOE PIRES APRN) Physical Exam: PE: Constitutional: Well developed, well nourished, no acute distress, non-toxic appearance. [] HENT: Normocephalic, atraumatic, bilateral external ears normal, oropharynx moist, no oral exudates, nose normal. [] Eyes: PERRL, EOMI, conjunctiva normal, no discharge. [] Neck: Normal range of motion, no tenderness, supple, no stridor. [] Cardiovascular:Heart rate tachycardic rhythm, no murmur [] Lungs & Thorax: Bilateral breath sounds clear to auscultation [] Abdomen: Bowel sounds normal, soft, no tenderness, no masses, no pulsatile masses. [] Skin: Warm, dry, no erythema, no rash. [] Back: Normal Range of motion Extremities: No tenderness, no cyanosis, no clubbing, ROM intact, no edema. [] Neurologic: Alert and oriented X 3, normal motor function, normal sensory function, no focal deficits noted. [] Psychologic: Affect normal, judgement normal, mood normal. [] (JOE PIRES APRN) Current Patient Data: Labs: Laboratory Tests Test 03/19/21 18:20 White Blood Count 7.7 x10^3/uL Red Blood Count 3.97 x10^6/uL Hemoglobin 13.2 g/dL Hematocrit 39.1 % Mean Corpuscular Volume 99 fL Mean Corpuscular Hemoglobin 33 pg Mean Corpuscular Hemoglobin Concent 34 g/dL Red Cell Distribution Width 12.8 % Platelet Count 388 x10^3/uL Neutrophils (%) (Auto) 63 % Lymphocytes (%) (Auto) 29 % Monocytes (%) (Auto) 6 % Eosinophils (%) (Auto) 2 % Basophils (%) (Auto) 1 % Neutrophils # (Auto) 4.8 x10^3uL Lymphocytes # (Auto) 2.2 x10^3/uL Monocytes # (Auto) 0.4 x10^3/uL Eosinophils # (Auto) 0.2 x10^3/uL Basophils # (Auto) 0.0 x10^3/uL Sodium Level 142 mmol/L Potassium Level 3.5 mmol/L Chloride Level 108 mmol/L Carbon Dioxide Level 23 mmol/L Anion Gap 11 Blood Urea Nitrogen 14 mg/dL Creatinine 0.7 mg/dL Estimated GFR (Cockcroft-Gault) 93.2 BUN/Creatinine Ratio 20 Glucose Level 84 mg/dL Calcium Level 8.9 mg/dL Total Bilirubin 0.5 mg/dL Aspartate Amino Transf (AST/SGOT) 21 U/L Alanine Aminotransferase (ALT/SGPT) 27 U/L Alkaline Phosphatase 64 U/L Total Protein 7.0 g/dL Albumin 3.9 g/dL Albumin/Globulin Ratio 1.3 Lipase 128 U/L Current Medications Medications (Trade) Dose Ordered Sig/Monica Route PRN Reason Start Time Stop Time Status Last Admin Dose Admin Fentanyl Citrate (Fentanyl 2ml Vial) 50 mcg PRN Q15MIN PRN IV PAIN GREATER THAN 3/10 03/19/21 18:15 03/20/21 18:14 03/19/21 18:58 Sodium Chloride 1,000 ml @ 100 mls/hr Q10H IV 03/19/21 18:30 03/20/21 04:29 03/19/21 18:23 Ondansetron HCl (Zofran) 4 mg 1X ONCE IVP 03/19/21 18:30 03/19/21 18:31 DC 03/19/21 18:22 Iohexol (Omnipaque 300 Mg/ml) 75 ml 1X ONCE IV 03/19/21 18:30 03/19/21 18:31 DC 03/19/21 18:33 Info (Do NOT chart on this entry -- for MONITORING) 1 each PRN DAILY PRN MC SEE COMMENTS 03/19/21 18:30 03/21/21 18:29 Vital Signs: Vital Signs Date Time Temp Pulse Resp B/P (MAP) Pulse Ox O2 Delivery O2 Flow Rate FiO2 03/19/21 18:03 98.0 113 18 128/92 98 Room Air (JOE PIRES APRN) EKG: EKG: [] (JOE PIRES APRN) Radiology/Procedures: Radiology/Procedures: PROCEDURE: CT ABD PELV W/ IV CONTRST ONLY Exam: CT of abdomen and pelvis with contrast INDICATION: Abdominal pain, distention TECHNIQUE: Sequential axial images through the abdomen and pelvis obtained following the administration of 75 mL of Isovue-370 IV contrast. Sagittal and coronal reformatted images were reconstructed from the axial data and reviewed. Exposure: One or more of the following in the visualized dose reduction techniques were utilized for this examination: 1. Automated exposure control 2. Adjustment of the MA and/or KV according to patient size 3. Use of iterative of reconstructive technique Comparisons: 07/27/2020 FINDINGS: Heart size is normal. No pericardial visualized lung bases are clear. No pleural effusion. Mild intrahepatic biliary ductal dilatation. Liver is otherwise unremarkable. Spleen, pancreas, and adrenals are unremarkable. Gallbladder is absent. No perinephric inflammation or hydronephrosis. No renal or ureteral calculi are identified. Bladder is partially distended and not well evaluated. Uterus is absent. No abnormal adnexal mass. Large amount stool noted throughout the colon. Postoperative changes noted at the stomach. No free intra-abdominal air or fluid. No obstruction. Appendix is normal. Abdominal aorta has a normal course and caliber. Abdominal vasculature is patent. No enlarged intra-abdominal lymph nodes are identified. No suspicious osseous lesions or acute fractures. Bilateral pars interarticularis defect at L5 with grade 1 anterolisthesis of L5 on S1. IMPRESSION: 1. Large amount stool in the colon. Correlate for constipation. 2. Mild intrahepatic biliary ductal dilatation, may relate to biliary reservoir given cholecystectomy changes. 3. Postoperative changes at the stomach. No evidence for obstruction. 4. Bilateral pars interarticularis defect at L5 with grade 1 anterolisthesis of L5 on S1. Electronically signed by: Alexandrea Henao MD (03/19/2021 6:53 PM) [facility] DICTATED AND SIGNED BY: ALEXANDREA HENAO MD DATE: 03/19/211847 CC: BALA JETT; JOE PIRES APRN ~MTH0 0[] (JOE PIRES APRN) Heart Score: C/O Chest Pain: No Risk Factors: Risk Factors: DM, Current or recent (<one month) smoker, HTN, HLP, family history of CAD, obesity. Risk Scores: Score 0 - 3: 2.5% MACE over next 6 weeks - Discharge Home Score 4 - 6: 20.3% MACE over next 6 weeks - Admit for Clinical Observation Score 7 - 10: 72.7% MACE over next 6 weeks - Early Invasive Strategies (JOE PIRES APRN) Course & Med Decision Making: Course & Med Decision Making Pertinent Labs and Imaging studies reviewed. (See chart for details) Patient is a 41-year-old female who presents to the ER for generalized abdominal pain, constipation, nausea/vomiting. Work-up in the ER consisted of blood work, urinalysis, CT scan of abdomen. Patient was treated with fluids, nausea medication, pain medication. Blood work unremarkable. CT scan of abdomen showed constipation but no obstruction. Patient discharged home with magnesium citrate. Patient advised to follow-up with primary care provider. Patient advised to stick to clear liquid diet and avoid fatty, greasy, spicy foods, lact ose. I discussed with patient all findings and diagnostic testing as well as the need to follow-up with PCP for further evaluation and treatment or return to the ER if any new or worsening symptoms. Strict return precautions were also discussed at length. Patient voiced understanding and agreement with the plan. Patient is hemodynamically stable at the time of disposition. (JOE PIRES APRN) Course & Med Decision Making Did not see or evaluate patient. Did not discuss patient with JEWELRY ESTIMATOR. Agree with JEWELRY ESTIMATOR's work-up and disposition per note. (MILTON KRUGER MD) Dragon Disclaimer: Dragon Disclaimer: This electronic medical record was generated, in whole or in part, using a voice recognition dictation system. (JOE PIRES APRN) Departure Departure: Impression: Primary Impression: Constipation Qualified Codes: K59.00 - Constipation, unspecified Disposition: HOME / SELF CARE / HOMELESS Condition: GOOD Referrals: BALA JETT (PCP) Patient Instructions: Constipation, Adult Additional Instructions: You were seen in the ER today for abdominal pain and constipation. Your blood work was unremarkable. The CT scan of your abdomen did show constipation but no obstruction or ileus. You are being sent home with magnesium citrate that you can take to help with your constipation. These drink half of the bottle at home to produce a bowel movement. If you do not produce a bowel movement in a couple of hours you can drink the remainder of the bottle bottle. Please stick to a bland diet over the next couple of days. Please avoid eating spicy, greasy, fatty foods. Also avoid lactose. Follow-up with your primary care provider on Sunday. If you develop worsening of your abdominal pains, intractable nausea or vomiting, blood in your vomit, high fevers refractory to treatment or any new concerns please return to the ER. EMERGENCY DEPARTMENT GENERAL DISCHARGE INSTRUCTIONS Thank you for coming to [facility] (ED) today and trusting us with you care. We trust that you had a positivie experience in our Emergency Department. If you wish to speak to the department management, you may call the director at [phone]. YOUR FOLLOW UP INSTRUCTIONS ARE FOLLOWS: 1. Do you have a private Doctor? If you do not have a private doctor, please ask for a resource list of physicians or clinics that may be able to assist you with fo llow up care. 2. The Emergency Physician has interpreted your x-rays. The X-Ray specialist will also review them. If there is a change in the findings, you will be notified in 48 hours when at all possible. 3. A lab test or culture has been done, your results will be reviewed and you will be notified if you need a change in treatment. ADDITIONAL INSTRUCTIONS AND INFORMATION: 1. Your care today has been supervised by a physician who is specially trained in emergency care. Many problems require more than one evaluation for a complete diagnosis and treatment. We recommend that you schedule your follow up appointment as recommended to ensure complete treatment of you illness or injury. If you are unable to obtain follow up care and continue to have a problem, or if your condition worsens, we recommend that you return to the ED. 2. We are not able to safely determine your condition over the phone nor are we able to give sound medical advice over the phone. For these safety reasons, if you call for medical advice we will ask you to come to the ED for further evaluation. 3. If you have any questions regarding these discharge instructions please call the ED at [phone]. SAFETY INFORMATION: In the interest of safety, wellness, and injury prevention; we encourage you to wear your sealbelt, if you smoke; quite smoking, and we encourage family to use a protecti ve helmet for bicycling and other sporting events that present an increased risk for head injury. IF YOUR SYMPTOMS WORSEN OR NEW SYMPTOMS DEVELOP, OR YOU HAVE CONCERNS ABOUT YOUR CONDITION; OR IF YOUR CONDITION WORSENS WHILE YOU ARE WAITING FOR YOUR FOLLOW UP APPOINTMENT; EITHER CONTACT YOUR PRIMARY CARE DOCTOR, THE PHYSICIAN WHOSE NAME AND NUMBER YOU WERE GIVEN, OR RETURN TO THE ED IMMEDIATELY. JOE PIRES APRN Mar 19, 2021 18:10 MILTON KRUGER MD Mar 19, 2021 20:12
[2021-03-19] MEDS ORDERED: IOHEXOL 300 MG/ML 75 ML VIAL. IV ONE (18:30)
[2021-03-19] MEDS ORDERED: CONTRAST GIVEN. MC PRN (18:30)
[2021-03-19] MEDS ORDERED: ONDANSETRON PF 4 MG/2 ML VIAL. IVP ONE (18:30)
[2021-03-19] MEDS ORDERED: IV NORMAL SALINE 1,000ML 1,000 ML IV SCH (18:30)
[2021-03-19 18:52] LABS: BASO % 1 % (0-3); EOS # 0.2 x10^3/uL (0.0-0.7); EOS % 2 % (0-3); HEMATOCRIT 39.1 % (36.0-47.0); HEMOGLOBIN 13.2 g/dL (12.0-15.5); LYMPH # 2.2 x10^3/uL (1.0-4.8); LYMPH % 29 % (24-48); MEAN CORPUSCULAR HEMOGLOBIN 33 pg (25-35); MEAN CORPUSCULAR HGB CONC 34 g/dL (31-37); MEAN CORPUSCULAR VOLUME 99 fL (79-100); MONO # 0.4 x10^3/uL (0.0-1.1); MONO % 6 % (0-9); NEUT # 4.8 x10^3uL (1.8-7.7); NEUT % 63 % (31-73); PLATELET COUNT 388 x10^3/uL (140-400); RED BLOOD COUNT 3.97 x10^6/uL (3.50-5.40); RED CELL DISTRIBUTION WIDTH 12.8 % (11.5-14.5); WHITE BLOOD COUNT 7.7 x10^3/uL (4.0-11.0)
--- NOTE | 2021-03-19 18:55 | RAD ---
Exam: CT of abdomen and pelvis with contrast INDICATION: Abdominal pain, distention TECHNIQUE: Sequential axial images through the abdomen and pelvis obtained following the administrati on of 75 mL of Isovue-370 IV contrast. Sagittal and coronal reformatted images were reconstructed fro m the axial data and reviewed. Exposure: One or more of the following in the visualized dose reduction techniques were utilized for this examination: 1. Automated exposure control 2. Adjustment of the MA and/or KV according to patient size 3. Use of iterative of reconstructive technique Comparisons: 07/27/2020 FINDINGS: Heart size is normal. No pericardial visualized lung bases are clear. No pleural effusion. Mild intrahepatic biliary ductal dilatation. Liver is otherwise unremarkable. Spleen, pancreas, and a drenals are unremarkable. Gallbladder is absent. No perinephric inflammation or hydronephrosis. No renal or ureteral calculi are identified. Bladder is partially distended and not well evaluated. Uterus is absent. No abnormal adnexal mass. Large amount stool noted throughout the colon. Postoperative changes noted at the stomach. No free in tra-abdominal air or fluid. No obstruction. Appendix is normal. Abdominal aorta has a normal course and caliber. Abdominal vasculature is patent. No enlarged intra-abdominal lymph nodes are identified. No suspicious osseous lesions or acute fractures. Bilateral pars interarticularis defect at L5 with g rade 1 anterolisthesis of L5 on S1. IMPRESSION: 1. Large amount stool in the colon. Correlate for constipation. 2. Mild intrahepatic biliary ductal dilatation, may relate to biliary reservoir given cholecystectom y changes. 3. Postoperative changes at the stomach. No evidence for obstruction. 4. Bilateral pars interarticularis defect at L5 with grade 1 anterolisthesis of L5 on S1. Electronically signed by: Alexandrea David MD (03/19/2021 6:53 PM) [facility]
[2021-03-19 18:57] LABS: CALCIUM 8.9 mg/dL (8.5-10.1); CREATININE 0.7 mg/dL (0.6-1.0); GFR 93.2; POTASSIUM 3.5 mmol/L (3.5-5.1)
[2021-03-19 19:03] LABS: ALBUMIN 3.9 g/dL (3.4-5.0); ALBUMIN/GLOBULIN RATIO 1.3 (1.0-1.7); TOTAL BILIRUBIN 0.5 mg/dL (0.2-1.0)
[2021-03-19] MEDS ORDERED: MAGNESIUM CITRATE 296 ML SOLUTION. PO ONE (19:30)
== END 2021-03-19 19:34 | disposition home or self-care (01) ==
LOC: ER 17:50
DX: K59.00 Constipation, unspecified (principal); F41.9 Anxiety disorder, unspecified; F32.9 Major depressive disorder, single episode, unspecified; K21.9 Gastro-esophageal reflux disease without esophagitis; E03.9 Hypothyroidism, unspecified; Z87.442 Personal history of urinary calculi; Z87.891 Personal history of nicotine dependence; Z90.49 Acquired absence of other specified parts of digestive tract; Z98.890 Other specified postprocedural states; Z98.84 Bariatric surgery status; Z90.710 Acquired absence of both cervix and uterus; Z88.5 Allergy status to narcotic agent; Z88.4 Allergy status to anesthetic agent; Z88.8 Allergy status to other drugs, medicaments and biological substances
CPT/HCPCS: 36415; 74177; 80053; 83690; 85025; 96361; 96374; 96375; 99285; J2405; J3010; J7030; Q9967

== ENCOUNTER 2021-06-18 21:50 | Emergency (ER) | payer OTHER ==
[~2021-06-18] VITALS: Ht 167.6 cm; Wt 62.8 kg
[~2021-06-18 21:50] MED LIST changes: +DICY20TA PO; -DICY20TA3 PO; -DULO60CA6 PO; +DULO60CA7 PO; -FLUO20CA20 PO; +FLUO20CA22 PO
[2021-06-18 22:06] VITALS: BP 155/62
--- NOTE | 2021-06-18 22:09 | PHYS DOC ---
Past History Past Medical History: Anxiety, Depression, GERD, Hypothyroid, Other Additional Past Medical Histor: C-diff,H pylori, gastric bypass, kidney stones, bowel obstructions Past Surgical History: Cholecystectomy, , Gastric Bypass, Hysterectomy, Other Additional Past Surgical Histo: D&CX6 Smoking: Quit Less Than 1 Year Alcohol Use: None Drug Use: None Adult General Chief Complaint Chief Complaint: ABDOMINAL PAIN HPI HPI Patient is a 41-year-old female who presents with a chief complaint of abdominal cramping and lower pain, 5 out of 10, dull and achy in nature. Denies any recent traumas or travels, illnesses, fever, chest pain, shortness of breath, vomiting, dysuria, hematuria, blood in the stool or diarrhea. States he had some mild nausea but did not vomit. States she had a normal bowel movement this morning. States she came in because this feels similar to her previous episode she had of a bowel obstruction but does have a history of constipation as well. Review of Systems Review of Systems Review of systems otherwise unremarkable except noted in HPI Allergies Allergies Allergies Coded Allergies Type Severity Reaction Last Updated Verified butorphanol Allergy Intermediate Unknown 05/31/20 Yes morphine Allergy Mild Nausea and Vomiting 05/31/20 No lidocaine Allergy Unknown 07/27/20 Yes phentermine Allergy Unknown 05/31/20 Yes Physical Exam Physical Exam Constitutional: Well developed, well nourished, no acute distress, non-toxic appearance. [] HENT: Normocephalic, atraumatic, bilateral external ears normal, oropharynx moist, no oral exudates, nose normal. [] Eyes: conjunctiva normal, no discharge. [] Neck: Normal range of motion, no tenderness, supple, no stridor. [] Cardiovascular:Heart rate regular rhythm, no murmur [] Lungs & Thorax: Bilateral breath sounds clear to auscultation [] Abdomen: Bowel sounds normal, soft, no tenderness, no masses, no pulsatile masses. [] Skin: Warm, dry, no erythema, no rash. [] Back:, no CVA tenderness. [] Extremities: No tenderness, no cyanosis, no clubbing, ROM intact, no edema. [] Neurologic: Alert and oriented X 3,no focal deficits noted. [] Psychologic: Affect normal, judgement normal, mood normal. [] EKG EKG [] Radiology/Procedures Radiology/Procedures [] FINDINGS: Vascular: No abdominal aortic aneurysm. Hepatobiliary: Postcholecystectomy changes. Pancreas: No peripancreatic edema. Spleen: Spleen unremarkable. Renal/Bladder: No hydronephrosis. Gastrointestinal: There is some prominent stool within the colon with some colonic distention including at the cecum measuring up to 78 mm. High density intraluminal content within the appendix without definite adjacent inflammatory changes. There is a suspected hernia the anterior abdominal wall with fat extending just superficial to the right rectus muscles within the rectus sheath. Postoperative changes status post gastric bypass Degenerative changes spine. Anterolisthesis of L5 on S1 with pars defects. IMPRESSION: * Distention of the colon is again seen with stool. Would correlate for possible causes such as constipation. * No significant hydronephrosis. Electronically signed by: Jake Simpson MD (06/18/2021 11:12 PM) DESKTOP- [id number] Heart Score C/O Chest Pain: No Risk Factors: Risk Factors: DM, Current or recent (<one month) smoker, HTN, HLP, family history of CAD, obesity. Risk Scores: Risk Factors: DM, Current or recent (<one month) smoker, HTN, HLP, family history of CAD, obesity. Course & Med Decision Making Course & Med Decision Making Patient is a 41-year-old female who presents with abdominal discomfort Vital signs initially notable for tachycardia which resolved in the ED. Physical exam noted above. Patient given pain and nausea medicine. Patient with no urinary symptoms. Had a hysterectomy. CT notable for constipation and no signs of obstruction. Discussed all findings with patient and symptomatic treatment for constipation at home. Advised to follow-up with primary care physician. Gave return precautions to the ED. Patient grateful, verbalized understanding and agree with plan of discharge. [] Dragon Disclaimer Dragon Disclaimer This electronic medical record was generated, in whole or in part, using a voice recognition dictation system. Departure Departure: Impression: Primary Impression: Constipation Disposition: 01 HOME / SELF CARE / HOMELESS Condition: GOOD Referrals: BALA JETT (PCP) Patient Instructions: Constipation, Adult Additional Instructions: Thank you for coming into the emergency department tonight and allowing us to take care of you. Please read the attached information carefully to go back over some of the things we discussed. Over the next couple of days please eat a light clear diet and use an [id number] stool softener as tolerated as we discussed. It is important you follow-up with your primary care physician update on your ED visit and set up a follow-up visit. Please come back with new or concerning symptoms as we discussed. MILTON KRUGER MD Jun 18, 2021 22:09
--- NOTE | 2021-06-18 23:14 | RAD ---
INDICATION: Reason: ab pain around umbilicus / Spl. Instructions: / History: COMPARISON: March 19, 2021 TECHNIQUE: Axial CT images were obtained through the abdomen and pelvis without intravenous contrast. One or more of the following individualized dose reduction techniques were utilized for this examinat ion: 1. Automated exposure control; 2. Adjustment of the mA and/or kV according to patient size; 3 . Use of iterative reconstruction technique. FINDINGS: Vascular: No abdominal aortic aneurysm. Hepatobiliary: Postcholecystectomy changes. Pancreas: No peripancreatic edema. Spleen: Spleen unremarkable. Renal/Bladder: No hydronephrosis. Gastrointestinal: There is some prominent stool within the colon with some colonic distention includi ng at the cecum measuring up to 78 mm. High density intraluminal content within the appendix without definite adjacent inflammatory changes. There is a suspected hernia the anterior abdominal wall with fat extending just superficial to the right rectus muscles within the rectus sheath. Postoperative ch anges status post gastric bypass Degenerative changes spine. Anterolisthesis of L5 on S1 with pars defects. IMPRESSION: * Distention of the colon is again seen with stool. Would correlate for possible causes such as con stipation. * No significant hydronephrosis. Electronically signed by: Jake Simpson MD (06/18/2021 11:12 PM) [id number]
[2021-06-18] MEDS ORDERED: ONDANSETRON ODT 4 MG TAB.RAPDIS PO ONE (23:30)
[2021-06-19] MEDS ORDERED: ONDANSETRON 4MG ODT 4TABLET STARTPACK. PO ONE
[2021-06-19] MEDS ORDERED: START PACK - traMADol 1 STARTPACK TABLET PO ONE
== END 2021-06-18 23:47 | disposition home or self-care (01) ==
LOC: ER 21:50
DX: K59.00 Constipation, unspecified (principal); F41.9 Anxiety disorder, unspecified; K21.9 Gastro-esophageal reflux disease without esophagitis; E03.9 Hypothyroidism, unspecified; Z87.891 Personal history of nicotine dependence; Z98.84 Bariatric surgery status; Z90.49 Acquired absence of other specified parts of digestive tract; Z98.890 Other specified postprocedural states; Z90.710 Acquired absence of both cervix and uterus; Z88.5 Allergy status to narcotic agent; Z88.4 Allergy status to anesthetic agent; Z88.8 Allergy status to other drugs, medicaments and biological substances
CPT/HCPCS: 74176; 96372; 99284; J3010; Q0162

== ENCOUNTER 2021-07-14 11:52 | Emergency (ER) | payer OTHER ==
[~2021-07-14] VITALS: Ht 167.6 cm; Wt 62.8 kg
[2021-07-14 12:07] VITALS: BP 131/98
--- NOTE | 2021-07-14 12:41 | PHYS DOC ---
Past History Past Medical History: Anxiety, Depression, GERD, Hypothyroid, Other Additional Past Medical Histor: C-diff,H pylori, bowel obstructions Past Surgical History: Cholecystectomy, , Gastric Bypass, Hysterectomy, Other Additional Past Surgical Histo: D&CX6 Smoking: Quit Less Than 1 Year Alcohol Use: None Drug Use: None Adult General Chief Complaint Chief Complaint: FATIGUE HPI HPI Patient is a 41-year-old female patient with history of anxiety, depression, acid reflux, presenting to the ED today with multiple complaints. Patient states she was exposed to COVID-19 on Sunday. She states on Sunday she developed fatigue, chills, nausea. She states symptoms of gotten worse. Denies any fever. Denies any nasal congestion. She states she received her last Pfizer Covid vaccine in December 2020 Review of Systems Review of Systems Constitutional: Reports fatigue, chills, denies denies fever Eyes: Denies change in visual acuity, redness, or eye pain [] HENT: Denies nasal congestion or sore throat [] Respiratory: Denies cough or shortness of breath [] Cardiovascular: No additional information not addressed in HPI [] GI: Reports nausea. Denies abdominal pain, vomiting, bloody stools or diarrhea [] : Denies dysuria or hematuria [] Musculoskeletal: Denies back pain or joint pain [] Integument: Denies rash or skin lesions [] Neurologic: Denies headache, focal weakness or sensory changes [] All other systems were reviewed and found to be within normal limits, except as documented in this note. Allergies Allergies Allergies Coded Allergies Type Severity Reaction Last Updated Verified butorphanol Allergy Intermediate Unknown 05/31/20 Yes morphine Allergy Mild Nausea and Vomiting 05/31/20 No lidocaine Allergy Unknown 07/27/20 Yes phentermine Allergy Unknown 05/31/20 Yes Physical Exam Physical Exam Constitutional: Well developed, well nourished, no acute distress, non-toxic appearance. [] HENT: Normocephalic, atraumatic, bilateral external ears normal, oropharynx moist, no oral exudates, nose normal. [] Eyes: PERRLA, EOMI, conjunctiva normal, no discharge. [] Neck: Normal range of motion, no tenderness, supple, no stridor. [] Cardiovascular:Heart rate regular rhythm, no murmur [] Lungs & Thorax: Bilateral breath sounds clear to auscultation [] Abdomen: Bowel sounds normal, soft, no tenderness, no masses, no pulsatile masses. [] Skin: Warm, dry, no erythema, no rash. [] Back: No tenderness, no CVA tenderness. [] Extremities: No tenderness, no cyanosis, no clubbing, ROM intact, no edema. [] Neurologic: Alert and oriented X 3, normal motor function, normal sensory function, no focal deficits noted. [] Psychologic: Affect normal, judgement normal, mood normal. [] Current Patient Data Vital Signs Vital Signs Date Time Temp Pulse Resp B/P (MAP) Pulse Ox O2 Delivery O2 Flow Rate FiO2 07/14/21 12:07 99.0 97 16 131/98 (109) 99 Room Air EKG EKG [] Radiology/Procedures Radiology/Procedures [] Heart Score C/O Chest Pain: N/A Risk Factors: Risk Factors: DM, Current or recent (<one month) smoker, HTN, HLP, family hi story of CAD, obesity. Risk Scores: Risk Factors: DM, Current or recent (<one month) smoker, HTN, HLP, family history of CAD, obesity. Course & Med Decision Making Course & Med Decision Making Pertinent Labs and Imaging studies reviewed. (See chart for details) This is a 41-year-old female patient presenting to the ED today complaining of fatigue, chills, nausea after being exposed to COVID-19. Patient was tested for Covid and influenza, results will be called to her when available. Instructed to quarantine herself and maintain good Dragon Disclaimer Dragon Disclaimer This electronic medical record was generated, in whole or in part, using a voice recognition dictation system. Departure Departure: Impression: Primary Impression: Person under investigation for COVID-19 Additional Impression: Viral illness Disposition: HOME / SELF CARE / HOMELESS Condition: STABLE Referrals: BALA JETT (PCP) follow up in one week Patient Instructions: Viral Infections, [id number] Additional Instructions: You were evaluated in the emergency room with symptoms suspicious of a viral illness. You were tested for Covid 19 and influenza. We will call you when results are available. Quarantine yourself until then. Push fluids, rest, maintain good hand hygiene. Take Tylenol or Motrin for pain or fever. Problem Qualifiers MUTILAN KIM APRN Jul 14, 2021 12:41
[2021-07-14 13:23] LABS: INFLUENZA A PATIENT NEGATIVE (NEGATIVE); INFLUENZA B PATIENT NEGATIVE (NEGATIVE)
== END 2021-07-14 13:04 | disposition home or self-care (01) ==
LOC: ER 11:52
DX: B34.9 Viral infection, unspecified (principal); F41.9 Anxiety disorder, unspecified; F32.9 Major depressive disorder, single episode, unspecified; K21.9 Gastro-esophageal reflux disease without esophagitis; E03.9 Hypothyroidism, unspecified; Z20.822 Contact with and (suspected) exposure to COVID-19; Z87.891 Personal history of nicotine dependence; Z90.49 Acquired absence of other specified parts of digestive tract; Z98.890 Other specified postprocedural states; Z90.710 Acquired absence of both cervix and uterus; Z98.84 Bariatric surgery status; Z88.5 Allergy status to narcotic agent; Z88.4 Allergy status to anesthetic agent; Z88.8 Allergy status to other drugs, medicaments and biological substances
CPT/HCPCS: 87804; 99283; C9803; U0003

== ENCOUNTER 2021-07-28 16:12 | Emergency (ER) | payer OTHER ==
[~2021-07-28] VITALS: Ht 167.6 cm; Wt 62.8 kg
[2021-07-28 17:21] VITALS: BP 148/68
--- NOTE | 2021-07-28 17:56 | RAD ---
PA and lateral chest. HISTORY: Short of breath PA and lateral views were taken of the chest. Lungs are free of infiltrates. Heart is normal in size. There is no pleural effusion. IMPRESSION: 1. No acute chest disease. Electronically signed by: Yair Wesley MD (07/28/2021 5:53 PM) [facility]
[2021-07-28] MEDS ORDERED: DEXAMETHASONE SOD PHOS 10 MG/ML VIAL. PO ONE (18:45)
--- NOTE | 2021-07-28 18:50 | PHYS DOC ---
Past History Past Medical History: Anxiety, Depression, GERD, Hypothyroid, Other Additional Past Medical Histor: C-diff,H pylori, bowel obstructions (LEWIS SO APRN) Past Surgical History: Cholecystectomy, , Gastric Bypass, Hysterectomy, Other Additional Past Surgical Histo: D&CX6 (LEWIS SO APRN) Smoking: Non-smoker, Quit Less Than 1 Year Alcohol Use: None Drug Use: None (LEWIS SO APRN) General Adult EDM: Chief Complaint: SHORTNESS OF BREATH HPI: HPI: Patient is a 41-year-old female that presents today with difficulty breathing. Patient states that last Sunday she tested positive for COVID-19 using a home test she has since been quarantining since that time, she states that last evening she was having increased difficulty breathing she said she woke up in the middle the night feeling like she could not catch her breath. She states she does have a history of GERD she has had gastric bypass in the past she has had some anxiety she did not know if that had anything to do with it. (LEWIS SO [employer]) Review of Systems: Review of Systems: Constitutional: Denies fever or chills Eyes: Denies change in visual acuity HENT: Denies nasal congestion or sore throat Respiratory: Difficulty breathing Cardiovascular: Denies chest pain or edema GI: Denies abdominal pain, nausea, vomiting, bloody stools or diarrhea : Denies dysuria Musculoskeletal: Denies back pain or joint pain Integument: Denies rash Neurologic: Denies headache, focal weakness or sensory changes Endocrine: Denies polyuria or polydipsia Lymphatic: Denies swollen glands Psychiatric: Denies depression or anxiety (LEWIS SO [employer]) Allergies: Allergies: Allergies Coded Allergies Type Severity Reaction Last Updated Verified butorphanol Allergy Intermediate Unknown 05/31/20 Yes morphine Allergy Mild Nausea and Vomiting 05/31/20 No lidocaine Allergy Unknown 07/27/20 Yes phentermine Allergy Unknown 05/31/20 Yes (LEWIS SO [employer]) Physical Exam: PE: Constitutional: Well developed, well nourished, no acute distress, non-toxic appearance. [] HENT: Normocephalic, atraumatic, bilateral external ears normal, oropharynx moist, no oral exudates, nose normal. [] Eyes: PERRLA, EOMI, conjunctiva normal, no discharge. [] Neck: Normal range of motion, no tenderness, supple, no stridor. [] Cardiovascular:Heart rate regular rhythm, no murmur [] Lungs & Thorax: Bilateral breath sounds clear to auscultation [] Abdomen: Bowel sounds normal, soft, no tenderness, no masses, no pulsatile masses. [] Skin: Warm, dry, no erythema, no rash. [] Back: No tenderness, no CVA tenderness. [] Extremities: No tenderness, no cyanosis, no clubbing, ROM intact, no edema. [] Neurologic: Alert and oriented X 3, normal motor function, normal sensory function, no focal deficits noted. [] Psychologic: Affect normal, judgement normal, mood normal. [] (LEWIS SO APRN) Current Patient Data: Vital Signs: Vital Signs Date Time Temp Pulse Resp B/P (MAP) Pulse Ox O2 Delivery O2 Flow Rate FiO2 07/28/21 17:21 98.0 85 16 148/68 (94) 98 Room Air (LEWIS SO APRN) EKG: EKG: [] (LEWIS SO APRN) Radiology/Procedures: Radiology/Procedures: REASON: SOB PROCEDURE: CHEST PA & LATERAL PA and lateral chest. HISTORY: Short of breath PA and lateral views were taken of the chest. Lungs are free of infiltrates. Heart is normal in size. There is no pleural effusion. IMPRESSION: 1. No acute chest disease. Electronically signed by: Yair Wesley MD (07/28/2021 5:53 PM) [facility][] (LEWIS SO APRN) Heart Score: C/O Chest Pain: N/A Risk Factors: Risk Factors: DM, Current or recent (<one month) smoker, HTN, HLP, family history of CAD, obesity. Risk Scores: Score 0 - 3: 2.5% MACE over next 6 weeks - Discharge Home Score 4 - 6: 20.3% MACE over next 6 weeks - Admit for Clinical Observation Score 7 - 10: 72.7% MACE over next 6 weeks - Early Invasive Strategies (LEWIS SO APRN) Course & Med Decision Making: Course & Med Decision Making Pertinent Labs and Imaging studies reviewed. (See chart for details) Patient appears medically stable, no increased work of breathing vital signs are stable, will give patient a dose of Decadron. Gave strict return precautions to patient. Patient verbalizes understanding and is agreeable to being discharged home. (LEWIS SO APRN) Dragon Disclaimer: Dragon Disclaimer: This electronic medical record was generated, in whole or in part, using a voice recognition dictation system. (LEWIS SO APRN) Departure Departure: Impression: Primary Impression: COVID Disposition: HOME / SELF CARE / HOMELESS Condition: STABLE Referrals: BALA JETT (PCP) Additional Instructions: You have been tested for or diagnosed with COVID-19. It is an infection caused by a new type of coronavirus. COVID-19 will cause cold-like or mild flu symptoms in most. It can cause more severe symptoms like problems breathing in some. There is no treatment for COVID-19. The body will clear the infection over time. Self-care will help to ease discomfort. Steps to Take: Self-Care Rest as needed. Healthy habits may help you feel better. Steps include: Choose healthy foods including fruits and vegetables. Drink water throughout the day. Get plenty of sleep each night. If you smoke, try to quit. It may ease breathing. Avoid alcohol. Keep Others Healthy The virus can spread to others. Droplets are released every time you sneeze or cough. The droplets can get into the mouth, nose, or eyes of people near you and lead to infection. To lower the chances of spreading COVID-19 to others: Stay at home until your doctor has said it is safe to leave. If you tested positive this will mean staying isolated until both of the following are true: At least 10 days have passed since the start of illness. You are free of fever for at least 72 hours without the use of medicine. During this time: - Avoid public areas, events, or transportation. Do not return to work or school until your doctor has said it is safe to do so. - Call ahead if you need to go to a medical center. Let them know you may have COVID-19. It will help them guide you where to go. They may also ask you to wear a facemask when you come to the office. - If you call for emergency medical services, let them know you may have COVID- 19. While at home: - Try to avoid close contact with others. Stay about 6 feet away. - If possible, spend most of your time in a separate room from others. - Use a face mask if you will be in close contact with others such as sharing a room or vehicle. - Have someone wipe down common surfaces in the home. Use household frog catcher every day on areas like doorknobs, counters, or sinks. - Cough or sneeze into a tissue. Throw the tissue away right after use. If a tissue is not available, cough or sneeze into your elbow. - Wash your hands often. Wash them after sneezing or coughing. Use soap and water and wash for at least 20 seconds. Alcohol based hand lamp cleaner street light can be used if soap and water is not available. - Do not prepare food for others. Avoid sharing personal items like forks, spoons, or toothbrushes. - Avoid close contact with pets while you are sick. There is no evidence of the virus passing to pets. This is a safety step until more is known about this virus. Isolation can be frustrating. Social interaction can help. Keep in touch with friends and family through phone and tech options. You can still interact with others in your home, just keep a safe distance of about 6 feet. Follow-up: Your doctors office will check in with you to see if there are any changes in your health. You may be asked to keep track of symptoms to share with them. They will also let you know when you are clear to be in public again. Problems to Look Out For: Contact your doctor if your recovery is not going as you expect. Get emergency care if you have problems such as: - Trouble breathing - Nonstop chest pain or pressure - Changes in awareness, confusion, or problems waking - Lips or face have bluish color - Worsening of symptoms If you think you have an emergency, call for emergency medical services right away. As taken from [employer] Disclaimer This chart was dictated in whole or in part using Voice Recognition software in a busy, high-work load, and often noisy Emergency Department environment. It may contain unintended and wholly unrecognized errors or omissions. (CHIDI MILTON MD) LEWIS SO APRN Jul 28, 2021 18:50 CHIDI MILTON MD Jul 31, 2021 21:13
== END 2021-07-28 18:55 | disposition home or self-care (01) ==
LOC: ER 16:12
DX: U07.1 COVID-19 (principal); K21.9 Gastro-esophageal reflux disease without esophagitis; E03.9 Hypothyroidism, unspecified; Z87.891 Personal history of nicotine dependence; Z88.4 Allergy status to anesthetic agent; Z88.5 Allergy status to narcotic agent; Z88.8 Allergy status to other drugs, medicaments and biological substances
CPT/HCPCS: 71046; 99283; J1100

== ENCOUNTER 2021-09-28 11:39 | Emergency (ER) | payer OTHER ==
[~2021-09-28] VITALS: Ht 167.6 cm; Wt 66.2 kg
[~2021-09-28 11:39] MED LIST changes: -LURA40TA PO; +LURA40TA2 PO
[2021-09-28] MEDS ORDERED: IV NORMAL SALINE 1,000ML 1,000 ML IV SCH (12:00)
[2021-09-28] MEDS ORDERED: ONDANSETRON PF 4 MG/2 ML VIAL. IVP ONE (12:00)
--- NOTE | 2021-09-28 12:01 | PHYS DOC ---
Past History Past Medical History: Anxiety, Depression, GERD, Hypothyroid, Other Additional Past Medical Histor: C-diff,H pylori, bowel obstructions Past Surgical History: Cholecystectomy, , Gastric Bypass, Hysterectomy, Other Additional Past Surgical Histo: D&CX6 Smoking: Non-smoker, Quit Less Than 1 Year Alcohol Use: None Drug Use: None General Adult EDM: Chief Complaint: ABDOMINAL PAIN HPI: HPI: Patient is a 41-year-old female who presents to the emergency department for umbilical abdominal pain with nausea and diarrhea that started this afternoon. Patient reports that the symptoms started after she ate lunch around 10:00. She reports that she ate a pot pie. Patient rates her pain 8 out of 10. She describes it as a constant pain. She took Pepto and ibuprofen without relief in her symptoms. Patient has a history of chronic abdominal pain. She has a history of multiple abdominal surgeries including gastric bypass and bowel obstructions. Patient denies vomiting, fevers, urinary symptoms. Review of Systems: Review of Systems: Constitutional: See HPI GI: See HPI : See HPI Allergies: Allergies: Allergies Coded Allergies Type Severity Reaction Last Updated Verified butorphanol Allergy Intermediate Unknown 05/31/20 Yes morphine Allergy Mild Nausea and Vomiting 05/31/20 No lidocaine Allergy Unknown 07/27/20 Yes phentermine Allergy Unknown 05/31/20 Yes Physical Exam: PE: Constitutional: Well developed, well nourished, no acute distress, non-toxic appearance. [] HENT: Normocephalic, atraumatic, bilateral external ears normal, oropharynx moist, no oral exudates, nose normal. [] Eyes: PERRL, EOMI, conjunctiva normal, no discharge. [] Neck: Normal range of motion, no stridor Cardiovascular:Heart rate regular rhythm, no murmur [] Lungs & Thorax: Bilateral breath sounds clear to auscultation [] Abdomen: Bowel sounds normal, soft, no guarding or rigidity, epigastric and umbilical abdominal tenderness with palpation, no rebound tenderness, negative Rovsing sign, negative Brown sign,, no masses, no pulsatile masses. [] Skin: Warm, dry, no erythema, no rash. [] Back: Full range of motion Extremities: No tenderness, no cyanosis, no clubbing, ROM intact, no edema. [] Neurologic: Alert and oriented X 3, normal motor function, normal sensory function, no focal deficits noted. [] Psychologic: Affect normal, judgement normal, mood normal. [] Current Patient Data: Labs: Laboratory Tests Test 09/28/21 12:09 White Blood Count 6.9 x10^3/uL Red Blood Count 4.02 x10^6/uL Hemoglobin 13.2 g/dL Hematocrit 39.4 % Mean Corpuscular Volume 98 fL Mean Corpuscular Hemoglobin 33 pg Mean Corpuscular Hemoglobin Concent 34 g/dL Red Cell Distribution Width 12.7 % Platelet Count 367 x10^3/uL Neutrophils (%) (Auto) 74 % Lymphocytes (%) (Auto) 18 % Monocytes (%) (Auto) 5 % Eosinophils (%) (Auto) 2 % Basophils (%) (Auto) 2 % Neutrophils # (Auto) 5.1 x10^3uL Lymphocytes # (Auto) 1.2 x10^3/uL Monocytes # (Auto) 0.4 x10^3/uL Eosinophils # (Auto) 0.1 x10^3/uL Basophils # (Auto) 0.1 x10^3/uL Sodium Level 141 mmol/L Potassium Level 3.1 mmol/L Chloride Level 104 mmol/L Carbon Dioxide Level 25 mmol/L Anion Gap 12 Blood Urea Nitrogen 12 mg/dL Creatinine 0.7 mg/dL Estimated GFR (Cockcroft-Gault) 93.2 BUN/Creatinine Ratio 17 Glucose Level 85 mg/dL Calcium Level 8.6 mg/dL Total Bilirubin 0.7 mg/dL Aspartate Amino Transf (AST/SGOT) 21 U/L Alanine Aminotransferase (ALT/SGPT) 26 U/L Alkaline Phosphatase 57 U/L Total Protein 7.2 g/dL Albumin 4.0 g/dL Albumin/Globulin Ratio 1.3 Lipase 106 U/L Current Medications Medications (Trade) Dose Ordered Sig/Monica Route PRN Reason Start Time Stop Time Status Last Admin Dose Admin Sodium Chloride 1,000 ml @ 1,000 mls/hr Q1H IV 09/28/21 12:00 09/28/21 12:59 DC 09/28/21 12:18 Fentanyl Citrate (Fentanyl 2ml Vial) 50 mcg 1X ONCE IVP 09/28/21 12:00 09/28/21 12:03 DC 09/28/21 12:18 Ondansetron HCl (Zofran) 4 mg 1X ONCE IVP 09/28/21 12:00 09/28/21 12:03 DC 09/28/21 12:18 Iohexol (Omnipaque 300 Mg/ml) 75 ml 1X ONCE IV 09/28/21 12:15 09/28/21 12:16 DC 09/28/21 12:22 Info (Do NOT chart on this entry -- for MONITORING) 1 each PRN DAILY PRN MC SEE COMMENTS 09/28/21 12:15 09/30/21 12:14 Fentanyl Citrate (Fentanyl 2ml Vial) 50 mcg 1X ONCE IVP 09/28/21 13:15 09/28/21 13:16 UNV EKG: EKG: [] Radiology/Procedures: Radiology/Procedures: []PROCEDURE: CT ABD PELV W/ IV CONTRST ONLY EXAM: Abdomen and pelvis CT with intravenous contrast. HISTORY: Umbilical pain. TECHNIQUE: Computed tomographic images of the abdomen and pelvis were obtained following the administration of intravenous contrast. Multiplanar reformatting was performed. *One or more of the following individualized dose reduction techniques were u tilized for this examination: 1. Automated exposure control. 2. Adjustment of the mA and/or kV according to patient size. 3. Use of iterative reconstruction technique. COMPARISON: 06/18/2021. FINDINGS: Evaluation of the lower thorax is unremarkable. There is biliary ductal dilatation likely due to reservoir effect status post cholecystectomy. There are postoperative changes involving the stomach and small bowel. There is no evidence of bowel obstruction. There is no evidence of appendicitis. The cecu m is positioned within the right midabdomen, a normal variant. There is moderate colonic stool. The bladder is nearly empty. There are multiple ovarian follicles with a dominant right ovarian follicular cyst measuring 2.7 cm. There is a small amount of pelvic free fluid, within physiologic limits. The pancreas, spleen, adrenal glands and kidneys are unremarkable. The aorta is normal in caliber. There is no lymphadenopathy. There is no acute or suspicious osseous finding. Their is a transitional lumbosacral segment. There are hypoplastic T12 ribs. Based on the number of nonrib-bearing lumbar segments, the transitional segment is considered a sacralized L5 segment. Based on this numbering system, there is a grade 1 anterolisthesis with bilateral pars interarticularis defects at L4-L5. There is disc disease and endplate remodeling continuing to severe bilateral foraminal stenosis at this level. IMPRESSION: 1. Stable postoperative changes involving the stomach and small bowel. There is no evidence of bowel obstruction. 2. No evidence of appendicitis. 3. 2.7 cm dominant right ovarian follicular cyst and small amount of physiologic pelvic free fluid. 4. Biliary ductal dilatation, likely due to reservoir effect status post cholecystectomy. Electronically signed by: Aletha Jordan MD (09/28/2021 1:12 PM) [id number] DICTATED AND SIGNED BY: ALETHA JORDAN MD DATE: 09/28/21 0394 CC: VERNA AGUILAR DO; BALA JETT; JOE PIRES [employer] [place] ~ Heart Score: C/O Chest Pain: N/A Risk Factors: Risk Factors: DM, Current or recent (<one month) smoker, HTN, HLP, family history of CAD, obesity. Risk Scores: Score 0 - 3: 2.5% MACE over next 6 weeks - Discharge Home Score 4 - 6: 20.3% MACE over next 6 weeks - Admit for Clinical Observation Score 7 - 10: 72.7% MACE over next 6 weeks - Early Invasive Strategies Course & Med Decision Making: Course & Med Decision Making Pertinent Labs and Imaging studies reviewed. (See chart for details) [] Patient presents to the emergency department for umbilical abdominal pain with nausea and diarrhea that occurred after eating lunch. Patient has a history of chronic abdominal pain as well as bowel obstructions, gastric bypass, kidney stones and multiple abdominal surgeries. Work-up in the ER consisted of blood work, urinalysis and CT imaging of abdomen and pelvis. Patient treated with IV fluids, nausea medication and pain medication. Patient is requesting additional pain medication this was given to her. Her potassium was 3.1 and this was replaced in the emergency department. Remainder patient's lab work was unremarkable. Patient is requesting nausea and pain medication to go home with. Advised to increase her fluids, stick to a clear liquid diet or bland diet and avoid eating any spicy, greasy or fatty foods. Patient's vital signs are stable. Patient advised to follow-up with her primary care provider. I discussed with patient all findings and diagnostic testing as well as the need to follow-up with PCP for further evaluation and treatment or return to the ER if any new or worsening symptoms. Strict return precautions were also discussed at length. Patient voiced understanding and agreement with the plan. Patient is hemodynamically stable at the time of disposition. Dragon Disclaimer: Ana Maria Disclaimer: This electronic medical record was generated, in whole or in part, using a voice recognition dictation system. Departure Departure: Impression: Primary Impression: Abdominal pain Qualified Codes: R10.33 - Periumbilical pain Disposition: HOME / SELF CARE / HOMELESS Condition: GOOD Referrals: BALA JETT (PCP) Patient Instructions: Abdominal Pain (Nonspecific) Additional Instructions: You are seen in the emergency department today for abdominal pain, nausea and diarrhea after eating lunch. You are being discharged home with nausea medication that you can take as needed. You can take pepcid OTC. You are also being discharged home with pain medication that you can take as needed. This medication may cause sedation so do not take any need to be alert, driving a vehicle or with alcohol. Please stick to a clear liquid and bland diet. We recommend a brat diet which is bananas, rice, applesauce and toast. Avoid eating any spicy, greasy or fatty foods. It is possible that you are experiencing your symptoms due to what you ate or gastritis. He should start to feel better in the next 24 to 48 hours however if you do not feel better follow-up with your primary care provider. Return to the emergency department if you develop worsening of your abdominal pain, intractable nausea or vomiting, blood in your stools or vomit, high fevers refractory to treatment. Scripts Hydrocodone Bit/Acetaminophen (HYDROCODONE-APAP 5-325 ) 1 Each Tablet 1 TAB PO PRN Q6HRS PRN for PAIN for 2 Days, #8 TAB 0 Refills Prov: JOE PIRES APRN 09/28/21 Ondansetron (ONDANSETRON ODT) 4 Mg Tab.rapdis 1 TAB PO PRN Q6-8HRS for nausea for 7 Days, #28 TAB 0 Refills Prov: JOE PIRES APRN 09/28/21 JOE PIRES APRN Sep 28, 2021 12:01
[2021-09-28] MEDS ORDERED: CONTRAST GIVEN. MC PRN (12:15)
[2021-09-28] MEDS ORDERED: IOHEXOL 300 MG/ML 75 ML VIAL. IV ONE (12:15)
[2021-09-28 12:46] LABS: BASO # 0.1 x10^3/uL (0.0-0.2); BASO % 2 % (0-3); EOS # 0.1 x10^3/uL (0.0-0.7); EOS % 2 % (0-3); HEMATOCRIT 39.4 % (36.0-47.0); HEMOGLOBIN 13.2 g/dL (12.0-15.5); LYMPH # 1.2 x10^3/uL (1.0-4.8); LYMPH % 18 % (24-48); MEAN CORPUSCULAR HEMOGLOBIN 33 pg (25-35); MEAN CORPUSCULAR HGB CONC 34 g/dL (31-37); MEAN CORPUSCULAR VOLUME 98 fL (79-100); MONO # 0.4 x10^3/uL (0.0-1.1); MONO % 5 % (0-9); NEUT # 5.1 x10^3uL (1.8-7.7); NEUT % 74 % (31-73); PLATELET COUNT 367 x10^3/uL (140-400); RED BLOOD COUNT 4.02 x10^6/uL (3.50-5.40); RED CELL DISTRIBUTION WIDTH 12.7 % (11.5-14.5); WHITE BLOOD COUNT 6.9 x10^3/uL (4.0-11.0)
[2021-09-28 12:54] LABS: CALCIUM 8.6 mg/dL (8.5-10.1); CREATININE 0.7 mg/dL (0.6-1.0); GFR 93.2; POTASSIUM 3.1 mmol/L (3.5-5.1)
[2021-09-28 13:00] LABS: ALBUMIN/GLOBULIN RATIO 1.3 (1.0-1.7); TOTAL BILIRUBIN 0.7 mg/dL (0.2-1.0); TOTAL PROTEIN 7.2 g/dL (6.4-8.2)
--- NOTE | 2021-09-28 13:14 | RAD ---
EXAM: Abdomen and pelvis CT with intravenous contrast. HISTORY: Umbilical pain. TECHNIQUE: Computed tomographic images of the abdomen and pelvis were obtained following the administ ration of intravenous contrast. Multiplanar reformatting was performed. *One or more of the following individualized dose reduction techniques were utilized for this examina tion: 1. Automated exposure control. 2. Adjustment of the mA and/or kV according to patient size. 3. Use of iterative reconstruction technique. COMPARISON: 06/18/2021. FINDINGS: Evaluation of the lower thorax is unremarkable. There is biliary ductal dilatation likely d ue to reservoir effect status post cholecystectomy. There are postoperative changes involving the sto mach and small bowel. There is no evidence of bowel obstruction. There is no evidence of appendicitis . The cecum is positioned within the right midabdomen, a normal variant. There is moderate colonic st ool. The bladder is nearly empty. There are multiple ovarian follicles with a dominant right ovarian follicular cyst measuring 2.7 cm. There is a small amount of pelvic free fluid, within physiologic li mits. The pancreas, spleen, adrenal glands and kidneys are unremarkable. The aorta is normal in caliber. Th ere is no lymphadenopathy. There is no acute or suspicious osseous finding. Their is a transitional l umbosacral segment. There are hypoplastic T12 ribs. Based on the number of nonrib-bearing lumbar segm ents, the transitional segment is considered a sacralized L5 segment. Based on this numbering system, there is a grade 1 anterolisthesis with bilateral pars interarticularis defects at L4-L5. There is d isc disease and endplate remodeling continuing to severe bilateral foraminal stenosis at this level. IMPRESSION: 1. Stable postoperative changes involving the stomach and small bowel. There is no evidence of bowel obstruction. 2. No evidence of appendicitis. 3. 2.7 cm dominant right ovarian follicular cyst and small amount of physiologic pelvic free fluid. 4. Biliary ductal dilatation, likely due to reservoir effect status post cholecystectomy. Electronically signed by: Aletha Mike MD (09/28/2021 1:12 PM) [id number]
[2021-09-28 13:23] LABS: BACTERIA,URINE MOD /HPF (0-FEW); CLARITY,URINE HAZY; COLOR,URINE YELLOW; GLUCOSE,URINE NEG (NEG); NITRITE,URINE NEG (NEG); SQUAMOUS EPITHELIAL CELL,UR MANY /LPF; UROBILINOGEN,URINE 0.2 mg/dL (0.2 mg/dL)
[2021-09-28] MEDS ORDERED: POTASSIUM CHLORIDE 20 MEQ TABLET.ER. PO ONE (13:30)
[2021-09-28] MEDS ORDERED: HYDR-2155 PO (13:34)
[2021-09-28] MEDS ORDERED: ONDA4TAB12 PO (13:34)
== END 2021-09-28 13:45 | disposition home or self-care (01) ==
LOC: ER 11:39
DX: R10.33 Periumbilical pain (principal); R11.0 Nausea; R19.7 Diarrhea, unspecified; G89.29 Other chronic pain; K21.9 Gastro-esophageal reflux disease without esophagitis; E03.9 Hypothyroidism, unspecified; Z90.49 Acquired absence of other specified parts of digestive tract; Z98.890 Other specified postprocedural states; Z98.84 Bariatric surgery status; Z90.710 Acquired absence of both cervix and uterus; Z87.891 Personal history of nicotine dependence; Z88.8 Allergy status to other drugs, medicaments and biological substances; Z88.5 Allergy status to narcotic agent; Z88.4 Allergy status to anesthetic agent
CPT/HCPCS: 36415; 74177; 80053; 81001; 83690; 85025; 87086; 96361; 96374; 96375; 99285; J2405; J3010; J7030; Q9967

== ENCOUNTER 2021-11-04 23:09 | Emergency (ER) | payer OTHER ==
[~2021-11-04] VITALS: Ht 167.6 cm; Wt 66.2 kg
[~2021-11-04 23:09] MED LIST changes: +HYDR-2155 PO
--- NOTE | 2021-11-04 23:13 | PHYS DOC ---
Past History Past Medical History: Anxiety, Constipation, Depression, GERD, Hypothyroid, Other Additional Past Medical Histor: C-diff,H pylori, bowel obstructions Past Surgical History: Cholecystectomy, , Gastric Bypass, Hysterectomy, Other Additional Past Surgical Histo: D&CX6 Smoking: Non-smoker, Quit Less Than 1 Year Alcohol Use: None Drug Use: None General Adult HPI: HPI: ".. I ve been having abdomen pain.. nausea and vomiting all day.. " Patient is a 41 year old female who presents with above hx and complaints generalized abdomen pain with nausea and vomiting. Patient has been ill all day. No recent travel. No history of trauma. Denies bad food intake. However states that she is suspicious that the boiled eggs that she has been eating may have upset her stomach. Because the cat ate the same vitamin and became sick. Patient has significant medical history of IBS, kidney stones, pancreatitis, idiopathic abdomen pain, gastroesophageal reflux, hypothyroidism. Patient has had several abdomen surgeries since including cholecystectomy, C-sections, gastric bypass, hysterectomy. Review of Systems: Review of Systems: Constitutional: Denies fever or chills Eyes: Denies change in visual acuity HENT: Denies nasal congestion or sore throat Respiratory: Denies cough or shortness of breath Cardiovascular: Denies chest pain or edema GI: Complains of abdominal pain, nausea, vomiting,. Denies bloody stools or diarrhea : Denies dysuria Musculoskeletal: Denies back pain or joint pain Integument: Denies rash Neurologic: Denies headache, focal weakness or sensory changes Endocrine: Denies polyuria or polydipsia Lymphatic: Denies swollen glands Psychiatric: Denies depression or anxiety Family History: Family History: Noncontributory to presentation. Current Medications: Current Meds: See nursing for home meds Allergies: Allergies: Allergies Coded Allergies Type Severity Reaction Last Updated Verified butorphanol Allergy Intermediate Unknown 05/31/20 Yes morphine Allergy Mild Nausea and Vomiting 05/31/20 No lidocaine Allergy Unknown 07/27/20 Yes phentermine Allergy Unknown 05/31/20 Yes Physical Exam: PE: Constitutional: Moderate acute distress, non-toxic appearance. [] HENT: Normocephalic, atraumatic, bilateral external ears normal, oropharynx moist, no oral exudates, nose normal. [] Eyes: PERRLA, EOMI, conjunctiva normal, no discharge. [] Neck: Normal range of motion, no tenderness, supple, no stridor. [] Cardiovascular:Heart rate regular rhythm, no murmur [] Lungs & Thorax: Bilateral breath sounds clear to auscultation [] Abdomen: Bowel sounds normal, soft, has some generalized abdomen pain and tenderness, no masses, no pulsatile masses. Mild distention. [] Multiple surgery scars. No focal areas of rebound Skin: Warm, dry, no erythema, no rash. [] Back: No tenderness, no CVA tenderness. [] Extremities: No tenderness, no cyanosis, no clubbing, ROM intact, no edema. [] No psoas sign. Neurologic: Alert and oriented X 3, normal motor function, normal sensory function, no focal deficits noted. [] Psychologic: Affect normal, judgement normal, mood normal. [] EKG: EKG: My interpretation EKG shows a sinus rhythm at 91 bpm. No acute morphology. Time of EKG is 00 05 minutes [] Radiology/Procedures: Radiology/Procedures: [][address] [address] IMAGING REPORT Signed PATIENT: JOY LEE ACCOUNT: [id number] : 1980 LOCATION: ER AGE: 41 SEX: F EXAM STATUS: REG ER ORD. PHYSICIAN: CHIDI MILTON MD REASON: n/v hx of exp. covid last week with son PROCEDURE: ACUTE ABDOMEN SERIES INDICATION: Reason: n/v hx of exp. covid last week with son / Spl. Instructions: / History: COMPARISON: September 28, 2021 CT IMPRESSION: 3 views of the chest and abdomen obtained. Cardiac silhouette is unremarkable. No focal airspace consolidation to suggest pneumonia. Surgical clips right upper quadrant of the abdomen could be from post cholecystectomy. Large amount of stool is seen throughout the colon with air-filled distended appearance of the colon. Could be secondary to causes such as constipation or colonic ileus. These loops of bowel measure up to 92 mm in diameter. Electronically signed by: Miller Simpson MD (11/05/2021 12:01 AM) [employer] HROP- [id number] DICTATED AND SIGNED BY: MILLER SIMPSON MD DATE: 11/04/21 5511 CC: CHIDI MILTON MD; BALA JETT ~ Heart Score: C/O Chest Pain: N/A Risk Factors: Risk Factors: DM, Current or recent (<one month) smoker, HTN, HLP, family history of CAD, obesity. Risk Scores: Score 0 - 3: 2.5% MACE over next 6 weeks - Discharge Home Score 4 - 6: 20.3% MACE over next 6 weeks - Admit for Clinical Observation Score 7 - 10: 72.7% MACE over next 6 weeks - Early Invasive Strategies Course & Med Decision Making: Course & Med Decision Making Pertinent Labs and Imaging studies reviewed. (See chart for details) Pt. report resolution of her abdomen discomfort. Requesting discharge,. Patient stay on a clear fluid diet only for the next 48 hours. No milk products. No solids. Must allow bowel rest. Push fluids. Push clear fluids such as apple juice, grape juice, Pedialyte, Gatorade, popsicles, Jell-O, sweet tea, 7-Up, etc. Take Tylenol and ibuprofen discomfort. Follow-up primary care. Return if any concerns. Impression; 1. Abdomen pain 2. Constipation 3. History of IBS 4. History of multiple abdomen surgeries 5. Drug screen + Methamphetamine [] Dragon Disclaimer: Dragon Disclaimer: This electronic medical record was generated, in whole or in part, using a voice recognition dictation system. Departure Departure: Referrals: BALA JETT (PCP) Dragon Disclaimer This chart was dictated in whole or in part using Voice Recognition software in a busy, high-work load, and often noisy Emergency Department environment. It may contain unintended and wholly unrecognized errors or omissions. CHIDI MILTON MD Nov 04, 2021 23:13
[2021-11-04] MEDS: ONDANSETRON PF 4 MG/2 ML VIAL. IVP ONE (23:50)
[2021-11-04] MEDS: IV RINGERS SOLUTION,LACTATED 1,000 ML IV SCH (23:50)
[2021-11-04] MEDS: FAMOTIDINE 20 MG/2 ML VIAL IVP ONE (23:50)
[2021-11-04] MEDS: KETOROLAC 30 MG/ML VIAL. IVP ONE (23:51)
[2021-11-04] MEDS: PANTOPRAZOLE IV 40 MG VIAL. IVP ONE (23:51)
--- NOTE | 2021-11-05 00:04 | RAD ---
INDICATION: Reason: n/v hx of exp. covid last week with son / Spl. Instructions: / History: COMPARISON: September 28, 2021 CT IMPRESSION: 3 views of the chest and abdomen obtained. Cardiac silhouette is unremarkable. No focal airspace consolidation to suggest pneumonia. Surgical clips right upper quadrant of the abdomen could be from post cholecystectomy. Large amount of stool is seen throughout the colon with air-filled distended appearance of the colon. Could be secondary to causes such as constipation or colonic ileus. These loops of bowel measure up to 92 mm in diameter. Electronically signed by: Jake Simpson MD (11/05/2021 12:01 AM) [id number]
--- NOTE | 2021-11-05 00:21 | EKG ---
[address] [address] Test Date: 2021-11-05 Test Time: 00:05:47 Pat Name: JOY LEE Department: Room: Gender: F [employer]: : 1980 Requested By: CHIDI MILTON Order Number: [id number] Reading MD: Len Figueroa Measurements Intervals [place] Rate: 91 P: 85 CO: 154 QRS: 27 QRSD: 88 T: 32 QT: 370 QTc: 457 Interpretive Statements SINUS RHYTHM MILD NON SPECIFIC ST CHANGES Electronically Signed On 11-09-2021 17:42:37 CDT by Len Figueroa
[2021-11-05 00:43] LABS: BASO % 0 % (0-3); EOS # 0.1 x10^3/uL (0.0-0.7); EOS % 1 % (0-3); HEMATOCRIT 37.2 % (36.0-47.0); HEMOGLOBIN 12.5 g/dL (12.0-15.5); LYMPH # 0.3 x10^3/uL (1.0-4.8); LYMPH % 4 % (24-48); MEAN CORPUSCULAR HEMOGLOBIN 33 pg (25-35); MEAN CORPUSCULAR HGB CONC 34 g/dL (31-37); MEAN CORPUSCULAR VOLUME 99 fL (79-100); MONO # 0.4 x10^3/uL (0.0-1.1); MONO % 5 % (0-9); NEUT # 7.1 x10^3uL (1.8-7.7); NEUT % 90 % (31-73); PLATELET COUNT 284 x10^3/uL (140-400); RED BLOOD COUNT 3.76 x10^6/uL (3.50-5.40); RED CELL DISTRIBUTION WIDTH 12.9 % (11.5-14.5); WHITE BLOOD COUNT 7.9 x10^3/uL (4.0-11.0)
[2021-11-05 00:47] LABS: ANION GAP 9 (6-14); BLOOD UREA NITROGEN 14 mg/dL (7-20); CALCIUM 8.4 mg/dL (8.5-10.1); CARBON DIOXIDE 23 mmol/L (21-32); CHLORIDE 106 mmol/L (98-107); CREATININE 0.7 mg/dL (0.6-1.0); GFR 93.2; GLUCOSE 120 mg/dL (70-99); POTASSIUM 3.9 mmol/L (3.5-5.1); SODIUM 138 mmol/L (136-145)
[2021-11-05 01:03] LABS: ALBUMIN 3.6 g/dL (3.4-5.0); ALK PHOS 53 U/L (46-116); ALT (SGPT) 33 U/L (14-59); AST (SGOT) 24 U/L (15-37); DIRECT BILIRUBIN 0.1 mg/dL (0.0-0.2); LIPASE 89 U/L (73-393); TOTAL BILIRUBIN 0.9 mg/dL (0.2-1.0); TOTAL PROTEIN 6.4 g/dL (6.4-8.2)
[2021-11-05] MEDS: diphenhydrAMINE 50 MG/ML VIAL IVP ONE (01:04)
[2021-11-05] MEDS: PROCHLORPERAZINE 10 MG/2 ML VIAL. IV ONE (01:04)
[2021-11-05 01:22] LABS: BARBITURATES NEG (NEG); BENZODIAZEPINES NEG (NEG); CANNABINOIDS NEG (NEG); COCAINE NEG (NEG); METHADONE NEG (NEG); OPIATES NEG (NEG); PHENCYCLIDINE NEG (NEG)
[2021-11-05 01:27] LABS: INFLUENZA A PATIENT NEGATIVE (NEGATIVE); INFLUENZA B PATIENT NEGATIVE (NEGATIVE)
[2021-11-05] MEDS ORDERED: MAGNESIUM HYDROXIDE 2,400 MG/30 ML ORAL.SUSP. PO ONE (01:30)
[2021-11-05 01:33] LABS: BACTERIA,URINE FEW /HPF (0-FEW); CLARITY,URINE CLEAR; COLOR,URINE YELLOW; GLUCOSE,URINE NEG (NEG); NITRITE,URINE NEG (NEG); RBC,URINE 0 /HPF (0-2); SQUAMOUS EPITHELIAL CELL,UR MOD /LPF; UROBILINOGEN,URINE 0.2 mg/dL (0.2 mg/dL); WBC,URINE OCC /HPF (0-4)
[2021-11-05 01:34] LABS: AMPHETAMINE/METHAMPHETAMINE POS (NEG)
[2021-11-05 02:25] VITALS: BP 112/67
== END 2021-11-05 02:34 | disposition home or self-care (01) ==
LOC: ER 23:09
DX: K59.00 Constipation, unspecified (principal); Z88.6 Allergy status to analgesic agent; Z88.8 Allergy status to other drugs, medicaments and biological substances; Z90.49 Acquired absence of other specified parts of digestive tract; Z90.710 Acquired absence of both cervix and uterus; Z87.891 Personal history of nicotine dependence; Z20.822 Contact with and (suspected) exposure to COVID-19
CPT/HCPCS: 36415; 74022; 80048; 80076; 80307; 81001; 82553; 83690; 84484; 85025; 85610; 85730; 87428; 93005; 96361; 96374; 96375; 99285; C9113; J0780; J1200; J1885; J2405; J3490; J7120